=== PATIENT | female | born 1990 | race African-American/Black ===

== ENCOUNTER 2020-07-22 08:44 | Outpatient (REF) | payer MEDICAID, SELFPAY | END 2020-07-22 08:45 | disposition home or self-care (01) | LOC: HO.LAB 08:44 | PROVIDERS: PCP Family Medicine; Visit Provider Internal Medicine | DX: Z20.828 Contact with and (suspected) exposure to other viral communicable diseases (principal) | CPT/HCPCS: C9803; U0003 ==

== ENCOUNTER 2020-07-29 15:00 | Outpatient (REF) | payer MEDICAID, SELFPAY | END 2020-07-29 15:01 | disposition home or self-care (01) | LOC: HO.LAB 15:00 | PROVIDERS: PCP Family Medicine; Visit Provider Internal Medicine | DX: Z20.828 Contact with and (suspected) exposure to other viral communicable diseases (principal) | CPT/HCPCS: C9803; U0003 ==

== ENCOUNTER 2021-01-24 23:47 | Emergency (ER) | payer MEDICAID, SELFPAY ==
--- NOTE | ~2021-01-24 | CT_ITS ---
EXAMINATION: CT ABDOMEN AND PELVIS WITH CONTRAST CLINICAL INFORMATION: Severe epigastric pain COMPARISON: 05/13/2016 TECHNIQUE: Multidetector volumetric images were obtained from the superior aspect of the liver through the pubic symphysis following administration 85 mL of Omnipaque 350 intravenous contrast. Sagittal and coronal reformatted images were obtained on the technologist's workstation. Oral contrast: No This CT examination was performed using dose optimization techniques as appropriate, variously including the following: *Automated exposure control *Adjustment of mA and/or kV according to patient size (this includes techniques or standardized protocols for targeted exams where dose is matched to indication/reason for exam; i.e. extremities or head) *Use of iterative reconstruction technique DLP: 795 mGy-cm FINDINGS: LUNG BASES: The visualized lung bases are unremarkable. LIVER, GALLBLADDER, AND BILIARY TREE: The liver is normal in size, shape, and attenuation. No focal hepatic lesion or biliary ductal dilatation is present. The gallbladder is contracted with no evidence of radiopaque gallstones, gallbladder wall thickening, or obvious pericholecystic inflammatory changes. PANCREAS: Unremarkable. SPLEEN: Unremarkable. ADRENAL GLANDS: Unremarkable. KIDNEYS AND URETERS: The kidneys are normal in size, shape, and attenuation. No hydronephrosis, hydroureter, or calculi seen. No perinephric stranding. BLADDER: Unremarkable. GASTROINTESTINAL TRACT: Small hiatal hernia. The stomach is unremarkable. Normal caliber small bowel. There is no obstruction. Normal appendix. Mild colonic stool burden. No colonic wall thickening or acute inflammatory change. No free air. No free fluid. ABDOMINAL WALL: No significant hernia is appreciated. LYMPH NODES: Normal. VASCULAR: Unremarkable. PELVIC VISCERA: Anteverted uterus with IUD in place. No adnexal mass. OSSEOUS STRUCTURES: No acute or suspicious osseous abnormality. CT/CT abdomen pelvis w con IMPRESSION: No acute findings in the abdomen or pelvis. No inflammatory changes.
[2021-01-25 00:04] VITALS: BP 112/63; PULSE 80; RESP 18; TEMP 36.6; O2SAT 99; BMI 32.9
[2021-01-25 00:24] LABS: MANUAL DIFF FLAG NO
[2021-01-25 00:30] LABS: Basophils Percent Auto 0.1 % (0-2); Eosinophils Absolute Auto 0.2 X10*3/uL (0.0-0.4); Eosinophils Percent Auto 1.8 % (0-4); Hematocrit 32.9 % (37-47); Hemoglobin 10.4 g/dl (12.0-16.0); Imm Gran Abs Auto 0.03 X10*3/uL (0.00-0.03); Imm Gran Pct Auto 0.4 % (0.0-0.4); Lymphocytes Absolute Auto 2.8 X10*3/uL (1.2-4.9); Lymphocytes Percent Auto 33.5 % (20-40); Mean Corpuscular HGB Conc 31.6 g/dl (31.0-35.0); Mean Corpuscular Hemoglobin 28.7 pg (27.0-33.0); Mean Corpuscular Volume 90.6 fL (80-98); Mean Platelet Volume 10.6 fL (9.4-12.3); Monocytes Absolute Auto 0.5 X10*3/uL (0.1-1.2); Monocytes Percent Auto 5.7 % (2-11); Neutrophils Absolute Auto 4.8 X10*3/uL (2.0-8.3); Neutrophils Percent Auto 58.5 % (45-73); Platelet Count 258 X10*3/uL (160-400); Red Blood Count 3.63 X10*6/uL (4.20-5.50); Red Cell Distribution Width 12.9 % (11.0-16.0); White Blood Count 8.3 X10*3/uL (4.8-10.8)
[2021-01-25 00:38] VITALS: BP 119/71; PULSE 78; RESP 16; TEMP 36.8; O2SAT 99
[2021-01-25 00:53] LABS: Alanine Aminotransferase 10 U/L (0-31); Albumin Level 3.5 g/dL (3.5-5.0); Alkaline Phosphatase 73 U/L (39-117); Anion Gap 11 (12-20); Aspartate Amino Transferase 11 U/L (5-31); Bilirubin Total 0.2 mg/dL (0.0-1.0); Blood Urea Nitrogen 12 mg/dL (9-16); Calcium 8.2 mg/dL (8.4-10.2); Carbon Dioxide 24 mmol/L (22-29); Chloride 108 mmol/L (96-108); Creatinine Clr Calc Pharmacy 92.9; Estimated Glomerular Filt Rate > 60; Glucose Random 119 mg/dL (60-115); Potassium 3.4 mmol/L (3.3-5.1); Sodium 140 mmol/L (135-145); Total Protein 6.3 g/dL (6.5-8.0)
[2021-01-25 00:57] LABS: Glucose Urine UA NEG (NEG); Leukocyte Esterase Urine NEG (NEG); Nitrite Urine NEG (NEG); Specific Gravity - Urine >= 1.030 (1.005-1.025); Urine Blood 3+ (NEG); Urine Ketones NEG (NEG); Urine Protein NEG (NEG-TRACE)
[2021-01-25 01:00] LABS: UPreg QC Valid YES; Urine Pregnancy NEGATIVE (NEGATIVE)
[2021-01-25 01:01] LABS: Appearance Urine CLEAR; Color Urine YELLOW
[2021-01-25 01:16] LABS: Bacteria Urine TRACE /LPF; Mucus Urine 1+ /LPF; Squamous Epithelial Cell Urine 1+ /LPF; WBC Urine 0-2 /HPF (0-4)
--- NOTE | 2021-01-25 01:27 | ED.ABDPAIN ---
HPI - Abdominal Pain General Chief Complaint: Abdominal Pain Stated Complaint: abdominal pain Time Seen by Provider: 01/25/21 00:35 Source: patient Mode of arrival: ambulatory History of Present Illness HPI narrative: This is a 30-year-old female with history of GERD and currently on Prilosec being followed by her primary care provider who presents with worsening epigastric pain but denies any vomiting or hematemesis and denies any melena or hematochezia. Patient states that she is now unable to even tolerate water because of the pain. Related Data Previous Rx's Medication Instructions Recorded sucralfate [Carafate] 10 ml PO BID #420 ml 01/25/21 Allergies Allergy/AdvReac Type Severity Reaction Status Date / Time pseudoephedrine Allergy Unknown UNKNOWN Unverified 05/19/20 17:30 [From [facility]] Review of Systems Review of Systems Pertinent positives and negatives as stated in HPI 10 point review of systems is otherwise negative. Physical Exam Vital Signs: Vital Signs: Last Vital Signs Temp 98.3 F 01/25/21 00:38 Pulse 78 01/25/21 00:38 Resp 16 01/25/21 00:38 BP 119/71 01/25/21 00:38 Pulse Ox 99 01/25/21 00:38 Body Mass Index 32.9 VITAL SIGNS: Reviewed. GENERAL: Well developed, well nourished, in no acute distress. HEAD: Normocephalic/atraumatic EYES: PERRLA, EOMI EARS: Ext canals without abnormality NOSE: Nares patent bilateral OROPHARYNX: no oral lesions noted, posterior pharynx clear NECK: Supple, no adenopathy LUNGS: Normal breath sounds. No adventitious sounds or accessory muscle use. SpO2<99> CARDIOVASCULAR: Regular rate and rhythm without noted murmurs ABDOMEN: Soft, tenderness to palpation over epigastric, non-distended with bowel sounds. Course Course Course Narrative: This is a 30-year-old female with history and clinical presentation consistent with GERD and likely gastritis but suspect more like a ulcer. Review of all investigations is negative for any acute findings and on re-evaluation after patient received GI cocktail as well as Carafate she continues to have pain. She was then provided with a combination of Tylenol and Toradol and on re-evaluation had improvement. She was instructed to follow-up with her primary care provider and discussed a GI referral to further evaluate her symptoms. [facility] - Abdominal Pain Lab Data Result diagrams: 01/25/21 00:19 01/25/21 00:19 Labs: Lab Results 01/25/21 01/25/21 01/25/21 Range/Units 00:19 00:19 00:19 WBC 8.3 (4.8-10.8) X10*3/uL RBC 3.63 L (4.20-5.50) X10*6/uL Hgb 10.4 L (12.0-16.0) g/dl Hct 32.9 L (37-47) % MCV 90.6 (80-98) fL MCH 28.7 (27.0-33.0) pg MCHC 31.6 (31.0-35.0) g/dl RDW 12.9 (11.0-16.0) % Plt Count 258 (160-400) X10*3/uL MPV 10.6 (9.4-12.3) fL Immature Gran % (Auto) 0.4 (0.0-0.4) % Neut % (Auto) 58.5 (45-73) % Lymph % (Auto) 33.5 (20-40) % [place] % (Auto) 5.7 (2-11) % Eos % (Auto) 1.8 (0-4) % Baso % (Auto) 0.1 (0-2) % Lymph # (Auto) 2.8 (1.2-4.9) X10*3/uL [place] # (Auto) 0.5 (0.1-1.2) X10*3/uL Eos # (Auto) 0.2 (0.0-0.4) X10*3/uL Baso # (Auto) 0.0 (0.0-0.2) X10*3/uL Abs Immat Gran (auto) 0.03 (0.00-0.03) X10*3/uL Absolute Neuts (auto) 4.8 (2.0-8.3) X10*3/uL Absolute Nucleated RBC 0.000 (0.0-0.012) X10*3/uL Nucleated RBC % (auto) 0.0 (0.0-0.2) /100WBC Sodium 140 (135-145) mmol/L Potassium 3.4 (3.3-5.1) mmol/L Chloride 108 (96-108) mmol/L Carbon Dioxide 24 (22-29) mmol/L Anion Gap 11 L (12-20) BUN 12 (9-16) mg/dL Creatinine 0.86 (0.5-1.4) mg/dL Estim Creat Clear Calc 92.9 Estimated GFR > 60 Random Glucose 119 H (60-115) mg/dL Calcium 8.2 L (8.4-10.2) mg/dL Total Bilirubin 0.2 (0.0-1.0) mg/dL AST 11 (5-31) U/L ALT 10 (0-31) U/L Alkaline Phosphatase 73 (39-117) U/L Total Protein 6.3 L (6.5-8.0) g/dL Albumin 3.5 (3.5-5.0) g/dL Lipase 25 (8-78) U/L Urine Color YELLOW Urine Appearance CLEAR Urine pH 6.0 (5.0-8.0) Ur Specific [place] >= 1.030 H (1.005-1.025) Urine Protein NEG (NEG-TRACE) MG/DL Urine Glucose (UA) NEG (NEG) MG/DL Urine Ketones NEG (NEG) MG/DL Urine Blood 3+ H (NEG) Urine Nitrite NEG (NEG) Ur Leukocyte Esterase NEG (NEG) Urine RBC 15-29 H (0) /HPF Urine WBC 0-2 (0-4) /HPF Ur Squamous Epith Cells 1+ /LPF Urine Bacteria TRACE /LPF Urine Mucus 1+ /LPF Urine Test (NEGATIVE) 01/25/21 Range/Units 00:19 WBC (4.8-10.8) X10*3/uL RBC (4.20-5.50) X10*6/uL Hgb (12.0-16.0) g/dl Hct (37-47) % MCV (80-98) fL MCH (27.0-33.0) pg MCHC (31.0-35.0) g/dl RDW (11.0-16.0) % Plt Count (160-400) X10*3/uL MPV (9.4-12.3) fL Immature Gran % (Auto) (0.0-0.4) % Neut % (Auto) (45-73) % Lymph % (Auto) (20-40) % [place] % (Auto) (2-11) % Eos % (Auto) (0-4) % Baso % (Auto) (0-2) % Lymph # (Auto) (1.2-4.9) X10*3/uL [place] # (Auto) (0.1-1.2) X10*3/uL Eos # (Auto) (0.0-0.4) X10*3/uL Baso # (Auto) (0.0-0.2) X10*3/uL Abs Immat Gran (auto) (0.00-0.03) X10*3/uL Absolute Neuts (auto) (2.0-8.3) X10*3/uL Absolute Nucleated RBC (0.0-0.012) X10*3/uL Nucleated RBC % (auto) (0.0-0.2) /100WBC Sodium (135-145) mmol/L Potassium (3.3-5.1) mmol/L Chloride (96-108) mmol/L Carbon Dioxide (22-29) mmol/L Anion Gap (12-20) BUN (9-16) mg/dL Creatinine (0.5-1.4) mg/dL Estim Creat Clear Calc Estimated GFR Random Glucose (60-115) mg/dL Calcium (8.4-10.2) mg/dL Total Bilirubin (0.0-1.0) mg/dL AST (5-31) U/L ALT (0-31) U/L Alkaline Phosphatase (39-117) U/L Total Protein (6.5-8.0) g/dL Albumin (3.5-5.0) g/dL Lipase (8-78) U/L Urine Color Urine Appearance Urine pH (5.0-8.0) Ur Specific [place] (1.005-1.025) Urine Protein (NEG-TRACE) MG/DL Urine Glucose (UA) (NEG) MG/DL Urine Ketones (NEG) MG/DL Urine Blood (NEG) Urine Nitrite (NEG) Ur Leukocyte Esterase (NEG) Urine RBC (0) /HPF Urine WBC (0-4) /HPF Ur Squamous Epith Cells /LPF Urine Bacteria /LPF Urine Mucus /LPF Urine Test NEGATIVE (NEGATIVE) Discharge Plan Discharge Clinical Impression: Gastritis, Gastroesophageal reflux disease Patient Disposition: Home, Self-Care Instructions: Gastritis (ED), Diet for Stomach Ulcers and Gastritis (ED), Gastroesophageal Reflux Disease (ED) Additional Instructions: Follow-up with your primary care provider in the next 1-2 days for further re-evaluation and outpatient management of your symptoms. You need it began drinking a lot more water as the medication your getting a prescription for can create constipation. Return to the ER for any acute worsening of her symptoms. Prescriptions: New sucralfate [Carafate] 100 mg/mL suspension 10 ml PO BID Qty: 420 RF: 0 Referrals: Samira Michael MD [Primary Care Provider] - 2 days (Re-evaluation for gastritis versus ulcer. Started on Carafate b.i.d..) [facility] Past Medical History Source: nursing notes reviewed Medical History Acid reflux Asthma Social History Social History Alcohol intake: current Alcohol intake frequency: holidays/special occasions only Smoking Status: Never smoker Use of substances other than those prescribed or required for medical reasons: No Advance Directives: No Patient : No
[2021-01-25] MEDS: Lidocaine HCl Viscous 2 % 15 ML SOLUTION 10 ML MUCOUS MEM (01:39)
[2021-01-25] MEDS: Magnesium Hydrox/Alum Hydrox 30 ML ORAL.SUSP PO (01:39)
[2021-01-25] MEDS: Sucralfate Oral Suspension 1 GM/10 ML ORAL.SUSP PO (02:34)
[2021-01-25 02:54] LABS: Lipase 25 U/L (8-78)
[2021-01-25] MEDS: iohexoL 350 MG/ML 100 ML INFUS..BTL 85 ML IV (03:52)
[2021-01-25] MEDS: Acetaminophen 325 MG TABLET 650 MG PO (05:09)
[2021-01-25] MEDS: Ketorolac Tromethamine 15 MG/ML VIAL IVPUSH (05:11)
== END 2021-01-25 05:57 | disposition home or self-care (01) ==
PROVIDERS: Emergency Provider Student in an Organized Health Care Education/Training Program; PCP Family Medicine
DX: R10.9 Unspecified abdominal pain (principal); K29.70 Gastritis, unspecified, without bleeding; K21.9 Gastro-esophageal reflux disease without esophagitis; Z79.899 Other long term (current) drug therapy
CPT/HCPCS: 36415; 74177; 80053; 81001; 81003; 81025; 83690; 85025; 96365; 96375; 99284; J1885; Q9967

== ENCOUNTER → 2021-04-11 12:08 | Outpatient (BNVA) | payer MEDICAID, SELFPAY | PROVIDERS: Visit Provider Advanced Practice Midwife ==

== ENCOUNTER → 2021-04-21 08:38 | Outpatient (BNVA) | payer MEDICAID, SELFPAY | PROVIDERS: Visit Provider Advanced Practice Midwife | DX: Z30.432 Encounter for removal of intrauterine contraceptive device (principal) | CPT/HCPCS: 58301 ==

== ENCOUNTER → 2021-05-24 14:26 | Outpatient (BNVA) | payer MEDICAID, SELFPAY | PROVIDERS: Referring Provider Family Medicine; Visit Provider Nurse Practitioner Family | DX: K59.04 Chronic idiopathic constipation (principal); K21.9 Gastro-esophageal reflux disease without esophagitis | CPT/HCPCS: 99202 ==

== ENCOUNTER → 2021-06-15 09:39 | Outpatient (BNVA) | payer MEDICAID, SELFPAY | PROVIDERS: PCP Family Medicine; Visit Provider Advanced Practice Midwife | DX: Z32.02 Encounter for pregnancy test, result negative (principal); N92.6 Irregular menstruation, unspecified | CPT/HCPCS: 81025; 99212 ==

== ENCOUNTER 2021-07-03 07:21 | Outpatient (REF) | payer MEDICAID, SELFPAY ==
[2021-07-03 08:27] LABS: HCG Quantitative < 2 mIU/mL
== END 2021-07-03 07:22 | disposition home or self-care (01) ==
LOC: HO.LAB 07:21
PROVIDERS: Nurse Practitioner Family; PCP Family Medicine; Visit Provider Advanced Practice Midwife
DX: O26.90 Pregnancy related conditions, unspecified, unspecified trimester (principal); O26.899 Other specified pregnancy related conditions, unspecified trimester; K21.9 Gastro-esophageal reflux disease without esophagitis
CPT/HCPCS: 36415; 84702; 87338

== ENCOUNTER 2021-07-04 11:03 | Outpatient (REF) | payer MEDICAID, SELFPAY ==
--- NOTE | ~2021-07-04 | US_ITS ---
EXAMINATION: US OBSTETRICAL ULTRASOUND CLINICAL INFORMATION: Spotting and cramping. Question early spontaneous . COMPARISON: None. LMP: 04/06/2021 Gestational age by maternal dates is 12 weeks 5 days. Estimated date of delivery by maternal dates is 01/11/2022. TECHNIQUE: Transabdominal and transvaginal pelvic ultrasound was performed. Transvaginal exam was performed for better visualization of the endometrium FINDINGS: The uterus is anteverted and measures 8.3 x 4.4 x 5.2 cm in dimension. Endometrial thickness measures 0.9 cm and is slightly heterogeneous appearing. The endometrium does not appear hypervascular. No intrauterine is seen. The cervix is normal. The right ovary measures 3.7 x 2.3 x 3.9 cm. There is a 1.5 x 1.9 x 1.7 cm simple appearing cyst in the right ovary. There is a small 3 x 4 x 5 mm nonspecific echogenic focus in the right ovary. The left ovary is normal-appearing and measures 2.5 x 1.6 x 2.5 cm. There is no fluid in the pelvis. US/US OB pelvic and transvaginal IMPRESSION: No intrauterine seen. Slightly heterogeneous appearing avascular endometrium measuring 9 mm.
== END 2021-07-04 11:04 | disposition home or self-care (01) ==
LOC: HO.US 11:03
PROVIDERS: PCP Family Medicine; Visit Provider Advanced Practice Midwife
DX: O26.859 Spotting complicating pregnancy, unspecified trimester (principal); Z3A.00 Weeks of gestation of pregnancy not specified
CPT/HCPCS: 76801; 76817

== ENCOUNTER 2021-09-03 21:59 | Emergency (ER) | payer MEDICAID, SELFPAY ==
--- NOTE | ~2021-09-03 | XR_ITS ---
EXAMINATION: XR CHEST CLINICAL INFORMATION: Cough, chest pain and shortness of breath. COMPARISON: Chest radiograph dated from 10/05/2019. TECHNIQUE: 2 views of the chest were obtained. FINDINGS: No significant abnormality is noted involving the heart, lungs, mediastinum, bony thorax or soft tissues. XR/XR chest 2V IMPRESSION: Unremarkable examination.
[2021-09-03 22:03] VITALS: BP 148/91; PULSE 117; RESP 20; TEMP 36.8; O2SAT 100; BMI 34.7
--- NOTE | 2021-09-03 22:07 | ECG_ITS ---
Test Reason : chest tightness Blood Pressure : / mmHG Vent. Rate : 113 BPM Atrial Rate : 113 BPM P-R Int : 144 ms QRS Dur : 068 ms QT Int : 322 ms P-R-T Axes : 042 -02 022 degrees QTc Int : 441 ms Sinus tachycardia Otherwise normal ECG When compared with ECG of 05-OCT-2019 19:08, Vent. rate has increased BY 37 BPM Referred By: Generic ED Physician Electronically Signed By:JACINTO KISER MD
[2021-09-03 22:20] LABS: COVID-19 Test Positive (Negative)
[2021-09-04 00:36] VITALS: BP 137/80; PULSE 100; RESP 20; TEMP 37.6; O2SAT 100
[2021-09-04] MEDS: Acetaminophen 325 MG TABLET 975 MG PO (00:38)
--- NOTE | 2021-09-04 00:45 | ED.ANXIETY ---
HPI - Anxiety General Chief Complaint: Anxiety Stated Complaint: anxiety? chest pain, was covid + Time Seen by Provider: 09/04/21 00:20 Source: patient Mode of arrival: ambulatory Limitations: no limitations History of Present Illness HPI narrative: 31-year-old female here with reports of chest tightness with waking today. Patient also feels very anxious. She feels like her heart is racing. She any difficulty breathing, cough, fevers, chills, vomiting, diarrhea, abdominal pain. Her at home is COVID positive Related Data Home Medications Medication Instructions Recorded Confirmed cetirizine 10 mg tablet (Zyrtec) 10 mg PO DAILY PRN 04/11/21 Previous Rx's Medication Instructions Recorded vitamin with calcium 1 tab PO DAILY #30 tab 04/11/21 no.72-iron 27 mg-folic acid 1 mg tablet ( Vitamins Plus Low Iron) famotidine 20 mg tablet (Pepcid) 20 mg PO BEDTIME #30 tab 05/24/21 linaclotide 72 mcg capsule 72 mcg PO DAILY #30 cap 05/24/21 (Linzess) Allergies Allergy/AdvReac Type Severity Reaction Status Date / Time pseudoephedrine Allergy Unknown UNKNOWN Verified 09/03/21 22:03 [From [facility]] Review of Systems Review of Systems: Yes all other systems are reviewed and are negative Constitutional: Constitutional: Reports no additional constitutional complaints, Denies body ache(s), Denies chills, Denies fever(s), Denies headache(s) and Denies weakness Eyes: Eyes: Reports no additional eye complaints and Denies change in vision ENT: Reports system reviewed and no additional complaints, except as documented, Denies dizziness, Denies headache(s), Denies nasal congestion, Denies nasal discharge and Denies neck pain Cardiovascular: Cardiovascular: Reports no additional cardiovascular complaints, Reports chest pain, Denies leg edema, Reports palpitations and Denies dyspnea Respiratory: Respiratory: Reports no additional respiratory complaints, Denies cough and Denies dyspnea Gastrointestinal: Gastrointestinal: Reports no additional gastrointestinal complaints, Denies abdominal pain, Denies diarrhea, Denies nausea and Denies vomiting Genitourinary: Genitourinary: Reports no additional female genitourinary complaints and Denies urinary incontinence Musculoskeletal: Musculoskeletal: Reports no additional musculoskeletal complaints, Denies back pain, Denies arthralgias, Denies joint swelling, Denies neck pain, Denies numbness and Denies tingling Integumentary/Breasts: Skin/Breast: Reports system reviewed and no additional complaints, except as docu and Denies rash Neurologic: Reports system reviewed and no additional complaints, except as documented, Denies Abnormal speech present, Denies dizziness, Denies headache(s), Denies numbness, Denies tingling and Denies weakness Psychiatric: Psychiatric: Reports anxiety Endocrine: Endocrine: Reports palpitations PMFSH Past Medical History Attestation statement: The following information was validated with the patient. Source: old records reviewed and nursing notes reviewed Medical History Acid reflux Asthma IBS (irritable bowel syndrome) Surgical History Hx of colonoscopy Family History Family History Father Diabetes Mother Diabetes Social History Social History Alcohol intake: current Alcohol intake frequency: holidays/special occasions only Patient Tobacco Use Status: Never used Tobacco Advance Directives: No Advance Directives Information Provided: Yes Sexual orientation: Straight/Heterosexual Gender identity: Female Physical Exam Vital Signs: Vital Signs: Last Vital Signs Temp 99.7 F 09/04/21 00:36 Pulse 100 09/04/21 00:36 Resp 20 09/04/21 00:36 BP 137/80 09/04/21 00:36 Pulse Ox 100 09/04/21 00:36 BMI result Body Mass Index 34.7 Const: General: cooperative, healthy appearing, comfortable and no acute distress Orientation/consciousness: patient oriented x3 Limitations: no limitations HENMT: Head: Yes normal to inspection Ears: hearing grossly normal bilaterally General nose exam: Normal external nose present Face and sinus: Yes normal facial exam Mouth: Normal oral and palatal mucosa present Throat: Yes posterior oropharynx normal Eyes: General: appearance normal, both eyes and all related structures Pupils: Equal, round and reactive pupils present Neck: Neck: Yes normal visual inspection Chest: Chest palpation & inspection: normal inspection of the chest Resp: Effort & Inspection: normal respiratory effort Auscultation: clear to auscultation bilaterally Cardio: Rate: tachycardic (Mild) Rhythm: regular rhythm Peripheral pulses: Peripheral pulses 2+ throughout GI: Inspection: Yes normal to inspection Palpation (GI): Soft to palpation and nontender Auscultation: normal bowel sounds Back/Spine/Pelvis: Thoracic/Lumbar Spine: thoracic and lumbar spine normal to inspection Skin: General skin exam: no rashes or lesions noted Neuro: General: patient oriented x3, no focal motor deficits and normal sensation to monofilament Cranial nerves: Yes Equal, round and reactive pupils present Cognition (Neuro): normal cognition Speech: No Abnormal speech present Gait exam (Neuro): Normal gait present Motor exam (neuro): 5/5 motor strength present throughout Extrem: General: Yes normal to inspection, Yes no pedal edema and Yes no calf tenderness Course Course Course Narrative: 31-year-old female here with reports of chest tightness waking with some palpitations and feeling anxious. No other complaints. Has been at home is COVID positive. Patient has some mild tachycardia with a low-grade fever. Tachycardia is likely secondary to fever. Her vitals are otherwise unremarkable. Lungs are clear. Speaking full sentences. Will check chest x-ray, EKG. 0050-EKG shows no ischemic changes. There is some mild tachycardia which again is likely from fever and improved with resolved and of the fever here in the ER. Chest x-ray shows no acute finding. PERC 1 for tachycardia which is from fever. No other findings concerning for DVT. No OCP use, no recent travel or surgery. Reviewed worrisome signs and is with the patient when to return to the emergency department. Comfortable discharge home. MDM - Anxiety Medical Records Attestation: I reviewed the patient's medical records. Lab Data Attestation: I reviewed the patient's lab results. Labs: Lab Results 09/03/21 Range/Units 22:08 COVID-19 (ABEL) Positive A (Negative) COVID-19 Clin Com See Note Imaging Data Chest x-ray: Attestation: I personally reviewed and interpreted this imaging study as follows: Radiologist's impression: [address] [address] XRay Report Signed Patient: Dalia Freeman MR#: [id number] : 1990 Acct:[id number] Age/Sex: 31 / F ADM Date: 09/03/21 Loc: HO.ED Attending Dr: Ordering Physician: Afia Cedeno NP Date of Service: 09/04/21 Procedure(s): XR chest 2V Accession Number(s): [id number] cc: Afia Cedeno NP~ EXAMINATION: XR CHEST CLINICAL INFORMATION: Cough, chest pain and shortness of breath. COMPARISON: Chest radiograph dated from 10/05/2019. TECHNIQUE: 2 views of the chest were obtained. FINDINGS: No significant abnormality is noted involving the heart, lungs, mediastinum, bony thorax or soft tissues. XR/XR chest 2V IMPRESSION: Unremarkable examination. ECG Data Attestation: I personally reviewed and interpreted this ECG as follows: ECG interpretation date: 09/04/21 ECG interpretation time: 14:00 Interpretation: Sinus tachycardia with a rate of 113, normal UT, normal QRS normal QT Discharge Plan Discharge Clinical Impression: COVID-19 Patient Disposition: Home, Self-Care Instructions: COVID-19 (Coronavirus Disease 2019) (ED) Additional Instructions: Quarantine for total of 10 days from onset of sympoms. Alternate motrin or tylenol for pain or fever. Increase fluids, rest. Return for shortness of breath or chest pain. Prescriptions: No Action cetirizine [Zyrtec] 10 mg tablet 10 mg PO DAILY PRNRF: 0 Vitamin Plus Low Iron 27 mg iron- 1 mg tablet 1 tab PO DAILY Qty: 30 RF: 11 Linzess 72 mcg capsule 72 mcg PO DAILY Qty: 30 RF: 1 famotidine [Pepcid] 20 mg tablet 20 mg PO BEDTIME Qty: 30 RF: 3 Referrals: [facility] [Primary Care Provider] - 2 days Stand Alone Forms: Work/School Release Interventions: ED Discharge Assessment Last Done: 09/04/21 01:02 Discharge Date/Time: 09/04/21 01:03
== END 2021-09-04 01:03 | disposition home or self-care (01) ==
PROVIDERS: Emergency Provider Internal Medicine
DX: U07.1 COVID-19 (principal); J45.909 Unspecified asthma, uncomplicated
CPT/HCPCS: 36415; 71046; 87635; 93005; 99283; 99284

== ENCOUNTER → 2021-11-07 11:27 | Outpatient (BNVA) | payer MEDICAID, SELFPAY | PROVIDERS: PCP Family Medicine; Visit Provider Advanced Practice Midwife ==

== ENCOUNTER 2021-11-14 16:26 | Outpatient (REF) | payer MEDICAID, SELFPAY ==
--- NOTE | ~2021-11-14 | XR_ITS ---
EXAMINATION: LEFT FOOT AND LEFT ANKLE CLINICAL INFORMATION: Left foot pain COMPARISON: None TECHNIQUE: 3 views left foot and 3 views left ankle FINDINGS: LEFT FOOT: There is no visible acute fracture, dislocation or subluxation seen. The soft tissues are normal. LEFT ANKLE: The ankle mortise and subtalar joints are normal. There is small small calcaneal heel spur. There is mild lateral malleolar soft tissue swelling The ankle mortise and subtalar joints are normal. The soft tissues are normal. XR/XR foot LT min 3V IMPRESSION: Unremarkable left foot exam. Small calcaneal heel enthesophyte. Mild soft tissue swelling lateral malleolus likely ligamentous injury. No visible fracture.
--- NOTE | ~2021-11-14 | XR_ITS ---
EXAMINATION: LEFT FOOT AND LEFT ANKLE CLINICAL INFORMATION: Left foot pain COMPARISON: None TECHNIQUE: 3 views left foot and 3 views left ankle FINDINGS: LEFT FOOT: There is no visible acute fracture, dislocation or subluxation seen. The soft tissues are normal. LEFT ANKLE: The ankle mortise and subtalar joints are normal. There is small small calcaneal heel spur. There is mild lateral malleolar soft tissue swelling The ankle mortise and subtalar joints are normal. The soft tissues are normal. XR/XR ankle LT 2V IMPRESSION: Unremarkable left foot exam. Small calcaneal heel enthesophyte. Mild soft tissue swelling lateral malleolus likely ligamentous injury. No visible fracture.
== END 2021-11-14 16:27 | disposition home or self-care (01) ==
LOC: HO.XRAY 16:26
PROVIDERS: Absent Provider Family Medicine; PCP Family Medicine; Visit Provider Emergency Medicine
DX: M25.572 Pain in left ankle and joints of left foot (principal)
CPT/HCPCS: 73600; 73630

== ENCOUNTER 2021-12-07 08:24 | Outpatient (REF) | payer MEDICAID, SELFPAY ==
--- NOTE | ~2021-12-07 | XR_ITS ---
EXAMINATION: XR ANKLE, LEFT CLINICAL INFORMATION: Pain in the left ankle. COMPARISON: None TECHNIQUE: AP, lateral, and mortise views of the left ankle. FINDINGS: The ankle mortise and subtalar joints are normal. No visible acute fracture or dislocation seen. There is a small calcaneal heel enthesophyte. No visible acute fracture or dislocation seen. No soft tissue swelling. XR/XR ankle LT min 3V IMPRESSION: Small calcaneal heel enthesophyte. No visible acute fracture or dislocation seen.
== END 2021-12-07 08:25 | disposition home or self-care (01) ==
LOC: HO.XRAY 08:24
PROVIDERS: PCP Family Medicine; Visit Provider Family Medicine
DX: M25.572 Pain in left ankle and joints of left foot (principal)
CPT/HCPCS: 73610

== ENCOUNTER 2021-12-21 20:10 | Emergency (ER) | payer MEDICAID, SELFPAY ==
--- NOTE | ~2021-12-21 | XR_ITS ---
EXAMINATION: XR CHEST, 2 VIEWS CLINICAL INFORMATION: Chest pain. COMPARISON: 09/04/2021 TECHNIQUE: PA and lateral views of the chest were obtained. FINDINGS: Lung volumes are borderline low. No consolidation, pneumothorax, or pleural effusion. Cardiac and mediastinal contours are normal. Pulmonary vasculature is unremarkable. Trachea is midline. Osseous structures are unremarkable. XR/XR chest 2V IMPRESSION: No acute pulmonary findings. Borderline low lung volumes.
[2021-12-21 20:18] VITALS: BP 143/81; PULSE 107; RESP 23; TEMP 36.4; O2SAT 100; BMI 34.7
--- NOTE | 2021-12-21 20:20 | ECG_ITS ---
Test Reason : chest pain Blood Pressure : / mmHG Vent. Rate : 091 BPM Atrial Rate : 091 BPM P-R Int : 136 ms QRS Dur : 090 ms QT Int : 354 ms P-R-T Axes : 045 -02 017 degrees QTc Int : 435 ms Normal sinus rhythm with sinus arrhythmia Normal ECG When compared with ECG of 03-SEP-2021 22:14, No significant change was found Referred By: Generic ED Physician Electronically Signed By:JACINTO KISER MD
[2021-12-21 20:38] LABS: MANUAL DIFF FLAG NO
[2021-12-21 20:42] LABS: Basophils Percent Auto 0.2 % (0-2); Eosinophils Absolute Auto 0.1 X10*3/uL (0.0-0.4); Eosinophils Percent Auto 0.8 % (0-4); Imm Gran Abs Auto 0.03 X10*3/uL (0.00-0.03); Imm Gran Pct Auto 0.4 % (0.0-0.4); Lymphocytes Absolute Auto 1.8 X10*3/uL (1.2-4.9); Lymphocytes Percent Auto 21.4 % (20-40); Mean Corpuscular HGB Conc 32.4 g/dl (31.0-35.0); Mean Corpuscular Volume 89.4 fL (80.0-98.0); Mean Platelet Volume 10.4 fL (9.4-12.3); Monocytes Absolute Auto 0.5 X10*3/uL (0.1-1.2); Monocytes Percent Auto 5.4 % (2-11); Neutrophils Absolute Auto 6.1 x10*3/uL (2.0-8.3); Neutrophils Percent Auto 71.8 % (45-73); Platelet Count 271 X10*3/uL (160-400); Red Blood Count 4.14 X10*6/uL (4.20-5.50); Red Cell Distribution Width 12.9 % (11.0-16.0); White Blood Count 8.5 X10*3/uL (4.8-10.8)
[2021-12-21 20:49] VITALS: BP 133/82; PULSE 83; RESP 12; TEMP 37; O2SAT 99
[2021-12-21 20:52] LABS: Anion Gap 11 (12-20); Blood Urea Nitrogen 14 mg/dL (9-16); Calcium 9.1 mg/dL (8.4-10.2); Carbon Dioxide 27 mmol/L (22-29); Chloride 105 mmol/L (96-108); Creatinine Clr Calc Pharmacy 99.4; Estimated Glomerular Filt Rate > 60; Glucose Random 130 mg/dL (60-115); Potassium 3.8 mmol/L (3.3-5.1); Sodium 139 mmol/L (135-145)
[2021-12-21 21:00] LABS: Troponin-I High Sensitivity < 3.5 ng/L (<3.5-17.0)
[2021-12-21 21:01] VITALS: PULSE 76
--- NOTE | 2021-12-21 21:18 | ED_ITS ---
HPI - Chest Pain General Chief Complaint: Chest Pain Stated Complaint: Chest pain Time Seen by Provider: 12/21/21 21:12 Source: patient Mode of arrival: ambulatory Limitations: no limitations History of Present Illness HPI narrative: Patient comes to emergency room complaining of chest pain that started 1 hour prior to arrival. Patient states she was ordering food at [employer], patient has sudden sharp sensation on her chest. Patient continued having the pain. Patient denies shortness of breath. Related Data Home Medications Medication Instructions Recorded Confirmed cetirizine 10 mg tablet (Zyrtec) 10 mg PO DAILY PRN 04/11/21 Previous Rx's Medication Instructions Recorded famotidine 20 mg tablet (Pepcid) 20 mg PO BEDTIME #30 tab 05/24/21 linaclotide 72 mcg capsule 72 mcg PO DAILY #30 cap 05/24/21 (Linzess) Allergies Allergy/AdvReac Type Severity Reaction Status Date / Time pseudoephedrine Allergy Unknown UNKNOWN Verified 11/07/21 11:27 [From [facility]] Review of Systems Review of Systems: Constitutional : No Weight loss, No Fever, No Chills, No Night Sweats, No Fatigue, No Malaise ENT/Mouth : No Hearing loss, No Ear Pain, No Nasal Congestion, No Sinus Pain, No Hoarseness, No sore throat, No Rhinorrhea, No Swallowing Difficulty Eyes: No Eye Pain, No Swelling, No Redness, No Foreign Body, No Discharge, No Vision Changes Cardiovascular : Complaining of sharp chest pain, No SOB, No Dyspnea on Exertion, No Orthopnea, No Edema, No Palpitations Respiratory : No Cough, No Sputum, No Wheezing, No Smoke Exposure, No Dyspnea Gastrointestinal : No Nausea, No Vomiting, No Diarrhea, No Constipation, No abdominal Pain, No Hematochezia, No Melena Genitourinary : no irregular bleeding, No Dysuria, No Urinary Frequency, No Hematuria, No Urinary Incontinence, No Urgency, No Flank Pain, No Urinary Flow Changes, No Hesitancy Musculoskeletal : No joint pain, No Myalgias, No Joint Swelling Skin : No Skin Lesions, No rash Neuro : No Weakness, No Numbness, No Paresthesias, No Loss of Consciousness, No Dizziness, No Headache Psych : No Anxiety/Panic, No Depression, No SI/HI/AH/VH, No Social Issues, Heme/Lymph: No Bruising, No Bleeding,No Lymphadenopathy Endocrine : No Polyuria, No Polydipsia, No Temperature Intolerance [facility] Past Medical History Medical History Acid reflux Asthma IBS (irritable bowel syndrome) Surgical History Hx of colonoscopy Family History Family History Father Diabetes Mother Diabetes Social History Social History Alcohol intake: current Alcohol intake frequency: holidays/special occasions only Patient Tobacco Use Status: Never used Tobacco Advance Directives: No Advance Directives Information Provided: No Sexual orientation: Straight/Heterosexual Gender identity: Female Physical Exam Vital Signs: Vital Signs: Last Vital Signs Temp 98.6 F 12/21/21 20:49 Pulse 73 12/21/21 22:30 Resp 12 12/21/21 22:30 BP 133/82 12/21/21 20:49 Pulse Ox 98 12/21/21 22:30 BMI result Body Mass Index 34.7 Const: Other: Appearance: Alert. Oriented X3. No acute distress. Eyes: Pupils equal, round and reactive to light. ENT: Pharynx normal. Neck: Normal inspection. Neck supple. No lymph nodes noted. No crepitus CVS: Normal heart rate and rhythm. Pulses normal. Normal S1 and S2, reprod ucible chest pain to palpation midsternal and left side Respiratory: No respiratory distress. Breath sounds normal. No Wheezing. No rales Abdomen: Soft and nontender. No rigidity. No distention. Skin: Skin warm and dry. Normal skin color. Normal skin turgor. Extremities: No lower extremity edema. No Lacerations. No Rash Neuro: Oriented X 3. No motor deficit. No sensory deficit. Moving all extremities. No slurred speech. CN 2 through 12 grossly intact Psych: calm, cooperative, anxious Course Course Course Narrative: By the time that I saw the patient, patient's labs resolved, troponin negative, EKG negative, patient on the monitor having normal rate and rhythm. Repeat troponin and 1st dimer pending. Patient was given 1 dose aspirin Troponin x2 negative, dimer negative, EKG within normal limits no acute abnormalities. Patient feeling better. Patient's pain likely musculoskeletal MDM - Chest Pain Lab Data Result diagrams: 12/21/21 20:32 12/21/21 20:32 Labs: Lab Results 12/21/21 12/21/21 12/21/21 Range/Units 20:32 20:32 20:32 WBC 8.5 (4.8-10.8) X10*3/uL RBC 4.14 L (4.20-5.50) X10*6/uL Hgb 12.0 (12.0-16.0) g/dl Hct 37.0 (37.0-47.0) % MCV 89.4 (80.0-98.0) fL MCH 29.0 (27.0-33.0) pg MCHC 32.4 (31.0-35.0) g/dl RDW 12.9 (11.0-16.0) % Plt Count 271 (160-400) X10*3/uL MPV 10.4 (9.4-12.3) fL Immature Gran % (Auto) 0.4 (0.0-0.4) % Neut % (Auto) 71.8 (45-73) % Lymph % (Auto) 21.4 (20-40) % [place] % (Auto) 5.4 (2-11) % Eos % (Auto) 0.8 (0-4) % Baso % (Auto) 0.2 (0-2) % Lymph # (Auto) 1.8 (1.2-4.9) X10*3/uL [place] # (Auto) 0.5 (0.1-1.2) X10*3/uL Eos # (Auto) 0.1 (0.0-0.4) X10*3/uL Baso # (Auto) 0.0 (0.0-0.2) X10*3/uL Abs Immat Gran (auto) 0.03 (0.00-0.03) X10*3/uL Absolute Neuts (auto) 6.1 (2.0-8.3) x10*3/uL Absolute Nucleated RBC 0.000 (0.0-0.012) X10*3/uL Nucleated RBC % (auto) 0.0 (0.0-0.2) /100WBC D-Dimer High Sensitivty NG/ML Sodium 139 (135-145) mmol/L Potassium 3.8 (3.3-5.1) mmol/L Chloride 105 (96-108) mmol/L Carbon Dioxide 27 (22-29) mmol/L Anion Gap 11 L (12-20) BUN 14 (9-16) mg/dL Creatinine 0.82 (0.5-1.4) mg/dL Estim Creat Clear Calc 99.4 Estimated GFR > 60 Random Glucose 130 H (60-115) mg/dL Calcium 9.1 D (8.4-10.2) mg/dL Troponin I High Sens < 3.5 (<3.5-17.0) ng/L Beta HCG, Quant < 2 mIU/mL 12/21/21 12/21/21 Range/Units 22:17 22:17 WBC (4.8-10.8) X10*3/uL RBC (4.20-5.50) X10*6/uL Hgb (12.0-16.0) g/dl Hct (37.0-47.0) % MCV (80.0-98.0) fL MCH (27.0-33.0) pg MCHC (31.0-35.0) g/dl RDW (11.0-16.0) % Plt Count (160-400) X10*3/uL MPV (9.4-12.3) fL Immature Gran % (Auto) (0.0-0.4) % Neut % (Auto) (45-73) % Lymph % (Auto) (20-40) % [place] % (Auto) (2-11) % Eos % (Auto) (0-4) % Baso % (Auto) (0-2) % Lymph # (Auto) (1.2-4.9) X10*3/uL [place] # (Auto) (0.1-1.2) X10*3/uL Eos # (Auto) (0.0-0.4) X10*3/uL Baso # (Auto) (0.0-0.2) X10*3/uL Abs Immat Gran (auto) (0.00-0.03) X10*3/uL Absolute Neuts (auto) (2.0-8.3) x10*3/uL Absolute Nucleated RBC (0.0-0.012) X10*3/uL Nucleated RBC % (auto) (0.0-0.2) /100WBC D-Dimer High Sensitivty 194 NG/ML Sodium (135-145) mmol/L Potassium (3.3-5.1) mmol/L Chloride (96-108) mmol/L Carbon Dioxide (22-29) mmol/L Anion Gap (12-20) BUN (9-16) mg/dL Creatinine (0.5-1.4) mg/dL Estim Creat Clear Calc Estimated GFR Random Glucose (60-115) mg/dL Calcium (8.4-10.2) mg/dL Troponin I High Sens < 3.5 (<3.5-17.0) ng/L Beta HCG, Quant mIU/mL Imaging Data Chest x-ray: Radiologist's impression: Lung volumes are borderline low. No consolidation, pneumothorax, or pleural effusion. Cardiac and mediastinal contours are normal. Pulmonary vasculature is unremarkable. Trachea is midline. Osseous structures are unremarkable. XR/XR chest 2V IMPRESSION: No acute pulmonary findings. Borderline low lung volumes. Discharge Plan Discharge Clinical Impression: Atypical chest pain Patient Disposition: Home, Self-Care Instructions: Chest Pain (ED) Additional Instructions: Please follow-up with your primary care physician tomorrow. If you have any worsening or new symptoms, please return to the emergency room or call 911 Prescriptions: No Action cetirizine [Zyrtec] 10 mg tablet 10 mg PO DAILY PRN0RF Linzess 72 mcg capsule 72 mcg PO DAILY Qty: 30 1RF famotidine [Pepcid] 20 mg tablet 20 mg PO BEDTIME Qty: 30 3RF Referrals: Samira Michael MD [Primary Care Provider] - 2 days
[2021-12-21] MEDS: Aspirin Enteric Coated 325 MG TABLET.DR PO (21:37)
[2021-12-21 21:59] LABS: HCG Quantitative < 2 mIU/mL
[2021-12-21 22:30] VITALS: PULSE 73; RESP 12; O2SAT 98
[2021-12-21 22:30] LABS: D Dimer High Sensitivity 194 NG/ML
[2021-12-21 22:43] LABS: Troponin-I High Sensitivity < 3.5 ng/L (<3.5-17.0)
== END 2021-12-21 23:15 | disposition home or self-care (01) ==
PROVIDERS: Emergency Provider Emergency Medicine; PCP Family Medicine
DX: R07.89 Other chest pain (principal); Z79.899 Other long term (current) drug therapy
CPT/HCPCS: 36415; 71046; 80048; 84484; 84702; 85025; 85379; 93005; 99283; 99285

== ENCOUNTER → 2021-12-29 08:30 | Outpatient (BNVA) | payer MEDICAID, SELFPAY | PROVIDERS: PCP Family Medicine; Visit Provider Physician Assistant | DX: S93.402A Sprain of unspecified ligament of left ankle, initial encounter (principal) | CPT/HCPCS: 99202 ==

== ENCOUNTER 2022-02-02 12:55 | Outpatient (REF) | payer MEDICAID, SELFPAY ==
[2022-02-02 14:57] LABS: HCG Quantitative 244 mIU/mL
[2022-02-03 10:20] LABS: CT PCR NOT DETECTED (Not Detect.); NG PCR NOT DETECTED (Not Detect.)
[2022-02-03 10:25] LABS: BV Int Neg Control Negative (Negative); BV Int Pos Control Positive (Positive)
== END 2022-02-02 12:56 | disposition home or self-care (01) ==
LOC: HO.LAB 12:55
PROVIDERS: PCP Family Medicine; Visit Provider Advanced Practice Midwife
DX: O20.0 Threatened abortion (principal); Z87.42 Personal history of other diseases of the female genital tract; Z87.59 Personal history of other complications of pregnancy, childbirth and the puerperium
CPT/HCPCS: 36415; 84702; 87480; 87491; 87510; 87591; 87660; 99212

== ENCOUNTER 2022-02-04 07:30 | Outpatient (REF) | payer MEDICAID, SELFPAY ==
[2022-02-04 08:24] LABS: HCG Quantitative 421 mIU/mL
== END 2022-02-04 07:31 | disposition home or self-care (01) ==
LOC: HO.LAB 07:30
PROVIDERS: Visit Provider Obstetrics & Gynecology
DX: Z32.01 Encounter for pregnancy test, result positive (principal)
CPT/HCPCS: 36415; 84702

== ENCOUNTER 2022-02-06 07:28 | Outpatient (REF) | payer MEDICAID, SELFPAY ==
[2022-02-06 08:12] LABS: HCG Quantitative 877 mIU/mL
== END 2022-02-06 07:29 | disposition home or self-care (01) ==
LOC: HO.LAB 07:28
PROVIDERS: PCP Family Medicine; Visit Provider Advanced Practice Midwife
DX: O20.0 Threatened abortion (principal)
CPT/HCPCS: 36415; 84702

== ENCOUNTER 2022-02-08 07:56 | Outpatient (REF) | payer MEDICAID, SELFPAY ==
[2022-02-08 09:08] LABS: HCG Quantitative 2033 mIU/mL
== END 2022-02-08 07:57 | disposition home or self-care (01) ==
LOC: HO.LAB 07:56
PROVIDERS: PCP Family Medicine; Visit Provider Advanced Practice Midwife
DX: N92.6 Irregular menstruation, unspecified (principal); Z87.59 Personal history of other complications of pregnancy, childbirth and the puerperium
CPT/HCPCS: 36415; 84702

== ENCOUNTER 2022-02-17 06:57 | Emergency (ER) | payer MEDICAID, SELFPAY ==
[2022-02-17 07:01] VITALS: BP 126/74; PULSE 100; RESP 19; TEMP 36.6; O2SAT 98; BMI 35.8
[2022-02-17] MEDS: hydrOXYzine HCL 25 MG TABLET PO (08:02)
[2022-02-17 08:14] LABS: Appearance Urine HAZY; Color Urine YELLOW; Glucose Urine UA NEG (NEG); Leukocyte Esterase Urine 2+ (NEG); Nitrite Urine NEG (NEG); Specific Gravity - Urine 1.025 (1.005-1.025); UACC Culture Trigger YES; Urine Blood NEG (NEG); Urine Ketones 5 MG/DL (NEG); Urine Protein TRACE MG/DL (NEG-TRACE)
[2022-02-17 08:27] LABS: Bacteria Urine 3+ /LPF; Squamous Epithelial Cell Urine 3+ /LPF
== END 2022-02-17 08:07 | disposition left against medical advice (07) ==
PROVIDERS: Emergency Provider Student in an Organized Health Care Education/Training Program; PCP Family Medicine
DX: O26.91 Pregnancy related conditions, unspecified, first trimester (principal); O99.341 Other mental disorders complicating pregnancy, first trimester; Z3A.01 Less than 8 weeks gestation of pregnancy
CPT/HCPCS: 81001; 87086; 99283; 99284

== ENCOUNTER 2022-02-23 09:51 | Outpatient (REF) | payer MEDICAID, SELFPAY ==
--- NOTE | ~2022-02-23 | US_ITS ---
EXAMINATION: OBSTETRICAL ULTRASOUND, FIRST TRIMESTER HISTORY: 31-year-old with the irregular LMP LMP: 01/01/2022 (uncertain) COMPARISON: 12/21/2021 TECHNIQUE: Real time transabdominal imaging with color and M-mode Doppler. Transvaginal ultrasound was performed to better visualize the IUP. FINDINGS: A single, live IUP CRL of 7 mm c/w 6.5wks is noted. Heart Rate: 128 beats per minute. Both maternal ovaries are seen and appear normal. GESTATIONAL AGE: 1. GA from LMP: 7.4 wks 2. GA from AUA: 6.5 wks ESTIMATED DATE OF DELIVERY: 1. RIOS from LMP: 10/14/2022 2. RIOS from AUA: 10/08/2022 US/US OB transvaginal IMPRESSION: 1. A single live IUP 2. S<D 3. CRL consistent with 6 weeks 5 days. 4. Adjust her RIOS to 10/08/2022 based on today's examination Follow up at the approximately 12 weeks for NT evaluation is suggested (not scheduled). Thank you very much for this referral. This note was generated with a voice recognition program. Please excuse any errors which may have been overlooked during my review of this note. Sometimes these errors may affect the content or meaning of a given sentence.
--- NOTE | ~2022-02-23 | US_ITS ---
EXAMINATION: OBSTETRICAL ULTRASOUND, FIRST TRIMESTER HISTORY: 31-year-old with the irregular LMP LMP: 01/01/2022 (uncertain) COMPARISON: 12/21/2021 TECHNIQUE: Real time transabdominal imaging with color and M-mode Doppler. Transvaginal ultrasound was performed to better visualize the IUP. FINDINGS: A single, live IUP CRL of 7 mm c/w 6.5wks is noted. Heart Rate: 128 beats per minute. Both maternal ovaries are seen and appear normal. GESTATIONAL AGE: 1. GA from LMP: 7.4 wks 2. GA from AUA: 6.5 wks ESTIMATED DATE OF DELIVERY: 1. RIOS from LMP: 10/14/2022 2. RIOS from AUA: 10/08/2022 US/US OB <= 14 weeks fetus IMPRESSION: 1. A single live IUP 2. S<D 3. CRL consistent with 6 weeks 5 days. 4. Adjust her RIOS to 10/08/2022 based on today's examination Follow up at the approximately 12 weeks for NT evaluation is suggested (not scheduled). Thank you very much for this referral. This note was generated with a voice recognition program. Please excuse any errors which may have been overlooked during my review of this note. Sometimes these errors may affect the content or meaning of a given sentence.
== END 2022-02-23 09:52 | disposition home or self-care (01) ==
LOC: HO.US 09:51
PROVIDERS: Visit Provider Advanced Practice Midwife
DX: N92.6 Irregular menstruation, unspecified (principal)
CPT/HCPCS: 76801; 76817

== ENCOUNTER 2022-03-01 20:40 | Emergency (ER) | payer MEDICAID, SELFPAY ==
[2022-03-01 20:43] VITALS: BP 133/80; PULSE 113; RESP 18; TEMP 36.4; O2SAT 100; BMI 35.8
--- NOTE | 2022-03-01 20:43 | ECG_ITS ---
Test Reason : palpitations Blood Pressure : / mmHG Vent. Rate : 119 BPM Atrial Rate : 119 BPM P-R Int : 164 ms QRS Dur : 070 ms QT Int : 304 ms P-R-T Axes : 053 -02 011 degrees QTc Int : 427 ms Sinus tachycardia Nonspecific T wave abnormality Abnormal ECG When compared with ECG of 21-DEC-2021 20:17, Nonspecific T wave abnormality, worse in Anterior leads Referred By: Generic ED Physician Electronically Signed By:ALYSSA CHRISTINA
[2022-03-01 21:07] LABS: MANUAL DIFF FLAG NO
[2022-03-01 21:09] LABS: Basophils Percent Auto 0.3 % (0-2); Eosinophils Absolute Auto 0.1 X10*3/uL (0.0-0.4); Eosinophils Percent Auto 0.6 % (0-4); Hematocrit 33.9 % (37.0-47.0); Hemoglobin 11.1 g/dl (12.0-16.0); Imm Gran Abs Auto 0.02 X10*3/uL (0.00-0.03); Imm Gran Pct Auto 0.2 % (0.0-0.4); Lymphocytes Absolute Auto 2.5 X10*3/uL (1.2-4.9); Lymphocytes Percent Auto 23.9 % (20-40); Mean Corpuscular HGB Conc 32.7 g/dl (31.0-35.0); Mean Corpuscular Hemoglobin 28.9 pg (27.0-33.0); Mean Corpuscular Volume 88.3 fL (80.0-98.0); Mean Platelet Volume 10.2 fL (9.4-12.3); Monocytes Absolute Auto 0.6 X10*3/uL (0.1-1.2); Monocytes Percent Auto 5.4 % (2-11); Neutrophils Absolute Auto 7.3 x10*3/uL (2.0-8.3); Neutrophils Percent Auto 69.6 % (45-73); Platelet Count 272 X10*3/uL (160-400); Red Blood Count 3.84 X10*6/uL (4.20-5.50); Red Cell Distribution Width 13.5 % (11.0-16.0); White Blood Count 10.5 X10*3/uL (4.8-10.8)
[2022-03-01 21:25] LABS: Alanine Aminotransferase 25 U/L (0-31); Albumin Level 3.8 g/dL (3.5-5.0); Alkaline Phosphatase 73 U/L (39-117); Anion Gap 11 (12-20); Aspartate Amino Transferase 22 U/L (5-31); Bilirubin Total 0.2 mg/dL (0.0-1.0); Blood Urea Nitrogen 11 mg/dL (9-16); Calcium 8.9 mg/dL (8.4-10.2); Carbon Dioxide 24 mmol/L (22-29); Chloride 103 mmol/L (96-108); Creatinine Clr Calc Pharmacy 113.5; Estimated Glomerular Filt Rate > 60; Glucose Random 121 mg/dL (60-115); Potassium 3.4 mmol/L (3.3-5.1); Sodium 135 mmol/L (135-145)
[2022-03-01 21:31] LABS: Troponin-I High Sensitivity < 3.5 ng/L (<3.5-17.0)
[2022-03-02 02:08] VITALS: BP 119/80; PULSE 82; RESP 18; TEMP 36.8; O2SAT 100
--- NOTE | 2022-03-02 02:48 | ED_ITS ---
HPI - Arrhythmia/Palpitations General Chief Complaint: Arrhythmia/Palpitations Stated Complaint: heart palpations, nausea Time Seen by Provider: 03/02/22 02:48 Source: patient Mode of arrival: ambulatory Limitations: no limitations History of Present Illness HPI narrative: Patient came here for his episode of palpitation which happened a 2nd time in last few months patient was standing cooking all of a sudden she noticed heart rate was racing and felt dizzy similar episode happen in December when she was told she has anxiety patient denies any anxiety at this time no chest pain or shortness of breath Related Data Home Medications Medication Instructions Recorded Confirmed cetirizine 10 mg tablet (Zyrtec) 10 mg PO DAILY PRN 04/11/21 Previous Rx's Medication Instructions Recorded famotidine 20 mg tablet (Pepcid) 20 mg PO BEDTIME #30 tabs 05/24/21 linaclotide 72 mcg capsule 72 mcg PO DAILY #30 caps 05/24/21 (Linzess) vitamin with calcium 1 tab PO DAILY #30 tabs 02/02/22 no.72-iron 27 mg-folic acid 1 mg tablet ( Vitamins Plus Low Iron) Allergies Allergy/AdvReac Type Severity Reaction Status Date / Time pseudoephedrine Allergy Unknown UNKNOWN Verified 03/01/22 20:47 [From [facility]] Review of Systems Review of Systems: Yes all other systems are reviewed and are negative [facility] Past Medical History Medical History Acid reflux Asthma IBS (irritable bowel syndrome) Surgical History Hx of colonoscopy Family History Family History Father Diabetes Mother Diabetes Social History Social History Alcohol intake: never Patient Tobacco Use Status: Never used Tobacco Use of substances other than those prescribed or required for medical reasons: No Advance Directives: No Sexual orientation: Straight/Heterosexual Gender identity: Female Physical Exam Vital Signs: Vital Signs: Last Vital Signs Temp 98.2 F 03/02/22 02:08 Pulse 82 03/02/22 02:08 Resp 18 03/02/22 02:08 BP 119/80 03/02/22 02:08 Pulse Ox 100 03/02/22 02:08 O2 Del Method 03/02/22 02:08 BMI result Body Mass Index 35.8 Appearance: Alert. Oriented X3. No acute distress. Eyes: PERRLA, No Nystagmus ENT: Pharynx normal. Oral Mucosa moist Neck: Normal inspection. Neck supple. CVS: Normal heart rate and rhythm. Pulses normal. No murmur/rub or gallop Respiratory: No respiratory distress. Equal air entry bilateral, no wh eezing/rales/rhonchi Abdomen: Soft and nontender. Bowel sounds are present, no mass palpable, no CVA tenderness Skin: Skin warm and dry. Normal skin color. Normal skin turgor. Extremities: No lower extremity edema. No calf tenderness Neuro: Oriented X 3. No motor deficit. No sensory deficit.No cerebellar signs , cranial nerves II-XII intact MDM - Arrhythmia/Palpitations MDM Narrative Medical decision making narrative: Patient heart rate while lying down is around 80s when she stood up heart rate increased to 120 sinus tachycardia likely patient has POTS syndrome patient fin denies had dizziness on standing at this time. Will discharge patient home advised to drink increased fluids and have extra salt patient is supposed to see a assistant counsel next week Differential Diagnosis Differential diagnosis: Likely palpitations Lab Data Attestation: I reviewed the patient's lab results. Result diagrams: 03/01/22 20:59 03/01/22 20:59 Labs: Lab Results 03/01/22 03/01/22 03/01/22 Range/Units 20:59 20:59 20:59 WBC 10.5 (4.8-10.8) X10*3/uL RBC 3.84 L (4.20-5.50) X10*6/uL Hgb 11.1 L (12.0-16.0) g/dl Hct 33.9 L (37.0-47.0) % MCV 88.3 (80.0-98.0) fL MCH 28.9 (27.0-33.0) pg MCHC 32.7 (31.0-35.0) g/dl RDW 13.5 (11.0-16.0) % Plt Count 272 (160-400) X10*3/uL MPV 10.2 (9.4-12.3) fL Immature Gran % (Auto) 0.2 (0.0-0.4) % Neut % (Auto) 69.6 (45-73) % Lymph % (Auto) 23.9 (20-40) % [place] % (Auto) 5.4 (2-11) % Eos % (Auto) 0.6 (0-4) % Baso % (Auto) 0.3 (0-2) % Lymph # (Auto) 2.5 (1.2-4.9) X10*3/uL [place] # (Auto) 0.6 (0.1-1.2) X10*3/uL Eos # (Auto) 0.1 (0.0-0.4) X10*3/uL Baso # (Auto) 0.0 (0.0-0.2) X10*3/uL Abs Immat Gran (auto) 0.02 (0.00-0.03) X10*3/uL Absolute Neuts (auto) 7.3 (2.0-8.3) x10*3/uL Absolute Nucleated RBC 0.000 (0.0-0.012) X10*3/uL Nucleated RBC % (auto) 0.0 (0.0-0.2) /100WBC Sodium 135 (135-145) mmol/L Potassium 3.4 (3.3-5.1) mmol/L Chloride 103 (96-108) mmol/L Carbon Dioxide 24 (22-29) mmol/L Anion Gap 11 L (12-20) BUN 11 (9-16) mg/dL Creatinine 0.73 (0.5-1.4) mg/dL Estim Creat Clear Calc 113.5 Estimated GFR > 60 Random Glucose 121 H (60-115) mg/dL Calcium 8.9 (8.4-10.2) mg/dL Total Bilirubin 0.2 (0.0-1.0) mg/dL AST 22 D (5-31) U/L ALT 25 (0-31) U/L Alkaline Phosphatase 73 (39-117) U/L Troponin I High Sens < 3.5 (<3.5-17.0) ng/L Total Protein 7.0 (6.5-8.0) g/dL Albumin 3.8 (3.5-5.0) g/dL ECG Data Attestation: I personally reviewed and interpreted this ECG as follows: Interpretation: Sinus tachycardia heart rate 119 normal interval normal axis no acute ST changes no acute ischemia Discharge Plan Discharge Clinical Impression: POTS (postural orthostatic tachycardia syndrome) Patient Disposition: Home, Self-Care Instructions: Tachycardia (ED) Additional Instructions: Likely have POTS syndrome which happens while standing For now increase water intake and have extra salt Take your own time while standing if you feel dizzy sit down Prescriptions: No Action cetirizine [Zyrtec] 10 mg tablet 10 mg PO DAILY PRN Linzess 72 mcg capsule 72 mcg PO DAILY Qty: 30 1RF famotidine [Pepcid] 20 mg tablet 20 mg PO BEDTIME Qty: 30 3RF Vitamin Plus Low Iron 27 mg iron- 1 mg tablet 1 tab PO DAILY Qty: 30 11RF
== END 2022-03-02 03:05 | disposition home or self-care (01) ==
PROVIDERS: Emergency Provider Internal Medicine
DX: I49.8 Other specified cardiac arrhythmias (principal); R00.2 Palpitations; Z79.899 Other long term (current) drug therapy
CPT/HCPCS: 36415; 80053; 84484; 85025; 93005; 99212; 99283; 99284

== ENCOUNTER 2022-03-03 09:05 | Emergency (ER) | payer MEDICAID, SELFPAY ==
[2022-03-03] VITALS (7 sets, daily range): BP systolic 116–134; BP diastolic 64–82; PULSE 75–116; RESP 13–18; TEMP 36.6–36.9; O2SAT 97–100; BMI 35.8
--- NOTE | ~2022-03-03 | XR_ITS ---
EXAMINATION: XR CHEST CLINICAL INFORMATION: Chest pain COMPARISON: Chest x-ray 12/21/2021 TECHNIQUE: 2 views of the chest were obtained. FINDINGS: The lungs are clear. No airspace consolidation, pleural effusion, or pneumothorax. The cardiomediastinal silhouette is within normal limits. No acute osseous injury. XR/XR chest 2V IMPRESSION: No acute pulmonary process.
--- NOTE | ~2022-03-03 | NM_ITS ---
PULMONARY PERFUSION STUDY: CLINICAL INDICATION: High d-dimer, chest pain, patient. COMPARISON: Chest x-ray 03/03/2022 PROCEDURE: Following following the intravenous administration of 1 millicuries technetium 99m MAA, images of the chest were again obtained in multiple projections using a gamma scintophoto camera. PERFUSION IMAGES: No segmental perfusion defects or other perfusion abnormalities are noted. NM/NM pul perfusion IMPRESSION: 1. No scintigraphic evidence of pulmonary embolus.
--- NOTE | 2022-03-03 09:09 | ECG_ITS ---
Test Reason : cp Blood Pressure : / mmHG Vent. Rate : 099 BPM Atrial Rate : 099 BPM P-R Int : 124 ms QRS Dur : 070 ms QT Int : 328 ms P-R-T Axes : 052 010 010 degrees QTc Int : 420 ms Normal sinus rhythm Normal ECG When compared with ECG of 01-MAR-2022 20:49, Nonspecific T wave abnormality, improved in Anterior leads Referred By: Generic ED Physician Electronically Signed By:ALYSSA CHRISTINA
[2022-03-03 11:55] LABS: Appearance Urine HAZY; Color Urine YELLOW; Glucose Urine UA NEG (NEG); Leukocyte Esterase Urine TRACE (NEG); Nitrite Urine NEG (NEG); Urine Blood NEG (NEG); Urine Ketones 40 MG/DL (NEG); Urine Protein TRACE MG/DL (NEG-TRACE)
[2022-03-03 12:02] LABS: COVID-19 Test Negative (Negative); IDNOW Serial# 16C4AD1C
[2022-03-03 12:05] LABS: MANUAL DIFF FLAG NO
[2022-03-03 12:15] LABS: Basophils Percent Auto 0.2 % (0-2); Eosinophils Percent Auto 0.1 % (0-4); Hematocrit 38.3 % (37.0-47.0); Hemoglobin 12.4 g/dl (12.0-16.0); Imm Gran Abs Auto 0.02 X10*3/uL (0.00-0.03); Imm Gran Pct Auto 0.2 % (0.0-0.4); Lymphocytes Absolute Auto 1.3 X10*3/uL (1.2-4.9); Lymphocytes Percent Auto 14.9 % (20-40); Mean Corpuscular HGB Conc 32.4 g/dl (31.0-35.0); Mean Corpuscular Hemoglobin 28.8 pg (27.0-33.0); Mean Corpuscular Volume 89.1 fL (80.0-98.0); Mean Platelet Volume 10.5 fL (9.4-12.3); Monocytes Absolute Auto 0.4 X10*3/uL (0.1-1.2); Monocytes Percent Auto 4.2 % (2-11); Neutrophils Absolute Auto 6.9 x10*3/uL (2.0-8.3); Neutrophils Percent Auto 80.4 % (45-73); Platelet Count 282 X10*3/uL (160-400); Red Cell Distribution Width 13.6 % (11.0-16.0); White Blood Count 8.6 X10*3/uL (4.8-10.8)
[2022-03-03 12:16] LABS: Bacteria Urine 4+ /LPF; RBC Urine 0 /HPF (0); Squamous Epithelial Cell Urine 3+ /LPF
--- NOTE | 2022-03-03 12:16 | ED.CHESTPAIN ---
HPI - Chest Pain General Chief Complaint: Chest Pain <MARIA LUZ Hutchinson - Last Filed: 03/03/22 18:14> Stated Complaint: chest pains/shakiness <MARIA LUZ Hutchinson Last Filed: 03/03/22 18:14> Time Seen by Provider: 03/03/22 10:41 <MARIA LUZ Hutchinson Last Filed: 03/03/22 18:14> Source: patient <MARIA LUZ Hutchinson Last Filed: 03/03/22 18:14> Mode of arrival: ambulatory <MARIA LUZ Hutchinson Last Filed: 03/03/22 18:14> Limitations: no limitations <MARIA LUZ Hutchinson Last Filed: 03/03/22 18:14> History of Present Illness HPI narrative: 31-year-old female who is 8 weeks presents for her palpitations and chest tightness on exertion. Patient was seen here in the emergency room yesterday, diagnosed with POTS syndrome and told to increase fluids and increase salt intake. Patient also saw her endocrinology teacher yesterday, note states that patient had been experiencing heart palpitations, and has a cardiology follow-up on February 05. OB note states preeclampsia not a concern in 1st trimester Today, patient returns because she feels weak, she states her heart races when she walks, and her chest feels tight when she walks. States she only has these symptoms on exertion, not at rest. States she has no shortness of breath on exertion. States the chest tightness feels like a pinching. States that she feels weak, and states when she lays down she feels like cold water is running through her entire body. She also says when her heart rate is fast, she has a sensation of needing to have a bowel movement, and then she has diarrhea. This has been happening since December, for the last 2 months. However, she has only had the chest tightness since last night. No fevers, no pelvic pain, no vaginal discharge, no vaginal bleeding. Patient is , and had normal for full-term vaginal deliveries with her 3 other children. Ultrasound on February 23 confirmed intrauterine <MARIA LUZ Hutchinson Last Filed: 03/03/22 18:14> Related Data Home Medications: Home Medications Medication Instructions Recorded Confirmed cetirizine 10 mg tablet (Zyrtec) 10 mg PO DAILY PRN 04/11/21 Previous Rx's Medication Instructions Recorded famotidine 20 mg tablet (Pepcid) 20 mg PO BEDTIME #30 tabs 05/24/21 linaclotide 72 mcg capsule 72 mcg PO DAILY #30 caps 05/24/21 (Linzess) vitamin with calcium 1 tab PO DAILY #30 tabs 02/02/22 no.72-iron 27 mg-folic acid 1 mg tablet ( Vitamins Plus Low Iron) cephalexin 500 mg capsule 500 mg PO Q6H 7 days #28 caps 03/03/22 <MARIA LUZ Hutchinson Last Filed: 03/03/22 18:14> Allergies/Adverse Reactions: Allergies Allergy/AdvReac Type Severity Reaction Status Date / Time pseudoephedrine Allergy Unknown UNKNOWN Verified 03/02/22 15:27 [From [facility]] <MARIA LUZ Hutchinson Last Filed: 03/03/22 18:14> Review of Systems Constitutional: Constitutional: Denies body ache(s), Denies chills, Denies fatigue, Denies fever(s), Denies headache(s), Denies malaise and Denies weakness <MARIA LUZ Hutchinson Last Filed: 03/03/22 18:14> Eyes: Eyes: Denies diplopia <MARIA LUZ Hutchinson Last Filed: 03/03/22 18:14> ENT: Denies vertigo, Denies dizziness, Denies otalgia, Denies headache(s), Denies mouth pain, Denies post nasal drip, Denies sinus pain, Denies sinus pressure, Denies sore throat and Denies throat swelling <MARIA LUZ Hutchinson Last Filed: 03/03/22 18:14> Cardiovascular: Cardiovascular: Reports chest pain, Denies syncope, Denies leg edema, Denies lightheadedness, Denies Loss of Consciousness, Reports palpitations and Denies dyspnea <MARIA LUZ Hutchinson Last Filed: 03/03/22 18:14> Respiratory: Respiratory: Denies chest congestion, Denies cough and Denies dyspnea <MARIA LUZ Hutchinson Last Filed: 03/03/22 18:14> Gastrointestinal: Gastrointestinal: Denies abdominal pain, Denies hematochezia, Denies constipation, Reports diarrhea, Denies nausea and Denies vomiting <MARIA LUZ Hutchinson - Last Filed: 03/03/22 18:14> Musculoskeletal: Musculoskeletal: Reports no additional musculoskeletal complaints <MARIA LUZ Hutchinson - Last Filed: 03/03/22 18:14> Neurologic: Denies confusion, Denies vertigo, Denies dizziness, Denies syncope, Denies headache(s) and Denies weakness <MARIA LUZ Hutchinson - Last Filed: 03/03/22 18:14> Psychiatric: Psychiatric: Denies anxiety, Denies confusion and Denies depression <MARIA LUZ Hutchinson - Last Filed: 03/03/22 18:14> Endocrine: Endocrine: Denies fatigue and Reports palpitations <MARIA LUZ Hutchinson - Last Filed: 03/03/22 18:14> Allergic/Immunologic: Allergic/Immunologic: Denies throat swelling <MARIA LUZ Hutchinson - Last Filed: 03/03/22 18:14> [facility] Past Medical History Medical History: Medical History Acid reflux Anxiety Asthma IBS (irritable bowel syndrome) <MARIA LUZ Hutchinson - Last Filed: 03/03/22 18:14> Surgical History: Surgical History Hx of colonoscopy <MARIA LUZ Hutchinson - Last Filed: 03/03/22 18:14> Family History Family History: Family History Father Diabetes Mother Diabetes <MARIA LUZ Hutchinson Last Filed: 03/03/22 18:14> Social History Social History: Social History Alcohol intake: never Patient Tobacco Use Status: Never used Tobacco Use of substances other than those prescribed or required for medical reasons: No Advance Directives: No Advance Directives Information Provided: Yes Sexual orientation: Straight/Heterosexual Gender identity: Female <MARIA LUZ Hutchinson - Last Filed: 03/03/22 18:14> Physical Exam Vital Signs: Vital Signs: Last Vital Signs Temp 98.4 F 03/03/22 12:58 Pulse 91 03/03/22 18:00 Resp 13 03/03/22 18:00 BP 117/73 03/03/22 18:00 Pulse Ox 100 03/03/22 18:00 O2 Del Method 03/03/22 18:00 BMI result Body Mass Index 35.8 <Michaela Ferrera [facility] Last Filed: 03/03/22 18:14> Vital Signs: Last Vital Signs Temp 98.4 F 03/03/22 12:58 Pulse 91 03/03/22 18:00 Resp 13 03/03/22 18:00 BP 117/73 03/03/22 18:00 Pulse Ox 100 03/03/22 18:00 O2 Del Method 03/03/22 18:00 BMI result Body Mass Index 35.8 <Katty Hargrove [place] - Last Filed: 03/03/22 19:21> Const: General: No confusion <Michaela Ferrera [facility] Last Filed: 03/03/22 18:14> Nutritional Appearance: well nourished <Michaela Ferrera [place] - Last Filed: 03/03/22 18:14> Orientation/consciousness: No confusion <Michaela Ferrera [facility] Last Filed: 03/03/22 18:14> Limitations: no limitations <MARIA LUZ Hutchinson Last Filed: 03/03/22 18:14> Eyes: Conjunctivae: conjunctivae normal <Michaela Ferrera [facility] Last Filed: 03/03/22 18:14> Pupils: Equal, round and reactive pupils present <MARIA LUZ Hutchinson Last Filed: 03/03/22 18:14> EOM: EOMs intact bilaterally <Michaela Ferrera [facility] Last Filed: 03/03/22 18:14> Neck: Neck: Yes full ROM, Yes no lymphadenopathy and Yes supple <MARIA LUZ Hutchinson Last Filed: 03/03/22 18:14> Resp: Effort & Inspection: normal respiratory effort and able to speak in complete sentences <MARIA LUZ Hutchinson Last Filed: 03/03/22 18:14> Auscultation: clear to auscultation bilaterally, no crackles, no rales, no rhonchi and no wheezes <MARIA LUZ Hutchinson - Last Filed: 03/03/22 18:14> Cardio: Rate: regular rate <Michaela Ferrera [place] - Last Filed: 03/03/22 18:14> Rhythm: regular rhythm <MARIA LUZ Hutchinson Last Filed: 03/03/22 18:14> Heart sounds: S1 normal heart sound present and S2 normal heart sound present <Michaela Ferrera [facility] Last Filed: 03/03/22 18:14> GI: Inspection: Yes normal to inspection <Michaela Ferrera [place] - Last Filed: 03/03/22 18:14> Palpation (GI): Soft to palpation, nontender, no guarding and not rigid <Michaela Ferrera [place] - Last Filed: 03/03/22 18:14> Percussion: Yes normal to percussion <MARIA LUZ Hutchinson Last Filed: 03/03/22 18:14> Auscultation: normal bowel sounds <Michaela Ferrera [facility] Last Filed: 03/03/22 18:14> Skin: General skin exam: no rashes or lesions noted <MARIA LUZ Hutchinson Last Filed: 03/03/22 18:14> Neuro: General: No confusion <Michaela Ferrera [facility] Last Filed: 03/03/22 18:14> Cranial nerves: Yes Equal, round and reactive pupils present <MARIA LUZ Hutchinson Last Filed: 03/03/22 18:14> Extrem: General: Yes normal to inspection and Yes full ROM <MARIA LUZ Hutchinson Last Filed: 03/03/22 18:14> Psych: Appearance: grossly normal <MARIA LUZ Hutchinson Last Filed: 03/03/22 18:14> Affect: normal affect <MARIA LUZ Hutchinson Last Filed: 03/03/22 18:14> Attitude: cooperative <MARIA LUZ Hutchinson - Last Filed: 03/03/22 18:14> Thought process: Normal thought process present <MARIA LUZ Hutchinson Last Filed: 03/03/22 18:14> Course Course Course Narrative: 31-year-old female presents for her palpitations and chest pressure on exertion. She was seen here for heart palpitations yesterday, diagnosed with POTS syndrome, however, she had chest pressure that started last night. On exam, patient is tachycardic at 114, satting 97% on room air, physical exam is unremarkable Will do cardiac workup, will give fluids, test for orthostatics, test for COVID, will dimer patient <MARIA LUZ Hutchinson - Last Filed: 03/03/22 18:14> Reevaluation(s) Reevaluation #1: EKG shows no acute ischemia Troponins 3 hours apart are undetectable D-dimer is 335, discussed with Dr Choi, who thinks we will not be able to get a VQ scan over holiday weekend, and that the risks of CT scan outweigh life threat of PE Actually, VQ scan is avaiable, will order VQ scan radio electronics technician talked to Dr Merritt, who recommends CXR, and if negative, gave the OK do proceed with VQ scan for this patient. Labs are unremarkable except for D-dimer, patient's [id number]. Patient is urine shows trace leukocyte esterase, 1-4 white blood cells, and +4 bacteria. Will treat UTI with cephalexin Sign patient out [facility]ic[facility] Downing, pending VQ scan results <MARIA LUZ Hutchinson - Last Filed: 03/03/22 18:14> Reevaluation #2: FINDINGS: The lungs are clear. No airspace consolidation, pleural effusion, or pneumothorax. The cardiomediastinal silhouette is within normal limits. No acute osseous injury. XR/XR chest 2V IMPRESSION: No acute pulmonary process. <MARIA LUZ Hutchinson - Last Filed: 03/03/22 18:14> Reevaluation #3: I assumed care for this patient at 1900. V/Q scan was pending, this scan was done secondary to a positive D-dimer however I suspect that this D-dimer was positive secondary to unlikely DVT or PE.. Patient was noted to have a UTI and antibiotics will be sent to her pharmacy. V/Q scan results within normal limits, no signs of PE. Advised patient to return with new or worsening symptoms. At this time I feel comfortable with discharge <MARIA LUZ Wheeler Last Filed: 03/03/22 19:21> Time: 19:19 <MARIA LUZ Wheeler - Last Filed: 03/03/22 19:21> MDM - Chest Pain Lab Data Result diagrams: : 03/03/22 12:00 03/03/22 12:00 <MARIA LUZ Hutchinson - Last Filed: 03/03/22 18:14> Labs: Lab Results 03/03/22 03/03/22 03/03/22 Range/Units 11:42 11:42 12:00 WBC 8.6 (4.8-10.8) X10*3/uL RBC 4.30 (4.20-5.50) X10*6/uL Hgb 12.4 (12.0-16.0) g/dl Hct 38.3 (37.0-47.0) % MCV 89.1 (80.0-98.0) fL MCH 28.8 (27.0-33.0) pg MCHC 32.4 (31.0-35.0) g/dl RDW 13.6 (11.0-16.0) % Plt Count 282 (160-400) X10*3/uL MPV 10.5 (9.4-12.3) fL Immature Gran % (Auto) 0.2 (0.0-0.4) % Neut % (Auto) 80.4 H (45-73) % Lymph % (Auto) 14.9 L (20-40) % [place] % (Auto) 4.2 (2-11) % Eos % (Auto) 0.1 (0-4) % Baso % (Auto) 0.2 (0-2) % Lymph # (Auto) 1.3 (1.2-4.9) X10*3/uL [place] # (Auto) 0.4 (0.1-1.2) X10*3/uL Eos # (Auto) 0.0 (0.0-0.4) X10*3/uL Baso # (Auto) 0.0 (0.0-0.2) X10*3/uL Abs Immat Gran (auto) 0.02 (0.00-0.03) X10*3/uL Absolute Neuts (auto) 6.9 (2.0-8.3) x10*3/uL Absolute Nucleated RBC 0.000 (0.0-0.012) X10*3/uL Nucleated RBC % (auto) 0.0 (0.0-0.2) /100WBC D-Dimer High Sensitivty NG/ML Sodium (135-145) mmol/L Potassium (3.3-5.1) mmol/L Chloride (96-108) mmol/L Carbon Dioxide (22-29) mmol/L Anion Gap (12-20) BUN (9-16) mg/dL Creatinine (0.5-1.4) mg/dL Estim Creat Clear Calc Estimated GFR Random Glucose (60-115) mg/dL Calcium (8.4-10.2) mg/dL Total Bilirubin (0.0-1.0) mg/dL AST (5-31) U/L ALT (0-31) U/L Alkaline Phosphatase (39-117) U/L Troponin I High Sens (<3.5-17.0) ng/L Total Protein (6.5-8.0) g/dL Albumin (3.5-5.0) g/dL Beta HCG, Quant mIU/mL Urine Color YELLOW Urine Appearance HAZY Urine pH 6.0 (5.0-8.0) Ur Specific [place] 1.020 (1.005-1.025) Urine Protein TRACE (NEG-TRACE) MG/DL Urine Glucose (UA) NEG (NEG) MG/DL Urine Ketones 40 (NEG) MG/DL Urine Blood NEG (NEG) Urine Nitrite NEG (NEG) Ur Leukocyte Esterase TRACE H (NEG) Urine RBC 0 (0) /HPF Urine WBC 1-4 (0-4) /HPF Ur Squamous Epith Cells 3+ /LPF Urine Bacteria 4+ /LPF COVID-19 (ABEL) Negative (Negative) COVID-19 Clin Com See Note 03/03/22 03/03/22 03/03/22 Range/Units 12:00 12:00 12:00 WBC (4.8-10.8) X10*3/uL RBC (4.20-5.50) X10*6/uL Hgb (12.0-16.0) g/dl Hct (37.0-47.0) % MCV (80.0-98.0) fL MCH (27.0-33.0) pg MCHC (31.0-35.0) g/dl RDW (11.0-16.0) % Plt Count (160-400) X10*3/uL MPV (9.4-12.3) fL Immature Gran % (Auto) (0.0-0.4) % Neut % (Auto) (45-73) % Lymph % (Auto) (20-40) % [place] % (Auto) (2-11) % Eos % (Auto) (0-4) % Baso % (Auto) (0-2) % Lymph # (Auto) (1.2-4.9) X10*3/uL [place] # (Auto) (0.1-1.2) X10*3/uL Eos # (Auto) (0.0-0.4) X10*3/uL Baso # (Auto) (0.0-0.2) X10*3/uL Abs Immat Gran (auto) (0.00-0.03) X10*3/uL Absolute Neuts (auto) (2.0-8.3) x10*3/uL Absolute Nucleated RBC (0.0-0.012) X10*3/uL Nucleated RBC % (auto) (0.0-0.2) /100WBC D-Dimer High Sensitivty 335 NG/ML Sodium 137 (135-145) mmol/L Potassium 3.6 (3.3-5.1) mmol/L Chloride 105 (96-108) mmol/L Carbon Dioxide 20 L (22-29) mmol/L Anion Gap 16 (12-20) BUN 6 L (9-16) mg/dL Creatinine 0.73 (0.5-1.4) mg/dL Estim Creat Clear Calc 113.5 Estimated GFR > 60 Random Glucose 81 (60-115) mg/dL Calcium 9.2 (8.4-10.2) mg/dL Total Bilirubin 0.3 (0.0-1.0) mg/dL AST 25 (5-31) U/L ALT 28 (0-31) U/L Alkaline Phosphatase 79 (39-117) U/L Troponin I High Sens < 3.5 (<3.5-17.0) ng/L Total Protein 7.6 (6.5-8.0) g/dL Albumin 4.0 (3.5-5.0) g/dL Beta HCG, Quant 97793 mIU/mL Urine Color Urine Appearance Urine pH (5.0-8.0) Ur Specific [place] (1.005-1.025) Urine Protein (NEG-TRACE) MG/DL Urine Glucose (UA) (NEG) MG/DL Urine Ketones (NEG) MG/DL Urine Blood (NEG) Urine Nitrite (NEG) Ur Leukocyte Esterase (NEG) Urine RBC (0) /HPF Urine WBC (0-4) /HPF Ur Squamous Epith Cells /LPF Urine Bacteria /LPF COVID-19 (ABEL) (Negative) COVID-19 Clin Com 03/03/22 Range/Units 15:28 WBC (4.8-10.8) X10*3/uL RBC (4.20-5.50) X10*6/uL Hgb (12.0-16.0) g/dl Hct (37.0-47.0) % MCV (80.0-98.0) fL MCH (27.0-33.0) pg MCHC (31.0-35.0) g/dl RDW (11.0-16.0) % Plt Count (160-400) X10*3/uL MPV (9.4-12.3) fL Immature Gran % (Auto) (0.0-0.4) % Neut % (Auto) (45-73) % Lymph % (Auto) (20-40) % [place] % (Auto) (2-11) % Eos % (Auto) (0-4) % Baso % (Auto) (0-2) % Lymph # (Auto) (1.2-4.9) X10*3/uL [place] # (Auto) (0.1-1.2) X10*3/uL Eos # (Auto) (0.0-0.4) X10*3/uL Baso # (Auto) (0.0-0.2) X10*3/uL Abs Immat Gran (auto) (0.00-0.03) X10*3/uL Absolute Neuts (auto) (2.0-8.3) x10*3/uL Absolute Nucleated RBC (0.0-0.012) X10*3/uL Nucleated RBC % (auto) (0.0-0.2) /100WBC D-Dimer High Sensitivty NG/ML Sodium (135-145) mmol/L Potassium (3.3-5.1) mmol/L Chloride (96-108) mmol/L Carbon Dioxide (22-29) mmol/L Anion Gap (12-20) BUN (9-16) mg/dL Creatinine (0.5-1.4) mg/dL Estim Creat Clear Calc Estimated GFR Random Glucose (60-115) mg/dL Calcium (8.4-10.2) mg/dL Total Bilirubin (0.0-1.0) mg/dL AST (5-31) U/L ALT (0-31) U/L Alkaline Phosphatase (39-117) U/L Troponin I High Sens < 3.5 (<3.5-17.0) ng/L Total Protein (6.5-8.0) g/dL Albumin (3.5-5.0) g/dL Beta HCG, Quant mIU/mL Urine Color Urine Appearance Urine pH (5.0-8.0) Ur Specific [place] (1.005-1.025) Urine Protein (NEG-TRACE) MG/DL Urine Glucose (UA) (NEG) MG/DL Urine Ketones (NEG) MG/DL Urine Blood (NEG) Urine Nitrite (NEG) Ur Leukocyte Esterase (NEG) Urine RBC (0) /HPF Urine WBC (0-4) /HPF Ur Squamous Epith Cells /LPF Urine Bacteria /LPF COVID-19 (ABEL) (Negative) COVID-19 Clin Com <MARIA LUZ Hutchinson - Last Filed: 03/03/22 18:14> Lab Results 03/03/22 03/03/22 03/03/22 Range/Units 11:42 11:42 12:00 WBC 8.6 (4.8-10.8) X10*3/uL RBC 4.30 (4.20-5.50) X10*6/uL Hgb 12.4 (12.0-16.0) g/dl Hct 38.3 (37.0-47.0) % MCV 89.1 (80.0-98.0) fL MCH 28.8 (27.0-33.0) pg MCHC 32.4 (31.0-35.0) g/dl RDW 13.6 (11.0-16.0) % Plt Count 282 (160-400) X10*3/uL MPV 10.5 (9.4-12.3) fL Immature Gran % (Auto) 0.2 (0.0-0.4) % Neut % (Auto) 80.4 H (45-73) % Lymph % (Auto) 14.9 L (20-40) % [place] % (Auto) 4.2 (2-11) % Eos % (Auto) 0.1 (0-4) % Baso % (Auto) 0.2 (0-2) % Lymph # (Auto) 1.3 (1.2-4.9) X10*3/uL [place] # (Auto) 0.4 (0.1-1.2) X10*3/uL Eos # (Auto) 0.0 (0.0-0.4) X10*3/uL Baso # (Auto) 0.0 (0.0-0.2) X10*3/uL Abs Immat Gran (auto) 0.02 (0.00-0.03) X10*3/uL Absolute Neuts (auto) 6.9 (2.0-8.3) x10*3/uL Absolute Nucleated RBC 0.000 (0.0-0.012) X10*3/uL Nucleated RBC % (auto) 0.0 (0.0-0.2) /100WBC D-Dimer High Sensitivty NG/ML Sodium (135-145) mmol/L Potassium (3.3-5.1) mmol/L Chloride (96-108) mmol/L Carbon Dioxide (22-29) mmol/L Anion Gap (12-20) BUN (9-16) mg/dL Creatinine (0.5-1.4) mg/dL Estim Creat Clear Calc Estimated GFR Random Glucose (60-115) mg/dL Calcium (8.4-10.2) mg/dL Total Bilirubin (0.0-1.0) mg/dL AST (5-31) U/L ALT (0-31) U/L Alkaline Phosphatase (39-117) U/L Troponin I High Sens (<3.5-17.0) ng/L Total Protein (6.5-8.0) g/dL Albumin (3.5-5.0) g/dL Beta HCG, Quant mIU/mL Urine Color YELLOW Urine Appearance HAZY Urine pH 6.0 (5.0-8.0) Ur Specific [place] 1.020 (1.005-1.025) Urine Protein TRACE (NEG-TRACE) MG/DL Urine Glucose (UA) NEG (NEG) MG/DL Urine Ketones 40 (NEG) MG/DL Urine Blood NEG (NEG) Urine Nitrite NEG (NEG) Ur Leukocyte Esterase TRACE H (NEG) Urine RBC 0 (0) /HPF Urine WBC 1-4 (0-4) /HPF Ur Squamous Epith Cells 3+ /LPF Urine Bacteria 4+ /LPF COVID-19 (ABEL) Negative (Negative) COVID-19 Clin Com See Note 03/03/22 03/03/22 03/03/22 Range/Units 12:00 12:00 12:00 WBC (4.8-10.8) X10*3/uL RBC (4.20-5.50) X10*6/uL Hgb (12.0-16.0) g/dl Hct (37.0-47.0) % MCV (80.0-98.0) fL MCH (27.0-33.0) pg MCHC (31.0-35.0) g/dl RDW (11.0-16.0) % Plt Count (160-400) X10*3/uL MPV (9.4-12.3) fL Immature Gran % (Auto) (0.0-0.4) % Neut % (Auto) (45-73) % Lymph % (Auto) (20-40) % [place] % (Auto) (2-11) % Eos % (Auto) (0-4) % Baso % (Auto) (0-2) % Lymph # (Auto) (1.2-4.9) X10*3/uL [place] # (Auto) (0.1-1.2) X10*3/uL Eos # (Auto) (0.0-0.4) X10*3/uL Baso # (Auto) (0.0-0.2) X10*3/uL Abs Immat Gran (auto) (0.00-0.03) X10*3/uL Absolute Neuts (auto) (2.0-8.3) x10*3/uL Absolute Nucleated RBC (0.0-0.012) X10*3/uL Nucleated RBC % (auto) (0.0-0.2) /100WBC D-Dimer High Sensitivty 335 NG/ML Sodium 137 (135-145) mmol/L Potassium 3.6 (3.3-5.1) mmol/L Chloride 105 (96-108) mmol/L Carbon Dioxide 20 L (22-29) mmol/L Anion Gap 16 (12-20) BUN 6 L (9-16) mg/dL Creatinine 0.73 (0.5-1.4) mg/dL Estim Creat Clear Calc 113.5 Estimated GFR > 60 Random Glucose 81 (60-115) mg/dL Calcium 9.2 (8.4-10.2) mg/dL Total Bilirubin 0.3 (0.0-1.0) mg/dL AST 25 (5-31) U/L ALT 28 (0-31) U/L Alkaline Phosphatase 79 (39-117) U/L Troponin I High Sens < 3.5 (<3.5-17.0) ng/L Total Protein 7.6 (6.5-8.0) g/dL Albumin 4.0 (3.5-5.0) g/dL Beta HCG, Quant 28199 mIU/mL Urine Color Urine Appearance Urine pH (5.0-8.0) Ur Specific [place] (1.005-1.025) Urine Protein (NEG-TRACE) MG/DL Urine Glucose (UA) (NEG) MG/DL Urine Ketones (NEG) MG/DL Urine Blood (NEG) Urine Nitrite (NEG) Ur Leukocyte Esterase (NEG) Urine RBC (0) /HPF Urine WBC (0-4) /HPF Ur Squamous Epith Cells /LPF Urine Bacteria /LPF COVID-19 (ABEL) (Negative) COVID-19 Clin Com 03/03/22 Range/Units 15:28 WBC (4.8-10.8) X10*3/uL RBC (4.20-5.50) X10*6/uL Hgb (12.0-16.0) g/dl Hct (37.0-47.0) % MCV (80.0-98.0) fL MCH (27.0-33.0) pg MCHC (31.0-35.0) g/dl RDW (11.0-16.0) % Plt Count (160-400) X10*3/uL MPV (9.4-12.3) fL Immature Gran % (Auto) (0.0-0.4) % Neut % (Auto) (45-73) % Lymph % (Auto) (20-40) % [place] % (Auto) (2-11) % Eos % (Auto) (0-4) % Baso % (Auto) (0-2) % Lymph # (Auto) (1.2-4.9) X10*3/uL [place] # (Auto) (0.1-1.2) X10*3/uL Eos # (Auto) (0.0-0.4) X10*3/uL Baso # (Auto) (0.0-0.2) X10*3/uL Abs Immat Gran (auto) (0.00-0.03) X10*3/uL Absolute Neuts (auto) (2.0-8.3) x10*3/uL Absolute Nucleated RBC (0.0-0.012) X10*3/uL Nucleated RBC % (auto) (0.0-0.2) /100WBC D-Dimer High Sensitivty NG/ML Sodium (135-145) mmol/L Potassium (3.3-5.1) mmol/L Chloride (96-108) mmol/L Carbon Dioxide (22-29) mmol/L Anion Gap (12-20) BUN (9-16) mg/dL Creatinine (0.5-1.4) mg/dL Estim Creat Clear Calc Estimated GFR Random Glucose (60-115) mg/dL Calcium (8.4-10.2) mg/dL Total Bilirubin (0.0-1.0) mg/dL AST (5-31) U/L ALT (0-31) U/L Alkaline Phosphatase (39-117) U/L Troponin I High Sens < 3.5 (<3.5-17.0) ng/L Total Protein (6.5-8.0) g/dL Albumin (3.5-5.0) g/dL Beta HCG, Quant mIU/mL Urine Color Urine Appearance Urine pH (5.0-8.0) Ur Specific [place] (1.005-1.025) Urine Protein (NEG-TRACE) MG/DL Urine Glucose (UA) (NEG) MG/DL Urine Ketones (NEG) MG/DL Urine Blood (NEG) Urine Nitrite (NEG) Ur Leukocyte Esterase (NEG) Urine RBC (0) /HPF Urine WBC (0-4) /HPF Ur Squamous Epith Cells /LPF Urine Bacteria /LPF COVID-19 (ABEL) (Negative) COVID-19 Clin Com <MARIA LUZ Wheeler - Last Filed: 03/03/22 19:21> ECG Data ECG #1: Interpretation: Sinus at a rate of 99, pr interval 124, QRS 70, QTC 420, normal axis, no ST depression or elevation, no T-wave abnormality <MARIA LUZ Hutchinson - Last Filed: 03/03/22 18:14> Critical Care Time Critical Care Time Critical Care Time: No <MARIA LUZ Wheeler - Last Filed: 03/03/22 19:21> Discharge Plan Discharge Clinical Impression: Atypical chest pain, Heart palpitations, UTI (urinary tract infection) during <MARIA LUZ Hutchinson - Last Filed: 03/03/22 18:14> Patient Disposition: Still a Patient <MARIA LUZ Hutchinson - Last Filed: 03/03/22 18:14> Instructions: Chest Pain (ED), Heart Palpitations (ED), Urinary Tract Infection in (ED) <MARIA LUZ Hutchinson - Last Filed: 03/03/22 18:14> Additional Instructions: You have urinary tract infection, I have sent antibiotics to yourr pharmacy, please take them once you are discharged. Please follow-up with your OBGYN for re-evaluation of your UTI Your EKG was normal, and your cardiac enzymes were not elevated. Please keep your cardiology appointment on Saturday. your VQ scan did not show a pulmonary embolism or blood clot Take your medications as prescribed. If you were prescribed antibiotics today, it is important that you take your medication to their entirety, do not skip any doses, do not finish them early. Follow-up with your primary care provider this week. Please follow-up with cardiology in your OBGYN. Return to the emergency department with new or worsening symptoms. Such as fevers, chills, chest pain, shortness of breath, nausea, vomiting, dizziness, headache, vision changes, lethargy, vaginal bleeding, abdominal pain In case of emergency call 911 NM/NM pul perfusion IMPRESSION: 1. No scintigraphic evidence of pulmonary embolus. ? <MARIA LUZ Hutchinson - Last Filed: 03/03/22 18:14> Prescriptions: New cephalexin 500 mg capsule 500 mg PO Q6H 7 Days Qty: 28 0RF No Action cetirizine [Zyrtec] 10 mg tablet 10 mg PO DAILY PRN Linzess 72 mcg capsule 72 mcg PO DAILY Qty: 30 1RF famotidine [Pepcid] 20 mg tablet 20 mg PO BEDTIME Qty: 30 3RF Vitamin Plus Low Iron 27 mg iron- 1 mg tablet 1 tab PO DAILY Qty: 30 11RF <MARIA LUZ Hutchinson - Last Filed: 03/03/22 18:14> Referrals: Rick Daniel MD [Physician] - 1 week <MARIA LUZ Hutchinson - Last Filed: 03/03/22 18:14> Stand Alone Forms: Work/School Release <MARIA LUZ Hutchinson - Last Filed: 03/03/22 18:14>
[2022-03-03 12:17] LABS: D Dimer High Sensitivity 335 NG/ML
[2022-03-03 12:42] LABS: Alanine Aminotransferase 28 U/L (0-31); Alkaline Phosphatase 79 U/L (39-117); Anion Gap 16 (12-20); Aspartate Amino Transferase 25 U/L (5-31); Bilirubin Total 0.3 mg/dL (0.0-1.0); Blood Urea Nitrogen 6 mg/dL (9-16); Calcium 9.2 mg/dL (8.4-10.2); Carbon Dioxide 20 mmol/L (22-29); Chloride 105 mmol/L (96-108); Creatinine Clr Calc Pharmacy 113.5; Estimated Glomerular Filt Rate > 60; Glucose Random 81 mg/dL (60-115); Potassium 3.6 mmol/L (3.3-5.1); Sodium 137 mmol/L (135-145); Total Protein 7.6 g/dL (6.5-8.0)
[2022-03-03 12:48] LABS: Troponin-I High Sensitivity < 3.5 ng/L (<3.5-17.0)
[2022-03-03] MEDS: 0.9 % Sodium Chloride 1,000 ML 999 ML IV (13:06)
[2022-03-03 15:58] LABS: Troponin-I High Sensitivity < 3.5 ng/L (<3.5-17.0)
--- NOTE | 2022-03-03 17:03 | PC.NURSE ---
pt to [facility] med.
[2022-03-03] MEDS: Magnesium Hydrox/Alum Hydrox 30 ML ORAL.SUSP PO (20:03)
--- NOTE | 2022-03-03 20:06 | PC.NURSE ---
Pt refusing DC, provider notified, CAN at bedside with this RN discussing results and plan of care.
== END 2022-03-03 20:12 | disposition home or self-care (01) ==
PROVIDERS: Physician Assistant; Emergency Provider Emergency Medicine Emergency Medical Services; PCP Family Medicine
DX: O26.891 Other specified pregnancy related conditions, first trimester (principal); R07.9 Chest pain, unspecified; R00.2 Palpitations; O23.41 Unspecified infection of urinary tract in pregnancy, first trimester; N39.0 Urinary tract infection, site not specified; Z3A.08 8 weeks gestation of pregnancy; Z20.822 Contact with and (suspected) exposure to COVID-19
CPT/HCPCS: 36415; 71046; 78580; 80053; 81001; 81003; 84484; 84702; 85025; 85379; 87635; 93005; 96360; 99284; 99285; A9540

== ENCOUNTER → 2022-03-07 14:46 | Outpatient (BNVA) | payer MEDICAID, SELFPAY | PROVIDERS: PCP Family Medicine; Referring Provider Family Medicine; Visit Provider Internal Medicine | DX: O26.891 Other specified pregnancy related conditions, first trimester (principal); R00.2 Palpitations; Z3A.09 9 weeks gestation of pregnancy | CPT/HCPCS: 99202 ==

== ENCOUNTER 2022-03-26 18:34 | Emergency (ER) | payer MEDICAID, SELFPAY ==
--- NOTE | 2022-03-26 18:36 | ECG_ITS ---
Test Reason : cp Blood Pressure : / mmHG Vent. Rate : 098 BPM Atrial Rate : 098 BPM P-R Int : 120 ms QRS Dur : 074 ms QT Int : 334 ms P-R-T Axes : 040 003 026 degrees QTc Int : 426 ms Normal sinus rhythm Normal ECG When compared with ECG of 03-MAR-2022 09:13, No significant change was found Referred By: Generic ED Physician Electronically Signed By:ALYSSA CHRISTINA
[2022-03-26 18:39] VITALS: BP 143/82; PULSE 87; RESP 18; TEMP 36.8; O2SAT 100; BMI 33.5
[2022-03-26 18:50] LABS: MANUAL DIFF FLAG NO
[2022-03-26 18:53] LABS: Basophils Percent Auto 0.1 % (0-2); Eosinophils Percent Auto 0.2 % (0-4); Hematocrit 35.4 % (37.0-47.0); Hemoglobin 11.7 g/dl (12.0-16.0); Imm Gran Abs Auto 0.01 X10*3/uL (0.00-0.03); Imm Gran Pct Auto 0.1 % (0.0-0.4); Lymphocytes Absolute Auto 2.4 X10*3/uL (1.2-4.9); Lymphocytes Percent Auto 24.7 % (20-40); Mean Corpuscular HGB Conc 33.1 g/dl (31.0-35.0); Mean Corpuscular Hemoglobin 28.9 pg (27.0-33.0); Mean Corpuscular Volume 87.4 fL (80.0-98.0); Mean Platelet Volume 10.7 fL (9.4-12.3); Monocytes Absolute Auto 0.5 X10*3/uL (0.1-1.2); Neutrophils Absolute Auto 6.8 x10*3/uL (2.0-8.3); Neutrophils Percent Auto 69.9 % (45-73); Platelet Count 287 X10*3/uL (160-400); Red Blood Count 4.05 X10*6/uL (4.20-5.50); Red Cell Distribution Width 13.2 % (11.0-16.0); White Blood Count 9.7 X10*3/uL (4.8-10.8)
[2022-03-26 19:26] LABS: Troponin-I High Sensitivity < 3.5 ng/L (<3.5-17.0)
[2022-03-26 19:32] LABS: Alanine Aminotransferase 42 U/L (0-31); Alkaline Phosphatase 68 U/L (39-117); Anion Gap 13 (12-20); Aspartate Amino Transferase 24 U/L (5-31); Bilirubin Total 0.2 mg/dL (0.0-1.0); Blood Urea Nitrogen 6 mg/dL (9-16); Calcium 9.4 mg/dL (8.4-10.2); Carbon Dioxide 25 mmol/L (22-29); Chloride 102 mmol/L (96-108); Estimated Glomerular Filt Rate > 60; Glucose Random 116 mg/dL (60-115); Potassium 3.6 mmol/L (3.3-5.1); Sodium 136 mmol/L (135-145); Total Protein 7.3 g/dL (6.5-8.0)
[2022-03-26 21:09] VITALS: BP 123/84; PULSE 97; RESP 20; TEMP 36.9; O2SAT 100
--- NOTE | 2022-03-26 21:15 | ED.CHESTPAIN ---
HPI - Chest Pain General Chief Complaint: Chest Pain Stated Complaint: chest pain/dizziness Time Seen by Provider: 03/26/22 21:15 Source: patient Mode of arrival: ambulatory Limitations: no limitations History of Present Illness HPI narrative: Patient is a 31 year old female presenting to the emergency department today with palpitations. Patient states that throughout her 12 week . Patient states that she is already following with a locksmith apprentice for this issue. Patient denies any dizziness, lightheadedness, abdominal pain, nausea, vomiting, fever, chills, blurry vision, double vision, loss of vision, chest pain, difficulty breathing, shortness of breath, back pain, night sweats, pain with urination, increased urinary frequency, increased urinary urgency, blood in her urine or stool, syncope or a near syncopal episode, recent trauma or falls, bowel incontinence, bladder incontinence, bowel retention, bladder retention, or any other complaints at this time. Relieving factors: nothing Exacerbating factors: nothing Treatment prior to arrival: none Related Data Home Medications Medication Instructions Recorded Confirmed cetirizine 10 mg tablet (Zyrtec) 10 mg PO DAILY PRN 04/11/21 03/07/22 albuterol sulfate 90 mcg/actuation 2 puff PO Q4-6H PRN 03/07/22 03/07/22 aerosol inhaler (ProAir HFA) linaclotide 145 mcg capsule 145 mcg PO DAILY 03/07/22 03/07/22 (Linzess) omeprazole 20 mg capsule,delayed 20 mg PO DAILY 03/07/22 03/07/22 release sertraline 50 mg tablet 50 mg PO DAILY 03/07/22 03/07/22 Previous Rx's Medication Instructions Recorded vitamin with calcium 1 tab PO DAILY #30 tabs 02/02/22 no.72-iron 27 mg-folic acid 1 mg tablet ( Vitamins Plus Low Iron) cephalexin 500 mg capsule 500 mg PO Q6H 7 days #28 caps 03/03/22 Allergies Allergy/AdvReac Type Severity Reaction Status Date / Time pseudoephedrine Allergy Unknown UNKNOWN Verified 03/07/22 15:[address] [[address] [facility]] Review of Systems Constitutional: Constitutional: Reports no additional constitutional complaints, Denies chills, Denies fever(s) and Denies night sweats Eyes: Eyes: Reports no additional eye complaints, Denies blurry vision, Denies change in vision, Denies diplopia, Denies eye discharge, Denies loss of vision and Denies eye pain ENT: Denies dizziness Cardiovascular: Cardiovascular: Reports no additional cardiovascular complaints, Denies chest pain, Denies lightheadedness, Denies Loss of Consciousness, Reports palpitations and Denies dyspnea Respiratory: Respiratory: Reports no additional respiratory complaints and Denies dyspnea Gastrointestinal: Gastrointestinal: Reports no additional gastrointestinal complaints, Denies abdominal pain, Denies melena, Denies hematochezia, Denies change in bowel habits and Denies change in stool character Genitourinary: Genitourinary: Denies hematuria, Denies urinary frequency, Denies dysuria, Denies urinary incontinence, Denies urinary hesitancy and Denies urinary urgency Musculoskeletal: Musculoskeletal: Reports no additional musculoskeletal complaints, Denies numbness and Denies tingling Neurologic: Denies dizziness, Denies loss of vision, Denies numbness and Denies tingling Psychiatric: Psychiatric: Reports no additional psychiatric complaints Endocrine: Endocrine: Reports no additional endocrine complaints and Reports palpitations Hematologic/Lymphatic: Hematologic/Lymphatic: Reports no additional hematologic/lymphatic complaints Allergic/Immunologic: Allergic/Immunologic: Reports no additional allergic/immunologic complaints [facility] Past Medical History Attestation statement: The following information was validated with the patient. Source: old records reviewed Medical History Acid reflux Anxiety Asthma IBS (irritable bowel syndrome) Surgical History Hx of colonoscopy Family History Family History Father Diabetes Mother Diabetes Social History Social History Alcohol intake: never Patient Tobacco Use Status: Never used Tobacco Advance Directives: No Advance Directives Information Provided: No Sexual orientation: Straight/Heterosexual Gender identity: Female Physical Exam Vital Signs: Vital Signs: Last Vital Signs Temp 98.5 F 03/26/22 21:09 Pulse 97 03/26/22 21:09 Resp 20 03/26/22 21:09 BP 123/84 03/26/22 21:09 Pulse Ox 100 03/26/22 21:09 O2 Del Method 03/26/22 21:09 BMI result Body Mass Index 33.5 Const: General: cooperative, no acute distress, alert and awake Nutritional Appearance: well nourished Orientation/consciousness: patient oriented x3 Limitations: no limitations HEENT: Head: Yes normal to inspection and Yes atraumatic Ears: hearing grossly normal bilaterally and external ears normal General nose exam: Normal external nose present, no nasal discharge noted and no epistaxis Face and sinus: Yes normal facial exam, No abrasion and No laceration Mouth: Normal oral and palatal mucosa present, no drooling and no muffled voice Eyes: General: appearance normal, both eyes and all related structures Periorbital: periorbital findings normal Eyelids: Yes eyelids normal Conjunctivae: conjunctivae normal Pupils: Equal, round and reactive pupils present EOM: EOMs intact bilaterally Neck: Neck: Yes normal visual inspection, Yes full ROM and Yes no lymphadenopathy Chest: Chest palpation & inspection: normal inspection of the chest Resp: Effort & Inspection: normal respiratory effort and able to speak in complete sentences Auscultation: clear to auscultation bilaterally Cardio: Rate: regular rate Rhythm: regular rhythm GI: Inspection: Yes normal to inspection Neuro: General: patient oriented x3 and moves all extremities Cranial nerves: Yes Equal, round and reactive pupils present Cognition (Neuro): normal cognition Motor exam (neuro): 5/5 motor strength present throughout Sensory Exam: Normal double simultaneous stimulation for sensation Coordination: [id number] test normal Extrem: General: Yes normal to inspection, Yes full ROM and Yes capillary refill normal Psych: Appearance: grossly normal Mental Status: mental status grossly normal Affect: normal affect Attitude: cooperative Thought process: Normal thought process present Thought content: Normal thought content present Insight: Good insight present (Psych) MDM - Chest Pain MDM Narrative Medical decision making narrative: Patient is a 31 year old female presenting to the emergency department today with palpitations. Patient's physical exam was unremarkable. heart tones were measured in the 160s. Patient's blood work was unremarkable. Patient's urine showed no acute process. Patient's EKG was unremarkable. I explained my physical exam findings as well as all test results to the patient. I answered all questions asked by the patient. I stressed the importance of the patient taking her medication as prescribed. I stressed the importance of the patient following up with her primary care provider, locksmith apprentice, and OBGYN. I stressed the importance of the patient returning to the emergency department immediately if her symptoms were to worsen or if she were to develop any dizziness, shortness of breath, difficulty breathing, chest pain, blurry vision, loss of vision, nausea, vomiting, abdominal pain, fever, chills, back pain, or any other complaints. Patient verbalized agreement and understanding with this treatment plan and discharge. Medical Records Data Attestation: I reviewed the patient's medical records. Lab Data Attestation: I reviewed the patient's lab results. Result diagrams: 03/26/22 18:45 03/26/22 18:45 Labs: Lab Results 03/26/22 03/26/22 03/26/22 Range/Units 18:45 18:45 18:45 WBC 9.7 (4.8-10.8) X10*3/uL RBC 4.05 L (4.20-5.50) X10*6/uL Hgb 11.7 L (12.0-16.0) g/dl Hct 35.4 L (37.0-47.0) % MCV 87.4 (80.0-98.0) fL MCH 28.9 (27.0-33.0) pg MCHC 33.1 (31.0-35.0) g/dl RDW 13.2 (11.0-16.0) % Plt Count 287 (160-400) X10*3/uL MPV 10.7 (9.4-12.3) fL Immature Gran % (Auto) 0.1 (0.0-0.4) % Neut % (Auto) 69.9 (45-73) % Lymph % (Auto) 24.7 (20-40) % [place] % (Auto) 5.0 (2-11) % Eos % (Auto) 0.2 (0-4) % Baso % (Auto) 0.1 (0-2) % Lymph # (Auto) 2.4 (1.2-4.9) X10*3/uL [place] # (Auto) 0.5 (0.1-1.2) X10*3/uL Eos # (Auto) 0.0 (0.0-0.4) X10*3/uL Baso # (Auto) 0.0 (0.0-0.2) X10*3/uL Abs Immat Gran (auto) 0.01 (0.00-0.03) X10*3/uL Absolute Neuts (auto) 6.8 (2.0-8.3) x10*3/uL Absolute Nucleated RBC 0.000 (0.0-0.012) X10*3/uL Nucleated RBC % (auto) 0.0 (0.0-0.2) /100WBC Sodium 136 (135-145) mmol/L Potassium 3.6 (3.3-5.1) mmol/L Chloride 102 (96-108) mmol/L Carbon Dioxide 25 (22-29) mmol/L Anion Gap 13 (12-20) BUN 6 L (9-16) mg/dL Creatinine 0.66 (0.5-1.4) mg/dL Estim Creat Clear Calc 121.0 Estimated GFR > 60 Random Glucose 116 H (60-115) mg/dL Calcium 9.4 (8.4-10.2) mg/dL Total Bilirubin 0.2 (0.0-1.0) mg/dL AST 24 (5-31) U/L ALT 42 H (0-31) U/L Alkaline Phosphatase 68 (39-117) U/L Troponin I High Sens < 3.5 (<3.5-17.0) ng/L Total Protein 7.3 (6.5-8.0) g/dL Albumin 4.0 (3.5-5.0) g/dL Urine Color Urine Appearance Urine pH (5.0-8.0) Ur Specific [place] (1.005-1.025) Urine Protein (NEG-TRACE) MG/DL Urine Glucose (UA) (NEG) MG/DL Urine Ketones (NEG) MG/DL Urine Blood (NEG) Urine Nitrite (NEG) Ur Leukocyte Esterase (NEG) COVID-19 (ABEL) (Negative) COVID-19 Clin Com 03/26/22 03/26/22 Range/Units 21:28 22:23 WBC (4.8-10.8) X10*3/uL RBC (4.20-5.50) X10*6/uL Hgb (12.0-16.0) g/dl Hct (37.0-47.0) % MCV (80.0-98.0) fL MCH (27.0-33.0) pg MCHC (31.0-35.0) g/dl RDW (11.0-16.0) % Plt Count (160-400) X10*3/uL MPV (9.4-12.3) fL Immature Gran % (Auto) (0.0-0.4) % Neut % (Auto) (45-73) % Lymph % (Auto) (20-40) % [place] % (Auto) (2-11) % Eos % (Auto) (0-4) % Baso % (Auto) (0-2) % Lymph # (Auto) (1.2-4.9) X10*3/uL [place] # (Auto) (0.1-1.2) X10*3/uL Eos # (Auto) (0.0-0.4) X10*3/uL Baso # (Auto) (0.0-0.2) X10*3/uL Abs Immat Gran (auto) (0.00-0.03) X10*3/uL Absolute Neuts (auto) (2.0-8.3) x10*3/uL Absolute Nucleated RBC (0.0-0.012) X10*3/uL Nucleated RBC % (auto) (0.0-0.2) /100WBC Sodium (135-145) mmol/L Potassium (3.3-5.1) mmol/L Chloride (96-108) mmol/L Carbon Dioxide (22-29) mmol/L Anion Gap (12-20) BUN (9-16) mg/dL Creatinine (0.5-1.4) mg/dL Estim Creat Clear Calc Estimated GFR Random Glucose (60-115) mg/dL Calcium (8.4-10.2) mg/dL Total Bilirubin (0.0-1.0) mg/dL AST (5-31) U/L ALT (0-31) U/L Alkaline Phosphatase (39-117) U/L Troponin I High Sens (<3.5-17.0) ng/L Total Protein (6.5-8.0) g/dL Albumin (3.5-5.0) g/dL Urine Color YELLOW Urine Appearance CLEAR Urine pH 6.0 (5.0-8.0) Ur Specific [place] 1.025 (1.005-1.025) Urine Protein TRACE (NEG-TRACE) MG/DL Urine Glucose (UA) NEG (NEG) MG/DL Urine Ketones 5 (NEG) MG/DL Urine Blood NEG (NEG) Urine Nitrite NEG (NEG) Ur Leukocyte Esterase NEG (NEG) COVID-19 (ABEL) Negative (Negative) COVID-19 Clin Com See Note ECG Data ECG #1: Attestation: I personally reviewed and interpreted this ECG as follows: ECG interpretation date: 03/26/22 ECG interpretation time: 18:38 Prior ECG tracings: available for review Interpretation: Vent. Rate: 098 BPM ? ? Atrial Rate: 098 BPM P-R Int: 120 ms? QRS Dur: 074 ms QT Int: 334 ms ? ? ? P-R-T Axes: 040 003 026 degrees QTc Int: 426 ms ? Normal sinus rhythm Normal ECG When compared with ECG of 03-MAR-2022 09:13, No significant change was found DD/ [id number] Discharge Plan Discharge Clinical Impression: Heart palpitations Patient Disposition: Home, Self-Care Instructions: Heart Palpitations (ED) Additional Instructions: Follow up with your primary care provider. OBGYN, and locksmith apprentice. Return to the emergency department immediately if your symptoms worsen or if you develop any dizziness, shortness of breath, difficulty breathing, chest pain, blurry vision, loss of vision, nausea, vomiting, abdominal pain, fever, chills, back pain, or any other complaints. Prescriptions: No Action cephalexin 500 mg capsule 500 mg PO Q6H 7 Days Qty: 28 0RF cetirizine [Zyrtec] 10 mg tablet 10 mg PO DAILY PRN omeprazole 20 mg capsule,delayed release(DR/EC) 20 mg PO DAILY sertraline 50 mg tablet 50 mg PO DAILY Linzess 145 mcg capsule 145 mcg PO DAILY albuterol sulfate [ProAir HFA] 90 mcg/actuation HFA aerosol inhaler 2 puff PO Q4-6H PRN Vitamin Plus Low Iron 27 mg iron- 1 mg tablet 1 tab PO DAILY Qty: 30 11RF Referrals: Samira Michael MD [Primary Care Provider] - Interventions: ED Discharge Assessment Last Done: 03/26/22 22:54 Discharge Date/Time: 03/26/22 22:55 Print Language: [place]
[2022-03-26 21:51] LABS: COVID-19 Test Negative (Negative); IDNOW Serial# 08D9AD1C
[2022-03-26 22:32] LABS: Appearance Urine CLEAR; Color Urine YELLOW; Glucose Urine UA NEG (NEG); Leukocyte Esterase Urine NEG (NEG); Nitrite Urine NEG (NEG); Specific Gravity - Urine 1.025 (1.005-1.025); Urine Blood NEG (NEG); Urine Ketones 5 MG/DL (NEG); Urine Protein TRACE MG/DL (NEG-TRACE)
== END 2022-03-26 22:55 | disposition home or self-care (01) ==
PROVIDERS: Physician Assistant Medical; Emergency Provider Internal Medicine; PCP Family Medicine
DX: R07.89 Other chest pain (principal); R42 Dizziness and giddiness; R00.2 Palpitations; Z20.822 Contact with and (suspected) exposure to COVID-19; Z79.899 Other long term (current) drug therapy
CPT/HCPCS: 36415; 80053; 81003; 84484; 85025; 87635; 93005; 99283; 99284

== ENCOUNTER → 2022-04-18 09:30 | Outpatient (REF) | payer MEDICAID, SELFPAY ==
--- NOTE | 2022-04-18 09:32 | CA_ITS ---
Transthoracic Echocardiogram Patient (Last, First, Middle): Dalia Freeman, Gender: Female Date of : 1990 Age: 31 Procedure Date: 04/18/2022 Procedure Type: Transthoracic Echocardiogram Location: OP Height: 157.48 cm Weight: 84.37 kg BSA: 1.85 m2 Heart Rate: bpm BP: 88 / 50 mmHg Transition Assistant: TO/VH Referring MD: Rick Daniel MD Service Member: Dillon Sims MD Symptoms: R00.2 - Palpitations Study Quality: Fair ECG Rhythm: Sinus Conclusions: - Essentially normal study Findings Left Ventricle Normal left ventricular size, thickness, and systolic function. The visually estimated ejection fraction is between 60-65%. Spectral Doppler is indicative of a normal filling pattern. Right Ventricle Normal right ventricular cavity size and systolic function. Atria Both atria are normal in size. Interatrial shunt cannot be excluded. Aortic Valve The aortic valve structure and function is likely normal. There is no aortic valve stenosis. There is no aortic valve regurgitation. Mitral Valve Normal mitral valve structure and function. There is trace mitral valve regurgitation. There is no mitral valve stenosis. Tricuspid Valve Normal tricuspid valve structure. There is trace tricuspid valve regurgitation. The right ventricular systolic pressure is normal. The right ventricular systolic pressure is 26 mmHg. Normal right atrial pressure. There is no evidence of pulmonary hypertension. Great Vessels All visible segments of the aorta are normal in size. The pulmonary artery was not well visualized. Venous The inferior vena cava is normal in size and collapses greater than 50% with inspiration. Pericardium/Pleural There is no evidence of pericardial effusion. Prior Study Comparison No prior study available for comparison. Measurements 2D Linear Measurements IVSd: 0.93 0.6-0.9/0.6-1.0 cm LVIDd: 4.12 3.9-5.3/4.2-5.9 cm LVIDd Index: 2.23 2.4-3.2/2.2-3.1 cm/m2 LVIDs: 2.78 2.0-3.6 cm LVPWd: 0.76 0.7-1.1 cm LA Diam: 3.30 2.7-3.8/3.0-4.0 cm LAIDs Index: 1.78 1.5-2.3 cm/m2 LV Mass: 130.18 67-162/88-224 g LV Mass Index: 70.37 43-95/49-115 g/m2 LVOT Diam: 1.80 3.0+(-)1.3 cm 2D Systolic Function EF 4C: 62.80 >55% EF 2C: 58.00 >55% EF BiP: 60.70 >55% Mitral Valve MV Pk E: 0.84 MV PK A: 0.75 MV Decel Time: 197.00 E/A: 1.10 E'Lateral: 13.30 E'Medial: 8.70 E/E' Med: 9.70 E/E' Lat: 6.30 PHT: 58.00 MVA PHT: 3.79 Decel [place]: 4.28 Aortic Valve AoV Pk Rodney: 1.78 AoV Mn Rodney: 1.19 AoV VTI: 0.35 AoV Pk Grad: 13.00 Aov Mn Grad: 6.00 AKILA Cont.VTI: 2.06 LVOT LVOT Pk Rodney: 1.38 LVOT Mn Rodney: 0.95 LVOT VTI: 0.28 LVOT Pk Grad: 8.00 LVOT Mn Grad: 4.00 LVOT Diam: 1.80 LVOT Area: 2.54 Diastolic Function MV Pk E: 0.84 MV Pk A: 0.75 E/A: 1.10 E'Medial: 8.70 E/E' Med: 9.70 E' Laterial: 13.30 E/E' Lat: 6.30 Right Ventricle TAPSE (mm): 24.00 TVS' Rodney: 12.00 Tricuspid Valve TR Pk Rodney: 2.39 TR Pk Grad: 23.00 RA Press: 3.00 RVSP: 26.00 Great Vessels Aorta Ao Asc: 2.90 2.1-3.4 cm Updated in Other Vendor System with Status of Final Dillon Sims MD electronically signed on 04/18/2022 3:58:14 PM with status of Final
--- NOTE | 2022-04-18 09:32 | ECG_ITS ---
Hook-up date: 2022-04-18 10:02:00 Duration: 24:07:00 Test Indications: TACHYCARDIA, PALPITATIONS Medications: [id number] QRS complexes * Ventricular ectopics which represent % of total QRS comp. * Supraventricular ectopics which represent % of total QRS comp. * Paced QRS complexs which represent % of total QRS comp. VENTRICULAR ECTOPY * Isolated * Bigeminal Cycles * Couplets * Runs * Beats in Runs * Beats LONGEST at * BPM at :: -- * Beats FASTEST at * BPM at :: -- SUPRAVENTRICULAR ECTOPY * Isolated * Couplets * Runs * Beats in Runs * Beats LONGEST at * BPM at :: -- * Beats FASTEST at * BPM at :: -- HEART RATES 61 MIN at 11:19:16 2022-04-18 86 AVG 161 MAX at 08:23:37 2022-04-19 LONGEST RR 1.0800 secs at 11:20:50 2022-04-18 S-T LEVELS Channel 1 - 128 mm at 10:02:00 2022-04-18 - 128 mm at 10:02:00 2022-04-18 Channel 2 - 128 mm at 10:02:00 2022-04-18 - 128 mm at 10:02:00 2022-04-18 Channel 3 - 128 mm at 02:92:11 -- - 128 mm at 02:92:11 Basic rhythm Normal sinus rhythm No long pause or profound bradycardia No dangerous dysrhythm periods Patient reported symptoms correlated with NSR Referred By: Samira Michael Overread By: JACINTO KISER MD
== END ==
LOC: HO.CARD 09:30
PROVIDERS: PCP Family Medicine; Visit Provider Internal Medicine
DX: R00.0 Tachycardia, unspecified (principal); R00.2 Palpitations
CPT/HCPCS: 93225; 93226; 93306

== ENCOUNTER → 2022-06-12 13:33 | Outpatient (BNVA) | payer MEDICAID, SELFPAY | PROVIDERS: PCP Family Medicine; Referring Provider Family Medicine; Visit Provider Nurse Practitioner Family | DX: O99.412 Diseases of the circulatory system complicating pregnancy, second trimester (principal); Z3A.24 24 weeks gestation of pregnancy | CPT/HCPCS: 99212 ==

== ENCOUNTER 2022-12-31 14:47 | Emergency (ER) | payer MEDICAID, SELFPAY ==
[2022-12-31 15:26] VITALS: BP 148/83; PULSE 114; RESP 18; TEMP 38.8; O2SAT 99; BMI 29.3
--- NOTE | 2022-12-31 15:26 | ED_ITS ---
HPI - General Adult General Chief complaint: General Medical <MARIA LUZ Hutchins - Last Filed: 12/31/22 15:29> Stated complaint: Body aches/Nausea <MARIA LUZ Hutchins Last Filed: 12/31/22 15:29> Time Seen by Provider: 12/31/22 15:30 <MARIA LUZ Hutchins Last Filed: 12/31/22 15:29> Source: patient <MARIA LUZ Lindquist Last Filed: 12/31/22 18:58> Mode of arrival: ambulatory <MARIA LUZ Lindquist Last Filed: 12/31/22 18:58> Limitations: no limitations <MARIA LUZ Lindquist Last Filed: 12/31/22 18:58> History of Present Illness HPI narrative: Patient is a 32 year old assigned female at with no reported medical history presenting to the emergency department today with bilateral breast mastitis. Patient states that both of her breasts are warm, swollen, and tender, despite her pumping. Patient states that 3 weeks ago, she was diagnosed with mastitis by a different provider but was not given antibiotics. Patient denies any dizziness, lightheadedness, abdominal pain, nausea, vomiting, fever, chills, blurry vision, double vision, loss of vision, chest pain, difficulty breathing, shortness of breath, back pain, night sweats, pain with urination, increased urinary frequency, increased urinary urgency, blood in her urine or stool, syn cope or a near syncopal episode, recent trauma or falls, bowel incontinence, bladder incontinence, bowel retention, bladder retention, or any other complaints at this time. <MARIA LUZ Lindquist Last Filed: 12/31/22 18:58> Onset (ago): day(s) <MARIA LUZ Lindquist Last Filed: 12/31/22 18:58> Associated symptoms: denies other symptoms <MARIA LUZ Lindquist Last Filed: 12/31/22 18:58> Treatments prior to arrival: none <MARIA LUZ Lindquist Last Filed: 12/31/22 18:58> Related Data Home medications: Home Medications Medication Instructions Recorded Confirmed cetirizine 10 mg tablet (Zyrtec) 10 mg PO DAILY PRN 08/10/21 10/11/22 albuterol sulfate 90 mcg/actuation 2 puff PO Q4-6H PRN 03/07/22 06/12/22 aerosol inhaler (ProAir HFA) linaclotide 145 mcg capsule 145 mcg PO DAILY 03/07/22 06/12/22 (Linzess) omeprazole 20 mg capsule,delayed 20 mg PO DAILY 03/07/22 06/12/22 release sertraline 50 mg tablet 50 mg PO DAILY 03/07/22 06/12/22 Previous Rx's Medication Instructions Recorded vitamin with calcium 1 tab PO DAILY #30 tabs 02/02/22 no.72-iron 27 mg-folic acid 1 mg tablet ( Vitamins Plus Low Iron) cephalexin 500 mg capsule 500 mg PO Q6H 7 days #28 caps 03/03/22 cephalexin 500 mg capsule 500 mg PO Q6H 10 days #40 caps 12/31/22 <MARIA LUZ Hutchins - Last Filed: 12/31/22 15:29> Allergies/adverse reactions: Allergies Allergy/AdvReac Type Severity Reaction Status Date / Time pseudoephedrine Allergy Unknown UNKNOWN Verified 12/31/22 15:26 [From [facility]] <MARIA LUZ Hutchins - Last Filed: 12/31/22 15:29> Review of Systems Constitutional: Constitutional: Reports no additional constitutional complaints, Denies chills, Denies fever(s) and Denies night sweats <MARIA LUZ Lindquist - Last Filed: 12/31/22 18:58> Eyes: Eyes: Reports no additional eye complaints, Denies blurry vision, Denies change in vision, Denies diplopia, Denies eye discharge, Denies loss of vision and Denies eye pain <MARIA LUZ Lindquist - Last Filed: 12/31/22 18:58> ENT: Denies dizziness <MARIA LUZ Lindquist - Last Filed: 12/31/22 18:58> Cardiovascular: Cardiovascular: Reports no additional cardiovascular complaints, Denies chest pain, Denies lightheadedness, Denies Loss of Consciousness and Denies dyspnea <MARIA LUZ Lindquist Last Filed: 12/31/22 18:58> Respiratory: Respiratory: Reports no additional respiratory complaints and Denies dyspnea <MARIA LUZ Lindquist Last Filed: 12/31/22 18:58> Gastrointestinal: Gastrointestinal: Reports no additional gastrointestinal complaints, Denies abdominal pain, Denies melena, Denies hematochezia, Denies change in bowel habits and Denies change in stool character <MARIA LUZ Lindquist - Last Filed: 12/31/22 18:58> Genitourinary: Genitourinary: Denies hematuria, Denies urinary frequency, Denies dysuria, Denies urinary incontinence, Denies urinary hesitancy and Denies urinary urgency <MARIA LUZ Lindquist - Last Filed: 12/31/22 18:58> Musculoskeletal: Musculoskeletal: Reports no additional musculoskeletal complaints, Denies numbness and Denies tingling <MARIA LUZ Lindquist - Last Filed: 12/31/22 18:58> Integumentary/Breasts: Comments: bilateral breast swelling, erythema, and warmth <MARIA LUZ Lindquist - Last Filed: 12/31/22 18:58> Neurologic: Denies dizziness, Denies loss of vision, Denies numbness and Denies tingling <MARIA LUZ Lindquist - Last Filed: 12/31/22 18:58> Psychiatric: Psychiatric: Reports no additional psychiatric complaints <MARIA LUZ Lindquist - Last Filed: 12/31/22 18:58> Endocrine: Endocrine: Reports no additional endocrine complaints <MARIA LUZ Lindquist - Last Filed: 12/31/22 18:58> Hematologic/Lymphatic: Hematologic/Lymphatic: Reports no additional hematologic/lymphatic complaints <MARIA LUZ Lindquist - Last Filed: 12/31/22 18:58> Allergic/Immunologic: Allergic/Immunologic: Reports no additional allergic/immunologic complaints <MARIA LUZ Lindquist - Last Filed: 12/31/22 18:58> [facility] Past Medical History Attestation statement: The following information was validated with the patient. <MARIA LUZ Lindquist - Last Filed: 12/31/22 18:58> Source: old records reviewed and nursing notes reviewed <MARIA LUZ Lindquist - Last Filed: 12/31/22 18:58> Medical History: Medical History Acid reflux Anxiety Asthma IBS (irritable bowel syndrome) <MARIA LUZ Hutchins - Last Filed: 12/31/22 15:29> Surgical History: Surgical History Hx of colonoscopy <MARIA LUZ Hutchins - Last Filed: 12/31/22 15:29> Family History Family History: Family History Father Diabetes Mother Diabetes <MARIA LUZ Hutchins - Last Filed: 12/31/22 15:29> Social History Social History: Social History Alcohol intake: never Patient Tobacco Use Status: Never used Tobacco Advance Directives: No Advance Directives Information Provided: No Sexual orientation: Straight/Heterosexual Gender identity: Female <MARIA LUZ Hutchins - Last Filed: 12/31/22 15:29> Physical Exam ED Vital Signs: Vital Signs - 24 hr 12/31/22 15:26 Temperature 101.8 F H Pulse Rate 114 H Respiratory Rate 18 Blood Pressure 148/83 H Pulse Oximetry 99 Oxygen Delivery Method Room Air BMI result Body Mass Index 29.3 <MARIA LUZ Hutchins - Last Filed: 12/31/22 15:29> Vital Signs - 24 hr 12/31/22 15:26 Temperature 101.8 F H Pulse Rate 114 H Respiratory Rate 18 Blood Pressure 148/83 H Pulse Oximetry 99 Oxygen Delivery Method Room Air BMI result Body Mass Index 29.3 <MARIA LUZ Lindquist Last Filed: 12/31/22 18:58> Const General: cooperative, no acute distress, alert and awake <MARIA LUZ Lindquist Last Filed: 12/31/22 18:58> Nutritional Appearance: well nourished <MARIA LUZ Lindquist Last Filed: 12/31/22 18:58> Orientation/consciousness: patient oriented x3 <MARIA LUZ Lindquist Last Filed: 12/31/22 18:58> Limitations: no limitations <MARIA LUZ Lindquist Last Filed: 12/31/22 18:58> HENMT Head: Yes normal to inspection and Yes atraumatic <MARIA LUZ Lindquist Last Filed: 12/31/22 18:58> Ears: hearing grossly normal bilaterally and external ears normal <MARIA LUZ Lindquist Last Filed: 12/31/22 18:58> General nose exam: Normal external nose present, no nasal discharge noted and no epistaxis <Eugenie Lopez PA - Last Filed: 12/31/22 18:58> Face and sinus: Yes normal facial exam, No abrasion and No laceration <Eugenie Lopez SC - Last Filed: 12/31/22 18:58> Mouth: Normal oral and palatal mucosa present, no drooling and no muffled voice <Eugenie Lopez SC - Last Filed: 12/31/22 18:58> Eyes General: appearance normal, both eyes and all related structures <Eugenie Lopez PA - Last Filed: 12/31/22 18:58> Periorbital: periorbital findings normal <Eugenie Lopez SC - Last Filed: 12/31/22 18:58> Eyelids: Yes eyelids normal <Eugenie Lopez SC - Last Filed: 12/31/22 18:58> Conjunctivae: conjunctivae normal <Eugenie Lopez SC - Last Filed: 12/31/22 18:58> Pupils: Equal, round and reactive pupils present <Eugenie Lopez PA - Last Filed: 12/31/22 18:58> EOM: EOMs intact bilaterally <Eugenie Lopez PA - Last Filed: 12/31/22 18:58> Neck Neck: Yes normal visual inspection, Yes full ROM and Yes no lymphadenopathy <Eugenie Lopez SC - Last Filed: 12/31/22 18:58> Chest Other: bilateral erythema and warmth of the breasts - no focal areas felt, no flutance, consistent with mastitis <Eugenie Lopez SC - Last Filed: 12/31/22 18:58> Resp Effort & Inspection: normal respiratory effort and able to speak in complete sentences <Eugenie Lopez PA - Last Filed: 12/31/22 18:58> GI Inspection: Yes normal to inspection <Eugenie Lopez PA - Last Filed: 12/31/22 18:58> Neuro General: patient oriented x3 and moves all extremities <MARIA LUZ Lindquist - Last Filed: 12/31/22 18:58> Cranial nerves: Yes Equal, round and reactive pupils present <MARIA LUZ Lindquist - Last Filed: 12/31/22 18:58> Cognition (Neuro): normal cognition <MARIA LUZ Lindquist - Last Filed: 12/31/22 18:58> Motor exam (neuro): 5/5 motor strength present throughout <MARIA LUZ Lindquist - Last Filed: 12/31/22 18:58> Sensory Exam: Normal double simultaneous stimulation for sensation <MARIA LUZ Lindquist - Last Filed: 12/31/22 18:58> Coordination: [id number] test normal <MARIA LUZ Lindquist - Last Filed: 12/31/22 18:58> Extrem General: Yes normal to inspection, Yes full ROM and Yes capillary refill normal <MARIA LUZ Lindquist - Last Filed: 12/31/22 18:58> Psych Appearance: grossly normal <MARIA LUZ Lindquist - Last Filed: 12/31/22 18:58> Mental Status: mental status grossly normal <MARIA LUZ Lindquist - Last Filed: 12/31/22 18:58> Affect: normal affect <MARIA LUZ Lindquist - Last Filed: 12/31/22 18:58> Attitude: cooperative <MARIA LUZ Lindquist - Last Filed: 12/31/22 18:58> Thought process: Normal thought process present <MARIA LUZ Lindquist - Last Filed: 12/31/22 18:58> Thought content: Normal thought content present <MARIA LUZ Lindquist - Last Filed: 12/31/22 18:58> Insight: Good insight present (Psych) <MARIA LUZ Lindquist - Last Filed: 12/31/22 18:58> Course Course Course Narrative: RME - 32 yo female with history of mastitis 3 weeks ago in the left breast who presents to the ER for evaluation of right breast redness and tenderness for the last 3 days. Overall breast symptoms in the breast are getting better btu sh e feels dizzy, weak and nauseated. <MARIA LUZ Hutchins - Last Filed: 12/31/22 15:29> Medications Administered Discontinued Medications Generic Name Dose Route Start Last Admin Trade Name Freq PRN Reason Stop Dose Admin Acetaminophen 975 mg 12/31/22 15:30 12/31/22 17:25 Acetaminophen 325 Mg Tablet PO 12/31/22 15:31 975 mg ONCE ONE Administration Cephalexin HCl 500 mg 12/31/22 17:56 12/31/22 18:31 Cephalexin 500 Mg Capsule PO 12/31/22 17:57 500 mg ONCE ONE Administration <MARIA LUZ Hutchins - Last Filed: 12/31/22 15:29> Medications Administered Discontinued Medications Generic Name Dose Route Start Last Admin Trade Name Suellen PRN Reason Stop Dose Admin Acetaminophen 975 mg 12/31/22 15:30 12/31/22 17:25 Acetaminophen 325 Mg Tablet PO 12/31/22 15:31 975 mg ONCE ONE Administration Cephalexin HCl 500 mg 12/31/22 17:56 12/31/22 18:31 Cephalexin 500 Mg Capsule PO 12/31/22 17:57 500 mg ONCE ONE Administration <MARIA LUZ Lindquist - Last Filed: 12/31/22 18:58> Medical Decision Making Medical Decision Making [facility] Narrative: Patient is a 32 year old assigned female at with no reported medical history presenting to the emergency department today with bilateral mastitis. Patient's physical exam was consistent with mastitis. Patient's blood work showed an elevated WBC count. Patient's EKG was unremarkable. Patient was able to tolerate PO. I explained my physical exam findings as well as all test results to the patient. I answered all questions asked by the patient. Patient received her first dose of antibiotics while in the department. I stressed the importance of the patient taking her medication as prescribed. I stressed the importance of the patient following up with her primary care provider. I stressed the importance of the patient returning to the emergency department immediately if her symptoms were to worsen or if she were to develop any d izziness, shortness of breath, difficulty breathing, chest pain, blurry vision, loss of vision, nausea, vomiting, abdominal pain, fever, chills, back pain, no longer tolerate PO, or any other complaints. Patient verbalized agreement and understanding with this treatment plan and discharge. <MARIA LUZ Lindquist - Last Filed: 12/31/22 18:58> Differential Diagnosis Differential Diagnoses: The differential diagnosis associated with the presentation includes <MARIA LUZ Lindquist - Last Filed: 12/31/22 18:58> mastitis <MARIA LUZ Lindquist - Last Filed: 12/31/22 18:58> Lab Data [facility] Lab Attestation statement: I reviewed the patient's lab results. <MARIA LUZ Lindquist - Last Filed: 12/31/22 18:58> Result Diagrams: 12/31/22 15:54 12/31/22 15:54 <MARIA LUZ Hutchins - Last Filed: 12/31/22 15:29> Labs: Lab Results 12/31/22 12/31/22 Range/Units 15:54 15:54 WBC 17.7 H (4.8-10.8) X10*3/uL RBC 3.80 L (4.20-5.50) X10*6/uL Hgb 10.8 L (12.0-16.0) g/dl Hct 34.4 L (37.0-47.0) % MCV 90.5 (80.0-98.0) fL MCH 28.4 (27.0-33.0) pg MCHC 31.4 (31.0-35.0) g/dl RDW 15.5 (11.0-16.0) % Plt Count 252 (160-400) X10*3/uL MPV 9.9 (9.4-12.3) fL Immature Gran % (Auto) 0.9 H (0.0-0.4) % Neut % (Auto) 89.4 H (45-73) % Lymph % (Auto) 4.4 L (20-40) % Sanborn % (Auto) 2.5 (2-11) % Eos % (Auto) 2.5 (0-4) % Baso % (Auto) 0.3 (0-2) % Lymph # (Auto) 0.8 L (1.2-4.9) X10*3/uL Sanborn # (Auto) 0.5 (0.1-1.2) X10*3/uL Eos # (Auto) 0.4 (0.0-0.4) X10*3/uL Baso # (Auto) 0.1 (0.0-0.2) X10*3/uL Abs Immat Gran (auto) 0.16 H (0.00-0.03) X10*3/uL Absolute Neuts (auto) 15.9 H (2.0-8.3) x10*3/uL Absolute Nucleated RBC 0.000 (0.0-0.012) X10*3/uL Nucleated RBC % (auto) 0.0 (0.0-0.2) /100WBC Sodium 138 (135-145) mmol/L Potassium 3.5 (3.3-5.1) mmol/L Chloride 105 (96-108) mmol/L Carbon Dioxide 25 (22-29) mmol/L Anion Gap 12 (12-20) BUN 8 L (9-16) mg/dL Creatinine 0.80 (0.5-1.4) mg/dL Estim Creat Clear Calc 92.4 Estimated GFR > 60 Random Glucose 156 H (60-115) mg/dL Calcium 8.6 D (8.4-10.2) mg/dL Magnesium 1.7 (1.6-2.6) mg/dL Total Bilirubin 0.4 (0.0-1.0) mg/dL Direct Bilirubin 0.1 (0.0-0.5) mg/dL AST 13 (5-31) U/L ALT 10 (0-31) U/L Alkaline Phosphatase 101 (39-117) U/L Total Protein 6.9 (6.5-8.0) g/dL Albumin 3.8 (3.5-5.0) g/dL <MARIA LUZ Hutchins - Last Filed: 12/31/22 15:29> Lab Results 12/31/22 12/31/22 Range/Units 15:54 15:54 WBC 17.7 H (4.8-10.8) X10*3/uL RBC 3.80 L (4.20-5.50) X10*6/uL Hgb 10.8 L (12.0-16.0) g/dl Hct 34.4 L (37.0-47.0) % MCV 90.5 (80.0-98.0) fL MCH 28.4 (27.0-33.0) pg MCHC 31.4 (31.0-35.0) g/dl RDW 15.5 (11.0-16.0) % Plt Count 252 (160-400) X10*3/uL MPV 9.9 (9.4-12.3) fL Immature Gran % (Auto) 0.9 H (0.0-0.4) % Neut % (Auto) 89.4 H (45-73) % Lymph % (Auto) 4.4 L (20-40) % Sanborn % (Auto) 2.5 (2-11) % Eos % (Auto) 2.5 (0-4) % Baso % (Auto) 0.3 (0-2) % Lymph # (Auto) 0.8 L (1.2-4.9) X10*3/uL Sanborn # (Auto) 0.5 (0.1-1.2) X10*3/uL Eos # (Auto) 0.4 (0.0-0.4) X10*3/uL Baso # (Auto) 0.1 (0.0-0.2) X10*3/uL Abs Immat Gran (auto) 0.16 H (0.00-0.03) X10*3/uL Absolute Neuts (auto) 15.9 H (2.0-8.3) x10*3/uL Absolute Nucleated RBC 0.000 (0.0-0.012) X10*3/uL Nucleated RBC % (auto) 0.0 (0.0-0.2) /100WBC Sodium 138 (135-145) mmol/L Potassium 3.5 (3.3-5.1) mmol/L Chloride 105 (96-108) mmol/L Carbon Dioxide 25 (22-29) mmol/L Anion Gap 12 (12-20) BUN 8 L (9-16) mg/dL Creatinine 0.80 (0.5-1.4) mg/dL Estim Creat Clear Calc 92.4 Estimated GFR > 60 Random Glucose 156 H (60-115) mg/dL Calcium 8.6 D (8.4-10.2) mg/dL Magnesium 1.7 (1.6-2.6) mg/dL Total Bilirubin 0.4 (0.0-1.0) mg/dL Direct Bilirubin 0.1 (0.0-0.5) mg/dL AST 13 (5-31) U/L ALT 10 (0-31) U/L Alkaline Phosphatase 101 (39-117) U/L Total Protein 6.9 (6.5-8.0) g/dL Albumin 3.8 (3.5-5.0) g/dL <MARIA LUZ Lindquist - Last Filed: 12/31/22 18:58> Independent Interpretation I performed an independent interpretation of an: EKG <MARIA LUZ Lindquist - Last Filed: 12/31/22 18:58> Interpretation: Vent. Rate: 117 BPM ? ? Atrial Rate: 117 BPM P-R Int: 138 ms? QRS Dur: 072 ms QT Int: 306 ms ? ? ? P-R-T Axes: 043 000 010 degrees QTc Int: 426 ms ? Sinus tachycardia Possible Left atrial enlargement Nonspecific T wave abnormality Abnormal ECG When compared with ECG of 26-MAR-2022 18:38, Nonspecific T wave abnormality now evident in Anterior leads DD/ [id number] <MARIA LUZ Lindquist - Last Filed: 12/31/22 18:58> Discharge Plan Discharge Clinical Impression: Mastitis <MARIA LUZ Hutchins - Last Filed: 12/31/22 15:29> Patient Disposition: Home, Self-Care <MARIA LUZ Hutchins - Last Filed: 12/31/22 15:29> Instructions: Mastitis (ED) <MARIA LUZ Hutchins - Last Filed: 12/31/22 15:29> Additional Instructions: Follow up with your primary care provider. Return to the emergency department immediately if your symptoms worsen or if you develop any dizziness, shortness of breath, difficulty breathing, chest pain, blurry vision, loss of vision, nausea, vomiting, abdominal pain, fever, chills, back pain, or any other complaints. <MARIA LUZ Hutchins - Last Filed: 12/31/22 15:29> Prescriptions: New cephalexin 500 mg capsule 500 mg PO Q6H 10 Days Qty: 40 0RF No Action cephalexin 500 mg capsule 500 mg PO Q6H 7 Days Qty: 28 0RF cetirizine [Zyrtec] 10 mg tablet 10 mg PO DAILY PRN omeprazole 20 mg capsule,delayed release(DR/EC) 20 mg PO DAILY sertraline 50 mg tablet 50 mg PO DAILY Linzess 145 mcg capsule 145 mcg PO DAILY albuterol sulfate [ProAir HFA] 90 mcg/actuation HFA aerosol inhaler 2 puff PO Q4-6H PRN Vitamin Plus Low Iron 27 mg iron- 1 mg tablet 1 tab PO DAILY Qty: 30 11RF <MARIA LUZ Hutchins - Last Filed: 12/31/22 15:29> Referrals: Samira Michael MD [Primary Care Provider] - <MARIA LUZ Hutchins - Last Filed: 12/31/22 15:29> Stand Alone Forms: Work/School Release <MARIA LUZ Hutchins - Last Filed: 12/31/22 15:29> Interventions: ED Discharge Assessment Last Done: 12/31/22 18:38 <MARIA LUZ Hutchins - Last Filed: 12/31/22 15:29> Discharge Date/Time: 12/31/22 18:39 <MARIA LUZ Htuchins - Last Filed: 12/31/22 15:29> Print Language: Romansh <MARIA LUZ Hutchins - Last Filed: 12/31/22 15:29>
--- NOTE | 2022-12-31 15:31 | ECG_ITS ---
Test Reason : DIZZINESS Blood Pressure : / mmHG Vent. Rate : 117 BPM Atrial Rate : 117 BPM P-R Int : 138 ms QRS Dur : 072 ms QT Int : 306 ms P-R-T Axes : 043 000 010 degrees QTc Int : 426 ms Sinus tachycardia Possible Left atrial enlargement Nonspecific T wave abnormality Abnormal ECG When compared with ECG of 26-MAR-2022 18:38, Nonspecific T wave abnormality now evident in Anterior leads Referred By: Libia Sullivan Electronically Signed By:JACINTO KISER MD
[2022-12-31 15:59] LABS: MANUAL DIFF FLAG NO
[2022-12-31 16:02] LABS: Basophils Absolute Auto 0.1 X10*3/uL (0.0-0.2); Basophils Percent Auto 0.3 % (0-2); Eosinophils Absolute Auto 0.4 X10*3/uL (0.0-0.4); Eosinophils Percent Auto 2.5 % (0-4); Hematocrit 34.4 % (37.0-47.0); Hemoglobin 10.8 g/dl (12.0-16.0); Imm Gran Abs Auto 0.16 X10*3/uL (0.00-0.03); Imm Gran Pct Auto 0.9 % (0.0-0.4); Lymphocytes Absolute Auto 0.8 X10*3/uL (1.2-4.9); Lymphocytes Percent Auto 4.4 % (20-40); Mean Corpuscular HGB Conc 31.4 g/dl (31.0-35.0); Mean Corpuscular Hemoglobin 28.4 pg (27.0-33.0); Mean Corpuscular Volume 90.5 fL (80.0-98.0); Mean Platelet Volume 9.9 fL (9.4-12.3); Monocytes Absolute Auto 0.5 X10*3/uL (0.1-1.2); Monocytes Percent Auto 2.5 % (2-11); Neutrophils Absolute Auto 15.9 x10*3/uL (2.0-8.3); Neutrophils Percent Auto 89.4 % (45-73); Platelet Count 252 X10*3/uL (160-400); Red Cell Distribution Width 15.5 % (11.0-16.0); White Blood Count 17.7 X10*3/uL (4.8-10.8)
[2022-12-31 16:16] LABS: Alanine Aminotransferase 10 U/L (0-31); Albumin Level 3.8 g/dL (3.5-5.0); Alkaline Phosphatase 101 U/L (39-117); Anion Gap 12 (12-20); Aspartate Amino Transferase 13 U/L (5-31); Bilirubin Direct 0.1 mg/dL (0.0-0.5); Bilirubin Total 0.4 mg/dL (0.0-1.0); Blood Urea Nitrogen 8 mg/dL (9-16); Calcium 8.6 mg/dL (8.4-10.2); Carbon Dioxide 25 mmol/L (22-29); Chloride 105 mmol/L (96-108); Creatinine Clr Calc Pharmacy 92.4; Estimated Glomerular Filt Rate > 60; Glucose Random 156 mg/dL (60-115); Potassium 3.5 mmol/L (3.3-5.1); Sodium 138 mmol/L (135-145); Total Protein 6.9 g/dL (6.5-8.0)
[2022-12-31 16:20] LABS: Magnesium 1.7 mg/dL (1.6-2.6)
[2022-12-31] MEDS: Acetaminophen 325 MG TABLET 975 MG PO (17:25)
[2022-12-31] MEDS: cephALEXin 500 MG CAPSULE PO (18:31)
== END 2022-12-31 18:39 | disposition home or self-care (01) ==
PROVIDERS: Physician Assistant; Emergency Provider Emergency Medicine; PCP Family Medicine
DX: N61.0 Mastitis without abscess (principal); R42 Dizziness and giddiness; M79.10 Myalgia, unspecified site; R00.0 Tachycardia, unspecified; Z79.899 Other long term (current) drug therapy
CPT/HCPCS: 36415; 80048; 80076; 83735; 85025; 93005; 99283

== ENCOUNTER → 2023-02-01 12:59 | Outpatient (BNVA) | payer MEDICAID, SELFPAY | PROVIDERS: PCP Family Medicine; Referring Provider Family Medicine; Visit Provider Nurse Practitioner Family | DX: R00.2 Palpitations (principal) | CPT/HCPCS: 99212 ==

== ENCOUNTER 2023-04-07 07:55 | Emergency (ER) | payer MEDICAID, SELFPAY ==
--- NOTE | 2023-04-07 | ECG_ITS ---
Test Reason : PALPITATIONS Blood Pressure : / mmHG Vent. Rate : 065 BPM Atrial Rate : 065 BPM P-R Int : 138 ms QRS Dur : 074 ms QT Int : 382 ms P-R-T Axes : 040 004 019 degrees QTc Int : 397 ms Normal sinus rhythm with sinus arrhythmia Normal ECG When compared with ECG of 31-DEC-2022 15:47, Vent. rate has decreased BY 52 BPM Nonspecific T wave abnormality no longer evident in Anterolateral leads Referred By: Generic ED Physician Electronically Signed By:ALYSSA CHRISTINA
[2023-04-07 08:03] VITALS: BP 126/78; PULSE 80; RESP 18; TEMP 36; O2SAT 100; BMI 30.5
[2023-04-07 08:47] LABS: MANUAL DIFF FLAG NO
[2023-04-07 08:48] LABS: Basophils Percent Auto 0.4 % (0-2); Eosinophils Absolute Auto 0.2 X10*3/uL (0.0-0.4); Eosinophils Percent Auto 2.3 % (0-4); Hematocrit 37.8 % (37.0-47.0); Hemoglobin 11.9 g/dl (12.0-16.0); Imm Gran Abs Auto 0.01 X10*3/uL (0.00-0.03); Imm Gran Pct Auto 0.1 % (0.0-0.4); Lymphocytes Absolute Auto 1.9 X10*3/uL (1.2-4.9); Lymphocytes Percent Auto 27.2 % (20-40); Mean Corpuscular HGB Conc 31.5 g/dl (31.0-35.0); Mean Corpuscular Hemoglobin 29.2 pg (27.0-33.0); Mean Corpuscular Volume 92.9 fL (80.0-98.0); Mean Platelet Volume 10.9 fL (9.4-12.3); Monocytes Absolute Auto 0.4 X10*3/uL (0.1-1.2); Monocytes Percent Auto 5.4 % (2-11); Neutrophils Absolute Auto 4.6 x10*3/uL (2.0-8.3); Neutrophils Percent Auto 64.6 % (45-73); Platelet Count 247 X10*3/uL (160-400); Red Blood Count 4.07 X10*6/uL (4.20-5.50); Red Cell Distribution Width 12.4 % (11.0-16.0); White Blood Count 7.1 X10*3/uL (4.8-10.8)
[2023-04-07 09:04] LABS: Anion Gap 16 (12-20); Blood Urea Nitrogen 15 mg/dL (9-16); Calcium 9.2 mg/dL (8.4-10.2); Carbon Dioxide 23 mmol/L (22-29); Chloride 108 mmol/L (96-108); Creatinine Clr Calc Pharmacy 95.5; Estimated Glomerular Filt Rate > 60; Glucose Random 88 mg/dL (60-115); Potassium 3.7 mmol/L (3.3-5.1); Sodium 143 mmol/L (135-145)
[2023-04-07 09:13] LABS: Troponin-I High Sensitivity < 2.7 ng/L (<3.5-17.0)
[2023-04-07 10:09] VITALS: BP 133/73; PULSE 62; RESP 18; TEMP 36.7; O2SAT 99
[2023-04-07 16:43] VITALS: BP 113/62; PULSE 73; RESP 14; O2SAT 100
[2023-04-07 17:10] LABS: Appearance Urine Clear; Color Urine Yellow; Glucose Urine UA Negative (Negative); Leukocyte Esterase Urine Negative (Negative); Nitrite Urine Negative (Negative); Specific Gravity - Urine >= 1.030 (1.005-1.025); Urine Blood Negative (Negative); Urine Ketones Negative (Negative); Urine Protein Negative (Neg-Trace)
[2023-04-07 17:33] LABS: Urine Pregnancy NEGATIVE (NEGATIVE)
[2023-04-07 17:35] LABS: UPreg QC Valid YES
[2023-04-07 18:37] VITALS: BP 133/89; PULSE 83; RESP 18; O2SAT 100
--- NOTE | 2023-04-07 18:50 | ED.GENADULT ---
HPI - General Adult General Chief complaint: Arrhythmia/Palpitations Stated complaint: high BP/ left side numb Time Seen by Provider: 04/07/23 18:18 Source: patient Mode of arrival: ambulatory Limitations: no limitations History of Present Illness HPI narrative: Patient with borderline hypertension while she was 6 months ago woke up today and check the blood pressure was 140/95 she checked 2 times became very anxious came to emergency room at 08:00 also felt palpitation on arrival patient's blood pressure was 126/78 with heart rate of 80 and during stay in the ER multiple times her blood pressure was normal patient is very anxious on arrival but denies anxiety Related Data Home Medications Medication Instructions Recorded Confirmed cetirizine 10 mg tablet (Zyrtec) 10 mg PO DAILY PRN 04/11/21 02/01/23 albuterol sulfate 90 mcg/actuation 2 puff PO Q4-6H PRN 03/07/22 02/01/23 aerosol inhaler (ProAir HFA) linaclotide 145 mcg capsule 145 mcg PO DAILY 03/07/22 02/01/23 (Linzess) omeprazole 20 mg capsule,delayed 20 mg PO DAILY 03/07/22 02/01/23 release Previous Rx's Medication Instructions Recorded vitamin with calcium 1 tab PO DAILY #30 tabs 02/02/22 no.72-iron 27 mg-folic acid 1 mg tablet ( Vitamins Plus Low Iron) Allergies Allergy/AdvReac Type Severity Reaction Status Date / Time pseudoephedrine Allergy Unknown UNKNOWN Verified 04/07/23 08:08 [From [facility]] Review of Systems Review of Systems: Yes all other systems are reviewed and are negative [facility] Past Medical History Medical History Acid reflux Anxiety Asthma IBS (irritable bowel syndrome) Surgical History Hx of colonoscopy Family History Family History Father Diabetes Mother Diabetes Social History Social History Alcohol intake: never Patient Tobacco Use Status: Never used Tobacco Advance Directives: No Advance Directives Information Provided: No Sexual orientation: Straight/Heterosexual Gender identity: Female Physical Exam ED Vital Signs: Vital Signs - 24 hr 04/07/23 08:03 04/07/23 10:09 04/07/23 16:43 Temperature 96.8 F 98.0 F Pulse Rate 80 62 73 Respiratory Rate 18 18 14 Blood Pressure 126/78 133/73 113/62 Pulse Oximetry 100 99 100 Oxygen Delivery Method Room Air Room Air Room Air 04/07/23 18:37 Temperature Pulse Rate 83 Respiratory Rate 18 Blood Pressure 133/89 Pulse Oximetry 100 Oxygen Delivery Method BMI result Body Mass Index 30.5 Appearance: Alert. Oriented X3. No acute distress. Anxious ENT: Pharynx normal. Oral Mucosa moist Neck: Normal inspection. Neck supple. CVS: Normal heart rate and rhythm. Pulses normal. Respiratory: No respiratory distress. Equal air entry bilateral, no wheezing/rales/rhonchi Abdomen: Soft and nontender. Bowel sounds are present, Skin: Skin warm and dry. Normal skin color. Normal skin turgor. Extremities: No lower extremity edema. No calf tenderness Neuro: Oriented X 3. No motor deficit. Medical Decision Making Medical Decision Making [facility] Narrative: patient with borderline hypertension with anxiety clinically repeated labs were normal cardiogram normal no arrhythmias noticed, patient re-educated about hypertension and need to recheck blood pressure and follow-up with PCP Lab Data MDM Lab Attestation statement: I reviewed the patient's lab results. 04/07/23 08:27 04/07/23 08:27 Labs: Lab Results 04/07/23 04/07/23 04/07/23 Range/Units 08:27 08:27 08:27 WBC 7.1 (4.8-10.8) X10*3/uL RBC 4.07 L (4.20-5.50) X10*6/uL Hgb 11.9 L (12.0-16.0) g/dl Hct 37.8 (37.0-47.0) % MCV 92.9 (80.0-98.0) fL MCH 29.2 (27.0-33.0) pg MCHC 31.5 (31.0-35.0) g/dl RDW 12.4 (11.0-16.0) % Plt Count 247 (160-400) X10*3/uL MPV 10.9 (9.4-12.3) fL Immature Gran % (Auto) 0.1 (0.0-0.4) % Neut % (Auto) 64.6 (45-73) % Lymph % (Auto) 27.2 (20-40) % Cooper % (Auto) 5.4 (2-11) % Eos % (Auto) 2.3 (0-4) % Baso % (Auto) 0.4 (0-2) % Lymph # (Auto) 1.9 (1.2-4.9) X10*3/uL Cooper # (Auto) 0.4 (0.1-1.2) X10*3/uL Eos # (Auto) 0.2 (0.0-0.4) X10*3/uL Baso # (Auto) 0.0 (0.0-0.2) X10*3/uL Abs Immat Gran (auto) 0.01 (0.00-0.03) X10*3/uL Absolute Neuts (auto) 4.6 (2.0-8.3) x10*3/uL Absolute Nucleated RBC 0.000 (0.0-0.012) X10*3/uL Nucleated RBC % (auto) 0.0 (0.0-0.2) /100WBC Sodium 143 (135-145) mmol/L Potassium 3.7 (3.3-5.1) mmol/L Chloride 108 (96-108) mmol/L Carbon Dioxide 23 (22-29) mmol/L Anion Gap 16 (12-20) BUN 15 (9-16) mg/dL Creatinine 0.79 (0.5-1.4) mg/dL Estim Creat Clear Calc 95.5 Estimated GFR > 60 Random Glucose 88 (60-115) mg/dL Calcium 9.2 D (8.4-10.2) mg/dL Troponin I High Sens < 2.7 (<3.5-17.0) ng/L Urine Color Urine Appearance Urine pH (5.0-9.0) Ur Specific Goldsmith (1.005-1.025) Urine Protein (Neg-Trace) mg/dL Urine Glucose (UA) (Negative) mg/dL Urine Ketones (Negative) mg/dL Urine Blood (Negative) Urine Nitrite (Negative) Ur Leukocyte Esterase (Negative) Urine Test (NEGATIVE) 04/07/23 04/07/23 Range/Units 16:54 16:54 WBC (4.8-10.8) X10*3/uL RBC (4.20-5.50) X10*6/uL Hgb (12.0-16.0) g/dl Hct (37.0-47.0) % MCV (80.0-98.0) fL MCH (27.0-33.0) pg MCHC (31.0-35.0) g/dl RDW (11.0-16.0) % Plt Count (160-400) X10*3/uL MPV (9.4-12.3) fL Immature Gran % (Auto) (0.0-0.4) % Neut % (Auto) (45-73) % Lymph % (Auto) (20-40) % Cooper % (Auto) (2-11) % Eos % (Auto) (0-4) % Baso % (Auto) (0-2) % Lymph # (Auto) (1.2-4.9) X10*3/uL Cooper # (Auto) (0.1-1.2) X10*3/uL Eos # (Auto) (0.0-0.4) X10*3/uL Baso # (Auto) (0.0-0.2) X10*3/uL Abs Immat Gran (auto) (0.00-0.03) X10*3/uL Absolute Neuts (auto) (2.0-8.3) x10*3/uL Absolute Nucleated RBC (0.0-0.012) X10*3/uL Nucleated RBC % (auto) (0.0-0.2) /100WBC Sodium (135-145) mmol/L Potassium (3.3-5.1) mmol/L Chloride (96-108) mmol/L Carbon Dioxide (22-29) mmol/L Anion Gap (12-20) BUN (9-16) mg/dL Creatinine (0.5-1.4) mg/dL Estim Creat Clear Calc Estimated GFR Random Glucose (60-115) mg/dL Calcium (8.4-10.2) mg/dL Troponin I High Sens (<3.5-17.0) ng/L Urine Color Yellow Urine Appearance Clear Urine pH 6.0 (5.0-9.0) Ur Specific Goldsmith >= 1.030 H (1.005-1.025) Urine Protein Negative (Neg-Trace) mg/dL Urine Glucose (UA) Negative (Negative) mg/dL Urine Ketones Negative (Negative) mg/dL Urine Blood Negative (Negative) Urine Nitrite Negative (Negative) Ur Leukocyte Esterase Negative (Negative) Urine Test NEGATIVE (NEGATIVE) Independent Interpretation I performed an independent interpretation of an: EKG Interpretation: Normal sinus rhythm heart rate 65 beats per minute normal interval normal axis no acute ST-T changes no acute ischemia Discharge Plan Discharge Clinical Impression: Transient hypertension, Anxiety Patient Disposition: Home, Self-Care Instructions: Hypertension (ED), Anxiety (ED) Additional Instructions: Check blood pressure daily Normal blood pressure should be less than 140/90 Relax and decrease salt intake Your blood pressure in the hospital was normal Follow with PCP Prescriptions: No Action cetirizine [Zyrtec] 10 mg tablet 10 mg PO DAILY PRN omeprazole 20 mg capsule,delayed release(DR/EC) 20 mg PO DAILY Linzess 145 mcg capsule 145 mcg PO DAILY albuterol sulfate [ProAir HFA] 90 mcg/actuation HFA aerosol inhaler 2 puff PO Q4-6H PRN Vitamin Plus Low Iron 27 mg iron- 1 mg tablet 1 tab PO DAILY Qty: 30 11RF
== END 2023-04-07 19:20 | disposition home or self-care (01) ==
PROVIDERS: Emergency Provider Internal Medicine; PCP Family Medicine
DX: I49.9 Cardiac arrhythmia, unspecified (principal); R00.2 Palpitations; R03.0 Elevated blood-pressure reading, without diagnosis of hypertension; F41.1 Generalized anxiety disorder; F43.0 Acute stress reaction; R20.0 Anesthesia of skin; Z79.899 Other long term (current) drug therapy
CPT/HCPCS: 36415; 80048; 81003; 81025; 84484; 85025; 93005; 99284

== ENCOUNTER → 2023-04-07 08:15 | Outpatient (BNV) | payer MEDICAID, SELFPAY | PROVIDERS: PCP Family Medicine; Visit Provider Internal Medicine | DX: I49.9 Cardiac arrhythmia, unspecified (principal) | CPT/HCPCS: 93010 ==

== ENCOUNTER 2023-06-06 18:04 | Outpatient (REF) | payer MEDICAID, SELFPAY | END 2023-06-06 18:05 | disposition home or self-care (01) | LOC: HO.HHCLNP 18:04 | PROVIDERS: Visit Provider Emergency Medicine | DX: Z11.52 Encounter for screening for COVID-19 (principal); J30.9 Allergic rhinitis, unspecified | CPT/HCPCS: 0241U ==

== ENCOUNTER 2023-06-24 15:15 | Outpatient (REF) | payer MEDICAID, SELFPAY ==
[2023-06-24 16:34] LABS: MANUAL DIFF FLAG NO
[2023-06-24 16:44] LABS: Basophils Percent Auto 0.3 % (0-2); Eosinophils Absolute Auto 0.1 X10*3/uL (0.0-0.4); Eosinophils Percent Auto 1.8 % (0-4); Hemoglobin 12.1 g/dl (12.0-16.0); Imm Gran Abs Auto 0.01 X10*3/uL (0.00-0.03); Imm Gran Pct Auto 0.2 % (0.0-0.4); Lymphocytes Absolute Auto 2.2 X10*3/uL (1.2-4.9); Lymphocytes Percent Auto 32.6 % (20-40); Mean Corpuscular HGB Conc 31.8 g/dl (31.0-35.0); Mean Corpuscular Hemoglobin 29.1 pg (27.0-33.0); Mean Corpuscular Volume 91.3 fL (80.0-98.0); Mean Platelet Volume 11.1 fL (9.4-12.3); Monocytes Absolute Auto 0.3 X10*3/uL (0.1-1.2); Monocytes Percent Auto 4.8 % (2-11); Neutrophils Percent Auto 60.3 % (45-73); Platelet Count 260 X10*3/uL (160-400); Red Blood Count 4.16 X10*6/uL (4.20-5.50); White Blood Count 6.6 X10*3/uL (4.8-10.8)
[2023-06-24 17:00] LABS: Alanine Aminotransferase 9 U/L (0-31); Albumin Level 4.2 g/dL (3.5-5.0); Alkaline Phosphatase 96 U/L (39-117); Anion Gap 10 (12-20); Aspartate Amino Transferase 13 U/L (5-31); Bilirubin Total 0.4 mg/dL (0.0-1.0); Blood Urea Nitrogen 13 mg/dL (9-16); Calcium 9.3 mg/dL (8.4-10.2); Carbon Dioxide 27 mmol/L (22-29); Chloride 108 mmol/L (96-108); Estimated Glomerular Filt Rate > 60; Glucose Random 88 mg/dL (60-115); Sodium 141 mmol/L (135-145); Total Protein 7.6 g/dL (6.5-8.0)
[2023-06-24 17:14] LABS: TSH reflex Free T4 1.08 uIU/mL (0.32-4.0)
[2023-06-26 14:39] LABS: Anti Nuclear Antibody Screen NEGATIVE (NEGATIVE)
== END 2023-06-24 15:16 | disposition home or self-care (01) ==
LOC: HO.HHCL 15:15
PROVIDERS: Visit Provider General Practice
DX: R68.2 Dry mouth, unspecified (principal); D50.8 Other iron deficiency anemias
CPT/HCPCS: 36415; 80053; 84443; 85025; 86038

== ENCOUNTER 2023-09-17 13:57 | Outpatient (AMB) | payer MEDICAID, SELFPAY ==
--- NOTE | 2023-09-17 14:07 | A.OFFVIS_ITS ---
Intake Vital Signs 09/17/23 14:11 Height 5 ft 2 in Weight 178 lb BMI 32.6 BP 120/70 Blood Pressure Location Rt brachial Position Sitting Pulse 71 Pulse Source Pulse Oximeter Pulse Oximetry (%) 100 Oxygen Delivery Method Room Air Intake Visit Reasons: Cough Template Fitter Required: No Home Economist Consumer Service: Home Economist Consumer Service offered & declined Accompanied by: Self / Same As Patient Allergies pseudoephedrine [From Sudafed] Allergy (Unknown, Verified 09/17/23 14:12) UNKNOWN Medication List - Last Reconciled 09/17/23 by Nancy Horne LPN albuterol sulfate 90 mcg/actuation (ProAir HFA) 2 puffs PO Q4-6H PRN cetirizine (Zyrtec) 10 mg PO DAILY PRN fluticasone propionate 110 mcg/actuation (Flovent HFA) 2 puffs inhalation .once daily fluticasone propionate 50 mcg/actuation 2 sprays intranasal DAILY PRN linaclotide (Linzess) 145 mcg PO DAILY omeprazole 20 mg PO DAILY topiramate 25 mg PO DAILY PRN HPI Cough HPI Details Dalia is a pleasant 33 year old female, never smoker, with underlying asthma since childhood. She was referred by PCP for pulmonary evaluation. She reports nocturnal cough and intermittent dyspnea on exertion and wheezing, mostly during the colder months. She was recently started on Flovent 2 puffs QD and uses albuterol MDI infrequently, otherwise hasn't been on a daily inhaler since childhood. She reports some environmental allergies but no recent allergy testing. She reports constant post nasal drip and rhinorrhea, using Flonase with suboptimal response. She has two parakeets and one dog. She denies any pertinent family history. She denies any occupational exposures. [facility] Medical History (Updated 09/17/23 @ 14:38 by Deana Mensah NP) Anxiety IBS (irritable bowel syndrome) Asthma Acid reflux Surgical History Hx of colonoscopy Family History Father Diabetes Mother Diabetes Social History (Updated 09/17/23 @ 14:16 by Nancy Horne LPN) Alcohol intake: never Patient Tobacco Use Status: Never used Tobacco Smoked in Last 30 Days: No Sexual orientation: Straight/Heterosexual Gender identity: Female Female Reproductive History Menstrual Age of Menarche: 12 Review of Systems Const Denies chills, Denies excessive sweating, Denies fever(s), Denies headache(s) and Denies night sweats Eyes Denies dry eyes, Denies irritation and Denies itchy eyes ENT Reports Normal hearing present, Denies headache(s), Denies nasal congestion, Reports nasal discharge, Reports post nasal drip and Denies sore throat Card Denies chest pain, Denies chest pain at rest, Denies chest pain with activity, Denies claudication, Denies leg edema, Denies dyspnea, Reports dyspnea on exertion, Denies orthopnea and Denies paroxysmal nocturnal dyspnea Resp Denies chest congestion, Reports cough, Denies excessive phlegm production, Denies pain on inspiration, Denies pain with cough, Denies dyspnea, Reports dyspnea on exertion, Denies stridor and Reports wheezing Musc Denies myalgias Neuro Reports Normal hearing present and Denies headache(s) Endo Denies excessive sweating Riki/Lymph Denies lymphadenopathy Aller/Immun Denies itchy eyes, Denies seasonal rhinorrhea and Reports wheezing Physical Exam Vital Signs: Last Vital Signs Pulse 71 09/17/23 14:11 BP 120/70 09/17/23 14:11 Pulse Ox 100 09/17/23 14:11 Oxygen Delivery Method Room Air 09/17/23 14:11 BMI result Body Mass Index 32.6 Const General: cooperative, healthy appearing, comfortable, no acute distress, well developed and alert Orientation/consciousness: patient oriented x3 Limitations: no limitations HEENT Head: Yes normal to inspection, Yes normocephalic and Yes atraumatic Ears: hearing grossly normal bilaterally and external ears normal Eyes General: appearance normal, both eyes and all related structures Eyelids: Yes eyelids normal Sclerae: sclerae normal EOM: EOMs intact bilaterally Neck Neck: Yes normal visual inspection and Yes no lymphadenopathy Lymphatic: no lymphadenopathy noted Chest Chest palpation & inspection: normal inspection of the chest Resp Effort & Inspection: normal respiratory effort, able to speak in complete sentences, no audible wheezes, no cough, no stridor, not tachypneic, no tripod positioning and no use of accessory muscles Auscultation: clear to auscultation bilaterally Cardio Jugular venous distension: no JVD Rate: regular rate Rhythm: regular rhythm Skin Other: warm, dry General skin exam: no rashes or lesions noted Neuro General: patient oriented x3 Cranial nerves: Yes Normal hearing present Cognition (Neuro): normal cognition Gait exam (Neuro): Normal gait present Extrem General: Yes normal to inspection, Yes capillary refill normal, Yes no clubbing, cyanosis or edema and Yes no pedal edema Psych Appearance: grossly normal and well kempt Speech and movement: Normal speech and movement present and Clear speech present Affect: normal affect Attitude: cooperative Thought process: Normal thought process present Thought content: Normal thought content present Insight: Good insight present (Psych) Judgement: Good judgement present (Psych) Assessment & Plan Assessment & Plan (1) Asthma: Code(s): J45.909 - Unspecified asthma, uncomplicated (2) Environmental allergies: Code(s): Z91.09 - Other allergy status, other than to drugs and biological substances Plan Dalia's symptoms are likely related to underlying asthma with an allergic component. Will send for PFT and RAST. Advised to increase Flovent to 2 puffs BID. All questions were answered and patient is in agreement of plan. Will follow up to review response to inhaler and results. She is aware if she needs to be seen sooner to call. Orders: Orders Immunoglobulin E Today Z91.09 - Other allergy status, other than to drugs and biological substances PFT pulmonary function test Today J45.909 - Unspecified asthma, uncomplicated Resp Allergy Profile Region I Today Z91.09 - Other allergy status, other than to drugs and biological substances Complete Blood Count Auto Diff Today Z91.09 - Other allergy status, other than to drugs and biological substances Medications: New ipratropium bromide administer into each nostril 2 sprays intranasal BID 30 mL 3RF Coding Level of Care Code New Pt Level 4 (95101) Diagnoses Asthma J45.909 Environmental allergies Z91.09
[2023-09-17 14:11] VITALS: BP 120/70; PULSE 71; O2SAT 100; BMI 32.6
== END 2023-09-17 14:36 | disposition home or self-care (01) ==
PROVIDERS: PCP Family Medicine; Visit Provider Nurse Practitioner Family
DX: J45.909 Unspecified asthma, uncomplicated (principal); Z91.09 Other allergy status, other than to drugs and biological substances
CPT/HCPCS: 99204

== ENCOUNTER → 2023-09-17 13:57 | Outpatient (BNVA) | payer MEDICAID, SELFPAY | PROVIDERS: PCP Family Medicine; Visit Provider Nurse Practitioner Family | DX: J45.909 Unspecified asthma, uncomplicated (principal); Z91.09 Other allergy status, other than to drugs and biological substances | CPT/HCPCS: 99212 ==

== ENCOUNTER 2023-09-17 16:01 | Outpatient (REF) | payer MEDICAID, SELFPAY ==
[2023-09-17 17:22] LABS: MANUAL DIFF FLAG NO
[2023-09-17 17:44] LABS: Basophils Percent Auto 0.5 % (0-2); Eosinophils Absolute Auto 0.1 X10*3/uL (0.0-0.4); Eosinophils Percent Auto 1.4 % (0-4); Hematocrit 39.5 % (37.0-47.0); Hemoglobin 12.6 g/dl (12.0-16.0); Imm Gran Abs Auto 0.02 X10*3/uL (0.00-0.03); Imm Gran Pct Auto 0.3 % (0.0-0.4); Lymphocytes Absolute Auto 2.6 X10*3/uL (1.2-4.9); Lymphocytes Percent Auto 33.1 % (20-40); Mean Corpuscular HGB Conc 31.9 g/dl (31.0-35.0); Mean Platelet Volume 11.3 fL (9.4-12.3); Monocytes Absolute Auto 0.4 X10*3/uL (0.1-1.2); Monocytes Percent Auto 5.5 % (2-11); Neutrophils Absolute Auto 4.7 x10*3/uL (2.0-8.3); Neutrophils Percent Auto 59.2 % (45-73); Platelet Count 315 X10*3/uL (160-400); Red Blood Count 4.34 X10*6/uL (4.20-5.50); White Blood Count 7.9 X10*3/uL (4.8-10.8)
[2023-09-23 18:49] LABS: Class Alternaria alternata 0; Class Aspergillus fumigatus 0; Class Bermuda Grass 0; Class Birch 0; Class Cat Dander 5; Class Cladosporium herbarum 0; Class Cockroach 1; Class Common Ragweed 0; Class Cottonwood 0; Class Derm. pterony 1; Class Dermatophagoides farinae 0/1; Class Dog Dander 5; Class Elm 0; Class Maple Box Elder 0; Class Mountain Cedar 0; Class Mouse Urine Protein 3; Class Mugwort 0; Class Oak 0; Class Penicillium crysogenum 0; Class Rough Pigweed 0; Class Sheep Sorrel 0; Class Sycamore 0; Class Timothy Grass 0; Class Walnut Tree 0; Class White Ash 0; Class White Mulberry 0; D001 IgE D pteronyssinus 0.36 kU/L; D002 - IgE D farinae 0.26 kU/L; E072-IgE Mouse Urine 4.09 kU/L; G002 IgE Bermuda Grass <0.10 kU/L; G006 - IgE Timothy Grass <0.10 kU/L; I006-IgE Cockroach, German 0.62 kU/L; Immunoglobulin E 562 kU/L (<OR=114); M001 IgE Penicillium chrysogen <0.10 kU/L; M002 - IgE Cladosporium herbar <0.10 kU/L; M003 - IgE Aspergillus fumigat <0.10 kU/L; M006 - IgE Alternaria alternat <0.10 kU/L; T001 IgE Maple/Box Elder <0.10 kU/L; T003 IgE Common Silver Birch <0.10 kU/L; T006 - IgE Cedar, Mountain <0.10 kU/L; T007 - IgE Oak, White <0.10 kU/L; T008 IgE Elm, American <0.10 kU/L; T010 - IgE Walnut <0.10 kU/L; T011 - IgE Maple Leaf Sycamore <0.10 kU/L; T014 - IgE Cottonwood <0.10 kU/L; T015 - IgE Ash, White <0.10 kU/L; T070 - IgE White Mulberry <0.10 kU/L; W001 - IgE Ragweed, Short <0.10 kU/L; W006 - IgE Mugwort <0.10 kU/L; W014 IgE Pigweed, Common <0.10 kU/L; W018 IgE Sheep Sorrel <0.10 kU/L
== END 2023-09-17 16:02 | disposition home or self-care (01) ==
LOC: HO.HHCL 16:01
PROVIDERS: Visit Provider Nurse Practitioner Family
DX: Z91.09 Other allergy status, other than to drugs and biological substances (principal)
CPT/HCPCS: 36415; 82785; 85025; 86003; 99212

== ENCOUNTER 2023-09-27 09:08 | Outpatient (REF) | payer MEDICAID, SELFPAY ==
--- NOTE | 2023-09-27 09:49 | PFT_ITS ---
Flows: FEV1: 97 % of predicted at 2.84 L FVC: 97 % of predicted at 3.41 L FEV1/FVC: 83 % Bronchodilator response: Present in small to medium airways only Volumes: Total lung capacity: 87 % of predicted at 4.21 L Residual volume: 76 % of predicted at 0.87 L Slow vital capacity: 90 % of predicted at 3.34 L Expiratory reserve volume: 75 % of predicted at 0.88 L Diffusion capacity: Normal Impression: No obstructive or restrictive ventilatory defect. No bronchodilator response except in small to medium airways only. MTDD
== END 2023-09-27 09:09 | disposition home or self-care (01) ==
LOC: HO.RESP 09:08
PROVIDERS: PCP Family Medicine; Visit Provider Nurse Practitioner Family
DX: J45.909 Unspecified asthma, uncomplicated (principal)
CPT/HCPCS: 94010; 94727; 94729

== ENCOUNTER → 2023-09-27 09:49 | Outpatient (BNV) | payer MEDICAID, SELFPAY | PROVIDERS: PCP Family Medicine; Visit Provider Internal Medicine Pulmonary Disease | DX: J45.909 Unspecified asthma, uncomplicated (principal) | CPT/HCPCS: 94060; 94727; 94729 ==

== ENCOUNTER 2024-01-06 10:50 | Outpatient (REF) | payer MEDICAID, SELFPAY ==
[2024-01-06 14:00] LABS: Estimated Average Glucose 108 mg/dL; Hemoglobin A1c % 5.4 % (<6.0)
[2024-01-06 14:19] LABS: Alanine Aminotransferase 10 U/L (0-31); Alkaline Phosphatase 77 U/L (39-117); Anion Gap 12 (12-20); Aspartate Amino Transferase 15 U/L (5-31); Bilirubin Total 0.3 mg/dL (0.0-1.0); Blood Urea Nitrogen 13 mg/dL (9-16); Calcium 9.3 mg/dL (8.4-10.2); Carbon Dioxide 25 mmol/L (22-29); Chloride 108 mmol/L (96-108); Cholesterol 186 mg/dL (<200); Estimated Glomerular Filt Rate > 60; Glucose Random 83 mg/dL (60-115); HDL Cholesterol 50 mg/dL (>40); LDL Cholesterol Calculated 122 mg/dL (<100); Potassium 4.2 mmol/L (3.3-5.1); Sodium 141 mmol/L (135-145); TSH reflex Free T4 1.71 uIU/mL (0.32-4.0); Total Protein 7.6 g/dL (6.5-8.0); Triglycerides 73 mg/dL (<150)
[2024-01-06 14:27] LABS: Reflex LDLD? No
[2024-01-07 03:57] LABS: Syphilis Screen Nonreactive (Nonreactive)
[2024-01-07 04:15] LABS: HIV AB/AG Nonreactive (Nonreactive); HIV Num 1 0.04 S/CO (0.00-0.99); ~HepC Num1 0.16 S/CO (0.00-0.79); ~Hepatitis C Antibody Nonreactive (Nonreactive)
[2024-01-07 11:48] LABS: CT PCR NOT DETECTED (Not Detect.); NG PCR NOT DETECTED (Not Detect.)
== END 2024-01-06 10:51 | disposition home or self-care (01) ==
LOC: HO.HHCL 10:50
PROVIDERS: Visit Provider Family Medicine
DX: Z11.4 Encounter for screening for human immunodeficiency virus [HIV] (principal); Z11.3 Encounter for screening for infections with a predominantly sexual mode of transmission; E66.09 Other obesity due to excess calories; Z68.33 Body mass index [BMI] 33.0-33.9, adult
CPT/HCPCS: 0353U; 36415; 80053; 80061; 83036; 84443; 86780; 86803; 87389

== ENCOUNTER → 2024-01-13 08:00 | Outpatient (BNV) | payer MEDICAID, SELFPAY | PROVIDERS: PCP Family Medicine; Visit Provider Radiology Diagnostic Radiology | DX: N64.4 Mastodynia (principal) | CPT/HCPCS: 76642; 77062; 77066 ==

== ENCOUNTER 2024-01-13 08:17 | Outpatient (REF) | payer MEDICAID, SELFPAY ==
--- NOTE | ~2024-01-13 | MM_ITS ---
EXAMINATION: MM DIAGNOSTIC DIGITAL BREAST TOMOSYNTHESIS, BILATERAL US BREAST LIMITED, RIGHT MAMMOGRAPHY: CLINICAL INFORMATION: Superiorly located right breast pain COMPARISON: Mammography: There are no prior mammograms for comparison. TECHNIQUE: Digital breast tomosynthesis is performed in both the craniocaudal and mediolateral oblique views along with computer-aided detection (CAD). Synthesized 2D images are generated from the tomosynthesis. FINDINGS: There are scattered areas of fibroglandular density (ACR BI-RADS breast composition Category b). There are no significant masses, abnormal calcifications, or other abnormalities. ULTRASOUND: CLINICAL INFORMATION: Superiorly located right breast pain. COMPARISON: None TECHNIQUE: Targeted sonographic evaluation was performed using a high frequency linear transducer. Selected archived documentation. FINDINGS: RIGHT BREAST: Sonography of the superior aspect of the right breast is normal. MM/MM tomosynthesis diagnostic BI IMPRESSION: There are no significant changes from prior study. OVERALL ASSESSMENT: Mammography: BI-RADS 1 - Negative Ultrasound: BI-RADS 1 - Negative RECOMMENDATION: 1. Patient should be managed based on the clinical impression. 2. Otherwise, routine annual screening mammography. Results were provided to the patient at time of visit by the technologist. This patient's information was entered into a reminder system with a target due date for their next mammogram.
== END 2024-01-13 08:18 | disposition home or self-care (01) ==
LOC: HO.MAMMO 08:17
PROVIDERS: PCP Family Medicine; Visit Provider Family Medicine
DX: N64.4 Mastodynia (principal)
CPT/HCPCS: 76642; 77062; 77066

== ENCOUNTER → 2024-01-13 10:57 | Outpatient (REF) | payer MEDICAID, SELFPAY ==
--- NOTE | 2024-01-13 11:04 | HM_ITS ---
* Total procedure length 30 days. Wear time 21 days. * Underlying rhythm is sinus with an average rate of 85/Min. * About 35% of the time, sinus tachycardia. * Rare ventricular ectopy. * No significant pauses or AV blocks. * Patient activated the symptom burden 71 times and reported 2 symptoms. Chest pain, racing heartbeat in patient diary correlated with sinus tachycardia. MTDD
== END ==
LOC: HO.CARD 10:57
PROVIDERS: PCP Family Medicine; Visit Provider Family Medicine
DX: G90.A Postural orthostatic tachycardia syndrome [POTS] (principal); R07.2 Precordial pain
CPT/HCPCS: 76642; 77062; 77066; 93270

== ENCOUNTER → 2024-01-13 11:04 | Outpatient (BNV) | payer MEDICAID, SELFPAY | PROVIDERS: PCP Family Medicine; Visit Provider Internal Medicine | DX: R00.0 Tachycardia, unspecified (principal) | CPT/HCPCS: 93272 ==

== ENCOUNTER 2024-01-28 11:39 | Outpatient (REF) | payer MEDICAID, SELFPAY | END 2024-01-28 11:40 | disposition home or self-care (01) | LOC: HO.HHCLNP 11:39 | PROVIDERS: Visit Provider Nurse Practitioner Family | DX: N39.0 Urinary tract infection, site not specified (principal) | CPT/HCPCS: 87086 ==

== ENCOUNTER 2024-02-20 22:01 | Emergency (ER) | payer MEDICAID, SELFPAY ==
[2024-02-20 22:07] VITALS: BP 124/84; PULSE 101; RESP 18; TEMP 36.7; O2SAT 99; BMI 32.0
[2024-02-20 22:29] LABS: IDNOW Serial# 6674DD1D; Strep A Nucleic Acid Positive (Negative)
[2024-02-20 23:02] LABS: Influenza A PCR NEGATIVE (Negative); Influenza B PCR NEGATIVE (Negative); Resp Syncy Virus RNA Qual PCR NEGATIVE (Negative); SARS COV2 PCR INHOUSE NEGATIVE (Negative)
[2024-02-20] MEDS: Amoxicillin/Potassium Clav 875 MG TABLET PO (23:37)
--- NOTE | 2024-02-20 23:39 | ED_ITS ---
HPI - URI/Sore Throat General Chief Complaint: Upper Respiratory Symptoms Stated Complaint: sore throat Time Seen by Provider: 02/20/24 23:11 Source: patient Mode of arrival: ambulatory Limitations: no limitations History of Present Illness ED Provider: juanis SONG Narrative: Patient complaining of sore throat since yesterday with occasional dry cough body aches no fever no chills patient's daughter also sick with same Related Data Home Medications ?Medication ?Instructions ?Recorded ?Confirmed cetirizine 10 mg tablet (Zyrtec) 10 mg PO DAILY PRN 04/11/21 09/17/23 albuterol sulfate 90 mcg/actuation 2 puff PO Q4-6H PRN 03/07/22 09/17/23 aerosol inhaler (ProAir HFA) linaclotide 145 mcg capsule 145 mcg PO DAILY 03/07/22 09/17/23 (Linzess) omeprazole 20 mg capsule,delayed 20 mg PO DAILY 03/07/22 09/17/23 release fluticasone propionate 110 2 puff inhalation .once daily 09/17/23 09/17/23 mcg/actuation HFA aerosol inhaler (Flovent HFA) fluticasone propionate 50 2 spray intranasal DAILY PRN 09/17/23 09/17/23 mcg/actuation nasal spray,suspension topiramate 25 mg tablet 25 mg PO DAILY PRN 09/17/23 09/17/23 Previous Rx's ?Medication ?Instructions ?Recorded ipratropium bromide 21 mcg (0.03 2 spray intranasal BID #30 mL 09/17/23 %) nasal spray amoxicillin 875 mg-potassium 1 tab PO BID #20 tabs 02/20/24 clavulanate 125 mg tablet benzonatate 200 mg capsule 200 mg PO TID PRN cough #20 caps 02/20/24 Allergies Allergy/AdvReac Type Severity Reaction Status Date / Time pseudoephedrine Allergy Unknown UNKNOWN Verified 02/20/24 22:08 [From [facility]] Review of Systems Review of Systems: Yes all other systems are reviewed and are negative PMFSH Past Medical History Medical History Anxiety IBS (irritable bowel syndrome) Asthma Acid reflux Surgical History Hx of colonoscopy Family History Family History Father Diabetes Mother Diabetes Social History Social History Alcohol intake: never Patient Tobacco Use Status: Never used Tobacco Advance Directives: No Advance Directives Information Provided: Yes Do you have a plan to hurt others: No Plan Sexual orientation: Straight/Heterosexual Gender identity: Female Physical Exam Vital Signs: Vital Signs: Last Vital Signs Temp 98.1 F 02/20/24 22:07 Pulse 101 H 02/20/24 22:07 Resp 18 02/20/24 22:07 BP 124/84 02/20/24 22:07 Pulse Ox 99 02/20/24 22:07 O2 Del Method Room Air 02/20/24 22:07 BMI result Body Mass Index 32.0 Appearance: Alert. Oriented X3. No acute distress. ENT: Pharynx erythematous no exudate. Oral Mucosa moist Neck: Normal inspection. Neck supple. CVS: Normal heart rate and rhythm. Pulses normal. Respiratory: No respiratory distress. Equal air entry bilateral, no wheezing/rales/rhonchi Skin: Skin warm and dry. Normal skin color. Normal skin turgor. Extremities: No lower extremity edema. Neuro: Oriented X 3. Medications Administered Discontinued Medications Generic Name Dose Route Start Last Admin Trade Name Freq PRN Reason Stop Dose Admin Amoxicillin/Clavulanate Potassium 875 mg 02/20/24 23:26 02/20/24 23:37 Amoxicillin/Potassium Clav 875 Mg Tablet PO 02/20/24 23:27 875 mg ONCE ONE Administration Medical Decision Making Medical Decision Making MDM Narrative: Patient's strep throat prescribe Augmentin discharge vitals stable Lab Data MDM Lab Attestation statement: I reviewed the patient's lab results. Labs: Lab Results 02/20/24 02/20/24 Range/Units 22:15 22:16 Influenza Type A (PCR) NEGATIVE (Negative) Influenza Type B (PCR) NEGATIVE (Negative) RSV RNA Qual (PCR) NEGATIVE (Negative) SARS-CoV-2 RNA (RT-PCR) NEGATIVE (Negative) S. pyogenes GrpA STEPAN Positive A (Negative) Discharge Plan Discharge Clinical Impression: Acute streptococcal pharyngitis Patient Disposition: Home, Self-Care Instructions: Strep Throat (DC) Additional Instructions: Take antibiotic as prescribed Tylenol/Motrin for pain Drink plenty of fluids Prescriptions: New benzonatate 200 mg capsule 200 mg PO TID PRN (Reason: cough) Qty: 20 0RF amoxicillin-pot clavulanate 875-125 mg tablet 1 tab PO BID Qty: 20 0RF No Action cetirizine [Zyrtec] 10 mg tablet 10 mg PO DAILY PRN omeprazole 20 mg capsule,delayed release(DR/EC) 20 mg PO DAILY Linzess 145 mcg capsule 145 mcg PO DAILY albuterol sulfate [ProAir HFA] 90 mcg/actuation HFA aerosol inhaler 2 puff PO Q4-6H PRN fluticasone propionate [Flovent HFA] 110 mcg/actuation HFA aerosol inhaler 2 puff inhalation .once daily topiramate 25 mg tablet 25 mg PO DAILY PRN fluticasone propionate 50 mcg/actuation spray,suspension 2 spray intranasal DAILY PRN Rx Instructions: administer into each nostril ipratropium bromide 21 mcg (0.03 %) spray,non-aerosol 2 spray intranasal BID Qty: 30 3RF Rx Instructions: administer into each nostril Print Language: French
[2024-02-21 00:45] VITALS: BP 124/68; PULSE 97; RESP 18; TEMP 37.2; O2SAT 99
[2024-02-21 00:48] VITALS: BP 124/68; PULSE 97; RESP 18; TEMP 37.2; O2SAT 99
== END 2024-02-20 23:40 | disposition home or self-care (01) ==
PROVIDERS: Emergency Provider Internal Medicine; PCP Family Medicine
DX: J02.0 Streptococcal pharyngitis (principal); Z03.818 Encounter for observation for suspected exposure to other biological agents ruled out; R05.9 Cough, unspecified
CPT/HCPCS: 0241U; 87651; 99283; 99284

== ENCOUNTER 2024-03-09 10:00 | Outpatient (RCR) | payer MEDICAID, SELFPAY ==
--- NOTE | 2024-01-24 11:12 | MHC.OT.EP ---
[address] [phone] Occupational Therapy Plan of Care Patient Name: Dalia Freeman Date of Evaluation: 01/24/24 Diagnosis: Pain Location: olecranon process radiates to dorsal side of wrist/ hand Pain Score: 5 Pain Scale Used: Numeric (0 - 10) Aggravating Factors: AROM, gripping, squeezing Alleviating Factors: avoiding use and placing elbow in full extension alleviates pain Assessment: Pt is a 33 yr old L hand dominant female who injured her R elbow at work 2+ mos ago. She reports hitting her elbow on the corner of a wall while walking by. She reports the pain has increased since her IO and the pain radiates from her elbow to the dorsal side of her proximal wrist. She saw the MD recently ; no x-rays were taken. 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 Thank you once again for your referral.
--- NOTE | 2024-06-24 16:09 | MHC.OT.DC ---
[address] [phone] F: [phone] Occupational Therapy Discharge Note Patient Name: Dalia Freeman Provider: Priscilla Ag Diagnosis: Right elbow pain Date of Surgery: 01/31/24 Date of Evaluation: 01/24/24 Date of Discharge: Treatments to Date: 10 Cancellations to Date: 1 No Shows to Date: Discharge Status: Visit Non-compliance Discharge Summary: Pt did not follow up after 03/09/24; she was making progress in therapy at her last session Electronically Signed By: Micaela Cisneros OTR/L Reviewed/agree with student documentation: N/A Therapist: Please Sign and return to therapist, thank you for your referral.
== END 2024-06-24 16:08 | disposition home or self-care (01) ==
LOC: HO.OT 10:00
PROVIDERS: PCP Family Medicine; Visit Provider Emergency Medicine
DX: M77.11 Lateral epicondylitis, right elbow (principal)
CPT/HCPCS: 97033; 97110; 97140; 97165; 97535

== ENCOUNTER 2024-04-30 13:47 | Outpatient (AMB) | payer MEDICAID, SELFPAY ==
--- NOTE | 2024-04-30 13:49 | A.OFFVIS_ITS ---
Vital Signs 04/30/24 13:50 Height 5 ft 2 in Weight 188 lb 11.451 oz BMI 34.5 BP 120/62 Blood Pressure Location Rt brachial Position Sitting Pulse 97 Pulse Source Monitor Intake Visit Reasons: followup chest tightness,pain x2 wks Administration Manager Required: No Allergies pseudoephedrine [From Sudafed] Allergy (Unknown, Verified 04/30/24 13:54) UNKNOWN Medication List - Last Reconciled 04/30/24 by Lynette Kruger NP-C albuterol sulfate 90 mcg/actuation (ProAir HFA) 2 puffs PO Q4-6H PRN amitriptyline 20 mg PO cetirizine (Zyrtec) 10 mg PO DAILY PRN fluticasone propionate 110 mcg/actuation (Flovent HFA) 2 puffs inhalation .once daily fluticasone propionate 50 mcg/actuation 2 sprays intranasal DAILY PRN ipratropium bromide 2 sprays intranasal BID linaclotide (Linzess) 145 mcg PO DAILY omeprazole 20 mg PO DAILY HPI HPI followup chest tightness,pain x2 wks: Details: Dalia is a 32-year-old female with past medical history gestational diabetes, heart palpitations who presents for follow-up. Today she reports that for the last few weeks she has noticed a pressure sensation in her left upper chest. She says it is there all the time and it does not change with activity, body position changes or deep breathing. It is causing her much concern and she is very fearful that it is her heart. She will feel her heart go fast at times and occasional skipping of her heartbeat. Overall the palpitations have not been a primary concern. She tells me that her PCP diagnosed her with POTS. She has been increasing her fluid intake as directed. No dizziness, presyncope, syncope, falls. No shortness of breath, PND, orthopnea or edema. Compliant with meds. 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 [facility] Medical History Anxiety IBS (irritable bowel syndrome) Asthma Acid reflux Surgical History Hx of colonoscopy Family History Father Diabetes Mother Diabetes Social History Alcohol intake: never Patient Tobacco Use Status: Never used Tobacco Sexual orientation: Straight/Heterosexual Gender identity: Female Female Reproductive History Menstrual Age of Menarche: 12 Review of Systems Const All systems reviewed & are unremarkable except as noted in HPI and below ENT Denies dizziness Card Reports chest pain, Reports chest pain at rest, Denies chest pain with activity, Reports rapid heart rate, Denies pedal edema, Denies edema, Denies leg edema, Denies lightheadedness, Denies palpitations, Denies dyspnea, Denies dyspnea on exertion and Denies orthopnea Resp Denies cough, Denies dyspnea and Denies dyspnea on exertion GI Denies hematochezia and Denies change in stool character Musc Denies abnormal gait, Denies limited range of motion, Denies muscle cramps, Denies muscle weakness, Denies numbness, Denies radiating pain into limb, Denies stiffness and Denies tingling Neuro Denies abnormal gait, Denies dizziness, Denies numbness and Denies tingling Endo Denies palpitations Physical Exam Vital Signs: BMI result Body Mass Index 34.5 Const General: cooperative, healthy appearing, comfortable and no acute distress Orientation/consciousness: patient oriented x3 Neck Neck: Yes normal visual inspection and Yes no JVD Resp Effort & Inspection: normal respiratory effort Auscultation: clear to auscultation bilaterally, no crackles, no rales, no rhonchi and no wheezes Cardio Jugular venous distension: no JVD Rate: regular rate Rhythm: regular rhythm Heart sounds: S1 normal heart sound present, S2 normal heart sound present, no murmurs and no rubs Neuro General: patient oriented x3 Psych Appearance: grossly normal Mental Status: mental status grossly normal Speech and movement: Normal speech and movement present Office Procedures EKG Details: Today, read by me, normal sinus rhythm, no acute ST or T-wave abnormalities, rate 97, QTC 449 millisecond [id number], Complete Assessment & Plan Assessment & Plan (1) Chest discomfort: Code(s): R07.89 - Other chest pain Category: Medical Plan: Report of left-sided upper chest pressure which has been present for a few weeks, unchanged with exertion. She denies any lifting, straining or new exercises that could have contributed to this. Her left chest is nontender to palpation. It is not worse with deep inspiration. She has no shortness of breath. EKG done today shows normal sinus rhythm with no acute ST or T-wave abnormalities, rate 97. Her symptom is atypical for angina. Her med list does not include hormonal therapy. She is low risk for PE. Blood pressure is in the normal range. Will plan for an exercise stress test to evaluate for any EKG changes with activity to provide her with some reassurance. Not likely to have ischemia. Emergency care if needed for change or worsening of symptoms. Plan to call her with test results. Cardiology follow up as needed (2) Heart palpitations: Code(s): R00.2 - Palpitations Plan: Prior reports of heart palpitations: heart is pounding at times and skipping beats. Echocardiogram done on 04/18/22 showed normal EF 60-65%, normal RV, normal valve function. Holter monitor done 04/18/2022 showed sinus rhythm with average heart rate 86, heart rate range 61 to 160, no ectopy, patient's symptoms correlated with normal sinus rhythm. She did have a in that time period and then reported improvement in her heart palpitations when she was . Another provider ordered a cardiac event monitor done on 01/13/2024 which she wore for 21 days showing sinus rhythm with average heart rate 85, 35% of the time sinus tachycardia. At this time she does feel occasional skipped beats and heart pounding at times. She tells me she has been diagnosed with POTS by her PCP.. Informed her that if she does have lightheadedness or heart pounding she should be increasing her fluid intake to help prevent drops in blood pressure. Will plan to reassess heart rate and blood pressure at time of stress test. (3) Asthma: Code(s): J45.909 - Unspecified asthma, uncomplicated Category: Medical Plan: Followed by PCP Plan Time spent on chart review, documentation, interview and assessment Orders: Orders CA stress test Today R00.2 - Palpitations, R07.89 - Other chest pain Coding Level of Care Code Est Pt Level 3 (98705) Diagnoses Chest discomfort R07.89 Heart palpitations R00.2 Asthma J45.909 CPT Codes EKG - CPT: [id number], Complete ([id number]) Time Spent (min) 24
[2024-04-30 13:50] VITALS: BP 120/62; PULSE 97; BMI 34.5
== END 2024-04-30 14:25 | disposition home or self-care (01) ==
PROVIDERS: PCP Pediatrics; Visit Provider Nurse Practitioner Family
DX: R07.89 Other chest pain (principal); R00.2 Palpitations; J45.909 Unspecified asthma, uncomplicated
CPT/HCPCS: 93010; 99213

== ENCOUNTER → 2024-04-30 13:47 | Outpatient (BNVA) | payer MEDICAID, SELFPAY | PROVIDERS: PCP Family Medicine; Visit Provider Nurse Practitioner Family | DX: R07.89 Other chest pain (principal); R00.2 Palpitations; J45.909 Unspecified asthma, uncomplicated | CPT/HCPCS: 93005; 99212 ==

== ENCOUNTER 2024-05-13 12:07 | Outpatient (REF) | payer MEDICAID, SELFPAY ==
[2024-05-15 08:10] LABS: H Pylori Breath Test Negative (Negative)
== END 2024-05-13 12:08 | disposition home or self-care (01) ==
LOC: HO.HHCLNP 12:07
PROVIDERS: Visit Provider Emergency Medicine
DX: R12 Heartburn (principal)
CPT/HCPCS: 83013

== ENCOUNTER 2024-05-26 08:11 | Outpatient (REF) | payer MEDICAID, SELFPAY ==
--- NOTE | ~2024-05-26 | US_ITS ---
EXAMINATION: US ABDOMEN COMPLETE CLINICAL INFORMATION: Upper abdominal pain x3 weeks. Negative H. pylori stool Ag. COMPARISON: CT abdomen and pelvis 01/25/2021. TECHNIQUE: Real-time imaging of the abdominal viscera. FINDINGS: PANCREAS: Normal. ABDOMINAL AORTA: The proximal, mid, and distal segments are normal in caliber. INFERIOR VENA CAVA: Visualized portions are normal. LIVER: The liver is normal in size. The liver contour is normal. Parenchymal echogenicity is normal. No focal hepatic lesion. There is no intrahepatic biliary duct dilatation seen. GALLBLADDER: The gallbladder wall appears edematous and thickened at 5 mm. The gallbladder is physiologically distended without evidence of stones, sludge, polyps, or pericholecystic fluid. Younger's sign is negative. COMMON BILE DUCT: Normal in caliber measuring 0.4 cm in diameter. RIGHT KIDNEY: Normal. No hydronephrosis. No renal calculi or focal parenchymal lesions. The kidney measures 10.4 cm in maximum dimension. LEFT KIDNEY: Normal. No hydronephrosis. No renal calculi or focal parenchymal lesions. The kidney measures 9.8 cm in maximum dimension. SPLEEN: Normal. The spleen measures 10.2 cm in maximum dimension. FREE FLUID: None. US/US abdomen complete IMPRESSION: Thickened edematous gallbladder wall without stones or positive Younger's sign. If acalculous cholecystitis is a concern, HIDA scan may be useful for further evaluation. Electronically signed by: Pieter Johnson MD 07/06/2024 12:32 AM [facility] [place]
== END 2024-05-26 08:12 | disposition home or self-care (01) ==
LOC: HO.US 08:11
PROVIDERS: PCP Emergency Medicine; Visit Provider Emergency Medicine
DX: R10.10 Upper abdominal pain, unspecified (principal)
CPT/HCPCS: 76700

== ENCOUNTER → 2024-05-28 10:39 | Outpatient (REF) | payer MEDICAID, SELFPAY ==
--- NOTE | 2024-05-28 10:42 | CA_ITS ---
Acquisition Time: 2024-05-28 10:54:32 Total Exercise Time: 00:06:30 Test Indications: CHEST DISCOMFORT,HEART PALPITATI Medications: Protocol: FEDE Max HR: 171 BPM 92% of Pred: 185 BPM Max BP: 130/062 mmHG Max Work Load: 7.7 METS Exercise stress test exercise 6 min 30 sec of Fede protocol achieving 91% MPHR, with chest heaviness 3/10 at peak, with mild SOB, without arrhythmias, with normotensive response to exericse, without EKG changes. Chest heaviness and shortness of breath with rest Test reviewed with Dr. Daniel. Referred By: Lynette Kurger Overread By: Maryuri Mathis
== END ==
LOC: HO.CARD 10:39
PROVIDERS: PCP Emergency Medicine; Visit Provider Nurse Practitioner Family
DX: R07.9 Chest pain, unspecified (principal); R00.2 Palpitations
CPT/HCPCS: 93017

== ENCOUNTER → 2024-05-28 10:42 | Outpatient (BNV) | payer MEDICAID, SELFPAY | PROVIDERS: PCP Emergency Medicine; Visit Provider Nurse Practitioner | DX: R06.02 Shortness of breath (principal); R07.9 Chest pain, unspecified | CPT/HCPCS: 93016; 93018 ==

== ENCOUNTER 2024-06-09 | Outpatient (REF) | payer MEDICAID, SELFPAY ==
[2024-06-14 17:27] LABS: Bordetella DNA source Swab; Bordetella parapertussis DNA Not Detected (Not Detected); Bordetella pertussis DNA Not Detected (Not Detected)
== END 2024-06-09 00:01 | disposition home or self-care (01) ==
LOC: HO.LNP
PROVIDERS: Visit Provider Family Medicine
DX: R05.2 Subacute cough (principal)
CPT/HCPCS: 87798

== ENCOUNTER 2024-06-11 08:58 | Outpatient (REF) | payer MEDICAID, SELFPAY ==
[2024-06-18 19:53] LABS: Pertussis Testing 38 IU/mL
== END 2024-06-11 08:59 | disposition home or self-care (01) ==
LOC: HO.HHCL 08:58
PROVIDERS: Visit Provider Family Medicine
DX: R05.2 Subacute cough (principal)
CPT/HCPCS: 36415; 86615

== ENCOUNTER 2024-06-25 08:45 | Emergency (ER) | payer MEDICAID, SELFPAY ==
--- NOTE | ~2024-06-25 | XR_ITS ---
EXAMINATION: XR CHEST 9:33 AM CLINICAL INFORMATION: Chest pain COMPARISON: 03/03/2022 TECHNIQUE: AP upright portable view of the chest was obtained. FINDINGS: No significant abnormality is noted involving the heart, lungs, mediastinum, bony thorax or soft tissues. XR/XR chest 1V IMPRESSION: Unremarkable examination. Electronically signed by: Wilton Partida MD 06/25/2024 10:16 AM EDT
--- NOTE | 2024-06-25 08:48 | ECG_ITS ---
Test Reason : chest pain Blood Pressure : / mmHG Vent. Rate : 100 BPM Atrial Rate : 100 BPM P-R Int : 146 ms QRS Dur : 074 ms QT Int : 350 ms P-R-T Axes : 046 -02 008 degrees QTc Int : 451 ms Normal sinus rhythm Normal ECG When compared with ECG of 07-APR-2023 08:15, Vent. rate has increased BY 35 BPM QT has lengthened Referred By: Generic ED Physician Electronically Signed By:Jef Ruano
[2024-06-25 08:57] VITALS: BP 132/87; PULSE 99; RESP 18; TEMP 36.9; O2SAT 100; BMI 35.1
--- NOTE | 2024-06-25 09:16 | ED_ITS ---
HPI - General Adult General Chief complaint: General Medical Stated complaint: Chest pain, L side numbness Time Seen by Provider: 06/25/24 09:02 Source: patient and old records reviewed Mode of arrival: ambulatory Limitations: no limitations History of Present Illness ED Provider: LUCY SONG narrative: 33 yo female with PMH of asthma, palpitations, anxiety, IBS, chest pain who has seen our cardiology department and they felt this was not related to ischemia, GERD who presents with c/o studying for school last night when she noted heaviness in L chest that felt tight up to her face and L neck. It hurts to move and touch. No recent URI, GI losses. She does not take a diuretic. No known trauma, not on OCPs. She notes it hurts to touch the areas. She has not tried any medications for it this AM. No rash or tick bites noted. MD complaint: chest pain, body pain Onset (ago): day(s) (last night) Location: neck, chest, left and upper extremity Radiation: non-radiation Severity: moderate Quality: aching Pain Consistency: constant Relieving factors: immobilization Exacerbating factors: movement Associated symptoms: denies other symptoms Treatments prior to arrival: none Related Data Home Medications ?Medication ?Instructions ?Recorded ?Confirmed cetirizine 10 mg tablet (Zyrtec) 10 mg PO DAILY PRN 04/11/21 04/30/24 albuterol sulfate 90 mcg/actuation 2 puff PO Q4-6H PRN 03/07/22 04/30/24 aerosol inhaler (ProAir HFA) linaclotide 145 mcg capsule 145 mcg PO DAILY 03/07/22 04/30/24 (Linzess) omeprazole 20 mg capsule,delayed 20 mg PO DAILY 03/07/22 04/30/24 release fluticasone propionate 110 2 puff inhalation .once daily 09/17/23 04/30/24 mcg/actuation HFA aerosol inhaler (Flovent HFA) fluticasone propionate 50 2 spray intranasal DAILY PRN 09/17/23 04/30/24 mcg/actuation nasal spray,suspension amitriptyline 10 mg tablet 20 mg PO 04/30/24 04/30/24 Previous Rx's ?Medication ?Instructions ?Recorded ipratropium bromide 21 mcg (0.03 2 spray intranasal BID #30 mL 09/17/23 %) nasal spray cyclobenzaprine 10 mg tablet 10 mg PO TID PRN muscle spasm #20 06/25/24 tabs Allergies Allergy/AdvReac Type Severity Reaction Status Date / Time pseudoephedrine Allergy Unknown UNKNOWN Verified 06/25/24 08:58 [From [facility]] Review of Systems Review of Systems: Constitutional : No Weight loss, No Fever, No Chills ENT/Mouth : No sore throat, No Rhinorrhea Eyes: No Eye Pain, No Swelling Cardiovascular : pos Chest Pain, no SOB, no Dyspnea on Exertion, No Orthopnea, No Edema, No Palpitations Respiratory : No Cough, No Sputum Gastrointestinal : no Nausea, No Vomiting, No Diarrhea, No abdominal Pain, No Hematochezia, No Melena Genitourinary : No Dysuria, No Urinary Frequency Musculoskeletal : No joint pain, pos Myalgias, No Joint Swelling Skin : No Skin Lesions, No rash Neuro : No Weakness, No Numbness, No Dizziness, No Headache Psych : No Anxiety/Panic, No Depression Heme/Lymph: No Bruising, No Lymphadenopathy Endocrine : No Polyuria, No Polydipsia All other systems reviewed and are negative [facility] Past Medical History Attestation statement: The following information was validated with the patient. Source: old records reviewed Medical History Anxiety IBS (irritable bowel syndrome) Asthma Acid reflux Surgical History Hx of colonoscopy Family History Family History Father Diabetes Mother Diabetes Social History Social History Alcohol intake: never Patient Tobacco Use Status: Never used Tobacco Smoked in Last 30 Days: No Use of substances other than those prescribed or required for medical reasons: No Advance Directives: No Advance Directives Information Provided: Yes Patient : No Sexual orientation: Straight/Heterosexual Gender identity: Female Physical Exam ED Vital Signs: Vital Signs - 24 hr 06/25/24 08:57 Temperature 98.5 F Pulse Rate 99 Respiratory Rate 18 Blood Pressure 132/87 Pulse Oximetry 100 Oxygen Delivery Method Room Air BMI result Body Mass Index 35.1 Appearance: Alert. Oriented X3. No acute distress. Eyes: Pupils equal, round and reactive to light. ENT: Pharynx normal. Neck: Normal inspection. Neck supple. CVS: Normal heart rate and rhythm. Pulses normal. Chest: ttp along L chest wall and L trapezisu reproduces pain Respiratory: No respiratory distress. Breath sounds normal. Abdomen: Soft and nontender. Skin: Skin warm and dry. Normal skin color. Normal skin turgor. Extremities: No lower extremity edema. No calf ttp Neuro: Oriented X 3. No motor deficit. No sensory deficit. Medications Administered Discontinued Medications Generic Name Dose Route Start Last Admin Trade Name Yuriyq PRN Reason Stop Dose Admin Cyclobenzaprine HCl 10 mg 06/25/24 09:33 06/25/24 09:47 Cyclobenzaprine Hcl 10 Mg Tablet PO 06/25/24 09:34 10 mg ONCE ONE Administration Ketorolac Tromethamine 30 mg 06/25/24 09:33 06/25/24 09:47 Ketorolac Tromethamine 15 Mg/Ml Vial IM 06/25/24 09:34 30 mg ONCE ONE Administration Medical Decision Making Medical Decision Making [facility] Narrative: 33 yo female with PMH of asthma, palpitations, anxiety, IBS, chest pain, GERD who presents with c/o L sided MSK pain of the anterior L chest wall and L trapezius muscle all of her pulses are bounding the pain is reproduceable she has no tachycardia or signs of DVT and has IUD doubt ACS/VTE. Pain is reproduceable and pulses intact doubt dissection. She has no numbness or weakness. At this time will obtain basic labs, treat pain and check lytes/EKG/CXR. Differential Diagnosis Differential Diagnoses: The differential diagnosis associated with the presentation includes MSK pain, lyte abnormality, viral syndrome Admission/Observation Consideration of admission/observation: Escalation of care including admission/observation considered work up negative feels better stable for DC Lab Data [facility] Lab Attestation statement: I reviewed the patient's lab results. Independent Interpretation I performed an independent interpretation of an: EKG and Plain X-Ray (normal ) Interpretation: Rate: 100 Rhythm: NSR Gipsy: left Normal P waves. Normal MARILYN. Normal QRS complex. ST T wave : normal no BESSIE qTC: 451 prior studies: no acute ischemia The study has been interpreted contemporaneously by me. . Radiology Impression Discussion of test interpretation with radiology: I have reviewed the radiologist's reading. External Record Review External record reviewed: Outpatient record Prescription Management I considered prescription management with: Other Discharge Plan Discharge Clinical Impression: Anterior chest wall pain, Myalgia Patient Disposition: Home, Self-Care Instructions: Musculoskeletal Pain (ED), Chest Wall Pain (ED) Additional Instructions: labs, EKG and xray reassuring rest and stay hydrated return for any worsening symptoms or concerns. Prescriptions: New cyclobenzaprine 10 mg tablet 10 mg PO TID PRN (Reason: muscle spasm) Qty: 20 0RF No Action cetirizine [Zyrtec] 10 mg tablet 10 mg PO DAILY PRN omeprazole 20 mg capsule,delayed release(DR/EC) 20 mg PO DAILY Linzess 145 mcg capsule 145 mcg PO DAILY albuterol sulfate [ProAir HFA] 90 mcg/actuation HFA aerosol inhaler 2 puff PO Q4-6H PRN fluticasone propionate [Flovent HFA] 110 mcg/actuation HFA aerosol inhaler 2 puff inhalation .once daily fluticasone propionate 50 mcg/actuation spray,suspension 2 spray intranasal DAILY PRN Rx Instructions: administer into each nostril ipratropium bromide 21 mcg (0.03 %) spray,non-aerosol 2 spray intranasal BID Qty: 30 3RF Rx Instructions: administer into each nostril amitriptyline 10 mg tablet 20 mg PO Stand Alone Forms: Work/School Release Print Language: Colombian
[2024-06-25] MEDS: Ketorolac Tromethamine 15 MG/ML VIAL 30 MG IM (09:47)
[2024-06-25] MEDS: Cyclobenzaprine HCl 10 MG TABLET PO (09:47)
--- NOTE | 2024-06-25 09:50 | PC.NURSE ---
patient a&ox3, vss, threat monitoring analyst intact nsr on monitor, ekg performed, cxr performed, labs obtained, pt c/o 04/11 chest discomfort, pt medicated for pain, lungs clear/speaking in full sentences will continue to monitor
[2024-06-25 10:45] LABS: MANUAL DIFF FLAG NO
[2024-06-25 10:50] LABS: Basophils Percent Auto 0.3 % (0-2); Eosinophils Absolute Auto 0.1 X10*3/uL (0.0-0.4); Eosinophils Percent Auto 1.4 % (0-4); Hematocrit 35.3 % (37.0-47.0); Hemoglobin 11.4 g/dl (12.0-16.0); Imm Gran Abs Auto 0.01 X10*3/uL (0.00-0.03); Imm Gran Pct Auto 0.2 % (0.0-0.4); Lymphocytes Absolute Auto 1.3 X10*3/uL (1.2-4.9); Mean Corpuscular HGB Conc 32.3 g/dl (31.0-35.0); Mean Corpuscular Hemoglobin 28.7 pg (27.0-33.0); Mean Corpuscular Volume 88.9 fL (80.0-98.0); Mean Platelet Volume 10.9 fL (9.4-12.3); Monocytes Absolute Auto 0.2 X10*3/uL (0.1-1.2); Monocytes Percent Auto 3.9 % (2-11); Neutrophils Absolute Auto 4.6 x10*3/uL (2.0-8.3); Neutrophils Percent Auto 73.2 % (45-73); Platelet Count 265 X10*3/uL (160-400); Red Blood Count 3.97 X10*6/uL (4.20-5.50); Red Cell Distribution Width 13.2 % (11.0-16.0); White Blood Count 6.2 X10*3/uL (4.8-10.8)
[2024-06-25 11:11] LABS: Alanine Aminotransferase 11 U/L (0-31); Albumin Level 3.8 g/dL (3.5-5.0); Alkaline Phosphatase 72 U/L (39-117); Anion Gap 11 (12-20); Aspartate Amino Transferase 19 U/L (5-31); Bilirubin Direct 0.1 mg/dL (0.0-0.5); Bilirubin Total 0.3 mg/dL (0.0-1.0); Blood Urea Nitrogen 10 mg/dL (9-16); Calcium 9.1 mg/dL (8.4-10.2); Carbon Dioxide 27 mmol/L (22-29); Chloride 107 mmol/L (96-108); Creatinine Clr Calc Pharmacy 105.7; Estimated Glomerular Filt Rate > 60; Glucose Random 96 mg/dL (60-115); HCG Quantitative < 2 mIU/mL; Sodium 141 mmol/L (135-145); Troponin-I High Sensitivity < 2.7 ng/L (<3.5-17.0)
[2024-06-25 11:22] VITALS: BP 111/73; PULSE 64; RESP 18; TEMP 37; O2SAT 100
== END 2024-06-25 11:24 | disposition home or self-care (01) ==
PROVIDERS: Emergency Provider Emergency Medicine; PCP Family Medicine
DX: R07.89 Other chest pain (principal); R20.0 Anesthesia of skin; M54.2 Cervicalgia; M79.10 Myalgia, unspecified site; Z79.899 Other long term (current) drug therapy
CPT/HCPCS: 36415; 71045; 80048; 80076; 82550; 83735; 84484; 84702; 85025; 93005; 96372; 99284; J1885

== ENCOUNTER → 2024-06-25 08:48 | Outpatient (BNV) | payer MEDICAID, SELFPAY | PROVIDERS: Emergency Provider Emergency Medicine; PCP Family Medicine; Visit Provider Internal Medicine Cardiovascular Disease | DX: R07.9 Chest pain, unspecified (principal) | CPT/HCPCS: 93010 ==

== ENCOUNTER 2024-07-09 02:38 | Emergency (ER) | payer MEDICAID, SELFPAY ==
--- NOTE | ~2024-07-09 | XR_ITS ---
EXAMINATION: XR ABDOMEN KUB CLINICAL INDICATION: Constipation COMPARISON: Correlated to CT dated January 25, 2021 TECHNIQUE: AP view of the abdomen. FINDINGS: Gas throughout the intestine. No intestinal dilatation. No air-fluid levels. T-shaped contraceptive device overlapping the lower sacrum in the pelvis. Liver shadow projects below the rib cage. XR/XR KUB IMPRESSION: No intestinal obstruction pattern. Probable hepatomegaly versus ptosis hepatic Electronically signed by: Yosef Cuba MD 07/09/2024 09:14 AM RUSTY
[2024-07-09 02:49] VITALS: BP 118/84; PULSE 108; RESP 16; TEMP 36.9; O2SAT 98; BMI 34.5
--- NOTE | 2024-07-09 07:39 | ED_ITS ---
HPI - Female Genitourinary General Chief complaint: Urogenital-Female Stated complaint: constipated, abd pain, nauseous Time Seen by Provider: 07/09/24 07:37 Source: patient and old records reviewed Mode of arrival: ambulatory Limitations: no limitations History of Present Illness ED Provider: LUCY SONG Narrative: 33 yo female with PMH of asthma, ovarian cyst, chronic constipation/IBS on linzess here with c/o 1 week of no BM despite trying her usual remedies. She has no vomiting. She has pain up in the rib area and lower back. She has been worked up by GI with colonoscopy in the past. She notes her constipation has worsened since delivering her daughter 2 years ago. No new changes over the past week to trigger this event. MD elicited complaint: other (constipation) Pertinent past history: other (IBS) Onset (ago): week(s) (1) Location of symptoms: other (diffuse abdomen) Quality of pain: aching Consistency: constant Vaginal bleeding: none Exacerbating factors: none Relieving factors: none Associated symptoms: abdominal pain and constipation Treatment prior to arrival: other Related Data Home Medications ?Medication ?Instructions ?Recorded ?Confirmed cetirizine 10 mg tablet (Zyrtec) 10 mg PO DAILY PRN 04/11/21 04/30/24 albuterol sulfate 90 mcg/actuation 2 puff PO Q4-6H PRN 03/07/22 04/30/24 aerosol inhaler (ProAir HFA) linaclotide 145 mcg capsule 145 mcg PO DAILY 03/07/22 04/30/24 (Linzess) omeprazole 20 mg capsule,delayed 20 mg PO DAILY 03/07/22 04/30/24 release fluticasone propionate 110 2 puff inhalation .once daily 09/17/23 04/30/24 mcg/actuation HFA aerosol inhaler (Flovent HFA) fluticasone propionate 50 2 spray intranasal DAILY PRN 09/17/23 04/30/24 mcg/actuation nasal spray,suspension amitriptyline 10 mg tablet 20 mg PO 04/30/24 04/30/24 Previous Rx's ?Medication ?Instructions ?Recorded ipratropium bromide 21 mcg (0.03 2 spray intranasal BID #30 mL 09/17/23 %) nasal spray cyclobenzaprine 10 mg tablet 10 mg PO TID PRN muscle spasm #20 06/25/24 tabs Allergies Allergy/AdvReac Type Severity Reaction Status Date / Time pseudoephedrine Allergy Unknown UNKNOWN Verified 07/09/24 02:54 [From [facility]] Review of Systems Review of Systems: Constitutional : No Weight loss, No Fever, No Chills ENT/Mouth : No sore throat, No Rhinorrhea Eyes: No Swelling, No Redness Cardiovascular : No Chest Pain, No SOB, No Edema Respiratory : No Cough, No Sputum, No Wheezing Gastrointestinal : Positive Nausea, no Vomiting, no Diarrhea, positive abdominal Pain Genitourinary : No Dysuria, No Urinary Frequency, No Hematuria, No Urgency Musculoskeletal : No joint pain, No Myalgias, No Joint Swelling Skin : No Skin Lesions, No rash Neuro : No Weakness, No Numbness, No Dizziness, No Headache Psych : No Anxiety/Panic, No Depression All other systems reviewed and are negative. [facility] Past Medical History Attestation statement: The following information was validated with the patient. Source: old records reviewed Medical History Anxiety IBS (irritable bowel syndrome) Asthma Acid reflux Surgical History Hx of colonoscopy Family History Family History Father Diabetes Mother Diabetes Social History Social History Alcohol intake: never Patient Tobacco Use Status: Never used Tobacco Advance Directives: No Advance Directives Information Provided: Yes Do you have a plan to hurt others: No Plan Sexual orientation: Straight/Heterosexual Gender identity: Female Physical Exam Vital Signs: Vital Signs: Last Vital Signs Temp 98.5 F 07/09/24 02:49 Pulse 108 H 07/09/24 02:49 Resp 16 07/09/24 02:49 BP 118/84 07/09/24 02:49 Pulse Ox 98 07/09/24 02:49 O2 Del Method Room Air 07/09/24 02:49 BMI result Body Mass Index 34.5 Appearance: Alert. Oriented X3. No acute distress. Eyes: Pupils equal, round and reactive to light. ENT: Pharynx normal. Neck: Normal inspection. Neck supple. CVS: Normal heart rate and rhythm. Pulses normal. Respiratory: No respiratory distress. Breath sounds normal. Abdomen: Soft and mild diffuse ttp no rebound or guarding Skin: Skin warm and dry. Normal skin color. Extremities: No lower extremity edema. Neuro: Oriented X 3. No motor deficit. No sensory deficit. Course Course Course Narrative: + BM after therapy patient is very happy at this time Medications Administered Discontinued Medications Generic Name Dose Route Start Last Admin Trade Name Suellen PRN Reason Stop Dose Admin Lactulose 20 gm 07/09/24 07:44 07/09/24 08:08 Lactulose 20 Gm/30 Ml Solution PO 07/09/24 07:45 20 gm ONCE ONE Administration Senna 8.8 mg 07/09/24 07:44 07/09/24 08:08 Sennosides 8.6 Mg Tablet PO 07/09/24 07:45 8.8 mg NOW STA Administration Sodium Biphosphate/Sodium Phosphate 133 ml 07/09/24 07:44 07/09/24 08:08 Sodium Phosphate,Estill-Dibasic 133 Ml Enema PA 07/09/24 07:45 133 ml ONCE ONE Administration Medical Decision Making Medical Decision Making [facility] Narrative: 33 yo female with PMH of asthma, ovarian cyst, chronic constipation/IBS on linzess here with c/o constipation x 1 week, nausea, at this time has had this before but it is not responding to her home medications/therapy. At this time no fevers, no prior SBO, at this time UA/UPT and xray. Will offer oral medications/enema to get her to have BM Differential Diagnosis Differential Diagnoses: The differential diagnosis associated with the presentation includes constipation/IBS no prior surgery to suggest SBO Admission/Observation Consideration of admission/observation: Escalation of care including admission/observation considered Lab Data [facility] Lab Attestation statement: I reviewed the patient's lab results. Independent Interpretation I performed an independent interpretation of an: Plain X-Ray Radiology Impression Discussion of test interpretation with radiology: I have reviewed the radiolog ist's reading. External Record Review External record reviewed: Office record Discharge Plan Discharge Clinical Impression: Constipation Patient Disposition: Home, Self-Care Instructions: Constipation (ED), Fleet Enema (ED) Additional Instructions: continue your medications stay hydrated return for any worsening symptoms or concerns please monitor for fevers, pain, inability to eat or drink or any other concerns take regular medications follow up with GI Prescriptions: No Action cyclobenzaprine 10 mg tablet 10 mg PO TID PRN (Reason: muscle spasm) Qty: 20 0RF cetirizine [Zyrtec] 10 mg tablet 10 mg PO DAILY PRN omeprazole 20 mg capsule,delayed release(DR/EC) 20 mg PO DAILY Linzess 145 mcg capsule 145 mcg PO DAILY albuterol sulfate [ProAir HFA] 90 mcg/actuation HFA aerosol inhaler 2 puff PO Q4-6H PRN fluticasone propionate [Flovent HFA] 110 mcg/actuation HFA aerosol inhaler 2 puff inhalation .once daily fluticasone propionate 50 mcg/actuation spray,suspension 2 spray intranasal DAILY PRN Rx Instructions: administer into each nostril ipratropium bromide 21 mcg (0.03 %) spray,non-aerosol 2 spray intranasal BID Qty: 30 3RF Rx Instructions: administer into each nostril amitriptyline 10 mg tablet 20 mg PO Stand Alone Forms: Work/School Release Print Language: Gibraltarian
[2024-07-09] MEDS: Lactulose 20 GM/30 ML SOLUTION PO (08:08)
[2024-07-09] MEDS: Sennosides 8.6 MG TABLET 8.8 MG PO (08:08)
[2024-07-09] MEDS: Sodium Phosphate,Mono-Dibasic 133 ML ENEMA PR (08:08)
--- NOTE | 2024-07-09 08:23 | PC.NURSE ---
patient given enema, tolerated well.
[2024-07-09 09:34] VITALS: BP 121/74; PULSE 80; RESP 16; TEMP 36.9; O2SAT 97
== END 2024-07-09 09:34 | disposition home or self-care (01) ==
PROVIDERS: Emergency Provider Emergency Medicine; PCP Family Medicine
DX: K59.00 Constipation, unspecified (principal); R11.2 Nausea with vomiting, unspecified; R10.2 Pelvic and perineal pain; Z79.899 Other long term (current) drug therapy
CPT/HCPCS: 74018; 99282; 99283

== ENCOUNTER → 2024-07-09 05:35 | Outpatient (BNV) | payer MEDICAID, SELFPAY | PROVIDERS: Emergency Provider Emergency Medicine; PCP Family Medicine; Visit Provider Radiology Diagnostic Radiology | DX: K59.00 Constipation, unspecified (principal) | CPT/HCPCS: 74018 ==

== ENCOUNTER 2024-07-23 10:31 | Outpatient (REF) | payer MEDICAID, SELFPAY ==
[2024-07-26 07:43] LABS: TS Negative Control Passed; TS Panel A 2; TS Panel B 0; TS Positive Control Passed; TSpotTB Negative (Negative)
== END 2024-07-23 10:32 | disposition home or self-care (01) ==
LOC: HO.HHCL 10:31
PROVIDERS: Visit Provider Family Medicine
DX: Z11.1 Encounter for screening for respiratory tuberculosis (principal)
CPT/HCPCS: 36415; 86481

== ENCOUNTER 2024-12-08 14:23 | Outpatient (REF) | payer MEDICAID, SELFPAY ==
[2024-12-08 16:08] LABS: MANUAL DIFF FLAG NO
[2024-12-08 16:15] LABS: Basophils Percent Auto 0.4 % (0-2); Eosinophils Absolute Auto 0.1 X10*3/uL (0.0-0.4); Eosinophils Percent Auto 1.6 % (0-4); Hematocrit 37.5 % (37.0-47.0); Hemoglobin 11.9 g/dl (12.0-16.0); Imm Gran Abs Auto 0.02 X10*3/uL (0.00-0.03); Imm Gran Pct Auto 0.3 % (0.0-0.4); Lymphocytes Absolute Auto 1.7 X10*3/uL (1.2-4.9); Lymphocytes Percent Auto 23.8 % (20-40); Mean Corpuscular HGB Conc 31.7 g/dl (31.0-35.0); Mean Corpuscular Hemoglobin 28.5 pg (27.0-33.0); Mean Corpuscular Volume 89.7 fL (80.0-98.0); Mean Platelet Volume 11.1 fL (9.4-12.3); Monocytes Absolute Auto 0.3 X10*3/uL (0.1-1.2); Monocytes Percent Auto 3.6 % (2-11); Neutrophils Absolute Auto 5.1 x10*3/uL (2.0-8.3); Neutrophils Percent Auto 70.3 % (45-73); Platelet Count 301 X10*3/uL (160-400); Red Blood Count 4.18 X10*6/uL (4.20-5.50); Red Cell Distribution Width 13.3 % (11.0-16.0); White Blood Count 7.3 X10*3/uL (4.8-10.8)
[2024-12-08 16:54] LABS: Alanine Aminotransferase 8 U/L (0-31); Albumin Level 4.1 g/dL (3.5-5.0); Alkaline Phosphatase 78 U/L (39-117); Anion Gap 10 (12-20); Aspartate Amino Transferase 21 U/L (5-31); Bilirubin Total 0.3 mg/dL (0.0-1.0); Blood Urea Nitrogen 9 mg/dL (9-16); Calcium 9.1 mg/dL (8.4-10.2); Carbon Dioxide 26 mmol/L (22-29); Chloride 107 mmol/L (96-108); Estimated Glomerular Filt Rate > 60; Glucose Random 127 mg/dL (60-115); Potassium 3.7 mmol/L (3.3-5.1); Sodium 139 mmol/L (135-145); Total Protein 7.4 g/dL (6.5-8.0)
[2024-12-08 17:13] LABS: TSH reflex Free T4 1.15 uIU/mL (0.32-4.0)
--- OUTSIDE RECORDS SUMMARY | 2024-12-08 17:31 | XMS_ITS | Encounter Summary ---
Author Organization [employer] Address [address] [place] [address] Care Team Providers Care Wire Lather Name Role Phone Samira Michael MD Primary Care Provider [phone] Reason for Visit * Reason Comments Med Refill Encounter Details Date Type Department Care Team (Late st Contact Info) Description 07/17/2024 Refill [facility] [address] [place] [address] Samira Michael MD [address] [place] [address] Social History Tobacco Use Types Packs/Day Years Used Date Smoking Tobacco: Never Passive Smoke Exposure: Never Smokeless Tobacco: Never Alcohol Use Standard Drinks/Week Comments Not Currently 0 (1 standard drink = 0.6 oz pur e alcohol) Depression Answer Date Recorded Patient Health Questionnaire-9 Score 0 02/05/2023 Housing Stability Answer Date Recorded What is your housing situation today? I have nuha elmore 06/19/[address] you li ve. Do you have problems with any of the following? None of the above 06/19/2023 Food Insecurity Answer Date Recorded Within the past 12 months, y ou worried that your food would run out before you got money to buy more: Never True 06/19/2023 Within the past 12 months,th e food you bought just didn't last and you didn't have enough money to get more: Never True Transportation Answer Date Recorded In the past 12 months, has l ack of transportation kept you from medical appts, meetings, work or from getting things needed for daily living? No 06/19/2023 Utilities Answer Date Recorded In the past 12 months, has t he electric, gas, oil or water company threatened to shut off services in your home? 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 on file Not on file Not on file documented as of this encounter Plan of Treatment Upcoming Encounters Date Type Department Care Team (Late st Contact Info) Description 01/07/2025 10:30 AM EDT Office Visit [facility] [address] [place] [id number] Samira Michael MD [address] [place] [phone] documented as of this encounter Visit Diagnoses Not on filedocumented in this encounter Additional Health Concerns Assessment Noted Time PHQ-9 Depression Total Score: 0 02/06/20 23 8:51 AM EDT documented as of this encounter Care Teams Wire Lather Relationship Specialty Start Date End Date Samira Michael MD [address] [place] [id number] PCP - General Family Medicine 04/26/14 documented as of this encounter
--- OUTSIDE RECORDS SUMMARY | 2024-12-08 17:31 | XMS_ITS | Encounter Summary ---
Author Organization [employer] Address [address] [place] [address] Care Team Providers Care Swimming Coach Name Role Phone Samira Michael MD Primary Care Provider [phone] Encounter Details Date Type Department Care Team ([facility] st Contact Info) Description 04/30/2024 Orders Only 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 [address] [place] [address] Samira Michael MD [address] [place] [address] documented as of this encounter Visit Diagnoses Not on filedocumented in this encounter Additional Health Concerns Assessment Noted Time PHQ-9 Depression Total Score: 0 02/06/20 23 8:51 AM EDT documented as of this encounter Care Teams Swimming Coach Relationship Specialty Start Date End Date Samira Michael MD [address] [place] [phone] PCP - General Family Medicine 04/26/14 documented as of this encounter
--- OUTSIDE RECORDS SUMMARY | 2024-12-08 17:31 | XMS_ITS | Clinical Summary ---
Author Organization [employer] Address [address] [place] [address] [address] [place] [address] Care Team Providers Care Ic Designer Custom Name Role Phone Samira Michael MD Primary Care Provider [phone] Allergies Active Allergy Reactions Criticality Noted Date Comments Pseudoephedrine 12/31/2022 Other reaction(s): UNKNOWN Sulfa Antibiotics 10/08/2019 Medications montelukast (Singulair) 10 MG tablet Take 10 mg by mouth in the evening. 03/08/20 22 Active omeprazole (PriLOSEC) [address] capsule TAKE 1 CAPSULE BY MOUTH EVERY DAY BEFORE A MEAL 90 capsule 3 05/07/20 23 Active ibuprofen 400 MG tablet Take 1 tablet (400 mg) by mouth every 6 (six) hours if needed for moderate pain or fever for up to 30 doses. 30 tablet 06/06/20 23 Active topiramate (Topamax) 25 MG tablet Take 1 tablet (25 mg) by mouth in the morning. 90 tablet 3 08/20/20 23 Active Mometasone Furoate (Asmanex HFA) 100 MCG/ACT aerosol Take 1 puff twice daily. Rinse mouth after each use. 13 g 11 08/20/20 23 Active polyethylene glycol, PEG, 3350 (Miralax) 17 g packet Take 17 g by mouth in the morning. 30 packet 3 09/24/19 24 Active albuterol (Ventolin HFA) 108 (90 Base) MCG/ACT inhaler Inhale 2 puffs by mouth every 4-6 hours as needed 18 g 3 01/22/20 24 Active albuterol (2.5 MG/3ML) 0.083% nebulizer solution Take 3 mL (2.5 mg) by nebulization every 6 (six) hours if needed for wheezing. 75 mL 2 01/22/20 24 Active fluticasone (Flonase Allergy Relief) 50 MCG/ACT nasal sprayIndicatio ns:Allergic rhinitis, unspecified seasonality, unspecified trigger Administer 1-2 sprays into each nostril Once per day. 48 g 3 01/22/20 24 Active amitriptyline (Elavil) 10 MG tablet TAKE 1 TABLET BY MOUTH DAILY AT BEDTIME FOR 1 WEEK , THEN 2 TABLETS DAILY AT BEDTIME 02/10/20 24 Active famotidine (Pepcid) 20 MG tablet TAKE 1 TABLET BY MOUTH TWICE A DAY 180 tablet 1 04/30/20 24 Active cetirizine (ZyrTEC) 10 MG tabletIndicati ons:Allergic rhinitis, unspecified seasonality, unspecified trigger TAKE 1 TABLET BY MOUTH EVERY DAY IN THE MORNING 90 tablet 3 10/14/19 25 Active Linzess 145 MCG capsule TAKE 1 CAPSULE BY MOUTH EVERY DAY ON EMPTY STOMACH AT LEAST 30 MINUTES BEFORE 1ST MEAL OF THE DAY 30 capsule 3 11/26/19 25 Active amoxicillin-cl avulanate (Augmentin) 875-125 MG tablet Take 1 tablet by mouth 2 times daily. 14 tablet 11/26/19 25 Active ipratropium (Atrovent) 0.03 % nasal spray Administer 2 sprays into each nostril every 12 (twelve) hours. 30 mL 1 11/26/19 25 026 Active Linzess 145 MCG capsule TAKE 1 CAPSULE BY MOUTH EVERY DAY ON AN EMPTY STOMACH AT LEAST 30 MINUTES BEFORE 1ST MEAL OF THE DAY 30 capsule 3 05/28/20 23 025 Discontinued Active Problems Problem Noted Date Diagnosed Date Mild intermittent asthma without complication Family history of coronary artery disease 2022 Assessment & Plan (04/29/2023 1:08 PM EDT): - seen by executive services administrator in 2021, normal TTE and holter - safely discharged from their care on 02/05/23 - 02/05/23 TC 212; TG 75; HDL 60; LDL 112 - continue working on management of modifiable risk factors. Palpitation 02/05/2023 Assessment & Plan (08/20/2023 10:54 AM EST): - following with [facility], last seen on 02/01/23 - normal Holter and TTE in Apr 2022 - likely POTS, since she became symptomatic after COVID - continue monitoring and current treatment Assessment & Plan (02/05/2023 9:32 AM EDT): - following with [facility], last seen on 02/01/23 - normal Holter and TTE in Apr 2022 - likely POTS, since she became symptomatic after COVID - continue monitoring and current treatment Precordial pain 02/05/2023 Assessment & Plan (01/10/2024 4:15 PM EDT): - less frequent, yet still symptomatic - following with executive services administrator, [facility], last seen on 02/01/23 - normal TTE and Holter on 04/18/22 - will evaluate with KEVIN Assessment & Plan (02/05/2023 9:30 AM EDT): - less frequent, yet still symptomatic - following with executive services administrator, [facility], last seen on 02/01/23 - normal TTE and Holter on 04/18/22 - continue monitoring Obesity 02/04/2023 Assessment & Plan (01/06/2024 12:08 PM EDT): - Work on lifestyle modifications. History of ovarian cyst 02/04/2023 POTS (postural orthostatic tachycardia syndrome) 02/04/2023 Assessment & Plan (01/10/2024 4:16 PM EDT): - following with [facility], last seen on 02/01/23 - normal Holter and TTE in Apr 2022 - likely POTS, since she became symptomatic after COVID - will evaluate with KEVIN Assessment & Plan (08/20/2023 10:54 AM EST): - following with [facility], last seen on 02/01/23 - normal Holter and TTE in Apr 2022 - likely POTS, since she became symptomatic after COVID - continue monitoring and current treatment Assessment & Plan (04/29/2023 1:09 PM EDT): - following with [facility], last seen on 02/01/23 - normal Holter and TTE in Apr 2022 - likely POTS, since she became symptomatic after COVID - continue monitoring and current treatment Assessment & Plan (02/05/2023 9:32 AM EDT): - Hx COVID19 - continue monitoring - will consult with cardiologists History of gestational diabetes mellitus 023 Assessment & Plan (02/05/2023 9:30 AM EDT): - during last [id number] - diet-controlled - check A1C - continue working on lifestyle modification Headache 01/29/2023 Assessment & Plan (01/06/2024 10:31 AM EDT): - likely tension headache - normal MRI in Oct 2019 - Last seen by Dr. Campbell, 09/25/2023. - Pt started on amitriptyline. - Prescribed topiramate 25 mg daily; may titrate up as tolerated - continue judicious use of ibuprofen prn - discussed about having adequate sleep / stress reduction Assessment & Plan (08/20/2023 10:58 AM EST): - likely tension headache - normal MRI in Oct 2019 - previously seeing Dr. Campbell, last seen in Apr 2020 - since pt has frequent palpitation and chest pain, will not restart amitriptyline - start topiramate 25 mg daily; may titrate up as tolerated - continue judicious use of ibuprofen prn - discussed about having adequate sleep / stress reduction - refer to neurology History of abnormal cervical Pap smear 5 Assessment & Plan (02/04/2023 11:06 AM EDT): - Hx ASCUS with positive high-risk HPV - most recent PAP 03/27/22 NILM with negative high-risk HPV Allergic rhinitis 02/18/2013 Assessment & Plan (01/06/2024 12:08 PM EDT): - continue fluticasone, montelukast, and cetirizine - refer to ancillary specialist. Assessment & Plan (08/20/2023 4:40 AM EST): - continue fluticasone, montelukast, and cetirizine Asthma 02/18/2013 Assessment & Plan (01/06/2024 10:29 AM EDT): - change fluticasone to mometasone (Asmanex) - continue albuterol prn - continue montelukast - evaluated by order entry representative 09/17/2023. Pt had normal PFT. Recommended ancillary specialist referral. Assessment & Plan (08/20/2023 10:54 AM EST): - change fluticasone to mometasone (Asmanex) - continue albuterol prn - continue montelukast - refer to order entry representative to assess if pt will benefit from immunologic Assessment & Plan (04/29/2023 1:09 PM EDT): - continue fluticasone - continue albuterol Assessment & Plan (02/05/2023 9:33 AM EDT): - continue fluticasone - continue albuterol Resolved Problems Problem Noted Date Diagnosed Date Resolved Date Paresthesia of bilateral legs 02/05/2023 01/10/2024 Assessment & Plan (02/05/2023 9:55 AM EDT): - check lab B12 and TSH - consider checking NCT/EMG - ?restless leg syndrome Mastitis 02/04/2023 02/05/2023 Assessment & Plan (02/05/2023 9:31 AM EDT): - treated with cefadoxil - resolved Encounters Date Type Department Care Team Description 11/30/2024 7:40 PM EDT Office Visit [facility] [address] [address] Iliana Reyes MD Acute right-sided low back pain without sciatica (Primary Dx); Sweating profusely 11/25/2024 3:00 PM EDT Office Visit [facility] [address] [place] [address] Abad Balbuena MD Subacute sinusitis, unspecified location (Primary Dx) 11/24/2024 Refill [facility] [address], [place] [phone] Samira Michael MD 11/13/2024 Population Health Risk Score [facility] Department [address] [place] [phone] Provider, Population Health Generic 10/14/2024 Refill [facility] [address] [place] [address] Samira Michael MD Allergic rhinitis, unspecified seasonality, unspecified trigger from Last 3 Months Immunizations Name Administration Dates Next Due DTaP 12/19/2012 Hep B, adult 02/02/2016,11/03/2015,09/27/2015 Influenza Injectable Quadriv alant Preservative Free IIV4 MDCK 05/18/2021,05/26/2020 Influenza injectable quadriv alent IIV4 with preservative 05/13/2019,05/14/2018 Influenza injectable quadriv alent preservative free 05/17/2016 Influenza, IIV3, injectable 05/18/2021 Influenza, Split (incl. siri fied surface antigen) 07/07/2012 Influenza, seasonal, injecta ble, preservative free 05/13/2024 Moderna Covid-19 Vaccine 12+ 11/10/2021, 10/03/2021,12/01/2020,10/13,09/15/2020 Moderna Covid-19 Vaccine 6+ Bivalent 09/06/2022 Pneumococcal Conjugate PCV 20 08/20/2023 Pneumococcal Polysaccharide PPSV23 03/13/2016, Tdap 07/20/2022,02/02/2016 Family History Medical History Relation Name Comments Autism Brother 1 Hypertension Brother 1 Obesity Brother 1 Diabetes type II Brother 2 Allergic rhinitis Daughter 1 Asthma Daughter 1 Allergic rhinitis Daughter 2 Asthma Daughter 2 Obesity Mother Relation Name Status Comments Brother 1 Brother 2 Alive Daughter 1 Daughter 2 Alive Mother Social History Tobacco Use Types Packs/Day Years Used Date Smoking Tobacco: Never Passive Smoke Exposure: Never Smokeless Tobacco: Never Tobacco Cessation:Counseling Given: Not Answered Alcohol Use Standard Drinks/Week Comments Not Currently 0 (1 standard drink = 0.6 oz pur e alcohol) Depression Answer Date Recorded Patient Health Questionnaire-9 Score 0 02/05/2023 Housing Stability Answer Date Recorded What is your housing situation today? 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 on file Not on file Last Filed Vital Signs Vital Sign Reading Time Taken Comments Blood Pressure 126/72 11/30/2024 7:34 PM EDT Pulse 91 11/30/2024 7:34 PM EDT Temperature 37.3 ??C (99.1 ??F) 11/30/2024 7:34 PM ED T Respiratory Rate 16 11/30/2024 7:34 PM EDT Oxygen Saturation 98% 11/30/2024 7:34 PM EDT Inhaled Oxygen Concentration - - Weight 87.4 kg (192 lb 9.6 oz) 11/30/2024 7:34 P M EDT Height 157.5 cm (5' 2 ) 11/30/2024 7:34 PM EDT Body Mass Index 35.23 11/30/2024 7:34 PM EDT Plan of Treatment Upcoming Encounters Date Type Department Care Team (Late st Contact Info) Description 01/07/2025 10:30 AM EDT Office Visit [facility] [address] [place] [address] Samira Michael MD [address] [place] [address] Health Maintenance Due Date Last Done Comments Alcohol/Substance Use Screening 2000 Family Planning (PISQ) 2003 Pap Smear 2009 Cervical Cancer Screening 04/23/2022 HPV/Cotest 04/23/2022 04/23/2017 Depression Screening 02/06/2024 02/05/2023, 02/06/20 23 SDOH Screening 02/06/2024 02/05/2023 COVID-19 Vaccine ( season) 2024 09/06/2022, 11/10/2021, 10/03/2021, Additional history exists Tobacco Screening 11/30/2025 11/30/2024 Lipid Panel 01/05/2029 01/06/2024, 02/05/2023 DTaP/Tdap/Td Vaccines (4 - Td or Tdap) 07/20/2032 07/20/2022, 02/02/2016, 12/19/2012 Zoster Vaccines (1 of 2) 2038 RSV Patients and Patients Aged 60 years or older (1 - 1-dose 75+ series) 2063 Hepatitis B Vaccines Completed 02/02/2016, 11/03/2015, 09/27/2015 Pneumococcal Vaccine: Pediatrics (0 to 5 Years) and At-Risk Patients (6 to 49) Years) Completed 08/20/2023, 03/13/2016, 12/19/2012 HIV Screening Completed 01/06/2024, 03/22/2022 Hepatitis C Screening Completed 01/06/2024, 019 Influenza Vaccine Completed 05/13/2024, , 05/18/2021, Additional history exists HIB Vaccines Aged Out No longer eligi ble based on patient's age to complete this topic HPV Vaccines Aged Out No longer eligi ble based on patient's age to complete this topic Hepatitis A Vaccines Aged Out No long er eligible based on patient's age to complete this topic IPV Vaccines Aged Out No longer eligi ble based on patient's age to complete this topic Meningococcal Vaccine Aged Out No maxime jeanmarie eligible based on patient's age to complete this topic RSV under 20 months Aged Out No longe r eligible based on patient's age to complete this topic Rotavirus Vaccines Aged Out No longer eligible based on patient's age to complete this topic Procedures Procedure Name Priority Date/Time Associated Diagnosis Comments COMPREHENSIVE METABOLIC PANEL Routine 12/08/2024 2:25 PM EDT Sweating profusely TSH W/REFLEX TO FT4 Routine 12/08/2024 2 :25 PM EDT Sweating profusely CBC WITH AUTO DIFFERENTIAL Routine 12/08/2024 2:25 PM EDT Sweating profusely HEPATITIS C AB W/REFL TO HCV RNA, QN, PCR Routine 01/06/2024 10:55 AM EDT Routine screening for STI (sexually transmitted infection) HIV 1/2 ANTIGEN/ANTIBODY, FOURTH GENERATION W/RFL Routine 01/06/2024 10:55 AM EDT Routine screening for STI (sexually transmitted infection) LIPID PANEL WITH REFLEX TO DIRECT LDL Routine 01/06/2024 10:55 AM EDT Class 1 obesity due to excess calories without serious comorbidity with body mass index (BMI) of 33.0 to 33.9 in adult [facility] HISTORICAL HPV MRNA E6/E7 Routine 04/23/2017 11:03 AM EDT from Last 3 Months or Most Recently Relevant to Health Maintenance Results * TSH W/Reflex to FT4 (12/08/2024 2:25 PM EDT) TSH reflex Free T4 1.15 0.32 - 4.0 uIU/mL [facility] Blood Venous blood specimen / Unknown 12/08/2024 2:25 PM EDT 12/08/2024 4:05 PM EDT Iliana Reyes MD LAB BLOOD ORDERABLES Final Result [facility] [address] [place] [address] [phone] * (ABNORMAL) CBC auto differential (12/08/2024 2:25 PM EDT) Pathologist [facility] White Blood Count 7.3 4.8 - 10.8 X10*3/uL [facility] Red Blood Count 4.18(L) 4.20 - 5.50 X10*6/uL [facility] Hemoglobin 11.9(L) 12.0 - 16.0 g/dl [facility] Hematocrit 37.5 37.0 - 47.0 % [facility] Mean Corpuscular Volume 89.7 80.0 - 98.0 fL [facility] Mean Corpuscular Hemoglobin 28.5 27.0 - 33.0 pg [facility] Mean Corpuscular HGB Conc 31.7 31.0 - 35.0 g/dl [facility] Red Cell Distribution Width 13.3 11.0 - 16.0 % [facility] Platelet Count 301 160 - 400 X10*3/uL [facility] Mean Platelet Volume 11.1 9.4 - 12.3 fL [facility] Neutrophils Percent Auto 70.3 45 - 73 % [facility] Imm Gran Pct Auto 0.3 0.0 - 0.4 % [facility] Lymphocytes Percent Auto 23.8 20 - 40 % [facility] Monocytes Percent Auto 3.6 2 - 11 % [facility] Eosinophils Percent Auto 1.6 0 - 4 % [facility] Basophils Percent Auto 0.4 0 - 2 % [facility] NRBC Pct Auto 0.0 0.0 - 0.2 /100WBC [facility] Neutrophils Absolute Auto 5.1 2.0 - 8.3 x10*3/uL [facility] Imm Gran Abs Auto 0.02 0.00 - 0.03 X10*3/uL [facility] Lymphocytes Absolute Auto 1.7 1.2 - 4.9 X10*3/uL [facility] Monocytes Absolute Auto 0.3 0.1 - 1.2 X10*3/uL [facility] Eosinophils Absolute Auto 0.1 0.0 - 0.4 X10*3/uL [facility] Basophils Absolute Auto 0.0 0.0 - 0.2 X10*3/uL [facility] NRBC Abs Auto 0.000 0.0 - 0.012 X10*3/uL [facility] Blood Venous blood specimen / Unknown 12/08/2024 2:25 PM EDT 12/08/2024 4:05 PM EDT us Iliana Reyes MD LAB BLOOD ORDERABLES Final Result [facility] [address] [place] [phone] * (ABNORMAL) Comprehensive Metabolic Panel (12/08/2024 2:25 PM EDT) Sodium 139 135 - 145 mmol/L [facility] Potassium 3.7 3.3 - 5.1 mmol/L [facility] Chloride 107 96 - 108 mmol/L [facility] Carbon Dioxide 26 22 - 29 mmol/L [facility] Anion Gap 10(L) 12 - 20 [facility] Urea Nitrogen (BUN) 9 9 - 16 mg/dL [facility] Creatinine, Serum 0.75 0.5 - 1.4 mg/dL [facility] Estimated Glomerular Filt Rate >60 [facility] Comment:Chronic Kidney Disea se: Estimated GFR < 60 mL/min/1.77s3Lbklls Kidney Disease: Estimated GFR < 15 mL/min/1.73m2 Glucose 127(H) 60 - 115 mg/dL [facility] Calcium 9.1 8.4 - 10.2 mg/dL [facility] Bilirubin, Total 0.3 0.0 - 1.0 mg/dL [facility] Aspartate Amino Transferase 21 5 - 31 U/L [facility] Alanine Aminotransferase 8 0 - 31 U/L [facility] Total Protein 7.4 6.5 - 8.0 g/dL [facility] Albumin Level 4.1 3.5 - 5.0 g/dL [facility] Alkaline Phosphatase 78 39 - 117 U/L [facility] Blood Venous blood specimen / Unknown 12/08/2024 2:25 PM EDT 12/08/2024 4:05 PM EDT Iliana Reyes MD LAB BLOOD ORDERABLES Final Result [facility] [address] [place] [address] [phone] * (ABNORMAL) Lipid Panel with Reflex to Direct LDL (01/06/2024 10:55 AM EDT) Triglycerides 73 <150 mg/dL [facility] Comment:Desirable Triglyceri de: less than 150 mg/dLBorderline High Triglyceride 150-199 mg/dLHigh Triglyceride: 200-499 mg/dLVery High Triglyceride: greater than or equal to 5OO mg/dL Cholesterol 186 <200 mg/dL [facility] Comment:Desirable Cholestero l: less than 200 mg/dLBorderline High Cholesterol: 200-239 mg/dLHigh Cholesterol: greater than 239 mg/dL LDL Cholesterol Calculated 122(H) <100 mg/dL [facility] Comment:Desirable LDL: less than 100 mg/dLNear Optimal/Above Optimal LDL: 110- 129 mg/dLBorderline High LDL: 130-159 mg/dLHigh LDL: 160-189 mg/dLVery High LDL: greater than or equal to 190 mg/dL HDL Cholesterol 50 >40 mg/dL [facility] Comment:Desirable HDL: great er than 40 mg/dL Note: This HDL assay may give artificially low results in patients with liver disease. Blood 01/06/2024 10:5 5 AM EDT 01/06/2024 1:02 PM EDT Samira Michael MD LAB BLOOD ORDERABLES Final Resul t Performing Organization Address [facility] Co de Phone Number [facility] [address] [place] [phone] * Hepatitis C Antibody with Reflex to HCV, RNA, Quantitative, Real-Time PCR (01/06/2024 10:55 AM EDT) Hepatitis C Antibody Nonreactive Nonreactive [facility] Comment:Antibodies to HCV no t detected; does not exclude early acuteHCV infection. Blood Venous blood specimen / Unknown 01/06/2024 10:55 AM EDT 01/06/2024 1:02 PM EDT Samira Michael MD LAB BLOOD ORDERABLES Final Resul t Performing Organization Address [facility] Co de Phone Number [facility] [address] [place] [phone] * HIV-1/2 Antigen and Antibodies, Fourth Generation, with Reflexes (01/06/2024 10:55 AM EDT) HIV AB/AG Nonreactive Nonreactive [facility] Comment:HIV-1 p24 Ag and/or HIV-1/HIV-2 Ab not detected.A test result that is nonreactive does not exclude thepossibility of exposure to or infection with HIV-1 and/orHIV-2. Nonreactive results in this assay for individualswith prior exposure to HIV-1 and/or HIV-2 may be due toantigen and antibody levels that are below the limit ofdetection of this assay.The [employer] HIV Ag/Ab Combo assay result andsupplemental assay results should be interpreted inconjunction with the patient's clinical presentation,history and other laboratory results. If the results areinconsistent with clinical evidence, additional testing issuggested to confirm the result. Blood Venous blood specimen / Unknown 01/06/2024 10:55 AM EDT 01/06/2024 1:02 PM EDT us Samira Michael MD LAB BLOOD ORDERABLES Final Resul t Performing Organization Address [facility]/ZIP Co de Phone Number [facility] [address] [place] [address] [phone] * HPV mRNA E6/E7 (04/23/2017 11:03 AM EDT) HPV mRNA E6/E7 Not Detected NOT DETECTED [employer] [facility] Comment: This test was performed using the APTIMA(R) HPV Assay ([employer] This assay detects E6/E7 viral messenger RNA (mRNA) from 14 high-risk HPV types (16,18,31,33,35,39,45,51, 52,56,58,59,66,68). For additional information please refer to: http://education.StoryWorth.Engagor/faq/WQH883n4 (This link is being provided for informational/ educational purposes only.) Test Performed by [facility], [address], [address] [place] [address] Dagoberto Kaur M.D., Ph.D., Director of Laboratories , [facility] [id number] Please note: ??Effective 05/14/2016, HPV testing will be performed using [employer]'s APTIMA test which targets mRNA. Detecting mRNA instead of DNA, as in older methods, offers significant improvements in specificity. 04/23/2017 11:0 3 AM EDT us Historical Provider HISTORICAL/NON ORDERABLE LABS Final Result [facility] [address] from Last 3 Months or Most Recently Relevant to Health Maintenance Insurance [facility] C3 Care Teams Ic Designer Custom Relationship Specialty Start Date End Date Samria Michael MD [address] [place] [phone] PCP - General Family Medicine 04/26/14
--- OUTSIDE RECORDS SUMMARY | 2024-12-08 17:31 | XMS_ITS | Encounter Summary ---
Author Organization [employer] Address [address] [facility] [address] [place] [address] Care Team Providers Care Instrument Repair Specialist Name Role Phone Samira Michael MD Primary Care Provider [phone] Reason for Visit * Reason Comments Med Refill Encounter Details Date Type Department Care Team (Late st Contact Info) Description 05/25/2024 Refill [facility] [address] [place] [address] Samira Michael MD [address] [place] [address] Allergic rhinitis, unspecified seasonality, unspecified trigger Social History Tobacco Use Types Packs/Day Years [...] 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 Not on file Not on file documented as of this encounter Plan of Treatment Upcoming Encounters Date Type Department Care Team (Late st Contact Info) Description 01/07/2025 10:30 AM EDT Office Visit [facility] [address] [place] [phone] Samira Michael MD [address] [place] [phone] documented as of this encounter Visit Diagnoses Diagnosis Allergic rhinitis, unspecified seasonality, unspecified trigger documented in this encounter Additional Health Concerns Assessment Noted Time PHQ-9 Depression Total Score: 0 02/06/20 23 8:51 AM EDT documented as of this encounter Care Teams Instrument Repair Specialist Relationship Specialty Start Date End Date Samira Michael MD [address] [place] [phone] PCP - General Family Medicine 04/26/14 documented as of this encounter
--- OUTSIDE RECORDS SUMMARY | 2024-12-08 17:31 | XMS_ITS | Encounter Summary ---
Author Organization [employer] Address [address] [place] [address] 7 [place] [address] Care Team Providers Care Software Test Developer Name Role Phone Samira Michael MD Primary Care Provider [phone] Reason for Referral * Consultation (Routine) - Closed Specialty Diagnoses / Procedures Referred By Kp abreu Referred To Contact Occupational Therapy Diagnoses Right lateral epicondylitis Samira Michael MD [address] [place] [phone] Phone: tel: fax: [facility] [address] [place] [address] Phone: tel: fax: Referral ID Status Reason Start Date Expiration Date V isits Requested Visits Authorized [id number] Closed Specialty Services Required 01/28/2024 01/27/2025 20 20 Encounter Details Date Type Department Care Team (Late st Contact Info) Description 01/26/2024 Orders Only [facility] MEDICINE [address] [place] [address] [phone] Samira Michael MD [address] [place], [place] [phone] Right lateral epicondylitis (Primary Dx) Social History Tobacco Use Types Packs/Day Years [...] 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 Not on file Not on file documented as of this encounter Plan of Treatment Upcoming Encounters Date Type Department Care Team (Late st Contact Info) Description 01/07/2025 10:30 AM EDT Office Visit [facility] MEDICINE [address] [place] [address] Samira Michael MD [address] [place] [address] Scheduled Referrals Name Type Priority Associated Diagnoses Orde r Schedule Referral to Occupational Therapy Outpatient Referral Routine Right lateral epicondylitis Expected: 01/26/2024 (Approximate), Expires: 01/25/2025 documented as of this encounter Visit Diagnoses Diagnosis Right lateral epicondylitis- Primary documented in this encounter Additional Health Concerns Assessment Noted Time PHQ-9 Depression Total Score: 0 06/06/20 23 8:51 AM EDT documented as of this encounter Care Teams Software Test Developer Relationship Specialty Start Date End Date Samira Michael MD [address] [place] [phone] PCP - General Family Medicine 04/26/14 documented as of this encounter
--- OUTSIDE RECORDS SUMMARY | 2024-12-08 17:31 | XMS_ITS | Encounter Summary ---
Author Organization [employer] Address [address] [place] [address] 7 [place] [address] Care Team Providers Care Nuclear Medicine Pet Ct Technologist Name Role Phone Samira Michael MD Primary Care Provider [phone] Encounter Details Date Type Department Care Team (Late st Contact Info) Description 10/10/2022 Orders Only [facility] MED[facility]INE [address] [place] [address] [phone] Perla Lang LPN Social History Tobacco Use Types Packs/Day Years Used Date Smoking Tobacco: Never Assessed Comments Unknown Sex and Gender Information Value Date Recorded Sex Assigned at Female 07/02/2022 10:19 AM EDT Legal Sex Female 10:19 AM EDT Gender Identity Female 07/02/2022 10:19 AM EDT Sexual Orientation Straight 07/02/2022 10 :19 AM EDT documented as of this encounter Plan of Treatment Upcoming Encounters Date Type Department Care Team (Late st Contact Info) Description 01/07/2025 10:30 AM EDT Office Visit [facility] MEDICINE [address] [place] [address] [phone] Samira Michael MD [address] [place], [place] [phone] documented as of this encounter Procedures Procedure Name Priority Date/Time Associated Diagnosis Comments HCG, QL, URINE Routine 04/07/2023 4:54 PM EDT URINALYSIS WITH REFLEX MICROSCOPIC Routine 04/07/2023 4:54 PM EDT HIGH SENSITIVITY TROPONIN I Routine 04/07/2023 8:27 AM EDT CBC WITH AUTO DIFFERENTIAL Routine 04/07/2023 8:27 AM EDT BASIC METABOLIC PANEL Routine 04/07/2023 8:27 AM EDT CBC WITH AUTO DIFFERENTIAL Routine 12/31/2022 3:54 PM EDT MAGNESIUM Routine 12/31/2022 3:54 PM EDT HEPATIC FUNCTION PANEL Routine 12/31/2022 3:54 PM EDT BASIC METABOLIC PANEL Routine 12/31/2022 3:54 PM EDT documented in this encounter Results * (ABNORMAL) Urinalysis w/reflex microscopic (04/07/2023 4:54 PM EDT) Color Urine Yellow [facility] Appearance Urine Clear [facility] PH 6.0 5.0 - 9.0 [facility] Glucose Urine UA Negative Negative mg/dL [facility] Urine Blood Negative Negative [facility] Specific [place] - Urine >=1.030(H) 1.005 - 1.025 [facility] Urine Protein Negative Neg-Trace mg/dL [facility] Urine Ketones Negative Negative mg/dL [facility] Nitrite Urine Negative Negative [facility] Leukocyte Esterase Urine Negative Negative [facility] 04/07/2023 4:54 PM EDT 04/07/2023 4:59 PM EDT Narrative [facility] - 04/07/2023 5:39 PM EDT unable to urinate at this [id number], Clean Catch us [facility] External Provider LAB URI NE ORDERABLES Final Result [facility] [address] [place] [phone] * HCG, Qualitative, Urine (04/07/2023 4:54 PM EDT) Pathologist [facility] Urine NEGATIVE NEGATIVE [facility] Comment:This test was develo ped to detect early . Falsenegative results may occur after the 5th - 7th week ofpregnancy when using this test method. If clinicallyindicated, consider a serum hCG. 04/07/2023 4:54 PM EDT 04/07/2023 4:59 PM EDT Narrative [facility] - 04/07/2023 5:35 PM EDT unable to urinate at this time [facility] External Provider LAB URI NE ORDERABLES Final Result Performing Organization Address [facility]/ZIP Co de Phone Number [facility] [address] [place] [phone] * High Sensitivity Troponin I (04/07/2023 8:27 AM EDT) [facility] TROPONIN I HIGH SENSITIVITY <2.7 <3.5 - 17.0 ng/L [facility] Comment:The [place] high sens itivity Troponin-I results should beused in conjunction with other diagnostic information suchas ECG, clinical observations and information, and patientsymptoms to aid in the diagnosis of [place]. 04/07/2023 8:27 AM EDT 04/07/2023 8:33 AM EDT [facility] External Provider LAB BLO OD ORDERABLES Final Result Performing Organization Address [facility]/ZIP Co de Phone Number [facility] [address] [place] [address] [phone] * Basic Metabolic Panel (04/07/2023 8:27 AM EDT) [facility] Sodium 143 135 - 145 mmol/L [facility] Potassium 3.7 3.3 - 5.1 mmol/L [facility] Chloride 108 96 - 108 mmol/L [facility] Carbon Dioxide 23 22 - 29 mmol/L [facility] Anion Gap 16 12 - 20 [facility] Urea Nitrogen (BUN) 15 9 - 16 mg/dL [facility] Creatinine, Serum 0.79 0.5 - 1.4 mg/dL [facility] Creatinine Clr Calc Pharmacy 95.5 [facility] Comment:Provided height and weight: 157.48 cm,75.6 kg.eGFR (calculated from the MDRD study equation) and eCrCl(calculated from the Cockcroft-Gault equation) are based ondifferent parameters and may not yield comparable results.If eCrCl result is absurd, please check patient'sheight/weight. Estimated Glomerular Filt Rate >60 [facility] Comment:NOTE: For -Am erican individuals, multiply the result by 1.210.Chronic Kidney Disease: Estimated GFR < 60 mL/min/1.38v9Epftqc Kidney Disease: Estimated GFR < 15 mL/min/1.73m2 Glucose 88 60 - 115 mg/dL [facility] Calcium 9.2 8.4 - 10.2 mg/dL [facility] 04/07/2023 8:27 AM EDT 04/07/2023 8:33 AM EDT [facility] External Provider LAB BLO OD ORDERABLES Final Result [facility] [address] [place] [phone] * (ABNORMAL) CBC auto differential (04/07/2023 8:27 AM EDT) White Blood Count 7.1 4.8 - 10.8 X10*3/uL [facility] Red Blood Count 4.07(L) 4.20 - 5.50 X10*6/uL [facility] Hemoglobin 11.9(L) 12.0 - 16.0 g/dl [facility] Hematocrit 37.8 37.0 - 47.0 % [facility] Mean Corpuscular Volume 92.9 80.0 - 98.0 fL [facility] Mean Corpuscular Hemoglobin 29.2 27.0 - 33.0 pg [facility] Mean Corpuscular HGB Conc 31.5 31.0 - 35.0 g/dl [facility] Red Cell Distribution Width 12.4 11.0 - 16.0 % [facility] Platelet Count 247 160 - 400 X10*3/uL [facility] Mean Platelet Volume 10.9 9.4 - 12.3 fL [facility] Neutrophils Percent Auto 64.6 45 - 73 % [facility] Imm Gran Pct Auto 0.1 0.0 - 0.4 % [facility] Lymphocytes Percent Auto 27.2 20 - 40 % [facility] Monocytes Percent Auto 5.4 2 - 11 % [facility] Eosinophils Percent Auto 2.3 0 - 4 % [facility] Basophils Percent Auto 0.4 0 - 2 % [facility] NRBC Pct Auto 0.0 0.0 - 0.2 /100WBC [facility] Neutrophils Absolute Auto 4.6 2.0 - 8.3 x10*3/uL [facility] Imm Gran Abs Auto 0.01 0.00 - 0.03 X10*3/uL [facility] Lymphocytes Absolute Auto 1.9 1.2 - 4.9 X10*3/uL [facility] Monocytes Absolute Auto 0.4 0.1 - 1.2 X10*3/uL [facility] Eosinophils Absolute Auto 0.2 0.0 - 0.4 X10*3/uL [facility] Basophils Absolute Auto 0.0 0.0 - 0.2 X10*3/uL [facility] NRBC Abs Auto 0.000 0.0 - 0.012 X10*3/uL [facility] 04/07/2023 8:27 AM EDT 04/07/2023 8:33 AM EDT us [facility] External Provider LAB BLO OD ORDERABLES Final Result [facility] [address] [place] [phone] * Magnesium (12/31/2022 3:54 PM EDT) Magnesium 1.7 1.6 - 2.6 mg/dL [facility] 12/31/2022 3:54 PM EDT 12/31/2022 3:58 PM EDT [facility] External Provider LAB BLO OD ORDERABLES Final Result [facility] [address] [place] [phone] * (ABNORMAL) Basic Metabolic Panel (12/31/2022 3:54 PM EDT) Sodium 138 135 - 145 mmol/L [facility] Potassium 3.5 3.3 - 5.1 mmol/L [facility] Chloride 105 96 - 108 mmol/L [facility] Carbon Dioxide 25 22 - 29 mmol/L [facility] Anion Gap 12 12 - 20 [facility] Urea Nitrogen (BUN) 8(L) 9 - 16 mg/dL [facility] Creatinine, Serum 0.80 0.5 - 1.4 mg/dL [facility] Creatinine Clr Calc Pharmacy 92.4 [facility] Comment:Provided height and weight: 157.48 cm,72.575 kg.eGFR (calculated from the MDRD study equation) and eCrCl(calculated from the Cockcroft-Gault equation) are based ondifferent parameters and may not yield comparable results.If eCrCl result is absurd, please check patient'sheight/weight. Estimated Glomerular Filt Rate >60 [facility] Comment:NOTE: For -Am erican individuals, multiply the result by 1.210.Chronic Kidney Disease: Estimated GFR < 60 mL/min/1.00p8Jcsnur Kidney Disease: Estimated GFR < 15 mL/min/1.73m2 Glucose 156(H) 60 - 115 mg/dL [facility] Calcium 8.6 8.4 - 10.2 mg/dL [facility] 12/31/2022 3:54 PM EDT 12/31/2022 3:58 PM EDT [facility] External Provider LAB BLO OD ORDERABLES Final Result Performing Organization Address [facility] Co de Phone Number [facility] [address] [place] [phone] * Hepatic Function Panel (12/31/2022 3:54 PM EDT) Bilirubin, Total 0.4 0.0 - 1.0 mg/dL [facility] Bilirubin, Direct 0.1 0.0 - 0.5 mg/dL [facility] Aspartate Amino Transferase 13 5 - 31 U/L [facility] Alanine Aminotransferase 10 0 - 31 U/L [facility] Total Protein 6.9 6.5 - 8.0 g/dL [facility] Albumin Level 3.8 3.5 - 5.0 g/dL [facility] Alkaline Phosphatase 101 39 - 117 U/L [facility] 12/31/2022 3:54 PM EDT 12/31/2022 3:58 PM EDT [facility] External Provider LAB BLO OD ORDERABLES Final Result Performing Organization Address City/[facility] Co de Phone Number [facility] [address] [place] [phone] * (ABNORMAL) CBC auto differential (12/31/2022 3:54 PM EDT) White Blood Count 17.7(H) 4.8 - 10.8 X10*3/uL [facility] Red Blood Count 3.80(L) 4.20 - 5.50 X10*6/uL [facility] Hemoglobin 10.8(L) 12.0 - 16.0 g/dl [facility] Hematocrit 34.4(L) 37.0 - 47.0 % [facility] Mean Corpuscular Volume 90.5 80.0 - 98.0 fL [facility] Mean Corpuscular Hemoglobin 28.4 27.0 - 33.0 pg [facility] Mean Corpuscular HGB Conc 31.4 31.0 - 35.0 g/dl [facility] Red Cell Distribution Width 15.5 11.0 - 16.0 % [facility] Platelet Count 252 160 - 400 X10*3/uL [facility] Mean Platelet Volume 9.9 9.4 - 12.3 fL [facility] Neutrophils Percent Auto 89.4(H) 45 - 73 % [facility] Imm Gran Pct Auto 0.9(H) 0.0 - 0.4 % [facility] Lymphocytes Percent Auto 4.4(L) 20 - 40 % [facility] Monocytes Percent Auto 2.5 2 - 11 % [facility] Eosinophils Percent Auto 2.5 0 - 4 % [facility] Basophils Percent Auto 0.3 0 - 2 % [facility] NRBC Pct Auto 0.0 0.0 - 0.2 /100WBC [facility] Neutrophils Absolute Auto 15.9(H) 2.0 - 8.3 x10*3/uL [facility] Imm Gran Abs Auto 0.16(H) 0.00 - 0.03 X10*3/uL [facility] Lymphocytes Absolute Auto 0.8(L) 1.2 - 4.9 X10*3/uL [facility] Monocytes Absolute Auto 0.5 0.1 - 1.2 X10*3/uL [facility] Eosinophils Absolute Auto 0.4 0.0 - 0.4 X10*3/uL [facility] Basophils Absolute Auto 0.1 0.0 - 0.2 X10*3/uL [facility] NRBC Abs Auto 0.000 0.0 - 0.012 X10*3/uL [facility] 12/31/2022 3:54 PM EDT 12/31/2022 3:58 PM EDT us [facility] External Provider LAB BLO OD ORDERABLES Final Result [facility] [address] [place] [phone] documented in this encounter Visit Diagnoses Not on filedocumented in this encounter Care Teams Nuclear Medicine Pet Ct Technologist Relationship Specialty Start Date End Date Samira Michael MD [address] [place] [phone] PCP - General Family Medicine 04/26/14 documented as of this encounter
--- OUTSIDE RECORDS SUMMARY | 2024-12-08 17:32 | XMS_ITS | Encounter Summary ---
Author Organization [employer] Address [address] [facility] [address] [place] [address] Care Team Providers Care Health Science Specialist Name Role Phone Samira Michael MD Primary Care Provider [phone] Encounter Details Date Type Department Care Team ([facility] st Contact Info) Description 09/24/2023 Orders Only [facility] MEDICINE [address] [place], [place] [phone] Samira Michael MD [address] [place], [place] [phone] Social History Tobacco Use Types Packs/Day Years [...] Description 01/07/2025 10:30 AM EDT Office Visit [facility] MEDICINE [address] [place] [address] Samira Michael MD [address] [place] [phone] documented as of this encounter Visit Diagnoses Not on filedocumented in this encounter Additional Health Concerns Assessment Noted Time PHQ-9 Depression Total Score: 0 02/06/20 23 8:51 AM EDT documented as of this encounter Care Teams Health Science Specialist Relationship Specialty Start Date End Date Samira Michael MD [address] [place] [phone] PCP - General Family Medicine 04/26/14 documented as of this encounter
[2024-12-09 12:32] LABS: Appearance Urine Turbid; Color Urine Yellow; Glucose Urine UA Negative (Negative); Leukocyte Esterase Urine Moderate (2+) (Negative); Nitrite Urine Negative (Negative); PH 5.5 (5.0-9.0); Specific Gravity - Urine >= 1.030 (1.005-1.025); UMIC TRIGGER UA YES; Urine Blood Negative (Negative); Urine Ketones Trace mg/dL (Negative); Urine Protein Trace mg/dL (Neg-Trace)
[2024-12-09 12:52] LABS: Bacteria Urine 1+ (None Seen); Hyaline Casts Urine 0-2 /LPF (0-2); RBC Urine 0-2 /HPF (0-2)
== END 2024-12-08 14:24 | disposition home or self-care (01) ==
LOC: HO.HHCL 14:23
PROVIDERS: Family Medicine; Visit Provider Internal Medicine
DX: M54.50 Low back pain, unspecified (principal); N76.0 Acute vaginitis; B96.89 Other specified bacterial agents as the cause of diseases classified elsewhere; R61 Generalized hyperhidrosis
CPT/HCPCS: 36415; 80053; 81001; 84443; 85025; 87086; 87147

== ENCOUNTER 2024-12-09 09:56 | Emergency (ER) | payer MEDICAID, SELFPAY ==
--- NOTE | ~2024-12-09 | XR_ITS ---
EXAMINATION: XR CHEST CLINICAL INFORMATION: chest pain COMPARISON: June 25, 2024. TECHNIQUE: 2 views of the chest were obtained. FINDINGS: No consolidation pleural effusion or pneumothorax. Cardiomediastinal silhouette size is normal. Dextroconvex curvature mid thoracic spine, mild. XR/XR chest 2V IMPRESSION: No acute airspace disease. Mild scoliosis, thoracic spine. Electronically signed by: Yosef Cuba MD 12/09/2024 12:43 PM EDT
--- NOTE | 2024-12-09 09:59 | ECG_ITS ---
Test Reason : CHEST PAIN Blood Pressure : */* mmHG Vent. Rate : 76 BPM Atrial Rate : 76 BPM P-R Int : 136 ms QRS Dur : 68 ms QT Int : 374 ms P-R-T Axes : 34 0 11 degrees QTcB Int : 420 ms Normal sinus rhythm Normal ECG When compared with ECG of 25-Jun-2024 08:50, No significant change was found Referred By: Generic ED Physician Electronically Signed By: Jef Ruano
[2024-12-09 10:10] VITALS: BP 125/80; PULSE 81; RESP 18; O2SAT 100; BMI 34.0
[2024-12-09 10:29] LABS: MANUAL DIFF FLAG NO
[2024-12-09 10:44] LABS: Basophils Percent Auto 0.3 % (0-2); Eosinophils Absolute Auto 0.1 X10*3/uL (0.0-0.4); Eosinophils Percent Auto 1.5 % (0-4); Hematocrit 35.8 % (37.0-47.0); Hemoglobin 11.7 g/dl (12.0-16.0); Imm Gran Abs Auto 0.02 X10*3/uL (0.00-0.03); Imm Gran Pct Auto 0.3 % (0.0-0.4); Lymphocytes Absolute Auto 1.3 X10*3/uL (1.2-4.9); Lymphocytes Percent Auto 20.6 % (20-40); Mean Corpuscular HGB Conc 32.7 g/dl (31.0-35.0); Mean Corpuscular Hemoglobin 28.7 pg (27.0-33.0); Mean Corpuscular Volume 87.7 fL (80.0-98.0); Mean Platelet Volume 10.3 fL (9.4-12.3); Monocytes Absolute Auto 0.3 X10*3/uL (0.1-1.2); Monocytes Percent Auto 4.2 % (2-11); Neutrophils Absolute Auto 4.5 x10*3/uL (2.0-8.3); Neutrophils Percent Auto 73.1 % (45-73); Platelet Count 274 X10*3/uL (160-400); Red Blood Count 4.08 X10*6/uL (4.20-5.50); Red Cell Distribution Width 13.2 % (11.0-16.0); White Blood Count 6.2 X10*3/uL (4.8-10.8)
[2024-12-09 10:59] LABS: Alanine Aminotransferase 6 U/L (0-31); Alkaline Phosphatase 77 U/L (39-117); Anion Gap 9 (12-20); Aspartate Amino Transferase 19 U/L (5-31); Bilirubin Total 0.5 mg/dL (0.0-1.0); Blood Urea Nitrogen 11 mg/dL (9-16); Carbon Dioxide 27 mmol/L (22-29); Chloride 109 mmol/L (96-108); Creatinine Clr Calc Pharmacy 104.5; Estimated Glomerular Filt Rate > 60; Glucose Random 93 mg/dL (60-115); Potassium 3.9 mmol/L (3.3-5.1); Sodium 141 mmol/L (135-145); Total Protein 7.3 g/dL (6.5-8.0)
[2024-12-09 11:26] LABS: Troponin-I High Sensitivity < 2.7 ng/L (<3.5-17.0)
--- NOTE | 2024-12-09 11:51 | ED.CHESTPAIN ---
HPI - Chest Pain General Chief Complaint: Chest Pain Stated Complaint: chest pain Time Seen by Provider: 12/09/24 11:47 Source: patient Mode of arrival: ambulatory Limitations: no limitations History of Present Illness ED Provider: Pieter Lomas DO HPI narrative: 34-year-old female with past medical history of controlled asthma and extensive cardiac workup in the past due to 2 years of intermittent chest pain and pressure (patient states she had a negative stress test, echocardiogram and Holter monitor and follows up with cardiology every 6 months) presents to the ED due to multiple concerns including chest ?pinching? and for that started at 08:00 this morning when she awoke which is typical for her but lasted longer and is still mildly present. She also reports having a diaphoretic episode last night with tingling of her left face and arm associated with chest pain sort of diarrhea. She states her chest pain episodes occur approximately twice a month. She denies any component of exertion causing the chest pain or pleuritic chest pain. She denies nausea, vomiting or any additional symptoms today. She denies lower extremity pain or swelling. She denies tobacco use or illicit drug use. Her only cardiac risk factor is OK in her grandmother while she was in her 50s. Related Data Home Medications ?Medication ?Instructions ?Recorded ?Confirmed cetirizine 10 mg tablet (Zyrtec) 10 mg PO DAILY PRN 04/11/21 04/30/24 albuterol sulfate 90 mcg/actuation 2 puff PO Q4-6H PRN 03/07/22 04/30/24 aerosol inhaler (ProAir HFA) linaclotide 145 mcg capsule 145 mcg PO DAILY 03/07/22 04/30/24 (Linzess) omeprazole 20 mg capsule,delayed 20 mg PO DAILY 03/07/22 04/30/24 release fluticasone propionate 110 2 puff inhalation .once daily 09/17/23 04/30/24 mcg/actuation HFA aerosol inhaler (Flovent HFA) fluticasone propionate 50 2 spray intranasal DAILY PRN 09/17/23 04/30/24 mcg/actuation nasal spray,suspension amitriptyline 10 mg tablet 20 mg PO 04/30/24 04/30/24 Previous Rx's ?Medication ?Instructions ?Recorded ipratropium bromide 21 mcg (0.03 2 spray intranasal BID #30 mL 09/17/23 %) nasal spray cyclobenzaprine 10 mg tablet 10 mg PO TID PRN muscle spasm #20 06/25/24 tabs Allergies Allergy/AdvReac Type Severity Reaction Status Date / Time pseudoephedrine Allergy Unknown UNKNOWN Verified 12/09/24 10:12 [From [facility]] Review of Systems Review of Systems: Yes all other systems are reviewed and are negative [facility] Past Medical History Medical History Anxiety IBS (irritable bowel syndrome) Asthma Acid reflux Surgical History Hx of colonoscopy Family History Family History Father Diabetes Mother Diabetes Social History Social History Alcohol intake: never Patient Tobacco Use Status: Never used Tobacco Smoked in Last 30 Days: No Use of substances other than those prescribed or required for medical reasons: No Advance Directives: No Advance Directives Information Provided: Yes Patient : No Sexual orientation: Straight/Heterosexual Gender identity: Female Physical Exam Vital Signs: Vital Signs: Last Vital Signs Pulse 67 12/09/24 12:40 Resp 13 12/09/24 12:40 BP 125/83 12/09/24 12:40 Pulse Ox 100 12/09/24 12:40 O2 Del Method Room Air 12/09/24 12:40 BMI result Body Mass Index 34.0 Constitutional: ?Alert, oriented, speaking in full sentences HEENT: ?Normocephalic, atraumatic. ?Moist mucous membranes Eyes: ?PERRL, EOMI Neck: ?Supple, nontender Chest: ?No chest wall tenderness Respiratory: ?Lungs clear to auscultation, no increased work of breathing Cardio: ?Regular rate and rhythm, no murmur, 2+ radial pulses GI: ?Soft, nondistended, nontender Back: ?Normal range of motion, nontender Skin: ?No rash, no lesions Neuro: ?Alert and oriented to person, place and time, moves all 4 extremities, no focal deficits, cranial nerves 2 through 12 intact Extremities: ?No swelling or tenderness, full range of motion Psych: ?Calm, alert and cooperative, appropriate behavior Medications Administered Discontinued Medications Generic Name Dose Route Start Last Admin Trade Name Suellen PRN Reason Stop Dose Admin Ibuprofen 600 mg 12/09/24 12:11 12/09/24 12:18 Ibuprofen 600 Mg Tablet PO 12/09/24 12:12 600 mg ONCE ONE Administration Medical Decision Making Medical Decision Making [facility] Narrative: This patient presents with chest pain, with symptoms suggestive of noncardiac chest pain. History without high risk features (e.g., not substernal, no exertional component, not relieved with rest). Minimal CAD risk factors. Exam without evidence of volume overload. EKG without signs of active ischemia. HEART score: 1. Plan to send troponin to evaluate for evidence of NSTEMI. Presentation not consistent with acute PE (Wells low risk / PERC negative), pneumothorax, thoracic arotic dissection, cardiac effusion or tamponade. Two troponins are unremarkable, unremarkable chest x-ray and lab work. Pain addressed with ibuprofen. 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 She agrees with plan. Lab Data [facility] Lab Attestation statement: I reviewed the patient's lab results. 12/09/24 10:24 12/09/24 10:24 Labs: Lab Results 12/09/24 12/09/24 Range/Units 10:24 12:22 WBC 6.2 (4.8-10.8) X10*3/uL RBC 4.08 L (4.20-5.50) X10*6/uL Hgb 11.7 L (12.0-16.0) g/dl Hct 35.8 L (37.0-47.0) % MCV 87.7 (80.0-98.0) fL MCH 28.7 (27.0-33.0) pg MCHC 32.7 (31.0-35.0) g/dl RDW 13.2 (11.0-16.0) % Plt Count 274 (160-400) X10*3/uL MPV 10.3 (9.4-12.3) fL Immature Gran % (Auto) 0.3 (0.0-0.4) % Neut % (Auto) 73.1 H (45-73) % Lymph % (Auto) 20.6 (20-40) % Fountain % (Auto) 4.2 (2-11) % Eos % (Auto) 1.5 (0-4) % Baso % (Auto) 0.3 (0-2) % Lymph # (Auto) 1.3 (1.2-4.9) X10*3/uL Fountain # (Auto) 0.3 (0.1-1.2) X10*3/uL Eos # (Auto) 0.1 (0.0-0.4) X10*3/uL Baso # (Auto) 0.0 (0.0-0.2) X10*3/uL Abs Immat Gran (auto) 0.02 (0.00-0.03) X10*3/uL Absolute Neuts (auto) 4.5 (2.0-8.3) x10*3/uL Absolute Nucleated RBC 0.000 (0.0-0.012) X10*3/uL Nucleated RBC % (auto) 0.0 (0.0-0.2) /100WBC Sodium 141 (135-145) mmol/L Potassium 3.9 (3.3-5.1) mmol/L Chloride 109 H (96-108) mmol/L Carbon Dioxide 27 (22-29) mmol/L Anion Gap 9 L (12-20) BUN 11 (9-16) mg/dL Creatinine 0.75 (0.5-1.4) mg/dL Estim Creat Clear Calc 104.5 Estimated GFR > 60 Random Glucose 93 (60-115) mg/dL Calcium 9.0 (8.4-10.2) mg/dL Total Bilirubin 0.5 (0.0-1.0) mg/dL AST 19 (5-31) U/L ALT 6 (0-31) U/L Alkaline Phosphatase 77 (39-117) U/L Troponin I High Sens < 2.7 < 2.7 (<3.5-17.0) ng/L Total Protein 7.3 (6.5-8.0) g/dL Albumin 4.0 (3.5-5.0) g/dL Independent Interpretation I performed an independent interpretation of an: EKG and Plain X-Ray (Chest x-ray per my independent interpretation shows no acute cardiopulmonary abnormalities.) Interpretation: Normal sinus rhythm at 76 beats per minute, normal axis, unremarkable intervals, no diagnostic ST or T-wave abnormalities with the exception of T-wave flattening in V3 and AVF and T-wave inversion in lead 3. Compared to prior dated 06/25/2024 , there are no significant changes Radiology Impression Discussion of test interpretation with radiology: I have reviewed the radiologist's reading. Discharge Plan Discharge Clinical Impression: Chest discomfort Patient Disposition: Home, Self-Care Instructions: Chest Pain (ED) Additional Instructions: You have been evaluated in the emergency department for chest pain today.? Although it was determined that there was not an immediately life threatening cause for your chest pain, it is very important that you follow up with your primary care physician.? Further cardiac (heart) testing may be recommended. Please be aware that if your condition changes or worsens in any way while you are at home, you should return to the emergency department immediately for further care.? This is especially true for worsening / recurrent pain, shortness of breath, vomiting, sweating, palpitations, lightheadedness or passing out.? These may be signs of an emergency condition and you should call 911 if these symptoms occur. Thank you for choosing us for your care. Prescriptions: No Action cyclobenzaprine 10 mg tablet 10 mg PO TID PRN (Reason: muscle spasm) Qty: 20 0RF cetirizine [Zyrtec] 10 mg tablet 10 mg PO DAILY PRN omeprazole 20 mg capsule,delayed release(DR/EC) 20 mg PO DAILY Linzess 145 mcg capsule 145 mcg PO DAILY albuterol sulfate [ProAir HFA] 90 mcg/actuation HFA aerosol inhaler 2 puff PO Q4-6H PRN fluticasone propionate [Flovent HFA] 110 mcg/actuation HFA aerosol inhaler 2 puff inhalation .once daily fluticasone propionate 50 mcg/actuation spray,suspension 2 spray intranasal DAILY PRN Rx Instructions: administer into each nostril ipratropium bromide 21 mcg (0.03 %) spray,non-aerosol 2 spray intranasal BID Qty: 30 3RF Rx Instructions: administer into each nostril amitriptyline 10 mg tablet 20 mg PO Stand Alone Forms: Work/School Release Print Language: Vietnamese
[2024-12-09] MEDS: Ibuprofen 600 MG TABLET PO (12:18)
[2024-12-09 12:40] VITALS: BP 125/83; PULSE 67; RESP 13; O2SAT 100
[2024-12-09 12:50] LABS: Troponin-I High Sensitivity < 2.7 ng/L (<3.5-17.0)
[2024-12-09 13:02] VITALS: BP 125/83; PULSE 67; RESP 13; TEMP 37; O2SAT 100
--- OUTSIDE RECORDS SUMMARY | 2024-12-09 13:57 | XMS_ITS | Encounter Summary ---
Author Organization [employer] Address [address] [facility] [address] [place] [address] Care Team Providers Care Supervisor Boat Outfitting Name Role Phone Samira Michael MD Primary Care Provider [phone] Reason for Visit * Reason Comments Back Pain Encounter Details Date Type Department Care Team (Late st Contact Info) Description 12/08/2024 7:40 PM EDT Office Visit [facility] [address] [place] [phone] Raquel Gardner MD [address] [place] [address] Low back pain, non-specific (Primary Dx); Bacterial vaginosis Social History Tobacco Use Types Packs/Day Years [...] 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 file Not on file Not on file documented as of this encounter Last Filed Vital Signs Vital Sign Reading Time Taken Comments Blood Pressure 143/93 12/08/2024 6:27 PM EDT Pulse 97 12/08/2024 6:27 PM EDT Temperature 36.1 ??C (97 ??F) 12/08/2024 6:27 PM EDT Respiratory Rate 20 12/08/2024 6:27 PM EDT Oxygen Saturation 99% 12/08/2024 6:27 PM EDT Inhaled Oxygen Concentration - - Weight 87.1 kg (192 lb) 12/08/2024 6:27 PM EDT Height 157.5 cm (5' 2 ) 12/08/2024 6:27 PM EDT Body Mass Index 35.12 12/08/2024 6:27 PM EDT documented in this encounter Progress Notes * Brent Delgado - 12/08/2024 7:40 PM EDT Subjective Dalia Freeman is a 34 y.o. female with past medical history of allergic rhinitis, asthma, and POTS after COVID19 here for evaluation of fishy odor and back pain. beginning 1 week ago. Other associated symptoms include: back pain. Fever has been absent. Symptoms which are not present include: abdominal pain, chills, dysuria, hematuria, urinary frequency, and urinary urgency. UTI history: no recentUTI's. Antibiotic use within past three months: Amoxicillin. Pt reports she has been feeling tired and general malaise. Had this worked up by PCP. Labs done today were largely unremarkable. TSH normal, and very mild anemia. Review of Systems Constitutional: Negative for fever and unexpected weight change. Respiratory: Negative for shortness of breath. Cardiovascular: Negative for chest pain. Gastrointestinal: Negative for abdominal pain. Genitourinary: Negative for difficulty urinating. Musculoskeletal: Positive for back pain. Neurological: Positive for weakness. Objective Visit Vitals BP (!) 143/93 (BP Location: Right arm, Patient Position: Sitting, BP Cuff Size: Large adult) Pulse 97 Temp 97 ??F (36.1 ??C) (Temporal) Resp 20 Ht 5' 2 (1.575 m) Wt 192 lb (87.1 kg) SpO2 99% BMI 35.12 kg/m?? Smoking Status Never BSA 1.95 m?? Physical Exam Constitutional: Appearance: Normal appearance. Cardiovascular: Rate and Rhythm: Normal rate and regular rhythm. Heart sounds: Normal heart sounds. Pulmonary: Effort: Pulmonary effort is normal. Breath sounds: Normal breath sounds. Abdominal: General: Abdomen is flat. Tenderness: There is no abdominal tenderness. There is no right CVA tenderness or left CVA tenderness. Musculoskeletal: Cervical back: Normal range of motion and neck supple. Neurological: General: No focal deficit present. Mental Status: She is alert. Psychiatric: Behavior: Behavior normal. Lab review Lab Results Component Value Date COLORURINE Yellow 04/07/2023 APPURINE Clear 04/07/2023 PH 6.0 04/07/2023 GLUCURUA Negative 04/07/2023 URBLOOD Negative 04/07/2023 SGUR >=1.030 (H) 04/07/2023 URPROTEIN Negative 04/07/2023 URKETONES Negative 04/07/2023 URNITRITE Negative 04/07/2023 LEUKESTUR Negative 04/07/2023 Problem List Items Addressed This Visit Low back pain, non-specific - Primary Likely musculoskeletal, less likely of renal etiology. No associated symptoms. Recent labs with normal renal function. -ordered UA and culture. Relevant Orders POCT Urinalysis (Completed) Culture, Urine, Routine Bacterial vaginosis -Wet prep with SUZY significant for mild yeast. Positive Clue cells. Whiff test negative. -Candidiasis prevention discussed. -Prescribed metroNIDAZOLE (Metrogel) 0.75 % vaginal gel Relevant Medications metroNIDAZOLE (Metrogel) 0.75 % vaginal gel Other Relevant Orders Urinalysis, Complete, with Reflex to Culture Less likely UTI. No clinical evidence of acute abdomen or pyelonephritis. Wet prep suspicious for BV. Symptoms mild. -Will treat with abx gel, Urinalysis and urine culture sent to the lab. -ER precautions discussed. -Seek medical attention for worsening symptoms. I, Brent Delgado, am serving as a scribe to document services personally performed by Dr. Jain, based on the patient's response to questions by provider and providers statements to me. documented in this encounter Miscellaneous Notes * Assessment & Plan Note - Brent Delgado - 12/08/2024 6:51 PM EDTAssociated Problem(s): Low back pain, non-specific Likely musculoskeletal, less likely of renal etiology. No associated symptoms. Recent labs with normal renal function. -ordered UA and culture. * Assessment & Plan Note - Brent Delgado - 12/08/2024 6:50 PM EDTAssociated Problem(s): Bacterial vaginosis -Wet prep with SUZY significant for mild yeast. Positive Clue cells. Whiff test negative. -Candidiasis prevention discussed. -Prescribed metroNIDAZOLE (Metrogel) 0.75 % vaginal gel documented in this encounter Plan of Treatment Upcoming Encounters Date Type Department Care Team (Late st Contact Info) Description 01/07/2025 10:30 AM EDT Office Visit [facility] [address] [place] [address] Samira Michael MD [address] [place] [address] Scheduled Orders Name Type Priority Associated Diagnoses Orde r Schedule Culture, Urine, Routine Microbiology Routine Low back pain, non-specific Expected: 12/08/2024 (Approximate), Expires: 12/08/2025 documented as of this encounter Procedures Procedure Name Priority Date/Time Associated Diagnosis Comments POCT INFLUENZA A (ID NOW RAPID MOLECULAR) Routine 12/08/2024 7:17 PM EDT Low back pain, non-specific POCT RAPID COVID ANTIGEN Routine 12/08/2024 7:17 PM EDT Low back pain, non-specific POCT INFLUENZA B (ID NOW RAPID MOLECULAR) Routine 12/08/2024 7:16 PM EDT Low back pain, non-specific POCT URINALYSIS DIPSTICK Routine 12/08/2024 6:44 PM EDT Low back pain, non-specific URINALYSIS, COMPLETE Routine 12/08/2024 6:30 PM EDT Low back pain, non-specific Bacterial vaginosis documented in this encounter Results * POCT Rapid Influenza A REICH ID NOW (12/08/2024 7:17 PM EDT) Influenza A Negative Negative, Indeterminate [facility] Swab 12/08/2024 7:17 PM EDT Raquel Gardner MD POINT OF CARE TEST ENTER/E DIT ORDERABLES Final Result [facility] [address] [place] [phone] * POCT Rapid COVID-19 Binax NOW (12/08/2024 7:17 PM EDT) Rapid COVID Ag Negative Swab 12/08/2024 7:17 PM EDT Raquel Gardner MD POINT OF CARE TEST ENTER/E DIT ORDERABLES Final Result * POCT Rapid Influenza B REICH ID NOW (12/08/2024 7:16 PM EDT) Influenza B Negative Negative, Indeterminate [facility] Swab 12/08/2024 7:16 PM EDT Raquel Gardner MD POINT OF CARE TEST ENTER/E DIT ORDERABLES Final Result [facility] [address] [place] [phone] * (ABNORMAL) POCT Urinalysis (12/08/2024 6:44 PM EDT) Color, UA Yellow Clarity, UA Clear Glucose, UA Negative Bilirubin, UA Negative Ketones, UA Negative Spec Grav, UA 1.030 Comment:>=1.030 Blood, UA Positive(A) Negative, None Detected Comment:trace-lysed pH, UA 6.0 Protein, UA Many Comment:30mg/dL Urobilinogen, UA 0.2 Leukocytes, UA Many(A) Negative, Rare, Trace Comment:small Nitrite, UA Negative Negative, None Detected Appearance, UA clear Urine 12/08/2024 6:44 PM EDT Raquel Gardner MD POINT OF CARE TEST ENTER/E DIT ORDERABLES Final Result * (ABNORMAL) Urinalysis Complete (12/08/2024 6:30 PM EDT) Color Urine Yellow [facility] Appearance Urine Turbid [facility] PH 5.5 5.0 - 9.0 [facility] Glucose Urine UA Negative Negative mg/dL [facility] Urine Blood Negative Negative [facility] Specific [place] - Urine >=1.030(H) 1.005 - 1.025 [facility] Urine Protein Trace Neg-Trace mg/dL [facility] Urine Ketones Trace Negative mg/dL [facility] Nitrite Urine Negative Negative [facility] Leukocyte Esterase Urine Moderate (2+)(A) Negative [facility] RBC Urine 0-2 0 - 2 /HPF [facility] Urine WBC 11-20(A) 0 - 5 /HPF [facility] Urine Squamous Epithelial Cell 11-20 0 - 2 /HPF [facility] Urine Bacteria 1+ None Seen [facility] Hyaline Casts, Urine 0-2 0 - 2 /LPF [facility] Urine (Urine, Random) 12/08/2024 6:30 PM EDT 12/09/2024 11:43 AM EDT us Raquel Gardner MD LAB URINE ORDERABLES Final Result Performing Organization Address City/State/[facility] Co de Phone Number [facility] [address] [place] [phone] documented in this encounter Visit Diagnoses Diagnosis Low back pain, non-specific- Primary Bacterial vaginosis Unspecified vaginitis and vulvovaginitis documented in this encounter Additional Health Concerns Assessment Noted Time PHQ-9 Depression Total Score: 0 02/06/20 23 8:51 AM EDT documented as of this encounter Care Teams Supervisor Boat Outfitting Relationship Specialty Start Date End Date Samira Michael MD [address] [place] [phone] PCP - General Family Medicine 04/26/14 documented as of this encounter
--- OUTSIDE RECORDS SUMMARY | 2024-12-09 13:57 | XMS_ITS | Encounter Summary ---
Author Organization [employer] Address 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 on file Not on file documented as of this encounter Plan of Treatment Upcoming Encounters Date Type Department Care Team (Late st Contact Info) Description 01/07/2025 10:30 AM EDT Office Visit [facility] [address] [place] [address] Samira Michael MD [address] [place] [phone] documented as of this encounter Visit Diagnoses Not on filedocumented in this encounter Additional Health Concerns Assessment Noted Time PHQ-9 Depression Total Score: 0 02/06/20 23 8:51 AM EDT documented as of this encounter Care Teams Lumber Stacker Relationship Specialty Start Date End Date Samira Michael MD [address] [place] [phone] PCP - General Family Medicine 04/26/14 documented as of this encounter
--- OUTSIDE RECORDS SUMMARY | 2024-12-09 13:57 | XMS_ITS | Clinical Summary ---
Author Organization [employer] Address [address] [place] [address] [address] [place] [address] Care Team Providers Care Information Clerk Name Role Phone Samira Michael MD Primary Care Provider [phone] Allergies Active Allergy Reactions Criticality Noted Date [...] 30 mL 1 11/26/19 25 026 Active metroNIDAZOLE (Metrogel) 0.75 % vaginal gelIndications :Bacterial Vaginosis Insert one applicator into vagina at bedtime for 7 nights 45 g 12/09/19 25 Active Linzess 145 MCG capsule TAKE 1 CAPSULE BY MOUTH EVERY DAY ON AN EMPTY STOMACH AT LEAST 30 MINUTES BEFORE 1ST MEAL OF THE DAY 30 capsule 3 05/28/20 23 025 Discontinued Active Problems Problem Noted Date Diagnosed Date Low back pain, non-specific 12/08/2024 Assessment & Plan (12/08/2024 6:51 PM EDT): Likely musculoskeletal, less likely of renal etiology. No associated symptoms. Recent labs with normal renal function. -ordered UA and culture. Bacterial vaginosis 12/08/2024 Assessment & Plan (12/08/2024 6:50 PM EDT): -Wet prep with SUZY significant for mild yeast. Positive Clue cells. Whiff test negative. -Candidiasis prevention discussed. -Prescribed metroNIDAZOLE (Metrogel) 0.75 % vaginal gel Mild intermittent asthma without complication Family history of coronary artery disease 2022 Assessment & Plan (04/29/2023 1:08 PM EDT): - seen by recruiting internship in 2021, normal TTE and holter - safely discharged from their care on 02/05/23 - 02/05/23 TC 212; TG 75; HDL 60; LDL 112 - continue working on management of modifiable risk factors. Palpitation 02/05/2023 Assessment & Plan (08/20/2023 10:54 AM EST): - following with [facility], last seen on 02/01/23 - normal Holter and TTE in Apr 2022 - likely POTS, since she became symptomatic after COVID - continue monitoring and current treatment Assessment & Plan (02/05/2023 9:32 AM EDT): - following with [facility], last seen on 02/01/23 - normal Holter and TTE in Apr 2022 - likely POTS, since she became symptomatic after COVID - continue monitoring and current treatment Precordial pain 02/05/2023 Assessment & Plan (01/10/2024 4:15 PM EDT): - less frequent, yet still symptomatic - following with recruiting internship, [facility], last seen on 02/01/23 - normal TTE and Holter on 04/18/22 - will evaluate with KEVIN Assessment & Plan (02/05/2023 9:30 AM EDT): - less frequent, yet still symptomatic - following with recruiting internship, [facility], last seen on 02/01/23 - normal TTE and Holter on 04/18/22 - continue monitoring Obesity 02/04/2023 Assessment & Plan (01/06/2024 12:08 PM EDT): - Work on lifestyle modifications. History of ovarian cyst 02/04/2023 POTS (postural orthostatic tachycardia syndrome) 02/04/2023 Assessment & Plan (01/10/2024 4:16 PM EDT): - following with [facility], last seen on 02/01/23 - normal Holter and TTE in Apr 2022 - likely POTS, since she became symptomatic after COVID - will evaluate with KEVIN Assessment & Plan (08/20/2023 10:54 AM EST): - following with [facility], last seen on 02/01/23 - normal Holter and TTE in Apr 2022 - likely POTS, since she became symptomatic after COVID - continue monitoring and current treatment Assessment & Plan (04/29/2023 1:09 PM EDT): - following with [facility], last seen on 02/01/23 - normal Holter and TTE in Apr 2022 - likely POTS, since she became symptomatic after COVID - continue monitoring and current treatment Assessment & Plan (02/05/2023 9:32 AM EDT): - Hx COVID19 - continue monitoring - will consult with cardiologists History of gestational diabetes mellitus 023 Assessment & Plan (02/05/2023 9:30 AM EDT): - during last [id number] - diet-controlled - check A1C - continue [...] fluticasone, montelukast, and cetirizine - refer to forest fire specialist supervisor. Assessment & Plan (08/20/2023 4:40 AM EST): - continue fluticasone, montelukast, and cetirizine Asthma 02/18/2013 Assessment & Plan (01/06/2024 10:29 AM EDT): - change fluticasone to mometasone (Asmanex) - continue albuterol prn - continue montelukast - evaluated by speed runner 09/17/2023. Pt had normal PFT. Recommended forest fire specialist supervisor referral. Assessment & Plan (08/20/2023 10:54 AM EST): - change fluticasone to mometasone (Asmanex) - continue albuterol prn - continue montelukast - refer to speed runner to assess if pt will benefit from [...] Encounters Date Type Department Care Team Description 12/09/2024 Orders Only GENERIC EXTERNAL DATA DEPARTMENT Provider, Generic External Data 12/08/2024 7:40 PM EDT Office Visit [facility] [address] [place] [phone] Raquel Gardner MD Low back pain, non-specific (Primary Dx); Bacterial vaginosis 12/08/2024 Travel 11/30/2024 7:40 PM EDT Office Visit [facility] [address] [place] [phone] Iliana Reyes MD Acute right-sided low back pain without sciatica (Primary Dx); Sweating profusely 11/25/2024 3:00 PM EDT Office Visit [facility] [address] [address] Abad Balbuena MD Subacute sinusitis, unspecified location (Primary Dx) 11/24/2024 Refill [facility] [address] [place] [phone] Samira Michael MD 11/13/2024 Population Health Risk Score [facility] [address] [phone] Provider, Population Health Generic 10/14/2024 Refill [facility] [address] [place] [phone] Samira Michael MD Allergic rhinitis, unspecified seasonality, [...] 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 Not on file Not on file Not [...] Mass Index 35.12 12/08/2024 6:27 PM EDT Plan of Treatment Upcoming Encounters Date Type Department Care Team (Late st Contact Info) Description 01/07/2025 10:30 AM EDT Office Visit [facility] [address] [place] [address] Samira Michael MD [address] [place] [address] Health Maintenance Due Date Last Done Comments Alcohol/Substance Use Screening 2000 Family Planning (PISQ) 2003 Pap Smear 2009 Cervical Cancer Screening 04/23/2022 HPV/Cotest 04/23/2022 04/23/2017 Depression Screening 02/06/2024 02/05/2023, 02/06/20 23 SDOH Screening 02/06/2024 02/05/2023 COVID-19 Vaccine ( season) 2024 09/06/2022, 11/10/2021, 10/03/2021, Additional history exists Tobacco Screening 12/08/2025 12/08/2024 Lipid Panel 01/05/2029 01/06/2024, 02/05/2023 DTaP/Tdap/Td Vaccines [...] Procedure Name Priority Date/Time Associated Diagnosis Comments HIGH SENSITIVITY TROPONIN I Routine 12/09/2024 12:22 PM EDT XR CHEST 2 VIEWS Routine 12/09/2024 12:1 7 PM EDT HIGH SENSITIVITY TROPONIN I Routine 12/09/2024 10:24 AM EDT COMPREHENSIVE METABOLIC PANEL Routine 12/09/2024 10:24 AM EDT CBC WITH AUTO DIFFERENTIAL Routine 12/09/2024 10:24 AM EDT POCT INFLUENZA A (ID NOW RAPID MOLECULAR) [...] EDT Low back pain, non-specific Bacterial vaginosis COMPREHENSIVE METABOLIC PANEL Routine 12/08/2024 2:25 PM [...] (BMI) of 33.0 to 33.9 in adult TAMY HISTORICAL HPV MRNA E6/E7 Routine 04/23/2017 11:03 AM EDT from Last 3 Months or Most Recently Relevant to Health Maintenance Results * High Sensitivity Troponin I (12/09/2024 12:22 PM EDT) Only the most recent of2 resultswithin the time period is included. TROPONIN I HIGH SENSITIVITY <2.7 <3.5 - 17.0 ng/L [facility] Comment:The Reich high sens itivity Troponin-I results should beused in conjunction with other diagnostic information suchas ECG, clinical observations and information, and patientsymptoms to aid in the diagnosis of [place]. 12/09/2024 12:2 2 PM EDT 12/09/2024 12:24 PM EDT us Generic External Data Provider LAB BLOOD ORDERAB LES Final Result [facility] [address] [place] [phone] * XR Chest 2 Views (12/09/2024 12:17 PM EDT) Anatomical Region Laterality Modality Chest Radiographic Tiffany ging 12/09/2024 12:1 7 PM EDT Narrative 12/09/2024 12:45 PM EDT ? [facility] [facility] ?[place] [address] ?XRay Report ? Signed ? Patient: Freeman,Dalia ?MR#: [id number] ?? 2 ? : 1990 ?Acct:[id number] ? Age/Sex: 34 / F ?ADM Date: 04/09/25 ? Loc: HO.ED ? Attending Dr: ? Ordering Physician: Pieter Lomas DO ?? Date of Service: 12/09/24 ?? Procedure(s): XR chest 2V ?? Accession Number(s): [id number] ? cc: Pieter Lomas DO; Samira Michael MD ? EXAMINATION: ?? XR CHEST ? CLINICAL INFORMATION: ?? chest pain ? COMPARISON: ?? June 25, 2024. ? TECHNIQUE: ?? 2 views of the chest were obtained. ? FINDINGS: ?? No consolidation pleural effusion or pneumothorax. Cardiomediastinal ?? silhouette size is normal. Dextroconvex curvature mid thoracic spine, ?? mild. ? XR/XR chest 2V ?? IMPRESSION: ?? No acute airspace disease. ?? Mild scoliosis, thoracic spine. ? Electronically signed by: ??Yosef Cuba MD ??12/09/2024 12:43 PM ?? EDT RP ? Dictated By: ?Yosef Gonzalez MD ? Signed By: ?<Electronically signed by Yosef Parmar MD in OV> ? 12/09/24 1243 ? DD/ 1217 ? TD/TT: 12/09/24 1233 ? Screw Machine Operator Single Spindle: ? Procedure Note Huy, Nati - 12/09/[address] [phone] XRay Report Signed Patient: Dalia FreemanMR#: [id number] 2 : 1990Acct:[id number] Age/Sex: 34 / FADM Date: 12/09/24 Loc: HO.ED Attending Dr: Ordering Physician: Pieter Lomas DO Date of Service: 12/09/24 Procedure(s): XR chest 2V Accession Number(s): [id number] cc: Pieter Lomas DO; Samira Michael MD EXAMINATION: XR CHEST CLINICAL INFORMATION: chest pain COMPARISON: June 25, 2024. TECHNIQUE: 2 views of the chest were obtained. FINDINGS: No consolidation pleural effusion or pneumothorax. Cardiomediastinal silhouette size is normal. Dextroconvex curvature mid thoracic spine, mild. XR/XR chest 2V IMPRESSION: No acute airspace disease. Mild scoliosis, thoracic spine. Electronically signed by: Yosef Cuba MD 12/09/2024 12:43 PM EDT RP Dictated By: Yosef Gonzalez MD Signed By: <Electronically signed by Yosef Parmar MDin OV> 12/09/24 1243 DD/ 1217 TD/TT: 12/09/24 1233 Screw Machine Operator Single Spindle: [facility] External Provider IMG XR PROCEDURES Final Result * (ABNORMAL) CBC auto differential (12/09/2024 10:24 AM EDT) Only the most recent of2 resultswithin the time period is included. White Blood Count 6.2 4.8 - 10.8 X10*3/uL [facility] Red Blood Count 4.08(L) 4.20 - 5.50 X10*6/uL [facility] Hemoglobin 11.7(L) 12.0 - 16.0 g/dl [facility] Hematocrit 35.8(L) 37.0 - 47.0 % [facility] Mean Corpuscular Volume 87.7 80.0 - 98.0 fL [facility] Mean Corpuscular Hemoglobin 28.7 27.0 - 33.0 pg [facility] Mean Corpuscular HGB Conc 32.7 31.0 - 35.0 g/dl [facility] Red Cell Distribution Width 13.2 11.0 - 16.0 % [facility] Platelet Count 274 160 - 400 X10*3/uL [facility] Mean Platelet Volume 10.3 9.4 - 12.3 fL [facility] Neutrophils Percent Auto 73.1(H) 45 - 73 % [facility] Imm Gran Pct Auto 0.3 0.0 - 0.4 % [facility] Lymphocytes Percent Auto 20.6 20 - 40 % [facility] Monocytes Percent Auto 4.2 2 - 11 % [facility] Eosinophils Percent Auto 1.5 0 - 4 % [facility] Basophils Percent Auto 0.3 0 - 2 % [facility] NRBC Pct Auto 0.0 0.0 - 0.2 /100WBC [facility] Neutrophils Absolute Auto 4.5 2.0 - 8.3 x10*3/uL [facility] Imm Gran Abs Auto 0.02 0.00 - 0.03 X10*3/uL [facility] Lymphocytes Absolute Auto 1.3 1.2 - 4.9 X10*3/uL [facility] Monocytes Absolute Auto 0.3 0.1 - 1.2 X10*3/uL [facility] Eosinophils Absolute Auto 0.1 0.0 - 0.4 X10*3/uL [facility] Basophils Absolute Auto 0.0 0.0 - 0.2 X10*3/uL [facility] NRBC Abs Auto 0.000 0.0 - 0.012 X10*3/uL [facility] 12/09/2024 10:2 4 AM EDT 12/09/2024 10:28 AM EDT us Generic External Data Provider LAB BLOOD ORDERAB LES Final Result [facility] [address] [place] [phone] * (ABNORMAL) Comprehensive Metabolic Panel (12/09/2024 10:24 AM EDT) Only the most recent of2 resultswithin the time period is included. Sodium 141 135 - 145 mmol/L [facility] Potassium 3.9 3.3 - 5.1 mmol/L [facility] Chloride 109(H) 96 - 108 mmol/L [facility] Carbon Dioxide 27 22 - 29 mmol/L [facility] Anion Gap 9(L) 12 - 20 [facility] Urea Nitrogen (BUN) 11 9 - 16 mg/dL [facility] Creatinine, Serum 0.75 0.5 - 1.4 mg/dL [facility] Creatinine Clr Calc Pharmacy 104.5 [facility] Comment:Provided height and weight: 157.48 cm,84.4 kg.eGFR (calculated from the MDRD study equation) and eCrCl(calculated from the Cockcroft-Gault equation) are based ondifferent parameters and may not yield comparable results.If eCrCl result is absurd, please check patient'sheight/weight. Estimated Glomerular Filt Rate >60 [facility] Comment:Chronic Kidney Disea se: Estimated GFR < 60 mL/min/1.81o7Anjwky Kidney Disease: Estimated GFR < 15 mL/min/1.73m2 Glucose 93 60 - 115 mg/dL [facility] Calcium 9.0 8.4 - 10.2 mg/dL [facility] Bilirubin, Total 0.5 0.0 - 1.0 mg/dL [facility] Aspartate Amino Transferase 19 5 - 31 U/L [facility] Alanine Aminotransferase 6 0 - 31 U/L [facility] Total Protein 7.3 6.5 - 8.0 g/dL [facility] Albumin Level 4.0 3.5 - 5.0 g/dL [facility] Alkaline Phosphatase 77 39 - 117 U/L [facility] 12/09/2024 10:2 4 AM EDT 12/09/2024 10:28 AM EDT us Generic External Data Provider LAB BLOOD ORDERAB LES Final Result Performing Organization Address [facility]/ZIP Co de Phone Number [facility] [address] [place] [phone] * POCT Rapid Influenza A REICH ID NOW (12/08/2024 7:17 PM EDT) Influenza A Negative Negative, Indeterminate [facility] Swab 12/08/2024 7:17 PM EDT Raquel Gardner MD POINT OF CARE TEST ENTER/E DIT ORDERABLES Final Result Performing Organization Address [facility] Co de Phone Number [facility] [address] [place] [phone] * POCT Rapid COVID-19 Binax NOW (12/08/2024 7:17 PM EDT) Rapid COVID Ag Negative Swab 12/08/2024 7:17 PM EDT us Raquel Gardner MD POINT OF CARE TEST ENTER/E DIT ORDERABLES Final Result * POCT Rapid Influenza B REICH ID NOW (12/08/2024 7:16 PM EDT) Influenza B Negative Negative, Indeterminate [facility] Swab 12/08/2024 7:16 PM EDT us Raquel Gardner MD POINT OF CARE TEST ENTER/E DIT ORDERABLES Final Result Performing Organization Address City/State/[facility] Co de Phone Number [facility] [address] [place] [phone] * (ABNORMAL) POCT Urinalysis (12/08/2024 6:44 [...] UA clear Urine 12/08/2024 6:44 PM EDT us Raquel Gardner MD POINT OF CARE TEST ENTER/E DIT ORDERABLES Final Result * (ABNORMAL) Urinalysis Complete (12/08/2024 6:30 PM EDT) Color Urine Yellow [facility] Appearance Urine Turbid [facility] PH 5.5 5.0 - 9.0 [facility] Glucose Urine UA Negative Negative mg/dL [facility] Urine Blood Negative Negative [facility] Specific [place] - Urine >=1.030(H) 1.005 - 1.025 [facility] Urine Protein Trace Neg-Trace mg/dL [facility] Urine Ketones Trace Negative mg/dL [facility] Nitrite Urine Negative Negative [facility] Leukocyte Esterase Urine Moderate (2+)(A) Negative [facility] RBC Urine 0-2 0 - 2 /HPF [facility] Urine WBC 11-20(A) 0 - 5 /HPF [facility] Urine Squamous Epithelial Cell 11-20 0 - 2 /HPF [facility] Urine Bacteria 1+ None Seen [facility] Hyaline Casts, Urine 0-2 0 - 2 /LPF [facility] Urine (Urine, Random) 12/08/2024 6:30 PM EDT 12/09/2024 11:43 AM EDT Raquel Gardner MD LAB URINE ORDERABLES Final Result Performing Organization Address City/[facility]/ZIP Co de Phone Number [facility] [address] [place] [phone] * TSH W/Reflex to FT4 (12/08/2024 2:25 PM EDT) TSH reflex Free T4 1.15 0.32 - 4.0 uIU/mL [facility] Blood Venous blood specimen / Unknown 12/08/2024 2:25 PM EDT 12/08/2024 4:05 PM EDT us Iliana Reyes MD LAB BLOOD ORDERABLES Final Result Performing Organization Address [facility]/ZIP Co de Phone Number [facility] [address] [place] [phone] * (ABNORMAL) Lipid Panel with Reflex to Direct LDL (01/06/2024 10:55 AM EDT) Triglycerides 73 <150 mg/dL [facility] Comment:Desirable Triglyceri de: less than 150 mg/dLBorderline High Triglyceride 150-199 mg/dLHigh Triglyceride: 200-499 mg/dLVery High Triglyceride: greater than or equal to 5OO mg/dL Cholesterol 186 <200 mg/dL [facility] Comment:Desirable Cholestero l: less than 200 mg/dLBorderline High Cholesterol: 200-239 mg/dLHigh Cholesterol: greater than 239 mg/dL LDL Cholesterol Calculated 122(H) <100 mg/dL [facility] Comment:Desirable LDL: less than 100 mg/dLNear Optimal/Above Optimal LDL: 110- 129 mg/dLBorderline High LDL: 130-159 mg/dLHigh LDL: 160-189 mg/dLVery High LDL: greater than or equal to 190 mg/dL HDL Cholesterol 50 >40 mg/dL [facility] Comment:Desirable HDL: great er than 40 mg/dL Note: This HDL assay may give artificially low results in patients with liver disease. Blood 01/06/2024 10:5 5 AM EDT 01/06/2024 1:02 PM EDT Samira Michael MD LAB BLOOD ORDERABLES Final Resul t Performing Organization Address [facility] Co de Phone Number [facility] [address] [place] [phone] * Hepatitis C Antibody with Reflex to HCV, RNA, Quantitative, Real-Time PCR (01/06/2024 10:55 AM EDT) Hepatitis C Antibody Nonreactive Nonreactive [facility] Comment:Antibodies to HCV no t detected; does not exclude early acuteHCV infection. Blood Venous blood specimen / Unknown 01/06/2024 10:55 AM EDT 01/06/2024 1:02 PM EDT Samira Michael MD LAB BLOOD ORDERABLES Final Resul t Performing Organization Address City/[facility] Co de Phone Number [facility] [address] [place] [phone] * HIV-1/2 Antigen and Antibodies, Fourth Generation, with Reflexes (01/06/2024 10:55 AM EDT) Pathologist [facility] HIV AB/AG Nonreactive Nonreactive [facility] Comment:HIV-1 p24 Ag and/or HIV-1/HIV-2 Ab not detected.A test result that is nonreactive does not exclude thepossibility of exposure to or infection with HIV-1 and/orHIV-2. Nonreactive results in this assay for individualswith prior exposure to HIV-1 and/or HIV-2 may be due toantigen and antibody levels that are below the limit ofdetection of this assay.[employer] HIV Ag/Ab Combo assay result andsupplemental assay results should be interpreted inconjunction with the patient's clinical presentation,history and other laboratory results. If the results areinconsistent with clinical evidence, additional testing issuggested to confirm the result. Blood Venous blood specimen / Unknown 01/06/2024 10:55 AM EDT 01/06/2024 1:02 PM EDT us Samira Michael MD LAB BLOOD ORDERABLES Final Resul t [facility] [address] [place] [phone] * HPV mRNA E6/E7 (04/23/2017 11:03 AM EDT) Pathologist [facility] HPV mRNA E6/E7 Not Detected NOT DETECTED [facility] Comment: This test was performed using the APTIMA(R) HPV Assay ([employer] This assay detects E6/E7 viral messenger RNA (mRNA) from 14 high-risk HPV types (16,18,31,33,35,39,45,51, 52,56,58,59,66,68). For additional information please refer to: http://education.MyPermissions/faq/OGW529q8 (This link is being provided for informational/ educational purposes only.) Test Performed by [employer], [facility], [address] [place] [address] Dagoberto Kaur M.D., Ph.D., Director of Laboratories , [facility] [id number] Please note: ??Effective 05/14/2016, HPV testing will be performed using [employer]'s APTIMA test which targets mRNA. Detecting mRNA instead of DNA, as in older methods, offers significant improvements in specificity. 04/23/2017 11:0 3 AM EDT us Historical Provider HISTORICAL/NON ORDERABLE LABS Final Result [facility] [address] from Last 3 Months or Most Recently Relevant to Health Maintenance Insurance [facility] [employer] C[employer] Care Teams Information Clerk Relationship Specialty Start Date End Date Samira Michael MD [address] [place] [phone] PCP - General Family Medicine 04/26/14
--- OUTSIDE RECORDS SUMMARY | 2024-12-09 13:57 | XMS_ITS | Encounter Summary ---
Author Organization [employer] Address [address] [place] [address] 7 [place] [address] Care Team Providers Care Gis Physical Scientist Name Role Phone Samira Michael MD Primary Care Provider [phone] Encounter Details Date Type Department Care Team (Late st Contact Info) Description 10/10/2022 Orders Only [facility] MEDICINE [address] [place] [address] [phone] Perla Lang LPN Social History Tobacco Use [...] Description 01/07/2025 10:30 AM EDT Office Visit [facility] [address] [place] [address] [phone] Samira Mcihael MD [address] [place], [place] [phone] documented as of this encounter Procedures Procedure [...] (04/07/2023 4:54 PM EDT) Color Urine Yellow [facility] Appearance Urine Clear [facility] PH 6.0 5.0 - 9.0 [facility] Glucose Urine UA Negative Negative mg/dL [facility] Urine Blood Negative Negative [facility] Specific Gordon - Urine >=1.030(H) 1.005 - 1.025 [facility] Urine Protein Negative Neg-Trace mg/dL [facility] Urine Ketones Negative Negative mg/dL [facility] Nitrite Urine Negative Negative [facility] Leukocyte Esterase Urine Negative Negative [facility] 04/07/2023 4:54 PM EDT 04/07/2023 4:59 PM EDT Narrative [facility] - 04/07/2023 5:39 PM EDT unable to urinate at this [id number], Clean Catch us [facility] External Provider LAB URI NE ORDERABLES Final Result [facility] [address] [place] [phone] * HCG, Qualitative, Urine (04/07/2023 4:54 PM EDT) Pathologist [facility] Urine NEGATIVE NEGATIVE [facility] Comment:This test was develo ped to detect early . Falsenegative results may occur after the 5th - 7th week ofpregnancy when using this test method. If clinicallyindicated, consider a serum hCG. 04/07/2023 4:54 PM EDT 04/07/2023 4:59 PM EDT Narrative [facility] - 04/07/2023 5:35 PM EDT unable to urinate at this time [facility] External Provider LAB URI NE ORDERABLES Final Result Performing Organization Address [facility]/ZIP Co de Phone Number [facility] [address] [place] [phone] * High Sensitivity Troponin I (04/07/2023 8:27 AM EDT) [facility] TROPONIN I HIGH SENSITIVITY <2.7 <3.5 - 17.0 ng/L [facility] Comment:The [place] high sens itivity Troponin-I results should beused in conjunction with other diagnostic information suchas ECG, clinical observations and information, and patientsymptoms to aid in the diagnosis of [place]. 04/07/2023 8:27 AM EDT 04/07/2023 8:33 AM EDT [facility] External Provider LAB BLO OD ORDERABLES Final Result Performing Organization Address [facility]/ZIP Co de Phone Number [facility] [address] [place] [address] [phone] * Basic Metabolic Panel (04/07/2023 8:27 AM EDT) [facility] Sodium 143 135 - 145 mmol/L [facility] Potassium 3.7 3.3 - 5.1 mmol/L [facility] Chloride 108 96 - 108 mmol/L [facility] Carbon Dioxide 23 22 - 29 mmol/L [facility] Anion Gap 16 12 - 20 [facility] Urea Nitrogen (BUN) 15 9 - 16 mg/dL [facility] Creatinine, Serum 0.79 0.5 - 1.4 mg/dL [facility] Creatinine Clr Calc Pharmacy 95.5 [facility] Comment:Provided height and weight: 157.48 cm,75.6 kg.eGFR (calculated from the MDRD study equation) and eCrCl(calculated from the Cockcroft-Gault equation) are based ondifferent parameters and may not yield comparable results.If eCrCl result is absurd, please check patient'sheight/weight. Estimated Glomerular Filt Rate >60 [facility] Comment:NOTE: For -Am erican individuals, multiply the result by 1.210.Chronic Kidney Disease: Estimated GFR < 60 mL/min/1.49p1Ubsyll Kidney Disease: Estimated GFR < 15 mL/min/1.73m2 Glucose 88 60 - 115 mg/dL [facility] Calcium 9.2 8.4 - 10.2 mg/dL [facility] 04/07/2023 8:27 AM EDT 04/07/2023 8:33 AM EDT [facility] External Provider LAB BLO OD ORDERABLES Final Result [facility] [address] [place] [phone] * (ABNORMAL) CBC auto differential (04/07/2023 8:27 AM EDT) White Blood Count 7.1 4.8 - 10.8 X10*3/uL [facility] Red Blood Count 4.07(L) 4.20 - 5.50 X10*6/uL [facility] Hemoglobin 11.9(L) 12.0 - 16.0 g/dl [facility] Hematocrit 37.8 37.0 - 47.0 % [facility] Mean Corpuscular Volume 92.9 80.0 - 98.0 fL [facility] Mean Corpuscular Hemoglobin 29.2 27.0 - 33.0 pg [facility] Mean Corpuscular HGB Conc 31.5 31.0 - 35.0 g/dl [facility] Red Cell Distribution Width 12.4 11.0 - 16.0 % [facility] Platelet Count 247 160 - 400 X10*3/uL [facility] Mean Platelet Volume 10.9 9.4 - 12.3 fL [facility] Neutrophils Percent Auto 64.6 45 - 73 % [facility] Imm Gran Pct Auto 0.1 0.0 - 0.4 % [facility] Lymphocytes Percent Auto 27.2 20 - 40 % [facility] Monocytes Percent Auto 5.4 2 - 11 % [facility] Eosinophils Percent Auto 2.3 0 - 4 % [facility] Basophils Percent Auto 0.4 0 - 2 % [facility] NRBC Pct Auto 0.0 0.0 - 0.2 /100WBC [facility] Neutrophils Absolute Auto 4.6 2.0 - 8.3 x10*3/uL [facility] Imm Gran Abs Auto 0.01 0.00 - 0.03 X10*3/uL [facility] Lymphocytes Absolute Auto 1.9 1.2 - 4.9 X10*3/uL [facility] Monocytes Absolute Auto 0.4 0.1 - 1.2 X10*3/uL [facility] Eosinophils Absolute Auto 0.2 0.0 - 0.4 X10*3/uL [facility] Basophils Absolute Auto 0.0 0.0 - 0.2 X10*3/uL [facility] NRBC Abs Auto 0.000 0.0 - 0.012 X10*3/uL [facility] 04/07/2023 8:27 AM EDT 04/07/2023 8:33 AM EDT us [facility] External Provider LAB BLO OD ORDERABLES Final Result [facility] [address] [place] [address] [phone] * Magnesium (12/31/2022 3:54 PM EDT) Magnesium 1.7 1.6 - 2.6 mg/dL [facility] 12/31/2022 3:54 PM EDT 12/31/2022 3:58 PM EDT [facility] External Provider LAB BLO OD ORDERABLES Final Result [facility] [address] [place] [address] [phone] * (ABNORMAL) Basic Metabolic Panel (12/31/2022 3:54 PM EDT) Sodium 138 135 - 145 mmol/L [facility] Potassium 3.5 3.3 - 5.1 mmol/L [facility] Chloride 105 96 - 108 mmol/L [facility] Carbon Dioxide 25 22 - 29 mmol/L [facility] Anion Gap 12 12 - 20 [facility] Urea Nitrogen (BUN) 8(L) 9 - 16 mg/dL [facility] Creatinine, Serum 0.80 0.5 - 1.4 mg/dL [facility] Creatinine Clr Calc Pharmacy 92.4 [facility] Comment:Provided height and weight: 157.48 cm,72.575 kg.eGFR (calculated from the MDRD study equation) and eCrCl(calculated from the Cockcroft-Gault equation) are based ondifferent parameters and may not yield comparable results.If eCrCl result is absurd, please check patient'sheight/weight. Estimated Glomerular Filt Rate >60 [facility] Comment:NOTE: For -Am erican individuals, multiply the result by 1.210.Chronic Kidney Disease: Estimated GFR < 60 mL/min/1.01y3Rjcxdm Kidney Disease: Estimated GFR < 15 mL/min/1.73m2 Glucose 156(H) 60 - 115 mg/dL [facility] Calcium 8.6 8.4 - 10.2 mg/dL [facility] 12/31/2022 3:54 PM EDT 12/31/2022 3:58 PM EDT [facility] External Provider LAB BLO OD ORDERABLES Final Result Performing Organization Address [facility] Co de Phone Number [facility] [address] [place] [phone] * Hepatic Function Panel (12/31/2022 3:54 PM EDT) Bilirubin, Total 0.4 0.0 - 1.0 mg/dL [facility] Bilirubin, Direct 0.1 0.0 - 0.5 mg/dL [facility] Aspartate Amino Transferase 13 5 - 31 U/L [facility] Alanine Aminotransferase 10 0 - 31 U/L [facility] Total Protein 6.9 6.5 - 8.0 g/dL [facility] Albumin Level 3.8 3.5 - 5.0 g/dL [facility] Alkaline Phosphatase 101 39 - 117 U/L [facility] 12/31/2022 3:54 PM EDT 12/31/2022 3:58 PM EDT [facility] External Provider LAB BLO OD ORDERABLES Final Result Performing Organization Address City/[facility] Co de Phone Number [facility] [address] [place] [phone] * (ABNORMAL) CBC auto differential (12/31/2022 3:54 PM EDT) White Blood Count 17.7(H) 4.8 - 10.8 X10*3/uL [facility] Red Blood Count 3.80(L) 4.20 - 5.50 X10*6/uL [facility] Hemoglobin 10.8(L) 12.0 - 16.0 g/dl [facility] Hematocrit 34.4(L) 37.0 - 47.0 % [facility] Mean Corpuscular Volume 90.5 80.0 - 98.0 fL [facility] Mean Corpuscular Hemoglobin 28.4 27.0 - 33.0 pg [facility] Mean Corpuscular HGB Conc 31.4 31.0 - 35.0 g/dl [facility] Red Cell Distribution Width 15.5 11.0 - 16.0 % [facility] Platelet Count 252 160 - 400 X10*3/uL [facility] Mean Platelet Volume 9.9 9.4 - 12.3 fL [facility] Neutrophils Percent Auto 89.4(H) 45 - 73 % [facility] Imm Gran Pct Auto 0.9(H) 0.0 - 0.4 % [facility] Lymphocytes Percent Auto 4.4(L) 20 - 40 % [facility] Monocytes Percent Auto 2.5 2 - 11 % [facility] Eosinophils Percent Auto 2.5 0 - 4 % [facility] Basophils Percent Auto 0.3 0 - 2 % [facility] NRBC Pct Auto 0.0 0.0 - 0.2 /100WBC [facility] Neutrophils Absolute Auto 15.9(H) 2.0 - 8.3 x10*3/uL [facility] Imm Gran Abs Auto 0.16(H) 0.00 - 0.03 X10*3/uL [facility] Lymphocytes Absolute Auto 0.8(L) 1.2 - 4.9 X10*3/uL [facility] Monocytes Absolute Auto 0.5 0.1 - 1.2 X10*3/uL [facility] Eosinophils Absolute Auto 0.4 0.0 - 0.4 X10*3/uL [facility] Basophils Absolute Auto 0.1 0.0 - 0.2 X10*3/uL [facility] NRBC Abs Auto 0.000 0.0 - 0.012 X10*3/uL [facility] 12/31/2022 3:54 PM EDT 12/31/2022 3:58 PM EDT us [facility] External Provider LAB BLO OD ORDERABLES Final Result [facility] [address] [place] [phone] documented in this encounter Visit Diagnoses Not on filedocumented in this encounter Care Teams Gis Physical Scientist Relationship Specialty Start Date End Date Samira Michael MD [address] [place] [phone] PCP - General Family Medicine 04/26/14 documented as of this encounter
--- OUTSIDE RECORDS SUMMARY | 2024-12-09 13:57 | XMS_ITS | Encounter Summary ---
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 Not on file Not on file documented as of this encounter Plan of Treatment Upcoming Encounters Date Type Department Care Team (Late st Contact Info) Description 01/07/2025 10:30 AM EDT Office Visit [facility]ICINE [address] [place] [phone] Samira Michael MD [address] [place] [phone] documented as of this encounter Visit Diagnoses Not on filedocumented in this encounter Additional Health Concerns Assessment Noted Time PHQ-9 Depression Total Score: 0 02/06/20 23 8:51 AM EDT documented as of this encounter Care Teams Sprinkler Helper Relationship Specialty Start Date End Date Samira Michael MD [address] [place] [phone] PCP - General Family Medicine 04/26/14 documented as of this encounter
--- OUTSIDE RECORDS SUMMARY | 2024-12-09 13:57 | XMS_ITS | Encounter Summary ---
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 Not on file Not on file documented as of this encounter Plan of Treatment Upcoming Encounters Date Type Department Care Team (Late st Contact Info) Description 01/07/2025 10:30 AM EDT Office Visit [facility]INE [address] [place] [phone] Samira Michael MD [address] [place] [phone] documented as of this encounter Visit Diagnoses Diagnosis Allergic rhinitis, unspecified seasonality, unspecified trigger documented in this encounter Additional Health Concerns Assessment Noted Time PHQ-9 Depression Total Score: 0 02/06/20 23 8:51 AM EDT documented as of this encounter Care Teams Ambulatory Service Representative Relationship Specialty Start Date End Date Samira Michael MD [address] [place] [phone] PCP - General Family Medicine 04/26/14 documented as of this encounter
--- OUTSIDE RECORDS SUMMARY | 2024-12-09 13:57 | XMS_ITS | Encounter Summary ---
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 Not on file Not on file documented as of this encounter Plan of Treatment Upcoming Encounters Date Type Department Care Team (Late st Contact Info) Description 01/07/2025 10:30 AM EDT Office Visit [facility] [address] [place] [address] Samira Michael MD [address] [place] [address] documented as of this encounter Procedures Procedure Name Priority Date/Time Associated Diagnosis Comments HIGH SENSITIVITY TROPONIN I Routine 12/09/2024 12:22 PM EDT XR CHEST 2 VIEWS Routine 12/09/2024 12:1 7 PM EDT HIGH SENSITIVITY TROPONIN I Routine 12/09/2024 10:24 AM EDT CBC WITH AUTO DIFFERENTIAL Routine 12/09/2024 10:24 AM EDT COMPREHENSIVE METABOLIC PANEL Routine 12/09/2024 10:24 AM EDT documented in this encounter Results * High Sensitivity Troponin I (12/09/2024 12:22 PM EDT) TROPONIN I HIGH SENSITIVITY <2.7 <3.5 - 17.0 ng/L [facility] Comment:The [place] high sens itivity Troponin-I results should beused in conjunction with other diagnostic information suchas ECG, clinical observations and information, and patientsymptoms to aid in the diagnosis of [place]. 12/09/2024 12:2 2 PM EDT 12/09/2024 12:24 PM EDT us Generic External Data Provider LAB BLOOD ORDERAB LES Final Result [facility] [address] [place] [phone] * XR Chest 2 Views (12/09/2024 12:17 PM EDT) Anatomical Region Laterality Modality Chest Radiographic Tiffany ging 12/09/2024 12:1 7 PM EDT Narrative 12/09/2024 12:45 PM EDT ? [facility] ?[address] ?[place] [address] ?XRay Report ? Signed ? Patient: Freeman,Dalia ?MR#: [id number] ?? 2 ? : 1990 ?Acct:[id number] ? Age/Sex: 34 / F ?ADM Date: 12/09/24 ? Loc: HO.ED ? Attending Dr: ? Ordering Physician: Pieter Lomas DO ?? Date of Service: 12/09/24 ?? Procedure(s): XR chest 2V ?? Accession Number(s): [id number] ? cc: Pieter Lomas DO; Samira Michael [...] DD/ 1217 ? TD/TT: 12/09/24 1233 ? Automation Clerk: ? Procedure Note Huy, Nati - 12/09/[address] [address] XRay Report Signed Patient: Dalia FreemanMR#: [id number] 2 : 1990Acct:[id number] Age/Sex: 34 / FADM Date: 12/09/24 Loc: .ED Attending Dr: Ordering Physician: Pieter Lomas DO Date of Service: 12/09/24 Procedure(s): XR chest 2V Accession Number(s): [id number] cc: Pieter Lomas DO; Samira Michael MD [...] Yosef Cuba MD 12/09/2024 12:43 PM EDT Dictated By: Yosef Gonzalez MD Signed By: <Electronically signed by Yosef Parmar MDin OV> 12/09/24 1243 DD/ 1217 TD/TT: 12/09/24 1233 Automation Clerk: [facility] External Provider IMG XR PROCEDURES Final Result * High Sensitivity Troponin I (12/09/2024 10:24 AM EDT) TROPONIN I HIGH SENSITIVITY <2.7 <3.5 - 17.0 ng/L [facility] Comment:The [place] high sens itivity Troponin-I results should beused in conjunction with other diagnostic information suchas ECG, clinical observations and information, and patientsymptoms to aid in the diagnosis of [place]. 12/09/2024 10:2 4 AM EDT 12/09/2024 10:28 AM EDT Generic External Data Provider LAB BLOOD ORDERAB LES Final Result [facility] [address] [place] [address] [phone] * (ABNORMAL) Comprehensive Metabolic Panel (12/09/2024 10:24 AM EDT) Sodium 141 135 - 145 mmol/L [facility] Potassium 3.9 3.3 - 5.1 mmol/L [facility] Chloride 109(H) 96 - 108 mmol/L [facility] Carbon Dioxide 27 22 - 29 mmol/L [facility] Anion Gap 9(L) 12 - 20 [facility] Urea Nitrogen (BUN) 11 9 - 16 mg/dL [facility] Creatinine, Serum 0.75 0.5 - 1.4 mg/dL [facility] Creatinine Clr Calc Pharmacy 104.5 [facility] Comment:Provided height and weight: 157.48 cm,84.4 kg.eGFR (calculated from the MDRD study equation) and eCrCl(calculated from the Cockcroft-Gault equation) are based ondifferent parameters and may not yield comparable results.If eCrCl result is absurd, please check patient'sheight/weight. Estimated Glomerular Filt Rate >60 [facility] Comment:Chronic Kidney Disea se: Estimated GFR < 60 mL/min/1.12g8Ltyynq Kidney Disease: Estimated GFR < 15 mL/min/1.73m2 Glucose 93 60 - 115 mg/dL [facility] Calcium 9.0 8.4 - 10.2 mg/dL [facility] Bilirubin, Total 0.5 0.0 - 1.0 mg/dL [facility] Aspartate Amino Transferase 19 5 - 31 U/L [facility] Alanine Aminotransferase 6 0 - 31 U/L [facility] Total Protein 7.3 6.5 - 8.0 g/dL [facility] Albumin Level 4.0 3.5 - 5.0 g/dL [facility] Alkaline Phosphatase 77 39 - 117 U/L [facility] 12/09/2024 10:2 4 AM EDT 12/09/2024 10:28 AM EDT us Generic External Data Provider LAB BLOOD ORDERAB LES Final Result [facility] [address] [place] [phone] [phone] * (ABNORMAL) CBC auto differential (12/09/2024 10:24 AM EDT) White Blood Count 6.2 4.8 - 10.8 X10*3/uL [facility] Red Blood Count 4.08(L) 4.20 - 5.50 X10*6/uL [facility] Hemoglobin 11.7(L) 12.0 - 16.0 g/dl [facility] Hematocrit 35.8(L) 37.0 - 47.0 % [facility] Mean Corpuscular Volume 87.7 80.0 - 98.0 fL [facility] Mean Corpuscular Hemoglobin 28.7 27.0 - 33.0 pg [facility] Mean Corpuscular HGB Conc 32.7 31.0 - 35.0 g/dl [facility] Red Cell Distribution Width 13.2 11.0 - 16.0 % [facility] Platelet Count 274 160 - 400 X10*3/uL [facility] Mean Platelet Volume 10.3 9.4 - 12.3 fL [facility] Neutrophils Percent Auto 73.1(H) 45 - 73 % [facility] Imm Gran Pct Auto 0.3 0.0 - 0.4 % [facility] Lymphocytes Percent Auto 20.6 20 - 40 % [facility] Monocytes Percent Auto 4.2 2 - 11 % [facility] Eosinophils Percent Auto 1.5 0 - 4 % [facility] Basophils Percent Auto 0.3 0 - 2 % [facility] NRBC Pct Auto 0.0 0.0 - 0.2 /100WBC [facility] Neutrophils Absolute Auto 4.5 2.0 - 8.3 x10*3/uL [facility] Imm Gran Abs Auto 0.02 0.00 - 0.03 X10*3/uL [facility] Lymphocytes Absolute Auto 1.3 1.2 - 4.9 X10*3/uL [facility] Monocytes Absolute Auto 0.3 0.1 - 1.2 X10*3/uL [facility] Eosinophils Absolute Auto 0.1 0.0 - 0.4 X10*3/uL [facility] Basophils Absolute Auto 0.0 0.0 - 0.2 X10*3/uL [facility] NRBC Abs Auto 0.000 0.0 - 0.012 X10*3/uL [facility] 12/09/2024 10:2 4 AM EDT 12/09/2024 10:28 AM EDT us Generic External Data Provider LAB BLOOD ORDERAB LES Final Result [facility] [address] [place] [address] [phone] documented in this encounter Visit Diagnoses Not on filedocumented in this encounter Additional Health Concerns Assessment Noted Time PHQ-9 Depression Total Score: 0 02/06/20 23 8:51 AM EDT documented as of this encounter Care Teams Senior Gis Analyst Relationship Specialty Start Date End Date Samira Michael MD [address] [place] [phone] PCP - General Family Medicine 04/26/14 documented as of this encounter
--- OUTSIDE RECORDS SUMMARY | 2024-12-09 13:57 | XMS_ITS | Encounter Summary ---
Author Organization [employer] Address [address] [place] [address] 7 [place] [address] Care Team Providers Care Anesthesia Associate Name Role Phone Samira Michael MD Primary Care Provider [phone] Reason for Referral * Consultation (Routine) - Closed Specialty Diagnoses / Procedures Referred By Kp abreu Referred To Contact Occupational Therapy Diagnoses Right lateral epicondylitis Samira Michael MD [address] [place] [phone] Phone: tel: fax: [facility] Physical Therapy [address] [place] [address] Phone: tel: fax: Referral ID Status Reason Start Date Expiration Date V isits Requested Visits Authorized [id number] Closed Specialty Services Required 01/28/2024 01/27/2025 20 20 Encounter Details Date Type Department Care Team (Late st Contact Info) Description 01/26/2024 Orders Only [facility] [address] [place] [address] [phone] Samira Michael MD [address] [place], [place] [phone] Right lateral epicondylitis (Primary Dx) Social History [...] 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
--- OUTSIDE RECORDS SUMMARY | 2024-12-09 13:57 | XMS_ITS | Encounter Summary ---
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 on file Not on file documented as of this encounter Plan of Treatment Upcoming Encounters Date Type Department Care Team (Late st Contact Info) Description 01/07/2025 10:30 AM EDT Office Visit [facility] [address] [place] [address] Samira Michael MD [address] [place] [address] documented as of this encounter Visit Diagnoses Not on filedocumented in this encounter Additional Health Concerns Assessment Noted Time PHQ-9 Depression Total Score: 0 02/06/20 23 8:51 AM EDT documented as of this encounter Care Teams Draughtsman Relationship Specialty Start Date End Date Samira Michael MD [address] [place] [phone] PCP - General Family Medicine 04/26/14 documented as of this encounter
--- OUTSIDE RECORDS SUMMARY | 2024-12-09 13:57 | XMS_ITS | Encounter Summary ---
Author Organization [employer] Address [address] [facility] 7t [place] [address] Care Team Providers Care Commercial Appraiser Name Role Phone Samira Michael MD Primary Care Provider [phone] Encounter Details Date Type Department Care Team ([facility] st Contact Info) Description 09/24/2023 Orders Only [facility] [address] [place], [place] [phone] Samira Michael MD [address] [place], [place] [phone] Social History Tobacco Use Types Packs/Day Years [...] Description 01/07/2025 10:30 AM EDT Office Visit [facility] [address] [place] [address] Samira Michael MD 230 [place] [address] documented as of this encounter Visit Diagnoses Not on filedocumented in this encounter Additional Health Concerns Assessment Noted Time PHQ-9 Depression Total Score: 0 02/06/20 23 8:51 AM EDT documented as of this encounter Care Teams Commercial Appraiser Relationship Specialty Start Date End Date Samira Michael MD [address] [place] [phone] PCP - General Family Medicine 04/26/14 documented as of this encounter
== END 2024-12-09 13:11 | disposition home or self-care (01) ==
PROVIDERS: Emergency Provider Emergency Medicine; PCP Family Medicine
DX: R07.89 Other chest pain (principal); Z79.899 Other long term (current) drug therapy
CPT/HCPCS: 36415; 71046; 80053; 84484; 85025; 93005; 99283; 99285

== ENCOUNTER → 2024-12-09 09:59 | Outpatient (BNV) | payer MEDICAID, SELFPAY | PROVIDERS: Emergency Provider Emergency Medicine; PCP Family Medicine; Visit Provider Internal Medicine Cardiovascular Disease | DX: R07.9 Chest pain, unspecified (principal) | CPT/HCPCS: 93010 ==

== ENCOUNTER → 2024-12-09 12:17 | Outpatient (BNV) | payer MEDICAID, SELFPAY | PROVIDERS: Emergency Provider Emergency Medicine; PCP Family Medicine; Visit Provider Radiology Diagnostic Radiology | DX: M41.34 Thoracogenic scoliosis, thoracic region (principal) | CPT/HCPCS: 71046 ==

== ENCOUNTER 2024-12-15 11:23 | Outpatient (REF) | payer MEDICAID, SELFPAY ==
[2024-12-16 11:29] LABS: Appearance Urine Turbid; Color Urine Yellow; Glucose Urine UA Negative (Negative); Leukocyte Esterase Urine Negative (Negative); Nitrite Urine Negative (Negative); Specific Gravity - Urine >= 1.030 (1.005-1.025); Urine Blood Negative (Negative); Urine Ketones Negative (Negative); Urine Protein Negative (Neg-Trace)
[2024-12-16 11:33] LABS: Bacteria Urine 1+ (None Seen); Hyaline Casts Urine 0-2 /LPF (0-2); RBC Urine 0-2 /HPF (0-2); UACC Culture Trigger YES
--- OUTSIDE RECORDS SUMMARY | 2024-12-16 13:50 | XMS_ITS | Encounter Summary ---
Author Organization [employer] Address [address] [place] [address] Care Team Providers Care Insert Molding Operator Name Role Phone Samira Michael MD Primary Care Provider [phone] Encounter Details Date Type Department Care Team ([facility] Contact Info) Description 12/14/[address] 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 [address] [place] [phone] Samira Michael MD [address] [place] [address] documented as of this encounter Visit Diagnoses Not on filedocumented in this encounter Additional Health Concerns Assessment Noted Time PHQ-9 Depression Total Score: 0 02/06/20 23 8:51 AM EDT documented as of this encounter Care Teams Insert Molding Operator Relationship Specialty Start Date End Date Samira Michael MD [address] [place] [address] PCP - General Family Medicine 04/26/14 documented as of this encounter
--- OUTSIDE RECORDS SUMMARY | 2024-12-16 13:50 | XMS_ITS | Encounter Summary ---
Author Organization [email or web address] Address [address] [place] [address] [address] [place] [address] Care Team Providers Care Quality Control Industrial Engineer Name Role Phone Samira Michael MD Primary Care Provider [phone] Encounter Details Date Type Department Care Team (Late st Contact Info) Description 10/10/2022 Orders Only [facility] [address] [place] [address] [phone] Perla Lang LPN Social History Tobacco Use [...] Description 01/07/2025 10:30 AM EDT Office Visit [facility] [address] [place] [address] [phone] Samira Michael MD [address] [place], [place] [phone] documented as of this encounter Procedures Procedure [...] (04/07/2023 4:54 PM EDT) Color Urine Yellow [facility] Appearance Urine Clear [facility] PH 6.0 5.0 - 9.0 [facility] Glucose Urine UA Negative Negative mg/dL [facility] Urine Blood Negative Negative [facility] Specific Early - Urine >=1.030(H) 1.005 - 1.025 [facility] Urine Protein Negative Neg-Trace mg/dL [facility] Urine Ketones Negative Negative mg/dL [facility] Nitrite Urine Negative Negative [facility] Leukocyte Esterase Urine Negative Negative [facility] 04/07/2023 4:54 PM EDT 04/07/2023 4:59 PM EDT Narrative [facility] - 04/07/2023 5:39 PM EDT unable to urinate at this [id number], Clean Catch us [facility] External Provider LAB URI NE ORDERABLES Final Result [facility] [address] [place] [phone] * HCG, Qualitative, Urine (04/07/2023 4:54 PM EDT) Pathologist [facility] Urine NEGATIVE NEGATIVE [facility] Comment:This test was develo ped to detect early . Falsenegative results may occur after the 5th - 7th week ofpregnancy when using this test method. If clinicallyindicated, consider a serum hCG. 04/07/2023 4:54 PM EDT 04/07/2023 4:59 PM EDT Narrative [facility] - 04/07/2023 5:35 PM EDT unable to urinate at this time [facility] External Provider LAB URI NE ORDERABLES Final Result Performing Organization Address [facility]/ZIP Co de Phone Number [facility] [address] [place] [phone] * High Sensitivity Troponin I (04/07/2023 8:27 AM EDT) [facility] TROPONIN I HIGH SENSITIVITY <2.7 <3.5 - 17.0 ng/L [facility] Comment:The [place] high sens itivity Troponin-I results should beused in conjunction with other diagnostic information suchas ECG, clinical observations and information, and patientsymptoms to aid in the diagnosis of [place]. 04/07/2023 8:27 AM EDT 04/07/2023 8:33 AM EDT [facility] External Provider LAB BLO OD ORDERABLES Final Result Performing Organization Address [facility]/ZIP Co de Phone Number [facility] [address] [place] [address] [phone] * Basic Metabolic Panel (04/07/2023 8:27 AM EDT) [facility] Sodium 143 135 - 145 mmol/L [facility] Potassium 3.7 3.3 - 5.1 mmol/L [facility] Chloride 108 96 - 108 mmol/L [facility] Carbon Dioxide 23 22 - 29 mmol/L [facility] Anion Gap 16 12 - 20 [facility] Urea Nitrogen (BUN) 15 9 - 16 mg/dL [facility] Creatinine, Serum 0.79 0.5 - 1.4 mg/dL [facility] Creatinine Clr Calc Pharmacy 95.5 [facility] Comment:Provided height and weight: 157.48 cm,75.6 kg.eGFR (calculated from the MDRD study equation) and eCrCl(calculated from the Cockcroft-Gault equation) are based ondifferent parameters and may not yield comparable results.If eCrCl result is absurd, please check patient'sheight/weight. Estimated Glomerular Filt Rate >60 [facility] Comment:NOTE: For -Am erican individuals, multiply the result by 1.210.Chronic Kidney Disease: Estimated GFR < 60 mL/min/[id number] Kidney Disease: Estimated GFR < 15 mL/min/1.73m2 Glucose 88 60 - 115 mg/dL [facility] Calcium 9.2 8.4 - 10.2 mg/dL [facility] 04/07/2023 8:27 AM EDT 04/07/2023 8:33 AM EDT [facility] External Provider LAB BLO OD ORDERABLES Final Result [facility] [address] [place] [phone] * (ABNORMAL) CBC auto differential (04/07/2023 8:27 AM EDT) White Blood Count 7.1 4.8 - 10.8 X10*3/uL [facility] Red Blood Count 4.07(L) 4.20 - 5.50 X10*6/uL [facility] Hemoglobin 11.9(L) 12.0 - 16.0 g/dl [facility] Hematocrit 37.8 37.0 - 47.0 % [facility] Mean Corpuscular Volume 92.9 80.0 - 98.0 fL [facility] Mean Corpuscular Hemoglobin 29.2 27.0 - 33.0 pg [facility] Mean Corpuscular HGB Conc 31.5 31.0 - 35.0 g/dl [facility] Red Cell Distribution Width 12.4 11.0 - 16.0 % [facility] Platelet Count 247 160 - 400 X10*3/uL [facility] Mean Platelet Volume 10.9 9.4 - 12.3 fL [facility] Neutrophils Percent Auto 64.6 45 - 73 % [facility] Imm Gran Pct Auto 0.1 0.0 - 0.4 % [facility] Lymphocytes Percent Auto 27.2 20 - 40 % [facility] Monocytes Percent Auto 5.4 2 - 11 % [facility] Eosinophils Percent Auto 2.3 0 - 4 % [facility] Basophils Percent Auto 0.4 0 - 2 % [facility] NRBC Pct Auto 0.0 0.0 - 0.2 /100WBC [facility] Neutrophils Absolute Auto 4.6 2.0 - 8.3 x10*3/uL [facility] Imm Gran Abs Auto 0.01 0.00 - 0.03 X10*3/uL [facility] Lymphocytes Absolute Auto 1.9 1.2 - 4.9 X10*3/uL [facility] Monocytes Absolute Auto 0.4 0.1 - 1.2 X10*3/uL [facility] Eosinophils Absolute Auto 0.2 0.0 - 0.4 X10*3/uL [facility] Basophils Absolute Auto 0.0 0.0 - 0.2 X10*3/uL [facility] NRBC Abs Auto 0.000 0.0 - 0.012 X10*3/uL [facility] 04/07/2023 8:27 AM EDT 04/07/2023 8:33 AM EDT us [facility] External Provider LAB BLO OD ORDERABLES Final Result [facility] [address] [place] [phone] * Magnesium (12/31/2022 3:54 PM EDT) Magnesium 1.7 1.6 - 2.6 mg/dL [facility] 12/31/2022 3:54 PM EDT 12/31/2022 3:58 PM EDT [facility] External Provider LAB BLO OD ORDERABLES Final Result [facility] [address] [place] [phone] * (ABNORMAL) Basic Metabolic Panel (12/31/2022 3:54 PM EDT) Sodium 138 135 - 145 mmol/L [facility] Potassium 3.5 3.3 - 5.1 mmol/L [facility] Chloride 105 96 - 108 mmol/L [facility] Carbon Dioxide 25 22 - 29 mmol/L [facility] Anion Gap 12 12 - 20 [facility] Urea Nitrogen (BUN) 8(L) 9 - 16 mg/dL [facility] Creatinine, Serum 0.80 0.5 - 1.4 mg/dL [facility] Creatinine Clr Calc Pharmacy 92.4 [facility] Comment:Provided height and weight: 157.48 cm,72.575 kg.eGFR (calculated from the MDRD study equation) and eCrCl(calculated from the Cockcroft-Gault equation) are based ondifferent parameters and may not yield comparable results.If eCrCl result is absurd, please check patient'sheight/weight. Estimated Glomerular Filt Rate >60 [facility] Comment:NOTE: For -Am erican individuals, multiply the result by 1.210.Chronic Kidney Disease: Estimated GFR < 60 mL/min/1.23i0Oqpooy Kidney Disease: Estimated GFR < 15 mL/min/1.73m2 Glucose 156(H) 60 - 115 mg/dL [facility] Calcium 8.6 8.4 - 10.2 mg/dL [facility] 12/31/2022 3:54 PM EDT 12/31/2022 3:58 PM EDT [facility] External Provider LAB BLO OD ORDERABLES Final Result Performing Organization Address [facility] Co de Phone Number [facility] [address] [place] [phone] * Hepatic Function Panel (12/31/2022 3:54 PM EDT) Bilirubin, Total 0.4 0.0 - 1.0 mg/dL [facility] Bilirubin, Direct 0.1 0.0 - 0.5 mg/dL [facility] Aspartate Amino Transferase 13 5 - 31 U/L [facility] Alanine Aminotransferase 10 0 - 31 U/L [facility] Total Protein 6.9 6.5 - 8.0 g/dL [facility] Albumin Level 3.8 3.5 - 5.0 g/dL [facility] Alkaline Phosphatase 101 39 - 117 U/L [facility] 12/31/2022 3:54 PM EDT 12/31/2022 3:58 PM EDT [facility] External Provider LAB BLO OD ORDERABLES Final Result Performing Organization Address City/[facility] Co de Phone Number [facility] [address] [place] [phone] * (ABNORMAL) CBC auto differential (12/31/2022 3:54 PM EDT) White Blood Count 17.7(H) 4.8 - 10.8 X10*3/uL [facility] Red Blood Count 3.80(L) 4.20 - 5.50 X10*6/uL [facility] Hemoglobin 10.8(L) 12.0 - 16.0 g/dl [facility] Hematocrit 34.4(L) 37.0 - 47.0 % [facility] Mean Corpuscular Volume 90.5 80.0 - 98.0 fL [facility] Mean Corpuscular Hemoglobin 28.4 27.0 - 33.0 pg [facility] Mean Corpuscular HGB Conc 31.4 31.0 - 35.0 g/dl [facility] Red Cell Distribution Width 15.5 11.0 - 16.0 % [facility] Platelet Count 252 160 - 400 X10*3/uL [facility] Mean Platelet Volume 9.9 9.4 - 12.3 fL [facility] Neutrophils Percent Auto 89.4(H) 45 - 73 % [facility] Imm Gran Pct Auto 0.9(H) 0.0 - 0.4 % [facility] Lymphocytes Percent Auto 4.4(L) 20 - 40 % [facility] Monocytes Percent Auto 2.5 2 - 11 % [facility] Eosinophils Percent Auto 2.5 0 - 4 % [facility] Basophils Percent Auto 0.3 0 - 2 % [facility] NRBC Pct Auto 0.0 0.0 - 0.2 /100WBC [facility] Neutrophils Absolute Auto 15.9(H) 2.0 - 8.3 x10*3/uL [facility] Imm Gran Abs Auto 0.16(H) 0.00 - 0.03 X10*3/uL [facility] Lymphocytes Absolute Auto 0.8(L) 1.2 - 4.9 X10*3/uL [facility] Monocytes Absolute Auto 0.5 0.1 - 1.2 X10*3/uL [facility] Eosinophils Absolute Auto 0.4 0.0 - 0.4 X10*3/uL [facility] Basophils Absolute Auto 0.1 0.0 - 0.2 X10*3/uL [facility] NRBC Abs Auto 0.000 0.0 - 0.012 X10*3/uL [facility] 12/31/2022 3:54 PM EDT 12/31/2022 3:58 PM EDT us [facility] External Provider LAB BLO OD ORDERABLES Final Result [facility] [address] [place] [address] [phone] documented in this encounter Visit Diagnoses Not on filedocumented in this encounter Care Teams Quality Control Industrial Engineer Relationship Specialty Start Date End Date Samira Michael MD [address] [place] [phone] PCP - General Family Medicine 04/26/14 documented as of this encounter
--- OUTSIDE RECORDS SUMMARY | 2024-12-16 13:50 | XMS_ITS | Encounter Summary ---
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 Not on file Not on file documented as of this encounter Plan of Treatment Upcoming Encounters Date Type Department Care Team (Late st Contact Info) Description 01/07/2025 10:30 AM EDT Office Visit [facility] [address] [place] [address] Samira Michael MD [address] [place] [address] documented as of this encounter Visit Diagnoses Not on filedocumented in this encounter Additional Health Concerns Assessment Noted Time PHQ-9 Depression Total Score: 0 02/06/20 23 8:51 AM EDT documented as of this encounter Care Teams Project Manager/Design Manager Relationship Specialty Start Date End Date Samira Michael MD [address] [place] [phone] PCP - General Family Medicine 04/26/14 documented as of this encounter
--- OUTSIDE RECORDS SUMMARY | 2024-12-16 13:50 | XMS_ITS | Encounter Summary ---
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 Not on file Not on file documented as of this encounter Plan of Treatment Upcoming Encounters Date Type Department Care Team (Late st Contact Info) Description 01/07/2025 10:30 AM EDT Office Visit [facility] [address] [place] [phone] Samira Michael MD [address] [place] [phone] documented as of this encounter Visit Diagnoses Not on filedocumented in this encounter Additional Health Concerns Assessment Noted Time PHQ-9 Depression Total Score: 0 02/06/20 23 8:51 AM EDT documented as of this encounter Care Teams Baseball Umpire [employer] Relationship Specialty Start Date End Date Samira Michael MD [address] [place] [phone] PCP - General Family Medicine 04/26/14 documented as of this encounter
--- OUTSIDE RECORDS SUMMARY | 2024-12-16 13:50 | XMS_ITS | Encounter Summary ---
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 TY Spoke to pt this morning she will contact the office later in the day to schedule a follow up with PCP. * Telephone Encounter - Verenice Lang RN - 12/15/2024 7:28 PM EDT Pt seen at [facility] 12/15/24 and sent to ED at [facility] for abd pain, acute bilateral thoracic back pain (?pyelonephritis.) Will send to PCP as FYI and team nurses to status check pt tomorrow. TY documented in this encounter Plan of Treatment Upcoming Encounters Date Type Department Care Team (Late st Contact Info) Description 01/07/2025 10:30 AM EDT Office Visit [facility] [address] [place] [address] Samira Michael MD [address] [place] [address] documented as of this encounter Visit Diagnoses Not on filedocumented in this encounter Additional Health Concerns Assessment Noted Time PHQ-9 Depression Total Score: 0 02/06/20 23 8:51 AM EDT documented as of this encounter Care Teams Auto Design Checker Relationship Specialty Start Date End Date Samira Michael MD [address] [place] [address] PCP - General Family Medicine 04/26/14 documented as of this encounter
--- OUTSIDE RECORDS SUMMARY | 2024-12-16 13:50 | XMS_ITS | Encounter Summary ---
Author Organization [employer] Address 75 [facility] 7t [place] [address] Care Team Providers Care Backroom Associate Name Role Phone Samira Michael MD Primary Care Provider [phone] Encounter Details Date Type Department Care Team ([facility] st Contact Info) Description 09/24/2023 Orders Only [facility] [address] [place], [place] [phone] Samira Michael MD 230 [place], [place] [phone] Social History Tobacco Use Types Packs/Day Years [...] 01/07/2025 10:30 AM EDT Office Visit [facility] [address] [place] [address] Samira Michael MD [address] [place] [address] documented as of this encounter Visit Diagnoses Not on filedocumented in this encounter Additional Health Concerns Assessment Noted Time PHQ-9 Depression Total Score: 0 02/06/20 23 8:51 AM EDT documented as of this encounter Care Teams Backroom Associate Relationship Specialty Start Date End Date Samira Michael MD [address] [place] [phone] PCP - General Family Medicine 04/26/14 documented as of this encounter
--- OUTSIDE RECORDS SUMMARY | 2024-12-16 13:50 | XMS_ITS | Encounter Summary ---
Author Organization [employer] Address [address] [place] [address] 7 [place] [address] Care Team Providers Care Care Associate Name Role Phone Samira Michael MD Primary Care Provider [phone] Reason for Referral * Consultation (Routine) - Closed Specialty Diagnoses / Procedures Referred By Kp abreu Referred To Contact Occupational Therapy Diagnoses Right lateral epicondylitis Samira Michael MD [address] [place] [phone] Phone: tel: fax: [facility] Physical Therapy [address] [place] [address] Phone: tel: fax: Referral ID Status Reason Start Date Expiration Date V isits Requested Visits Authorized [id number] Closed Specialty Services Required 01/28/2024 01/27/2025 20 20 Encounter Details Date Type Department Care Team (Late st Contact Info) Description 01/26/2024 Orders Only [facility] MEDICINE [address] [place] [address] [phone] Samira Michael MD [address] [place], [place] [phone] Right lateral epicondylitis (Primary Dx) Social History [...] 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 Not on file Not on file documented as of this encounter Plan of Treatment Upcoming Encounters Date Type Department Care Team (Late st Contact Info) Description 01/07/2025 10:30 AM EDT Office Visit [facility] [address] [place] [address] Samira Michael MD [address] [place] [address] Scheduled Referrals Name Type Priority Associated Diagnoses [...] documented as of this encounter Care Teams Care Associate Relationship Specialty Start Date End Date Samira Michael MD [address] [place] [phone] PCP - General Family Medicine 04/26/14 documented as of this encounter
--- OUTSIDE RECORDS SUMMARY | 2024-12-16 13:50 | XMS_ITS | Encounter Summary ---
Author Organization [employer] Address 75 [facility] 7t [place] [address] Care Team Providers Care Solutions Architect Consultant Name Role Phone Samira Michael MD Primary Care Provider [phone] Reason for Visit * Reason Comments Walk-In worsening right mid back discomfort(previously was lower back pain when see at 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 last week); reports urine dark yellow- denies [...] Description 01/07/2025 10:30 AM EDT Office Visit [facility] [address] [place] [address] [phone] Samira Michael MD [address] [place], [place] [phone] documented as of this encounter Procedures Procedure Name Priority Date/Time Associated Diagnosis Comments URINALYSIS, COMPLETE, WITH REFLEX TO CULTURE Routine 12/15/2024 7:18 PM EDT Acute bilateral thoracic back pain POCT URINALYSIS DIPSTICK Routine 12/15/2024 6:54 PM EDT UTI symptoms documented in this encounter Results * (ABNORMAL) Urinalysis, Complete, with Reflex to Culture (12/15/2024 7:18 PM EDT) Color Urine Yellow [facility] Appearance Urine Turbid [facility] PH 6.0 5.0 - 9.0 [facility] Glucose Urine UA Negative Negative mg/dL [facility] Urine Blood Negative Negative [facility] Specific [place] - Urine >=1.030(H) 1.005 - 1.025 [facility] Urine Protein Negative Neg-Trace mg/dL [facility] Urine Ketones Negative Negative mg/dL [facility] Nitrite Urine Negative Negative [facility] Leukocyte Esterase Urine Negative Negative [facility] RBC Urine 0-2 0 - 2 /HPF [facility] Urine WBC 11-20(A) 0 - 5 /HPF [facility] Urine Squamous Epithelial Cell 11-20 0 - 2 /HPF [facility] Urine Bacteria 1+ None Seen [facility] Hyaline Casts, Urine 0-2 0 - 2 /LPF [facility] Urine 12/15/2024 7:18 PM EDT 12/16/2024 11:24 AM EDT Narrative [facility] - 12/16/2024 11:36 AM EDT Urine, Clean Catch Raquel Gardner MD LAB URINE ORDERABLES Final Result Performing Organization Address City/State/[facility] Co de Phone Number [facility] [address] [place] [phone] * (ABNORMAL) POCT Urinalysis (12/15/2024 6:54 PM [...] documented as of this encounter Care Teams Solutions Architect Consultant Relationship Specialty Start Date End Date Samira Michael MD [address] [place] [phone] PCP - General Family Medicine 04/26/14 documented as of this encounter
--- OUTSIDE RECORDS SUMMARY | 2024-12-16 13:50 | XMS_ITS | Encounter Summary ---
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 file Not on file documented as of this encounter Plan of Treatment Upcoming Encounters Date Type Department Care Team (Late st Contact Info) Description 01/07/2025 10:30 AM EDT Office Visit [facility] [address] [place] [address] Samira Michael MD 230 [place] [address] documented as of this encounter Visit Diagnoses Not on filedocumented in this encounter Additional Health Concerns Assessment Noted Time PHQ-9 Depression Total Score: 0 02/06/20 23 8:51 AM EDT documented as of this encounter Care Teams Applications Support Specialist Relationship Specialty Start Date End Date Samira Michael MD [address] [place] [phone] PCP - General Family Medicine 04/26/14 documented as of this encounter
--- OUTSIDE RECORDS SUMMARY | 2024-12-16 13:50 | XMS_ITS | Encounter Summary ---
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 on file Not on file documented as of this encounter Plan of Treatment Upcoming Encounters Date Type Department Care Team (Late st Contact Info) Description 01/07/2025 10:30 AM EDT Office Visit [facility] [address] [place] [phone] Samira Michael MD [address] [place] [address] documented as of this encounter Visit Diagnoses Diagnosis Allergic rhinitis, unspecified seasonality, unspecified trigger documented in this encounter Additional Health Concerns Assessment Noted Time PHQ-9 Depression Total Score: 0 02/06/20 23 8:51 AM EDT documented as of this encounter Care Teams Pottery Decoration Designer Relationship Specialty Start Date End Date Samira Michael MD [address] [place] [phone] PCP - General Family Medicine 04/26/14 documented as of this encounter
--- OUTSIDE RECORDS SUMMARY | 2024-12-16 13:50 | XMS_ITS | Encounter Summary ---
Author Organization [email or web address] Address 75 [facility] 7t [place] [address] Care Team Providers Care Studio Associate Name Role Phone Samira Michael MD Primary Care Provider [phone] Encounter Details Date Type Department Care Team ([facility] st Contact Info) Description 12/15/2024 Orders Only GENERIC EXTERNAL DATA DEPARTMENT Provider, [...] Description 01/07/2025 10:30 AM EDT Office Visit [facility] 230 [place] [address] Samira Michael MD [address] [place] [address] documented as of this encounter Procedures Procedure Name Priority Date/Time Associated Diagnosis Comments CT ABDOMEN PELVIS WO CONTRAST Routine 12/15/2024 9:35 PM EDT CBC WITH AUTO DIFFERENTIAL Routine 12/15/2024 7:58 PM EDT HCG, TOTAL, QN Routine 12/15/2024 7:58 PM EDT documented in this encounter Results * CT Abdomen Pelvis w/o Contrast (12/15/2024 9:35 PM EDT) Anatomical Region Laterality Modality Body, Pelvis, Abdomen Computed T omography 12/15/2024 9:35 PM EDT Narrative 12/15/2024 9:37 PM EDT ? [facility] ?[address] ?[place] [address] ? CT Scan Report ? Signed ? Patient: Freeman,Dalia ?MR#: [id number] ?? 2 ? : 1990 ?Acct:[id number] ? Age/Sex: 34 / F ?ADM Date: 04/15/25 ? Loc: HO.ED ? Attending Dr: ? Ordering Physician: Ebony Plascencia ?? Date of Service: 12/15/24 ?? Procedure(s): CT abdomen pelvis wo IV con ?? Accession Number(s): [id number] ? cc: Ebony Plascencia; [facility] ? Report Number: ?? [id number]: Total DLP = ??782.00 mGy-cm ? CLINICAL HISTORY: right flank pain ? CT abdomen and pelvis without contrast ? Comparison: Ultrasound of the abdomen from 05/26/2024 ? Findings: ?? Mild bibasilar atelectasis. ?? No obstructing stone in either kidney or either ureter. Multiple ?? phleboliths are noted in the pelvis. No hydronephrosis. ?? Cholelithiasis suggested by CT (image 25 of series 2), with a additional ?? partially calcified stone versus wall calcification protein in the ?? fundus.. Mild/minimal fat deposition of the liver. The spleen is ?? nonenlarged. The adrenal glands are normal. Pancreas unremarkable for ?? noncontrast study. ?? Small mesenteric and periaortic lymph nodes are nonspecific and may be ?? reactive. No small bowel obstruction. Imaged appendix within normal limits ?? (image number 58 of series 2). Severe stool burden present, including the ?? cecum. Mild straightening of the adjacent to diverticula of the descending ?? colon (imaged 52 and 53 of series 2). ?? Uterus is anteverted with intrauterine device in place. No adnexal soft ?? tissue mass by CT. Mild free fluid in the pelvis may be reactive. Mild ?? wall thickening of the urinary bladder is nonspecific. Mild lower lumbar ?? facet arthropathy. ? IMPRESSION: ?? 1. Mild diverticulitis of the lower portion of the descending colon. ?? 2. No obstructing stone in either kidney or either ureter. ?? 3. Cholelithiasis by CT. ? This document has been electronically signed by: Sj Guerrero MD on ?? 12/15/2024 21:35:26 ? Dictated By: ?Sj Guerrero MD ? Signed By: ?<Electronically signed by Sj Guerrero MD in OV> ? 12/15/242135 ? DD/ 34 ? TD/TT: 12/15/242134 ? Channel Director: ? Procedure Note Huy, Image - 12/15/2024 [place] [address] [place] [address] CT Scan Report Signed Patient: Dalia FreemanMR#: [id number] 2 : 1990Acct:[id number] Age/Sex: 34 / FADM Date: 12/15/24 Loc: HO.ED Attending Dr: Ordering Physician: Ebony Plascencia Date of Service: 12/15/24 Procedure(s): CT abdomen pelvis wo IV con Accession Number(s): [id number] cc: Ebony Plascencia; [facility] Report Number: [id number]: Total DLP = 782.00 mGy-cm CLINICAL HISTORY: right flank pain CT abdomen and pelvis without contrast Comparison: Ultrasound of the abdomen from 05/26/2024 Findings: Mild bibasilar atelectasis. No obstructing stone in either kidney or either ureter. Multiple phleboliths are noted in the pelvis. No hydronephrosis. Cholelithiasis suggested by CT (image 25 of series 2), with a additional partially calcified stone versus wall calcification protein in the fundus.. Mild/minimal fat deposition of the liver. The spleen is nonenlarged. The adrenal glands are normal. Pancreas unremarkable for noncontrast study. Small mesenteric and periaortic lymph nodes are nonspecific and may be reactive. No small bowel obstruction. Imaged appendix within normal limits (image number 58 of series 2). Severe stool burden present, including the cecum. Mild straightening of the adjacent to diverticula of the descending colon (imaged 52 and 53 of series 2). Uterus is anteverted with intrauterine device in place. No adnexal soft tissue mass by CT. Mild free fluid in the pelvis may be reactive. Mild wall thickening of the urinary bladder is nonspecific. Mild lower lumbar facet arthropathy. IMPRESSION: 1. Mild diverticulitis of the lower portion of the descending colon. 2. No obstructing stone in either kidney or either ureter. 3. Cholelithiasis by CT. This document has been electronically signed by: Sj Guerrero MD on 12/15/2024 21:35:26 Dictated By: Sj Guerrero MD Signed By: <Electronically signed by Sj Guerrero MD in OV> 12/15/242135 DD/ 34 TD/TT: 12/15/242134 Channel Director: us [facility] External Provider IMG CT PROCEDURES Edited Result - Final * (ABNORMAL) CBC auto differential (12/15/2024 7:58 PM EDT) White Blood Count 12.7(H) 4.8 - 10.8 X10*3/uL [facility] Red Blood Count 3.91(L) 4.20 - 5.50 X10*6/uL [facility] Hemoglobin 11.3(L) 12.0 - 16.0 g/dl [facility] Hematocrit 35.1(L) 37.0 - 47.0 % [facility] Mean Corpuscular Volume 89.8 80.0 - 98.0 fL [facility] Mean Corpuscular Hemoglobin 28.9 27.0 - 33.0 pg [facility] Mean Corpuscular HGB Conc 32.2 31.0 - 35.0 g/dl [facility] Red Cell Distribution Width 13.1 11.0 - 16.0 % [facility] Platelet Count 270 160 - 400 X10*3/uL [facility] Mean Platelet Volume 10.8 9.4 - 12.3 fL [facility] Neutrophils Percent Auto 80.1(H) 45 - 73 % [facility] Imm Gran Pct Auto 0.4 0.0 - 0.4 % [facility] Lymphocytes Percent Auto 13.7(L) 20 - 40 % [facility] Monocytes Percent Auto 4.7 2 - 11 % [facility] Eosinophils Percent Auto 0.9 0 - 4 % [facility] Basophils Percent Auto 0.2 0 - 2 % [facility] NRBC Pct Auto 0.0 0.0 - 0.2 /100WBC [facility] Neutrophils Absolute Auto 10.2(H) 2.0 - 8.3 x10*3/uL [facility] Imm Gran Abs Auto 0.05(H) 0.00 - 0.03 X10*3/uL [facility] Lymphocytes Absolute Auto 1.7 1.2 - 4.9 X10*3/uL [facility] Monocytes Absolute Auto 0.6 0.1 - 1.2 X10*3/uL [facility] Eosinophils Absolute Auto 0.1 0.0 - 0.4 X10*3/uL [facility] Basophils Absolute Auto 0.0 0.0 - 0.2 X10*3/uL [facility] NRBC Abs Auto 0.000 0.0 - 0.012 X10*3/uL [facility] 12/15/2024 7:58 PM EDT 12/15/2024 8:01 PM EDT us Generic External Data Provider LAB BLOOD ORDERAB LES Final Result Performing Organization Address [facility] [place] [facility] Co de Phone Number [facility] [address] [place] [phone] * hCG, Total, Quantitative (12/15/2024 7:58 PM EDT) HCG Quantitative <2 mIU/mL [facility] Comment:Weeks post LMP Appro ximate hCG(Last Menstrual Period) Range (mIU/ml)3 - 4 weeks 9 - 1304 - 5 weeks 75 - 2,6005 - 6 weeks 850 - 20,8006 - 7 weeks 4000 - 100,2007 - 12 weeks 11,500 - 289,41791 - 16 weeks 18,300 - 137,54465 - 29 weeks (2nd trimester) 1,400 - 53,62377 - 41 weeks (3rd trimester) 940 - 60,000The [place] B- hCG assay is used for the early detection ofpregnancy; it cannot be used to diagnose any conditionunrelated to . If a B-hCG level is not supportedby the clinical evidence, results should be confirmed by analternative method (qualitative urine hCG, for example). 12/15/2024 7:58 PM EDT 12/15/2024 8:01 PM EDT us Generic External Data Provider LAB BLOOD ORDERAB LES Final Result Performing Organization Address [facility] [place] [facility] Co de Phone Number [facility] [address] [place] [phone] documented in this encounter Visit Diagnoses Not on filedocumented in this encounter Additional Health Concerns Assessment Noted Time PHQ-9 Depression Total Score: 0 02/06/20 23 8:51 AM EDT documented as of this encounter Care Teams Studio Associate Relationship Specialty Start Date End Date Samira Michael MD [address] [place] [address] PCP - General Family Medicine 04/26/14 documented as of this encounter
--- OUTSIDE RECORDS SUMMARY | 2024-12-16 13:50 | XMS_ITS | Clinical Summary ---
Author Organization [employer] Address [address] [place] [address] [address] [place] [address] Care Team Providers Care Tobacco Sprayer Name Role Phone Samira Michael MD Primary Care Provider [phone] Allergies Active Allergy Reactions Criticality Noted Date [...] (04/29/2023 1:08 PM EDT): - seen by bridge engineer in 2021, normal TTE and holter - safely discharged from their care on 02/05/23 - 02/05/23 TC 212; TG 75; HDL 60; LDL 112 - continue working on management of modifiable risk factors. Palpitation 02/05/2023 Assessment & Plan (08/20/2023 10:54 AM EST): - following with [facility] Cardiology, last seen on 02/01/23 - normal Holter and TTE in Apr 2022 - likely POTS, since she became symptomatic after COVID - continue monitoring and current treatment Assessment & Plan (02/05/2023 9:32 AM EDT): - following with [facility] Cardiology, last seen on 02/01/23 - normal Holter and TTE in Apr 2022 - likely POTS, since she became symptomatic after COVID - continue monitoring and current treatment Precordial pain 02/05/2023 Assessment & Plan (01/10/2024 4:15 PM EDT): - less frequent, yet still symptomatic - following with bridge engineer, [facility], last seen on 02/01/23 - normal TTE and Holter on 04/18/22 - will evaluate with KEVIN Assessment & Plan (02/05/2023 9:30 AM EDT): - less frequent, yet still symptomatic - following with bridge engineer, [facility], last seen on 02/01/23 - normal TTE and Holter on 04/18/22 - continue monitoring Obesity 02/04/2023 Assessment & Plan (01/06/2024 12:08 PM EDT): - Work on lifestyle modifications. History of ovarian cyst 02/04/2023 POTS (postural orthostatic tachycardia syndrome) 02/04/2023 Assessment & Plan (01/10/2024 4:16 PM EDT): - following with [facility] Cardiology, last seen on 02/01/23 - normal Holter and TTE in Apr 2022 - likely POTS, since she became symptomatic after COVID - will evaluate with KEVIN Assessment & Plan (08/20/2023 10:54 AM EST): - following with [facility] Cardiology, last seen on 02/01/23 - normal Holter and TTE in Apr 2022 - likely POTS, since she became symptomatic after COVID - continue monitoring and current treatment Assessment & Plan (04/29/2023 1:09 PM EDT): - following with [facility] Cardiology, last seen on 02/01/23 - normal Holter and TTE in Apr 2022 - likely POTS, since she became symptomatic after COVID - continue monitoring and current treatment Assessment & Plan (02/05/2023 9:32 AM EDT): - Hx COVID19 - continue monitoring - will consult with cardiologists History of gestational diabetes mellitus 023 Assessment & Plan (02/05/2023 9:30 AM EDT): - during last [phone] - diet-controlled - check A1C - continue [...] fluticasone, montelukast, and cetirizine - refer to medical transport specialist. Assessment & Plan (08/20/2023 4:40 AM EST): - continue fluticasone, montelukast, and cetirizine Asthma 02/18/2013 Assessment & Plan (01/06/2024 10:29 AM EDT): - change fluticasone to mometasone (Asmanex) - continue albuterol prn - continue montelukast - evaluated by field assistant 09/17/2023. Pt had normal PFT. Recommended medical transport specialist referral. Assessment & Plan (08/20/2023 10:54 AM EST): - change fluticasone to mometasone (Asmanex) - continue albuterol prn - continue montelukast - refer to field assistant to assess if pt will benefit from [...] Description 12/15/2024 7:00 PM EDT Office Visit [facility] [address] [place] [phone] Raquel Gardner MD Acute bilateral thoracic back pain (Primary Dx); UTI symptoms 12/15/2024 Orders Only GENERIC EXTERNAL DATA DEPARTMENT Provider, Generic External Data 12/15/2024 Telephone [facility] [address] [place] [phone] Raquel Gardner MD 12/14/2024 Telephone [facility] [address] [place] [phone] Vanessa Trivedi MD 12/14/2024 Travel 12/09/2024 Orders Only GENERIC EXTERNAL DATA DEPARTMENT Provider, Generic External Data 12/08/2024 7:40 PM EDT Office Visit [facility] [address] [place] [phone] Raquel Gardner MD Low back pain, non-specific (Primary Dx); Bacterial vaginosis 12/08/2024 Travel 11/30/2024 7:40 PM EDT Office Visit [facility] [address] [place] [phone] Iliana Reyes MD Acute right-sided low back pain without sciatica (Primary Dx); Sweating profusely 11/25/2024 3:00 PM EDT Office Visit [facility] [address] [place] [address] Abad Balbuena MD Subacute sinusitis, unspecified location (Primary Dx) 11/24/2024 Refill [facility] [address] [place], [place] [phone] Samira Michael MD 11/13/2024 Population Health Risk Score Community Care [facility] ([facility]) Department [address] [place] [phone] Provider, Population Health Generic 10/14/2024 Refill [facility] [address] [place] [address] Samira Michael MD Allergic rhinitis, unspecified seasonality, [...] 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 [facility] ?[address] ?[place] [address] ? CT Scan Report ? Signed ? Patient: Freeman,Dalia ?MR#: [id number] ?? 2 ? : 1990 ?Acct:[id number] ? Age/Sex: 34 / F ?ADM Date: 12/15/24 ? Loc: HO.ED ? Attending Dr: ? Ordering Physician: Ebony Plascencia ?? Date of Service: 12/15/24 ?? Procedure(s): CT abdomen pelvis wo IV con ?? Accession Number(s): [id number] ? cc: Ebony Plascencia; [facility] ? Report Number: ?? [id number]: Total DLP = ??782.00 mGy-cm ? CLINICAL [...] by Sj Guerrero MD in OV> ? 12/15/246 ? DD/ 34 ? TD/TT: 12/15/242134 ? Equalizing Saw Operator: ? Procedure Note Donhilaryter, Image - 12/15/[address] [place] [address] [address] Scan Report Signed Patient: Dalia FreemanMR#: [id number] 2 : 1990Acct:[id number] Age/Sex: 34 / FADM Date: 12/15/24 Loc: HO.ED Attending Dr: Ordering Physician: Ebony Plascencia Date of Service: 12/15/24 Procedure(s): CT abdomen pelvis wo IV con Accession Number(s): [id number] cc: Ebony Plascencia; [facility] Report Number: [id number]: Total DLP = 782.00 mGy-cm CLINICAL HISTORY: [...] in OV> 12/15/242135 DD/ 34 TD/TT: 12/15/242134 Equalizing Saw Operator: [facility] External Provider IMG CT PROCEDURES Edited Result - Final * (ABNORMAL) CBC auto differential (12/15/2024 7:58 PM EDT) Only the most recent of3 resultswithin the time period is included. White Blood Count 12.7(H) 4.8 - 10.8 X10*3/uL [facility] Red Blood Count 3.91(L) 4.20 - 5.50 X10*6/uL [facility] Hemoglobin 11.3(L) 12.0 - 16.0 g/dl [facility] Hematocrit 35.1(L) 37.0 - 47.0 % [facility] Mean Corpuscular Volume 89.8 80.0 - 98.0 fL [facility] Mean Corpuscular Hemoglobin 28.9 27.0 - 33.0 pg [facility] Mean Corpuscular HGB Conc 32.2 31.0 - 35.0 g/dl [facility] Red Cell Distribution Width 13.1 11.0 - 16.0 % [facility] Platelet Count 270 160 - 400 X10*3/uL [facility] Mean Platelet Volume 10.8 9.4 - 12.3 fL [facility] Neutrophils Percent Auto 80.1(H) 45 - 73 % [facility] Imm Gran Pct Auto 0.4 0.0 - 0.4 % [facility] Lymphocytes Percent Auto 13.7(L) 20 - 40 % [facility] Monocytes Percent Auto 4.7 2 - 11 % [facility] Eosinophils Percent Auto 0.9 0 - 4 % [facility] Basophils Percent Auto 0.2 0 - 2 % [facility] NRBC Pct Auto 0.0 0.0 - 0.2 /100WBC [facility] Neutrophils Absolute Auto 10.2(H) 2.0 - 8.3 x10*3/uL [facility] Imm Gran Abs Auto 0.05(H) 0.00 - 0.03 X10*3/uL [facility] Lymphocytes Absolute Auto 1.7 1.2 - 4.9 X10*3/uL [facility] Monocytes Absolute Auto 0.6 0.1 - 1.2 X10*3/uL [facility] Eosinophils Absolute Auto 0.1 0.0 - 0.4 X10*3/uL [facility] Basophils Absolute Auto 0.0 0.0 - 0.2 X10*3/uL [facility] NRBC Abs Auto 0.000 0.0 - 0.012 X10*3/uL [facility] 12/15/2024 7:58 PM EDT 12/15/2024 8:01 PM EDT us Generic External Data Provider LAB BLOOD ORDERAB LES Final Result [facility] [address] [place] [phone] [phone] * hCG, Total, Quantitative (12/15/2024 7:58 PM EDT) HCG Quantitative <2 mIU/mL [facility] Comment:Weeks post LMP Appr oximate hCG(Last Menstrual Period) Range (mIU/ml)3 - 4 weeks 9 - 1304 - 5 weeks 75 - 2,6005 - 6 weeks 850 - 20,8006 - 7 weeks 4000 - 100,2007 - 12 weeks 11,500 - 289,13739 - 16 weeks 18,300 - 137,41194 - 29 weeks (2nd trimester) 1,400 - 53,18239 - 41 weeks (3rd trimester) 940 - 60,000The Reich B-hCG assay is used for the early detection ofpregnancy; it cannot be used to diagnose any conditionunrelated to . If a B-hCG level is not supportedby the clinical evidence, results should be confirmed by analternative method (qualitative urine hCG, for example). 12/15/2024 7:58 PM EDT 12/15/2024 8:01 PM EDT us Generic External Data Provider LAB BLOOD ORDERAB LES Final Result [facility] [address] [place] [phone] * (ABNORMAL) Urinalysis, Complete, with Reflex to Culture (12/15/2024 7:18 PM EDT) Color Urine Yellow [facility] Appearance Urine Turbid [facility] PH 6.0 5.0 - 9.0 [facility] Glucose Urine UA Negative Negative mg/dL [facility] Urine Blood Negative Negative [facility] Specific Lawrence - Urine >=1.030(H) 1.005 - 1.025 [facility] Urine Protein Negative Neg-Trace mg/dL [facility] Urine Ketones Negative Negative mg/dL [facility] Nitrite Urine Negative Negative [facility] Leukocyte Esterase Urine Negative Negative [facility] RBC Urine 0-2 0 - 2 /HPF [facility] Urine WBC 11-20(A) 0 - 5 /HPF [facility] Urine Squamous Epithelial Cell 11-20 0 - 2 /HPF [facility] Urine Bacteria 1+ None Seen [facility] Hyaline Casts, Urine 0-2 0 - 2 /LPF [facility] Urine 12/15/2024 7:18 PM EDT 12/16/2024 11:24 AM EDT Narrative [facility] - 12/16/2024 11:36 AM EDT Urine, Clean Catch Raquel Gardner MD LAB URINE ORDERABLES Final Result [facility] [address] [place] [phone] * (ABNORMAL) POCT Urinalysis (12/15/2024 6:54 [...] HIGH SENSITIVITY <2.7 <3.5 - 17.0 ng/L [facility] Comment:The Reich high sens itivity Troponin-I results should beused in conjunction with other diagnostic information suchas ECG, clinical observations and information, and patientsymptoms to aid in the diagnosis of NH. 12/09/2024 12:2 2 PM EDT 12/09/2024 12:24 PM EDT Generic External Data Provider LAB BLOOD ORDERAB LES Final Result [facility] [address] [place] [phone] * XR Chest 2 Views (12/09/2024 12:17 PM EDT) Anatomical Region Laterality Modality Chest Radiographic Tiffany ging 12/09/2024 12:1 7 PM EDT Narrative 12/09/2024 12:45 PM EDT ? [facility] ?[address] ?[place] [address] ?XRay Report ? Signed ? Patient: Freeman,Dalia ?MR#: [id number] ?? 2 ? : 1990 ?Acct:[id number] ? Age/Sex: 34 / F ?ADM Date: 12/09/24 ? Loc: HO.ED ? Attending Dr: ? Ordering Physician: Pieter Lomas DO ?? Date of Service: 12/09/24 ?? Procedure(s): XR chest 2V ?? Accession Number(s): [id number] ? cc: Pieter Lomas DO; Samira Michael [...] DD/ 1217 ? TD/TT: 12/09/24 1233 ? Equalizing Saw Operator: ? Procedure Note Nati Son - 12/09/[address] [place] [address] XRay Report Signed Patient: Dalia FreemanMR#: [id number] 2 : 1990Acct:[id number] Age/Sex: 34 / FADM Date: 12/09/24 Loc: HO.ED Attending Dr: Ordering Physician: Pieter Lomas DO Date of Service: 12/09/24 Procedure(s): XR chest 2V Accession Number(s): [id number] cc: Pieter Lomas DO; Samira Michael MD [...] 12/09/24 1243 DD/ 1217 TD/TT: 12/09/24 1233 Equalizing Saw Operator: [facility] External Provider IMG XR PROCEDURES Final Result * (ABNORMAL) Comprehensive Metabolic Panel (12/09/2024 10:24 AM EDT) Only the most recent of2 resultswithin the time period is included. Sodium 141 135 - 145 mmol/L [facility] Potassium 3.9 3.3 - 5.1 mmol/L [facility] Chloride 109(H) 96 - 108 mmol/L [facility] Carbon Dioxide 27 22 - 29 mmol/L [facility] Anion Gap 9(L) 12 - 20 [facility] Urea Nitrogen (BUN) 11 9 - 16 mg/dL [facility] Creatinine, Serum 0.75 0.5 - 1.4 mg/dL [facility] Creatinine Clr Calc Pharmacy 104.5 [facility] Comment:Provided height and weight: 157.48 cm,84.4 kg.eGFR (calculated from the MDRD study equation) and eCrCl(calculated from the Cockcroft-Gault equation) are based ondifferent parameters and may not yield comparable results.If eCrCl result is absurd, please check patient'sheight/weight. Estimated Glomerular Filt Rate >60 [facility] Comment:Chronic Kidney Disea se: Estimated GFR < 60 mL/min/1.77s5Dpttql Kidney Disease: Estimated GFR < 15 mL/min/1.73m2 Glucose 93 60 - 115 mg/dL [facility] Calcium 9.0 8.4 - 10.2 mg/dL [facility] Bilirubin, Total 0.5 0.0 - 1.0 mg/dL [facility] Aspartate Amino Transferase 19 5 - 31 U/L [facility] Alanine Aminotransferase 6 0 - 31 U/L [facility] Total Protein 7.3 6.5 - 8.0 g/dL [facility] Albumin Level 4.0 3.5 - 5.0 g/dL [facility] Alkaline Phosphatase 77 39 - 117 U/L [facility] 12/09/2024 10:2 4 AM EDT 12/09/2024 10:28 AM EDT us Generic External Data Provider LAB BLOOD ORDERAB LES Final Result Performing Organization Address [facility]/ZIP Co de Phone Number [facility] [address] [place] [phone] * POCT Rapid Influenza A REICH ID NOW (12/08/2024 7:17 PM EDT) Influenza A Negative Negative, Indeterminate [facility] Swab 12/08/2024 7:17 PM EDT Raquel Gardner MD POINT OF CARE TEST ENTER/E DIT ORDERABLES Final Result Performing Organization Address [facility]UST Co de Phone Number [facility] [address] [place] [phone] [phone] * POCT Rapid COVID-19 Binax NOW (12/08/2024 7:17 PM EDT) Rapid COVID Ag Negative Swab 12/08/2024 7:17 PM EDT Raquel Gardner MD POINT OF CARE TEST ENTER/E DIT ORDERABLES Final Result * POCT Rapid Influenza B REICH ID NOW (12/08/2024 7:16 PM EDT) [facility] Influenza B Negative Negative, Indeterminate [facility] Swab 12/08/2024 7:16 PM EDT Raquel Gardner MD POINT OF CARE TEST ENTER/E DIT ORDERABLES Final Result Performing Organization Address City/State/RUST Co de Phone Number [facility] [address] [place] [phone] * (ABNORMAL) Urinalysis Complete (12/08/2024 6:30 PM EDT) Pathologist [facility] Color Urine Yellow [facility] Appearance Urine Turbid [facility] PH 5.5 5.0 - 9.0 [facility] Glucose Urine UA Negative Negative mg/dL [facility] Urine Blood Negative Negative [facility] Specific Lawrence - Urine >=1.030(H) 1.005 - 1.025 [facility] Urine Protein Trace Neg-Trace mg/dL [facility] Urine Ketones Trace Negative mg/dL [facility] Nitrite Urine Negative Negative [facility] Leukocyte Esterase Urine Moderate (2+)(A) Negative [facility] RBC Urine 0-2 0 - 2 /HPF [facility] Urine WBC 11-20(A) 0 - 5 /HPF [facility] Urine Squamous Epithelial Cell 11-20 0 - 2 /HPF [facility] Urine Bacteria 1+ None Seen [facility] Hyaline Casts, Urine 0-2 0 - 2 /LPF [facility] Urine (Urine, Random) 12/08/2024 6:30 PM EDT 12/09/2024 11:43 AM EDT Raquel Gardner MD LAB URINE ORDERABLES Final Result Performing Organization Address [facility] Co de Phone Number [facility] [address] [place] [phone] * TSH W/Reflex to FT4 (12/08/2024 2:25 PM EDT) TSH reflex Free T4 1.15 0.32 - 4.0 uIU/mL [facility] Blood Venous blood specimen / Unknown 12/08/2024 2:25 PM EDT 12/08/2024 4:05 PM EDT Iliana Reyes MD LAB BLOOD ORDERABLES Final Result Performing Organization Address [facility] de Phone Number [facility] [address] [place] [phone] * Culture, Urine, Routine (12/08/2024 12:00 AM EDT) Urine Urine specimen obtained by clean catch procedure / Unknown 12/08/2024 12/08/2024 Comment:UACC Narrative [facility] - 12/10/2024 12:47 PM EDT Urine Culture Report Result Urine Culture > 100,000 cfu/ml Urine Culture Mixed bacterial dora characteristic of Urine Culture urogenital contamination. Strep agalactiae (Grp B) Quant > 100,000 cfu/mL Susc N/A Susceptibility not routinely performed on this isolate. Specimen Source: Urine clean catch Raquel Gardner MD LAB MICROBIOLOGY - GENERAL ORDERABLES Final Result Performing Organization Address [facility] Co de Phone Number [facility] [address] [place] [phone] * (ABNORMAL) Lipid Panel with Reflex to Direct LDL (01/06/2024 10:55 AM EDT) Triglycerides 73 <150 mg/dL [facility] Comment:Desirable Triglyceri de: less than 150 mg/dLBorderline High Triglyceride 150-199 mg/dLHigh Triglyceride: 200-499 mg/dLVery High Triglyceride: greater than or equal to 5OO mg/dL Cholesterol 186 <200 mg/dL [facility] Comment:Desirable Cholestero l: less than 200 mg/dLBorderline High Cholesterol: 200-239 mg/dLHigh Cholesterol: greater than 239 mg/dL LDL Cholesterol Calculated 122(H) <100 mg/dL [facility] Comment:Desirable LDL: less than 100 mg/dLNear Optimal/Above Optimal LDL: 110- 129 mg/dLBorderline High LDL: 130-159 mg/dLHigh LDL: 160-189 mg/dLVery High LDL: greater than or equal to 190 mg/dL HDL Cholesterol 50 >40 mg/dL [facility] Comment:Desirable HDL: great er than 40 mg/dL Note: This HDL assay may give artificially low results in patients with liver disease. Blood 01/06/2024 10:5 5 AM EDT 01/06/2024 1:02 PM EDT Samira Michael MD LAB BLOOD ORDERABLES Final Resul t [facility] [address] [place] [address] [phone] * Hepatitis C Antibody with Reflex to HCV, RNA, Quantitative, Real-Time PCR (01/06/2024 10:55 AM EDT) Hepatitis C Antibody Nonreactive Nonreactive [facility] Comment:Antibodies to HCV no t detected; does not exclude early acuteHCV infection. Blood Venous blood specimen / Unknown 01/06/2024 10:55 AM EDT 01/06/2024 1:02 PM EDT us Samira Michael MD LAB BLOOD ORDERABLES Final Resul t Performing Organization Address [facility]/ZIP Co de Phone Number [facility] [address] [place] [phone] * HIV-1/2 Antigen and Antibodies, Fourth Generation, with Reflexes (01/06/2024 10:55 AM EDT) HIV AB/AG Nonreactive Nonreactive [facility] Comment:HIV-1 p24 Ag and/or HIV-1/HIV-2 Ab not detected.A test result that is nonreactive does not exclude thepossibility of exposure to or infection with HIV-1 and/orHIV-2. Nonreactive results in this assay for individualswith prior exposure to HIV-1 and/or HIV-2 may be due toantigen and antibody levels that are below the limit ofdetection of this assay.The [employer] HIV Ag/Ab Combo assay result andsupplemental assay results should be interpreted inconjunction with the patient's clinical presentation,history and other laboratory results. If the results areinconsistent with clinical evidence, additional testing issuggested to confirm the result. Blood Venous blood specimen / Unknown 01/06/2024 10:55 AM EDT 01/06/2024 1:02 PM EDT us Samira Michael MD LAB BLOOD ORDERABLES Final Resul t Performing Organization Address [facility]/ZIP Co de Phone Number [facility] [address] [place] [phone] * HPV mRNA E6/E7 (04/23/2017 11:03 AM EDT) HPV mRNA E6/E7 Not Detected NOT DETECTED [facility] [employer] Comment: This test was performed using the APTIMA(R) HPV Assay ([employer] This assay detects E6/E7 viral messenger RNA (mRNA) from 14 high-risk HPV types (16,18,31,33,35,39,45,51, 52,56,58,59,66,68). For additional information please refer to: http://education.wufoo/faq/SYX360q8 (This link is being provided for informational/ educational purposes only.) Test Performed by [employer], [employer] [facility], [address] [place] [phone] Dagoberto Kaur M.D., Ph.D., Director of Laboratories , [facility] [id number] Please note: ??Effective 05/14/2016, HPV testing will be performed using [employer]'s APTIMA test which targets mRNA. Detecting mRNA instead of DNA, as in older methods, offers significant improvements in specificity. 04/23/2017 11:0 3 AM EDT us Historical Provider HISTORICAL/NON ORDERABLE LABS Final Result [facility] LAB SYSTEM [facility] [address] from Last 3 Months or Most Recently Relevant to Health Maintenance [facility] Care Teams Tobacco Sprayer Relationship Specialty Start Date End Date Samira Michael MD [address] [place] [address] PCP - General Family Medicine 04/26/14
== END 2024-12-15 11:24 | disposition home or self-care (01) ==
LOC: HO.HHCLNP 11:23
PROVIDERS: Visit Provider Family Medicine
DX: M54.6 Pain in thoracic spine (principal)
CPT/HCPCS: 81001; 87086

== ENCOUNTER 2024-12-15 19:26 | Emergency (ER) | payer MEDICAID, SELFPAY ==
--- NOTE | ~2024-12-15 | CT_ITS ---
CLINICAL HISTORY: right flank pain CT abdomen and pelvis without contrast Comparison: Ultrasound of the abdomen from 05/26/2024 Findings: Mild bibasilar atelectasis. No obstructing stone in either kidney or either ureter. Multiple phleboliths are noted in the pelvis. No hydronephrosis. Cholelithiasis suggested by CT (image 25 of series 2), with a additional partially calcified stone versus wall calcification protein in the fundus.. Mild/minimal fat deposition of the liver. The spleen is nonenlarged. The adrenal glands are normal. Pancreas unremarkable for noncontrast study. Small mesenteric and periaortic lymph nodes are nonspecific and may be reactive. No small bowel obstruction. Imaged appendix within normal limits (image number 58 of series 2). Severe stool burden present, including the cecum. Mild straightening of the adjacent to diverticula of the descending colon (imaged 52 and 53 of series 2). Uterus is anteverted with intrauterine device in place. No adnexal soft tissue mass by CT. Mild free fluid in the pelvis may be reactive. Mild wall thickening of the urinary bladder is nonspecific. Mild lower lumbar facet arthropathy. IMPRESSION: 1. Mild diverticulitis of the lower portion of the descending colon. 2. No obstructing stone in either kidney or either ureter. 3. Cholelithiasis by CT. This document has been electronically signed by: Sj Guerrero MD on 12/15/2024 21:35:26
[2024-12-15 19:34] VITALS: BP 118/86; PULSE 86; O2SAT 100
[2024-12-15 19:39] VITALS: BP 122/83; PULSE 86; RESP 16; TEMP 36.5; O2SAT 98
[2024-12-15 19:50] VITALS: BP 122/83; PULSE 86; RESP 19; TEMP 36.5; O2SAT 97; BMI 35.1
[2024-12-15] MEDS: 0.9 % Sodium Chloride 1,000 ML 999 ML IV (19:59)
[2024-12-15 20:03] LABS: MANUAL DIFF FLAG NO
[2024-12-15] MEDS: Ketorolac Tromethamine 15 MG/ML VIAL IVPUSH (20:03)
[2024-12-15] MEDS: Morphine Sulfate 4 MG/ML CARTRIDGE IVPUSH (20:03)
[2024-12-15] MEDS: LORazepam 2 MG/ML VIAL 1 MG IVPUSH (20:03)
[2024-12-15 20:20] LABS: Alanine Aminotransferase 9 U/L (0-31); Albumin Level 4.2 g/dL (3.5-5.0); Alkaline Phosphatase 77 U/L (39-117); Anion Gap 14 (12-20); Aspartate Amino Transferase 18 U/L (5-31); Bilirubin Total 0.2 mg/dL (0.0-1.0); Blood Urea Nitrogen 15 mg/dL (9-16); Calcium 9.2 mg/dL (8.4-10.2); Carbon Dioxide 26 mmol/L (22-29); Chloride 108 mmol/L (96-108); Creatinine Clr Calc Pharmacy 113.7; Estimated Glomerular Filt Rate > 60; Glucose Random 113 mg/dL (60-115); Lipase 24 U/L (8-78); Magnesium 1.9 mg/dL (1.6-2.6); Potassium 3.9 mmol/L (3.3-5.1); Sodium 144 mmol/L (135-145); Total Protein 7.5 g/dL (6.5-8.0)
--- OUTSIDE RECORDS SUMMARY | 2024-12-15 20:25 | XMS_ITS | Encounter Summary ---
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 TY documented in this encounter Plan of Treatment Upcoming Encounters Date Type Department Care Team (Late st Contact Info) Description 01/07/2025 10:30 AM EDT Office Visit [facility] [address] [place] [phone] Samira Michael MD [address] [place] [address] documented as of this encounter Visit Diagnoses Not on filedocumented in this encounter Additional Health Concerns Assessment Noted Time PHQ-9 Depression Total Score: 0 02/06/20 23 8:51 AM EDT documented as of this encounter Care Teams Manager Plant Relationship Specialty Start Date End Date Samira Michael MD [address] [place] [phone] PCP - General Family Medicine 8/25/14 documented as of this encounter
--- OUTSIDE RECORDS SUMMARY | 2024-12-15 20:25 | XMS_ITS | Encounter Summary ---
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 Not on file Not on file documented as of this encounter Plan of Treatment Upcoming Encounters Date Type Department Care Team (Late st Contact Info) Description 01/07/2025 10:30 AM EDT Office Visit [facility] [address] [place] [phone] Samira Michael MD [address] [place] [address] documented as of this encounter Visit Diagnoses Not on filedocumented in this encounter Additional Health Concerns Assessment Noted Time PHQ-9 Depression Total Score: 0 02/06/20 23 8:51 AM EDT documented as of this encounter Care Teams Classroom Instructional Aide Relationship Specialty Start Date End Date Samira Michael MD [address] [place] [phone] PCP - General Family Medicine 04/26/14 documented as of this encounter
--- OUTSIDE RECORDS SUMMARY | 2024-12-15 20:25 | XMS_ITS | Encounter Summary ---
Author Organization [employer] Address [address] [place] [address] 7 [place] [address] Care Team Providers Care Insurance Application Investigator Name Role Phone Samira Michael MD Primary Care Provider [phone] Encounter Details Date Type Department Care Team (Late st Contact Info) Description 10/10/2022 Orders Only [facility] [address] [place] [address] [phone] Perla Lang LPN Social History Tobacco Use [...] Description 01/07/2025 10:30 AM EDT Office Visit [facility] [address] [place] [address] [phone] Samira Michael MD [address] [place], [place] [phone] documented as of this encounter Procedures Procedure [...] (04/07/2023 4:54 PM EDT) Color Urine Yellow [facility] Appearance Urine Clear [facility] PH 6.0 5.0 - 9.0 [facility] Glucose Urine UA Negative Negative mg/dL [facility] Urine Blood Negative Negative [facility] Specific [place] - Urine >=1.030(H) 1.005 - 1.025 [facility] Urine Protein Negative Neg-Trace mg/dL [facility] Urine Ketones Negative Negative mg/dL [facility] Nitrite Urine Negative Negative [facility] Leukocyte Esterase Urine Negative Negative [facility] 04/07/2023 4:54 PM EDT 04/07/2023 4:59 PM EDT Narrative [facility] - 04/07/2023 5:39 PM EDT unable to urinate at this [id number], Clean Catch us [facility] External Provider LAB URI NE ORDERABLES Final Result [facility] [address] [place] [phone] * HCG, Qualitative, Urine (04/07/2023 4:54 PM EDT) Pathologist [facility] Urine NEGATIVE NEGATIVE [facility] Comment:This test was develo ped to detect early . Falsenegative results may occur after the 5th - 7th week ofpregnancy when using this test method. If clinicallyindicated, consider a serum hCG. 04/07/2023 4:54 PM EDT 04/07/2023 4:59 PM EDT Narrative [facility] - 04/07/2023 5:35 PM EDT unable to urinate at this time [facility] External Provider LAB URI NE ORDERABLES Final Result Performing Organization Address [facility]/ZIP Co de Phone Number [facility] [address] [place] [phone] * High Sensitivity Troponin I (04/07/2023 8:27 AM EDT) [facility] TROPONIN I HIGH SENSITIVITY <2.7 <3.5 - 17.0 ng/L [facility] Comment:The [place] high sens itivity Troponin-I results should beused in conjunction with other diagnostic information suchas ECG, clinical observations and information, and patientsymptoms to aid in the diagnosis of PA. 04/07/2023 8:27 AM EDT 04/07/2023 8:33 AM EDT [facility] External Provider LAB BLO OD ORDERABLES Final Result Performing Organization Address [facility]/ZIP Co de Phone Number [facility] [address] [place] [address] [phone] * Basic Metabolic Panel (04/07/2023 8:27 AM EDT) [facility] Sodium 143 135 - 145 mmol/L [facility] Potassium 3.7 3.3 - 5.1 mmol/L [facility] Chloride 108 96 - 108 mmol/L [facility] Carbon Dioxide 23 22 - 29 mmol/L [facility] Anion Gap 16 12 - 20 [facility] Urea Nitrogen (BUN) 15 9 - 16 mg/dL [facility] Creatinine, Serum 0.79 0.5 - 1.4 mg/dL [facility] Creatinine Clr Calc Pharmacy 95.5 [facility] Comment:Provided height and weight: 157.48 cm,75.6 kg.eGFR (calculated from the MDRD study equation) and eCrCl(calculated from the Cockcroft-Gault equation) are based ondifferent parameters and may not yield comparable results.If eCrCl result is absurd, please check patient'sheight/weight. Estimated Glomerular Filt Rate >60 [facility] Comment:NOTE: For -Am erican individuals, multiply the result by 1.210.Chronic Kidney Disease: Estimated GFR < 60 mL/min/1.48h3Ztldhk Kidney Disease: Estimated GFR < 15 mL/min/1.73m2 Glucose 88 60 - 115 mg/dL [facility] Calcium 9.2 8.4 - 10.2 mg/dL [facility] 04/07/2023 8:27 AM EDT 04/07/2023 8:33 AM EDT [facility] External Provider LAB BLO OD ORDERABLES Final Result [facility] [address] [place] [phone] * (ABNORMAL) CBC auto differential (04/07/2023 8:27 AM EDT) White Blood Count 7.1 4.8 - 10.8 X10*3/uL [facility] Red Blood Count 4.07(L) 4.20 - 5.50 X10*6/uL [facility] Hemoglobin 11.9(L) 12.0 - 16.0 g/dl [facility] Hematocrit 37.8 37.0 - 47.0 % [facility] Mean Corpuscular Volume 92.9 80.0 - 98.0 fL [facility] Mean Corpuscular Hemoglobin 29.2 27.0 - 33.0 pg [facility] Mean Corpuscular HGB Conc 31.5 31.0 - 35.0 g/dl [facility] Red Cell Distribution Width 12.4 11.0 - 16.0 % [facility] Platelet Count 247 160 - 400 X10*3/uL [facility] Mean Platelet Volume 10.9 9.4 - 12.3 fL [facility] Neutrophils Percent Auto 64.6 45 - 73 % [facility] Imm Gran Pct Auto 0.1 0.0 - 0.4 % [facility] Lymphocytes Percent Auto 27.2 20 - 40 % [facility] Monocytes Percent Auto 5.4 2 - 11 % [facility] Eosinophils Percent Auto 2.3 0 - 4 % [facility] Basophils Percent Auto 0.4 0 - 2 % [facility] NRBC Pct Auto 0.0 0.0 - 0.2 /100WBC [facility] Neutrophils Absolute Auto 4.6 2.0 - 8.3 x10*3/uL [facility] Imm Gran Abs Auto 0.01 0.00 - 0.03 X10*3/uL [facility] Lymphocytes Absolute Auto 1.9 1.2 - 4.9 X10*3/uL [facility] Monocytes Absolute Auto 0.4 0.1 - 1.2 X10*3/uL [facility] Eosinophils Absolute Auto 0.2 0.0 - 0.4 X10*3/uL [facility] Basophils Absolute Auto 0.0 0.0 - 0.2 X10*3/uL [facility] NRBC Abs Auto 0.000 0.0 - 0.012 X10*3/uL [facility] 04/07/2023 8:27 AM EDT 04/07/2023 8:33 AM EDT us [facility] External Provider LAB BLO OD ORDERABLES Final Result [facility] [address] [place] [phone] [phone] * Magnesium (12/31/2022 3:54 PM EDT) Magnesium 1.7 1.6 - 2.6 mg/dL [facility] 12/31/2022 3:54 PM EDT 12/31/2022 3:58 PM EDT [facility] External Provider LAB BLO OD ORDERABLES Final Result [facility] [address] [place] [phone] * (ABNORMAL) Basic Metabolic Panel (12/31/2022 3:54 PM EDT) Sodium 138 135 - 145 mmol/L [facility] Potassium 3.5 3.3 - 5.1 mmol/L [facility] Chloride 105 96 - 108 mmol/L [facility] Carbon Dioxide 25 22 - 29 mmol/L [facility] Anion Gap 12 12 - 20 [facility] Urea Nitrogen (BUN) 8(L) 9 - 16 mg/dL [facility] Creatinine, Serum 0.80 0.5 - 1.4 mg/dL [facility] Creatinine Clr Calc Pharmacy 92.4 [facility] Comment:Provided height and weight: 157.48 cm,72.575 kg.eGFR (calculated from the MDRD study equation) and eCrCl(calculated from the Cockcroft-Gault equation) are based ondifferent parameters and may not yield comparable results.If eCrCl result is absurd, please check patient'sheight/weight. Estimated Glomerular Filt Rate >60 [facility] Comment:NOTE: For -Am erican individuals, multiply the result by 1.210.Chronic Kidney Disease: Estimated GFR < 60 mL/min/1.74w8Xxbvhe Kidney Disease: Estimated GFR < 15 mL/min/1.73m2 Glucose 156(H) 60 - 115 mg/dL [facility] Calcium 8.6 8.4 - 10.2 mg/dL [facility] 12/31/2022 3:54 PM EDT 12/31/2022 3:58 PM EDT [facility] External Provider LAB BLO OD ORDERABLES Final Result Performing Organization Address [facility] Co de Phone Number [facility] [address] [place] [phone] * Hepatic Function Panel (12/31/2022 3:54 PM EDT) Bilirubin, Total 0.4 0.0 - 1.0 mg/dL [facility] Bilirubin, Direct 0.1 0.0 - 0.5 mg/dL [facility] Aspartate Amino Transferase 13 5 - 31 U/L [facility] Alanine Aminotransferase 10 0 - 31 U/L [facility] Total Protein 6.9 6.5 - 8.0 g/dL [facility] Albumin Level 3.8 3.5 - 5.0 g/dL [facility] Alkaline Phosphatase 101 39 - 117 U/L [facility] 12/31/2022 3:54 PM EDT 12/31/2022 3:58 PM EDT [facility] External Provider LAB BLO OD ORDERABLES Final Result Performing Organization Address [facility] Co de Phone Number [facility] [address] [place] [phone] * (ABNORMAL) CBC auto differential (12/31/2022 3:54 PM EDT) White Blood Count 17.7(H) 4.8 - 10.8 X10*3/uL [facility] Red Blood Count 3.80(L) 4.20 - 5.50 X10*6/uL [facility] Hemoglobin 10.8(L) 12.0 - 16.0 g/dl [facility] Hematocrit 34.4(L) 37.0 - 47.0 % [facility] Mean Corpuscular Volume 90.5 80.0 - 98.0 fL [facility] Mean Corpuscular Hemoglobin 28.4 27.0 - 33.0 pg [facility] Mean Corpuscular HGB Conc 31.4 31.0 - 35.0 g/dl [facility] Red Cell Distribution Width 15.5 11.0 - 16.0 % [facility] Platelet Count 252 160 - 400 X10*3/uL [facility] Mean Platelet Volume 9.9 9.4 - 12.3 fL [facility] Neutrophils Percent Auto 89.4(H) 45 - 73 % [facility] Imm Gran Pct Auto 0.9(H) 0.0 - 0.4 % [facility] Lymphocytes Percent Auto 4.4(L) 20 - 40 % [facility] Monocytes Percent Auto 2.5 2 - 11 % [facility] Eosinophils Percent Auto 2.5 0 - 4 % [facility] Basophils Percent Auto 0.3 0 - 2 % [facility] NRBC Pct Auto 0.0 0.0 - 0.2 /100WBC [facility] Neutrophils Absolute Auto 15.9(H) 2.0 - 8.3 x10*3/uL [facility] Imm Gran Abs Auto 0.16(H) 0.00 - 0.03 X10*3/uL [facility] Lymphocytes Absolute Auto 0.8(L) 1.2 - 4.9 X10*3/uL [facility] Monocytes Absolute Auto 0.5 0.1 - 1.2 X10*3/uL [facility] Eosinophils Absolute Auto 0.4 0.0 - 0.4 X10*3/uL [facility] Basophils Absolute Auto 0.1 0.0 - 0.2 X10*3/uL [facility] NRBC Abs Auto 0.000 0.0 - 0.012 X10*3/uL [facility] 12/31/2022 3:54 PM EDT 12/31/2022 3:58 PM EDT us [facility] External Provider LAB BLO OD ORDERABLES Final Result [facility] [address] [place] [phone] documented in this encounter Visit Diagnoses Not on filedocumented in this encounter Care Teams Insurance Application Investigator Relationship Specialty Start Date End Date Samira Michael MD [address] [place] [phone] PCP - General Family Medicine 04/26/14 documented as of this encounter
--- OUTSIDE RECORDS SUMMARY | 2024-12-15 20:25 | XMS_ITS | Encounter Summary ---
Author Organization [employer] Address [address] [place] [address] 7 [place] [address] Care Team Providers Care Technical Director Name Role Phone Samira Michael MD Primary Care Provider [phone] Reason for Referral * Consultation (Routine) - Closed Specialty Diagnoses / Procedures Referred By Kp abreu Referred To Contact Occupational Therapy Diagnoses Right lateral epicondylitis Samira Michael MD [address] [place] [phone] Phone: tel: fax: [facility] Physical Therapy [address] [place] [address] Phone: tel: fax: Referral ID Status Reason Start Date Expiration Date V isits Requested Visits Authorized [id number] Closed Specialty Services Required 01/28/2024 01/27/2025 20 20 Encounter Details Date Type Department Care Team (Late st Contact Info) Description 01/26/2024 Orders Only [facility] [address] [place] [address] [phone] Samira Michael MD [address] [place], [place] [phone] Right lateral epicondylitis (Primary Dx) Social History [...] 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
--- OUTSIDE RECORDS SUMMARY | 2024-12-15 20:25 | XMS_ITS | Encounter Summary ---
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 Not on file Not on file documented as of this encounter Plan of Treatment Upcoming Encounters Date Type Department Care Team (Late st Contact Info) Description 01/07/2025 10:30 AM EDT Office Visit [facility] [address] [place] [address] Samira Michael MD [address] [place] [phone] documented as of this encounter Visit Diagnoses Not on filedocumented in this encounter Additional Health Concerns Assessment Noted Time PHQ-9 Depression Total Score: 0 02/06/20 23 8:51 AM EDT documented as of this encounter Care Teams Snow Maker Relationship Specialty Start Date End Date Samira Michael MD [address] [place] [phone] PCP - General Family Medicine 04/26/14 documented as of this encounter
--- OUTSIDE RECORDS SUMMARY | 2024-12-15 20:25 | XMS_ITS | Encounter Summary ---
Author Organization [employer] Address [address] [place] [address] Care Team Providers Care Polishing Wheel Repairer Name Role Phone Samira Michael MD Primary Care Provider [phone] Reason for Visit * Reason Comments Walk-In worsening right mid back discomfort(previously was lower back pain when see at [facility] last week); reports urine dark yellow- denies other urinary symptoms Encounter Details Date Type Department Care Team (Late st Contact Info) Description 12/15/2024 7:00 PM EDT Office Visit [facility] [address] [place], [place] [phone] Raquel Gardner MD [address] [place] [address] Acute bilateral thoracic back pain (Primary Dx); UTI symptoms Social History Tobacco Use Types Packs/Day Years [...] 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 Gardner. EMS arrived and given verbal report by Walk In RN Dorita/provider. Pt being transported to hospital TBD. RN will place status check for tomorrow 12/16/24. * Raquel Gardner MD - 12/15/2024 7:00 PM EDT Subjective Patient ID: Dalia Freeman is a 34 y.o. female who presents to walk in clinic for Walk-In (worseningright mid back discomfort(previously was lower back pain when see at [facility] last week); reports urine dark yellow- denies other urinary symptoms). PT reports acute back pain since 4pm. Review of Systems Constitutional: Positive for chills. Gastrointestinal: Positive for abdominal pain. Genitourinary: Negative for dysuria. Objective Visit Vitals BP 128/86 (BP Location: Left arm, Patient Position: Sitting, BP Cuff Size: Adult long) Pulse 81 Temp 97.4 ??F (36.3 ??C) (Oral) Resp 18 Body mass index is 34.75 kg/m??. Physical Exam Constitutional: Comments: Acute distress from pain. Cardiovascular: Rate and Rhythm: Normal rate. Heart sounds: Normal heart sounds. Pulmonary: Effort: Pulmonary effort is normal. Breath sounds: Normal breath sounds. Abdominal: Palpations: Abdomen is soft. Tenderness: There is abdominal tenderness. There is right CVA tenderness and left CVA tenderness. Skin: General: Skin is warm and dry. Office Visit on 12/15/2024 Component Date Value Ref Range Status Color, UA 12/15/2024 Yellow Final Clarity, UA 12/15/2024 Clear Final Glucose, UA 12/15/2024 Negative Final Bilirubin, UA 12/15/2024 Negative Final Ketones, UA 12/15/2024 Negative Final Spec Grav, UA 12/15/2024 1.030 Final Blood, UA 12/15/2024 Positive (A) Negative, None Detected Final trace pH, UA 12/15/2024 7.0 Final Protein, UA 12/15/2024 Negative Final Urobilinogen, UA 12/15/2024 1.0 Final Leukocytes, UA 12/15/2024 Negative Negative, Rare, Trace Final Nitrite, UA 12/15/2024 Negative Negative, None Detected Final Appearance, UA 12/15/2024 dark Final Problem List Items Addressed This Visit Acute bilateral thoracic back pain - Primary Severe. Differential includes Pyelonephritis, renal calculi vs other. -pt to go to ER now Relevant Orders Urinalysis, Complete, with Reflex to Culture Other Visit Diagnoses UTI symptoms Relevant Orders POCT Urinalysis (Completed) No follow-ups on file. documented in this encounter Miscellaneous Notes * Assessment & Plan Note - Raquel Gardner MD - 12/15/2024 7:12 PM EDT Associated Problem(s): Acute bilateral thoracic back pain Severe. Differential includes Pyelonephritis, renal calculi vs other. -pt to go to ER now documented in this encounter Plan of Treatment Upcoming Encounters Date Type Department Care Team (Late st Contact Info) Description 01/07/2025 10:30 AM EDT Office Visit [facility] [address] [place] [phone] Samira Michael MD [address], [place] [phone] Scheduled Orders Name Type Priority Associated Diagnoses Orde r Schedule Urinalysis, Complete, with Reflex to Culture Lab Routine Acute bilateral thoracic back pain Expected: 12/15/2024 (Approximate), Expires: 12/15/2025 documented as of this encounter Procedures Procedure Name Priority Date/Time Associated Diagnosis Comments POCT URINALYSIS DIPSTICK Routine 12/15/2024 6:54 PM EDT UTI symptoms documented in this encounter Results * (ABNORMAL) POCT Urinalysis (12/15/2024 6:54 PM EDT) Color, UA Yellow Clarity, UA Clear Glucose, UA Negative Bilirubin, UA Negative Ketones, UA Negative Spec Grav, UA 1.030 Blood, UA Positive(A) Negative, None Detected Comment:trace pH, UA 7.0 Protein, UA Negative Urobilinogen, UA 1.0 Leukocytes, UA Negative Negative, Rare, Trace Nitrite, UA Negative Negative, None Detected Appearance, UA dark Urine 12/15/2024 6:54 PM EDT Raquel Gardner MD POINT OF CARE TEST ENTER/E DIT ORDERABLES Final Result documented in this encounter Visit Diagnoses Diagnosis Acute bilateral thoracic back pain- Primary UTI symptoms documented in this encounter Additional Health Concerns Assessment Noted Time PHQ-9 Depression Total Score: 0 02/06/20 8:51 AM EDT documented as of this encounter Care Teams Polishing Wheel Repairer Relationship Specialty Start Date End Date Smaira Michael MD [address] [place] [phone] PCP - General Family Medicine 04/26/14 documented as of this encounter
--- OUTSIDE RECORDS SUMMARY | 2024-12-15 20:25 | XMS_ITS | Encounter Summary ---
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 file Not on file documented as of this encounter Plan of Treatment Upcoming Encounters Date Type Department Care Team (Late st Contact Info) Description 01/07/2025 10:30 AM EDT Office Visit [facility] [address] [place] [phone] Samira Michael MD [address] [place] [address] documented as of this encounter Visit Diagnoses Not on filedocumented in this encounter Additional Health Concerns Assessment Noted Time PHQ-9 Depression Total Score: 0 02/06/20 23 8:51 AM EDT documented as of this encounter Care Teams Digital Strategy Specialist Relationship Specialty Start Date End Date Samira Michael MD [address] [place] [id number] PCP - General Family Medicine 04/26/14 documented as of this encounter
--- OUTSIDE RECORDS SUMMARY | 2024-12-15 20:25 | XMS_ITS | Clinical Summary ---
Author Organization [employer] Address [address] [place] [address] 7t [place] [address] Care Team Providers Care Placement Specialist Name Role Phone Samira Michael MD Primary Care Provider [phone] Allergies Active Allergy Reactions Criticality Noted Date [...] Active Problems Problem Noted Date Diagnosed Date Acute bilateral thoracic back pain 12/15/2024 Assessment & Plan (12/15/2024 7:12 PM EDT): Severe. Differential includes Pyelonephritis, renal calculi vs other. -pt to go to ER now Low back pain, non-specific 12/08/2024 Assessment & [...] (04/29/2023 1:08 PM EDT): - seen by uat tester in 2021, normal TTE and holter - safely discharged from their care on 02/05/23 - 02/05/23 TC 212; TG 75; HDL 60; LDL 112 - continue working on management of modifiable risk factors. Palpitation 02/05/2023 Assessment & Plan (08/20/2023 10:54 AM EST): - following with [facility], last seen on 02/01/23 - normal Holter and TTE in Apr 2022 - likely POTS, since she became symptomatic after COVID - continue monitoring and current treatment Assessment & Plan (02/05/2023 9:32 AM EDT): - following with [facility], last seen on 02/01/23 - normal Holter and TTE in Apr 2022 - likely POTS, since she became symptomatic after COVID - continue monitoring and current treatment Precordial pain 02/05/2023 Assessment & Plan (01/10/2024 4:15 PM EDT): - less frequent, yet still symptomatic - following with uat tester, [facility], last seen on 02/01/23 - normal TTE and Holter on 04/18/22 - will evaluate with KEVIN Assessment & Plan (02/05/2023 9:30 AM EDT): - less frequent, yet still symptomatic - following with uat tester, [facility], last seen on 02/01/23 - normal TTE and Holter on 04/18/22 - continue monitoring Obesity 02/04/2023 Assessment & Plan (01/06/2024 12:08 PM EDT): - Work on lifestyle modifications. History of ovarian cyst 02/04/2023 POTS (postural orthostatic tachycardia syndrome) 02/04/2023 Assessment & Plan (01/10/2024 4:16 PM EDT): - following with [facility], last seen on 02/01/23 - normal Holter and TTE in Apr 2022 - likely POTS, since she became symptomatic after COVID - will evaluate with KEVIN Assessment & Plan (08/20/2023 10:54 AM EST): - following with [facility], last seen on 02/01/23 - normal Holter and TTE in Apr 2022 - likely POTS, since she became symptomatic after COVID - continue monitoring and current treatment Assessment & Plan (04/29/2023 1:09 PM EDT): - following with [facility], last seen on 02/01/23 - normal Holter and TTE in Apr 2022 - likely POTS, since she became symptomatic after COVID - continue monitoring and current treatment Assessment & Plan (02/05/2023 9:32 AM EDT): - Hx COVID19 - continue monitoring - will consult with cardiologists History of gestational diabetes mellitus 023 Assessment & Plan (02/05/2023 9:30 AM EDT): - during last [phone] - diet-controlled - check A1C - continue [...] fluticasone, montelukast, and cetirizine - refer to invoicing specialist. Assessment & Plan (08/20/2023 4:40 AM EST): - continue fluticasone, montelukast, and cetirizine Asthma 02/18/2013 Assessment & Plan (01/06/2024 10:29 AM EDT): - change fluticasone to mometasone (Asmanex) - continue albuterol prn - continue montelukast - evaluated by clinical geneticist 09/17/2023. Pt had normal PFT. Recommended invoicing specialist referral. Assessment & Plan (08/20/2023 10:54 AM EST): - change fluticasone to mometasone (Asmanex) - continue albuterol prn - continue montelukast - refer to clinical geneticist to assess if pt will benefit from [...] Encounters Date Type Department Care Team Description 12/15/2024 7:00 PM EDT Office Visit [facility] [address] [place] [phone] Raquel Gardner MD Acute bilateral thoracic back pain (Primary Dx); UTI symptoms 12/15/2024 Telephone [facility] [address] [place] [phone] Raquel Gardner MD 12/14/2024 Telephone [facility] [address] [place] [phone] Vanessa Trivedi MD 12/14/2024 Travel 12/09/2024 Orders Only GENERIC EXTERNAL DATA DEPARTMENT Provider, Generic External Data 12/08/2024 7:40 PM EDT Office Visit [facility] [address] [place] [phone] Raquel Gardner MD Low back pain, non-specific (Primary Dx); Bacterial vaginosis 12/08/2024 Travel 11/30/2024 7:40 PM EDT Office Visit [facility] [address] [place] [phone] Iliana Reyes MD Acute right-sided low back pain without sciatica (Primary Dx); Sweating profusely 11/25/2024 3:00 PM EDT Office Visit [facility] [address] [place] [address] Abad Balbuena MD Subacute sinusitis, unspecified location (Primary Dx) 11/24/2024 Refill [facility] [address] [place] [address] Samira Michael MD 11/13/2024 Population Health Risk Score [facility] ([facility]) Department [address] [place] [phone] Provider, Population Health Generic 10/14/2024 Refill [facility] [address] [place] [address] Samira Michael MD Allergic rhinitis, unspecified seasonality, [...] 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 Not on file [...] (190 lb) 12/15/2024 6:53 PM EDT Height 157.5 cm (5' 2 ) 12/08/2024 6:27 PM EDT Body Mass Index 34.75 12/08/2024 6:27 PM EDT Plan of Treatment Upcoming Encounters Date Type Department Care Team (Late st Contact Info) Description 01/07/2025 10:30 AM EDT Office Visit [facility] [address] [place] [address] Samira Michael MD [address] [place], [place] [phone] Health Maintenance Due Date Last Done Comments [...] Routine 12/15/2024 6:54 PM EDT UTI symptoms HIGH SENSITIVITY TROPONIN I Routine 12/09/2024 12:22 [...] Routine 12/08/2024 2:25 PM EDT Sweating profusely CULTURE, URINE, ROUTINE Routine 12/08/2024 12:00 AM EDT Low back pain, non-specific HEPATITIS C AB W/REFL TO HCV RNA, [...] Recently Relevant to Health Maintenance Results * (ABNORMAL) POCT Urinalysis (12/15/2024 6:54 PM EDT) Only the most recent of2 resultswithin the time period is included. Color, UA Yellow Clarity, UA Clear Glucose, UA Negative Bilirubin, UA Negative Ketones, UA Negative Spec Grav, UA 1.030 Blood, UA Positive(A) Negative, None Detected Comment:trace pH, UA 7.0 Protein, UA Negative Urobilinogen, UA 1.0 Leukocytes, UA Negative Negative, Rare, Trace Nitrite, UA Negative Negative, None Detected Appearance, UA dark Urine 12/15/2024 6:54 PM EDT us Raquel Gardner MD POINT OF CARE TEST ENTER/E DIT ORDERABLES Final Result * High Sensitivity Troponin I (12/09/2024 12:22 PM EDT) Only the most recent of2 resultswithin the time period is included. TROPONIN I HIGH SENSITIVITY <2.7 <3.5 - 17.0 ng/L [facility] Comment:The Reich high sens itivity Troponin-I results should beused in conjunction with other diagnostic information suchas ECG, clinical observations and information, and patientsymptoms to aid in the diagnosis of [place]. 12/09/2024 12:2 2 PM EDT 12/09/2024 12:24 PM EDT us Generic External Data Provider LAB BLOOD ORDERAB LES Final Result [facility] [address] [place] [address] [phone] * XR Chest 2 Views (12/09/2024 12:17 PM EDT) Anatomical Region Laterality Modality Chest Radiographic Tiffany ging 12/09/2024 12:1 7 PM EDT Narrative 12/09/2024 12:45 PM EDT ? [facility] ?[address] ?[place] [address] ?XRay Report ? Signed ? Patient: Freeman,Dalia ?MR#: [id number] ?? 2 ? : 1990 ?Acct:[id number] ? Age/Sex: 34 / F ?ADM Date: 04/09/25 ? Loc: HO.ED ? Attending Dr: ? Ordering Physician: Pieter Lomas DO ?? Date of Service: 12/09/24 ?? Procedure(s): XR chest 2V ?? Accession Number(s): [id number] ? cc: Pieter Lomas DO; Samira Michael [...] DD/ 1217 ? TD/TT: 12/09/24 1233 ? Head Of Design: ? Procedure Note Donhilaryter, Image - 12/09/2024 [place] [address] XRay Report Signed Patient: Dalia FreemanMR#: [id number] 2 : 1990Acct:[id number] Age/Sex: 34 / FADM Date: 12/09/24 Loc: HO.ED Attending Dr: Ordering Physician: Pieter Lomas DO Date of Service: 12/09/24 Procedure(s): XR chest 2V Accession Number(s): [id number] cc: Pieter Lomas DO; Samira Michael MD [...] 12/09/24 1243 DD/ 1217 TD/TT: 12/09/24 1233 Head Of Design: [facility] External Provider IMG XR PROCEDURES Final Result * (ABNORMAL) CBC auto differential (12/09/2024 10:24 AM EDT) Only the most recent of2 resultswithin the time period is included. White Blood Count 6.2 4.8 - 10.8 X10*3/uL [facility] Red Blood Count 4.08(L) 4.20 - 5.50 X10*6/uL [facility] Hemoglobin 11.7(L) 12.0 - 16.0 g/dl [facility] Hematocrit 35.8(L) 37.0 - 47.0 % [facility] Mean Corpuscular Volume 87.7 80.0 - 98.0 fL [facility] Mean Corpuscular Hemoglobin 28.7 27.0 - 33.0 pg [facility] Mean Corpuscular HGB Conc 32.7 31.0 - 35.0 g/dl [facility] Red Cell Distribution Width 13.2 11.0 - 16.0 % [facility] Platelet Count 274 160 - 400 X10*3/uL [facility] Mean Platelet Volume 10.3 9.4 - 12.3 fL [facility] Neutrophils Percent Auto 73.1(H) 45 - 73 % [facility] Imm Gran Pct Auto 0.3 0.0 - 0.4 % [facility] Lymphocytes Percent Auto 20.6 20 - 40 % [facility] Monocytes Percent Auto 4.2 2 - 11 % [facility] Eosinophils Percent Auto 1.5 0 - 4 % [facility] Basophils Percent Auto 0.3 0 - 2 % [facility] NRBC Pct Auto 0.0 0.0 - 0.2 /100WBC [facility] Neutrophils Absolute Auto 4.5 2.0 - 8.3 x10*3/uL [facility] Imm Gran Abs Auto 0.02 0.00 - 0.03 X10*3/uL [facility] Lymphocytes Absolute Auto 1.3 1.2 - 4.9 X10*3/uL [facility] Monocytes Absolute Auto 0.3 0.1 - 1.2 X10*3/uL [facility] Eosinophils Absolute Auto 0.1 0.0 - 0.4 X10*3/uL [facility] Basophils Absolute Auto 0.0 0.0 - 0.2 X10*3/uL [facility] NRBC Abs Auto 0.000 0.0 - 0.012 X10*3/uL [facility] 12/09/2024 10:2 4 AM EDT 12/09/2024 10:28 AM EDT us Generic External Data Provider LAB BLOOD ORDERAB LES Final Result [facility] [address] [place] [phone] * (ABNORMAL) Comprehensive Metabolic Panel (12/09/2024 10:24 AM EDT) Only the most recent of2 resultswithin the time period is included. Sodium 141 135 - 145 mmol/L [facility] Potassium 3.9 3.3 - 5.1 mmol/L [facility] Chloride 109(H) 96 - 108 mmol/L [facility] Carbon Dioxide 27 22 - 29 mmol/L [facility] Anion Gap 9(L) 12 - 20 [facility] Urea Nitrogen (BUN) 11 9 - 16 mg/dL [facility] Creatinine, Serum 0.75 0.5 - 1.4 mg/dL [facility] Creatinine Clr Calc Pharmacy 104.5 [facility] Comment:Provided height and weight: 157.48 cm,84.4 kg.eGFR (calculated from the MDRD study equation) and eCrCl(calculated from the Cockcroft-Gault equation) are based ondifferent parameters and may not yield comparable results.If eCrCl result is absurd, please check patient'sheight/weight. Estimated Glomerular Filt Rate >60 [facility] Comment:Chronic Kidney Disea se: Estimated GFR < 60 mL/min/1.97i9Hnjybp Kidney Disease: Estimated GFR < 15 mL/min/1.73m2 Glucose 93 60 - 115 mg/dL [facility] Calcium 9.0 8.4 - 10.2 mg/dL [facility] Bilirubin, Total 0.5 0.0 - 1.0 mg/dL [facility] Aspartate Amino Transferase 19 5 - 31 U/L [facility] Alanine Aminotransferase 6 0 - 31 U/L [facility] Total Protein 7.3 6.5 - 8.0 g/dL [facility] Albumin Level 4.0 3.5 - 5.0 g/dL [facility] Alkaline Phosphatase 77 39 - 117 U/L [facility] 12/09/2024 10:2 4 AM EDT 12/09/2024 10:28 AM EDT us Generic External Data Provider LAB BLOOD ORDERAB LES Final Result Performing Organization Address City/[facility]/ZIP Co de Phone Number [facility] [address] [place] [phone] * POCT Rapid Influenza A REICH ID NOW (12/08/2024 7:17 PM EDT) Pathologist [facility] Influenza A Negative Negative, Indeterminate [facility] Swab 12/08/2024 7:17 PM EDT Raquel Gardner MD POINT OF CARE TEST ENTER/E DIT ORDERABLES Final Result Performing Organization Address [facility]/ZIP Co de Phone Number [facility] [address] [place] [address] [phone] * POCT Rapid COVID-19 Binax NOW (12/08/2024 7:17 PM EDT) Pathologist [facility] Rapid COVID Ag Negative Swab 12/08/2024 7:17 PM EDT Raquel Gardner MD POINT OF CARE TEST ENTER/E DIT ORDERABLES Final Result * POCT Rapid Influenza B REICH ID NOW (12/08/2024 7:16 PM EDT) Influenza B Negative Negative, Indeterminate [facility] Swab 12/08/2024 7:16 PM EDT Raquel Gardner MD POINT OF CARE TEST ENTER/E DIT ORDERABLES Final Result [facility] [address] [place] [phone] * (ABNORMAL) Urinalysis Complete (12/08/2024 6:30 PM EDT) Color Urine Yellow [facility] Appearance Urine Turbid [facility] PH 5.5 5.0 - 9.0 [facility] Glucose Urine UA Negative Negative mg/dL [facility] Urine Blood Negative Negative [facility] Specific [place] - Urine >=1.030(H) 1.005 - 1.025 [facility] Urine Protein Trace Neg-Trace mg/dL [facility] Urine Ketones Trace Negative mg/dL [facility] Nitrite Urine Negative Negative [facility] Leukocyte Esterase Urine Moderate (2+)(A) Negative [facility] RBC Urine 0-2 0 - 2 /HPF [facility] Urine WBC 11-20(A) 0 - 5 /HPF [facility] Urine Squamous Epithelial Cell 11-20 0 - 2 /HPF [facility] Urine Bacteria 1+ None Seen [facility] Hyaline Casts, Urine 0-2 0 - 2 /LPF [facility] Urine (Urine, Random) 12/08/2024 6:30 PM EDT 12/09/2024 11:43 AM EDT Raquel Gardner MD LAB URINE ORDERABLES Final Result Performing Organization Address [facility] Co de Phone Number [facility] [address] [place] [phone] * TSH W/Reflex to FT4 (12/08/2024 2:25 PM EDT) TSH reflex Free T4 1.15 0.32 - 4.0 uIU/mL [facility] Blood Venous blood specimen / Unknown 12/08/2024 2:25 PM EDT 12/08/2024 4:05 PM EDT Iliana Reyes MD LAB BLOOD ORDERABLES Final Result Performing Organization Address [facility] Co de Phone Number [facility] [address] [place] [phone] * Culture, Urine, Routine (12/08/2024 12:00 AM EDT) Urine Urine specimen obtained by clean catch procedure / Unknown 12/08/2024 12/08/2024 Comment:UACC Narrative [facility] - 12/10/2024 12:47 PM EDT Urine Culture Report Result Urine Culture > 100,000 cfu/ml Urine Culture Mixed bacterial dora characteristic of Urine Culture urogenital contamination. Strep agalactiae (Grp B) Quant > 100,000 cfu/mL Susc N/A Susceptibility not routinely performed on this isolate. Specimen Source: Urine clean catch Raquel Gardner MD LAB MICROBIOLOGY - GENERAL ORDERABLES Final Result Performing Organization Address [facility] Co de Phone Number [facility] [address] [place] [phone] * (ABNORMAL) Lipid Panel with Reflex to Direct LDL (01/06/2024 10:55 AM EDT) Triglycerides 73 <150 mg/dL [facility] Comment:Desirable Triglyceri de: less than 150 mg/dLBorderline High Triglyceride 150-199 mg/dLHigh Triglyceride: 200-499 mg/dLVery High Triglyceride: greater than or equal to 5OO mg/dL Cholesterol 186 <200 mg/dL [facility] Comment:Desirable Cholestero l: less than 200 mg/dLBorderline High Cholesterol: 200-239 mg/dLHigh Cholesterol: greater than 239 mg/dL LDL Cholesterol Calculated 122(H) <100 mg/dL [facility] Comment:Desirable LDL: less than 100 mg/dLNear Optimal/Above Optimal LDL: 110- 129 mg/dLBorderline High LDL: 130-159 mg/dLHigh LDL: 160-189 mg/dLVery High LDL: greater than or equal to 190 mg/dL HDL Cholesterol 50 >40 mg/dL [facility] Comment:Desirable HDL: great er than 40 mg/dL Note: This HDL assay may give artificially low results in patients with liver disease. Blood 01/06/2024 10:5 5 AM EDT 01/06/2024 1:02 PM EDT Samira Michael MD LAB BLOOD ORDERABLES Final Resul t Performing Organization Address [facility] Co de Phone Number [facility] [address] [place] [phone] * Hepatitis C Antibody with Reflex to HCV, RNA, Quantitative, Real-Time PCR (01/06/2024 10:55 AM EDT) [facility] Hepatitis C Antibody Nonreactive Nonreactive [facility] Comment:Antibodies to HCV no t detected; does not exclude early acuteHCV infection. Blood Venous blood specimen / Unknown 01/06/2024 10:55 AM EDT 01/06/2024 1:02 PM EDT Samira Michael MD LAB BLOOD ORDERABLES Final Resul t Performing Organization Address [facility] Co de Phone Number [facility] [address] [place] [phone] * HIV-1/2 Antigen and Antibodies, Fourth Generation, with Reflexes (01/06/2024 10:55 AM EDT) HIV AB/AG Nonreactive Nonreactive [facility] Comment:HIV-1 p24 Ag and/or HIV-1/HIV-2 Ab not detected.A test result that is nonreactive does not exclude thepossibility of exposure to or infection with HIV-1 and/orHIV-2. Nonreactive results in this assay for individualswith prior exposure to HIV-1 and/or HIV-2 may be due toantigen and antibody levels that are below the limit ofdetection of this assay.The [employer] HIV Ag/Ab Combo assay result andsupplemental assay results should be interpreted inconjunction with the patient's clinical presentation,history and other laboratory results. If the results areinconsistent with clinical evidence, additional testing issuggested to confirm the result. Blood Venous blood specimen / Unknown 01/06/2024 10:55 AM EDT 01/06/2024 1:02 PM EDT us Samira Michael MD LAB BLOOD ORDERABLES Final Resul t [facility] [address] [place] [phone] * HPV mRNA E6/E7 (04/23/2017 11:03 AM EDT) Pathologist [facility] HPV mRNA E6/E7 Not Detected NOT DETECTED [facility] Comment: This test was performed using the APTIMA(R) HPV Assay ([employer] This assay detects E6/E7 viral messenger RNA (mRNA) from 14 high-risk HPV types (16,18,31,33,35,39,45,51, 52,56,58,59,66,68). For additional information please refer to: http://education.[employer]/faq/TUF792y2 (This link is being provided for informational/ educational purposes only.) Test Performed by [employer], [employer] [facility], [address] [place] [address] Dagoberto Kaur M.D., Ph.D., Director of Laboratories , [facility] [id number] Please note: ??Effective 05/14/2016, HPV testing will be performed using [employer]'s APTIMA test which targets mRNA. Detecting mRNA instead of DNA, as in older methods, offers significant improvements in specificity. 04/23/2017 11:0 3 AM EDT us Historical Provider HISTORICAL/NON ORDERABLE LABS Final Result Performing Organization Address City/State/[facility] Co de Phone Number [facility] [address] from Last 3 Months or Most Recently Relevant to Health Maintenance Insurance [employer] Care Teams Placement Specialist Relationship Specialty Start Date End Date Samira Michael MD [address] [place] [address] PCP - General Family Medicine 04/26/14
--- OUTSIDE RECORDS SUMMARY | 2024-12-15 20:25 | XMS_ITS | Encounter Summary ---
Author Organization [employer] Address [address] [facility] [address] [place] [address] Care Team Providers Care Childcare Administrator Name Role Phone Samira Michael MD Primary Care Provider [phone] Encounter Details Date Type Department Care Team ([facility] st Contact Info) Description 09/24/2023 Orders Only [facility] [address] [place], [place] [phone] Samira Michael MD [address] [place], [place] [phone] Social History Tobacco Use Types Packs/Day Years [...] Description 01/07/2025 10:30 AM EDT Office Visit [facility] [address] [place] [address] Samira Michael MD [address] [place] [address] documented as of this encounter Visit Diagnoses Not on filedocumented in this encounter Additional Health Concerns Assessment Noted Time PHQ-9 Depression Total Score: 0 02/06/20 23 8:51 AM EDT documented as of this encounter Care Teams Childcare Administrator Relationship Specialty Start Date End Date Samira Michael MD [address] [place] [phone] PCP - General Family Medicine 04/26/14 documented as of this encounter
--- OUTSIDE RECORDS SUMMARY | 2024-12-15 20:25 | XMS_ITS | Encounter Summary ---
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 Patient was seen in the ED on 12/09/2024 due to chest pain which she has been having on and off for the previous 2 years. She x-ray, EKG and 2 sets of troponins were normal and patient was discharged to ibuprofen. Patient reports chest pain is resolved now, she does not have exertional dyspnea, palpitations and she is to follow-up with PCP and specialist. AP/recommended to follow-up closely with PCP and specialist as above Patient is able to return to school and to work without restrictions Advised to reconsult as needed to walk-in clinic or ED Patient agreed with POC documented in this encounter Plan of Treatment Upcoming Encounters Date Type Department Care Team (Late st Contact Info) Description 01/07/2025 10:30 AM EDT Office Visit [facility] [address] [place] [phone] Samira Michael MD [address] [place] [address] documented as of this encounter Visit Diagnoses Not on filedocumented in this encounter Additional Health Concerns Assessment Noted Time PHQ-9 Depression Total Score: 0 02/06/20 23 8:51 AM EDT documented as of this encounter Care Teams Guide Foreign Tour Relationship Specialty Start Date End Date Samira Michael MD [address] [place] [address] PCP - General Family Medicine 04/26/14 documented as of this encounter
[2024-12-15 20:29] LABS: HCG Quantitative < 2 mIU/mL
[2024-12-15 20:40] LABS: Basophils Percent Auto 0.2 % (0-2); Eosinophils Absolute Auto 0.1 X10*3/uL (0.0-0.4); Eosinophils Percent Auto 0.9 % (0-4); Hematocrit 35.1 % (37.0-47.0); Hemoglobin 11.3 g/dl (12.0-16.0); Imm Gran Abs Auto 0.05 X10*3/uL (0.00-0.03); Imm Gran Pct Auto 0.4 % (0.0-0.4); Lymphocytes Absolute Auto 1.7 X10*3/uL (1.2-4.9); Lymphocytes Percent Auto 13.7 % (20-40); Mean Corpuscular HGB Conc 32.2 g/dl (31.0-35.0); Mean Corpuscular Hemoglobin 28.9 pg (27.0-33.0); Mean Corpuscular Volume 89.8 fL (80.0-98.0); Mean Platelet Volume 10.8 fL (9.4-12.3); Monocytes Absolute Auto 0.6 X10*3/uL (0.1-1.2); Monocytes Percent Auto 4.7 % (2-11); Neutrophils Absolute Auto 10.2 x10*3/uL (2.0-8.3); Neutrophils Percent Auto 80.1 % (45-73); Platelet Count 270 X10*3/uL (160-400); Red Blood Count 3.91 X10*6/uL (4.20-5.50); Red Cell Distribution Width 13.1 % (11.0-16.0); White Blood Count 12.7 X10*3/uL (4.8-10.8)
[2024-12-15 21:43] VITALS: BP 108/68; PULSE 85; RESP 16; O2SAT 99
--- NOTE | 2024-12-15 21:57 | ED_ITS ---
HPI - General Adult General Chief complaint: Abdominal Pain Stated complaint: Abd pain, blood in urine Time Seen by Provider: 12/15/24 19:34 Source: patient Limitations: no limitations History of Present Illness ED Provider: Ebony Plascencia PA-C HPI narrative: 34-year-old female presents with the acute onset abdominal pain. Patient states she developed severe pain that radiates from across mid back, down across the left abdomen around 4:00 p.m.. Patient unable to describe the nature of her discomfort. She is having difficulty sitting still. Associated nausea. Denies history of kidney stones, dysuria, obvious hematuria, no fever or diarrhea. Related Data Home Medications ?Medication ?Instructions ?Recorded ?Confirmed cetirizine 10 mg tablet (Zyrtec) 10 mg PO DAILY PRN 04/11/21 04/30/24 albuterol sulfate 90 mcg/actuation 2 puff PO Q4-6H PRN 03/07/22 04/30/24 aerosol inhaler (ProAir HFA) linaclotide 145 mcg capsule 145 mcg PO DAILY 03/07/22 04/30/24 (Linzess) omeprazole 20 mg capsule,delayed 20 mg PO DAILY 03/07/22 04/30/24 release fluticasone propionate 110 2 puff inhalation .once daily 09/17/23 04/30/24 mcg/actuation HFA aerosol inhaler (Flovent HFA) fluticasone propionate 50 2 spray intranasal DAILY PRN 09/17/23 04/30/24 mcg/actuation nasal spray,suspension amitriptyline 10 mg tablet 20 mg PO 04/30/24 04/30/24 Previous Rx's ?Medication ?Instructions ?Recorded ipratropium bromide 21 mcg (0.03 2 spray intranasal BID #30 mL 09/17/23 %) nasal spray cyclobenzaprine 10 mg tablet 10 mg PO TID PRN muscle spasm #20 06/25/24 tabs ciprofloxacin HCl 500 mg tablet 500 mg PO BID #13 tabs 12/15/24 metronidazole 500 mg tablet 500 mg PO Q8H 7 days #21 tabs 12/15/24 ondansetron HCl 4 mg tablet 4 mg PO Q8H PRN nausea and 12/15/24 vomiting #10 tabs oxycodone 5 mg tablet 5 mg PO Q6H PRN pain #8 tabs 12/15/24 Allergies Allergy/AdvReac Type Severity Reaction Status Date / Time pseudoephedrine Allergy Unknown UNKNOWN Verified 12/15/24 19:51 [From [facility]] Review of Systems 2 Review of Systems: Yes all other systems are reviewed and are negative Constitutional: Constitutional: Denies fatigue and Denies fever(s) Cardiovascular: Cardiovascular: Denies chest pain and Denies dyspnea Respiratory: Respiratory: Denies cough and Denies dyspnea Gastrointestinal: Gastrointestinal: Reports abdominal pain, Reports nausea and Denies vomiting Genitourinary: Genitourinary: Denies hematuria, Denies dysuria and Reports flank pain Endocrine: Endocrine: Denies fatigue [facility] Past Medical History Attestation statement: The following information was validated with the patient. Medical History Anxiety IBS (irritable bowel syndrome) Asthma Acid reflux Surgical History Hx of colonoscopy Family History Family History Father Diabetes Mother Diabetes Social History Social History Alcohol intake: never Patient Tobacco Use Status: Never used Tobacco Smoked in Last 30 Days: No Use of substances other than those prescribed or required for medical reasons: No Advance Directives: No Advance Directives Information Provided: No Patient : No Sexual orientation: Straight/Heterosexual Gender identity: Female Physical Exam ED Vital Signs: Vital Signs - 24 hr 12/15/24 19:39 12/15/24 19:50 12/15/24 21:43 Temperature 97.7 F 97.7 F Pulse Rate 86 86 85 Respiratory Rate 16 19 16 Blood Pressure 122/83 122/83 108/68 Pulse Oximetry 98 97 99 Oxygen Delivery Method Room Air Room Air Room Air BMI result Body Mass Index 35.1 Const Other: Alert, appears extremely uncomfortable, writhing on the bed, not able to sit still Orientation/consciousness: patient oriented x3 Resp Effort & Inspection: normal respiratory effort Cardio Other: Normal peripheral perfusion GI Other: Abdomen is soft, obese, nondistended, mild tenderness left mid abdomen without guarding Back/Spine/Pelvis Other: Bilateral CVA tenderness Skin Other: Warm dry no rash Neuro General: patient oriented x3, gait normal, no focal motor deficits and CN's II- XI intact bilaterally Psych Other: Cooperative, anxious Medications Administered Discontinued Medications Generic Name Dose Route Start Last Admin Trade Name Suellen PRN Reason Stop Dose Admin Sodium Chloride 1,000 mls @ 999 mls/hr 12/15/24 20:00 12/15/24 21:42 Ns IV 12/15/24 21:00 Infused .Q1H1M MARCIE Infusion Ketorolac Tromethamine 15 mg 12/15/24 19:55 12/15/24 20:03 Ketorolac Tromethamine 15 Mg/Ml Vial IVPUSH 12/15/24 19:56 15 mg ONCE ONE Administration Lorazepam 1 mg 12/15/24 19:55 12/15/24 20:03 Lorazepam 2 Mg/Ml Vial IVPUSH 12/15/24 19:56 1 mg ONCE ONE Administration Morphine Sulfate 4 mg 12/15/24 19:55 12/15/24 20:03 Morphine Sulfate 4 Mg/Ml Cartridge IVPUSH 12/15/24 19:56 4 mg ONCE ONE Administration Protocol Medical Decision Making Medical Decision Making MDM Narrative: 34-year-old female presents with the acute onset abdominal pain. Patient states she developed severe pain that radiates from across mid back, down across the left abdomen around 4:00 p.m.. Patient unable to describe the nature of her discomfort. She is having difficulty sitting still. Associated nausea. Denies history of kidney stones, dysuria, obvious hematuria, no fever or diarrhea. No relevant chronic issues History: Per patient I have considered the following differential diagnoses: Pyelonephritis, UTI, renal colic, pancreatitis, diverticulitis Plan: Patient appears to be in renal colic, she was sent from [facility] after being found to have hematuria. We will be obtaining a CT scan, giving Toradol, morphine, Ativan and fluid. She was bilateral CVA tenderness, with the lightest of percussion of the back, could be pyelonephritis, however given the acute onset of symptoms, likely not. She is also not having any urinary symptoms, urine likely not infected. Given left -sided symptoms considered pancreatitis. Likewise, thought about diverticulitis, however there was no focal left lower quadrant discomfort, her pain distribution is mid left abdomen. I have independently reviewed the following tests: Labs: Leukocytosis with left shift, not anemic, no electrolyte abnormality, LFTs are normal lipase normal not , urine appears contaminated, CT abdomen and pelvis:IMPRESSION: 1. Mild diverticulitis of the lower portion of the descending colon. 2. No obstructing stone in either kidney or either ureter. 3. Cholelithiasis by CT. Lab Data 12/15/24 19:58 12/15/24 19:58 Labs: Lab Results 12/15/24 Range/Units 19:58 WBC 12.7 H (4.8-10.8) X10*3/uL RBC 3.91 L (4.20-5.50) X10*6/uL Hgb 11.3 L (12.0-16.0) g/dl Hct 35.1 L (37.0-47.0) % MCV 89.8 (80.0-98.0) fL MCH 28.9 (27.0-33.0) pg MCHC 32.2 (31.0-35.0) g/dl RDW 13.1 (11.0-16.0) % Plt Count 270 (160-400) X10*3/uL MPV 10.8 (9.4-12.3) fL Immature Gran % (Auto) 0.4 (0.0-0.4) % Neut % (Auto) 80.1 H (45-73) % Lymph % (Auto) 13.7 L (20-40) % [place] % (Auto) 4.7 (2-11) % Eos % (Auto) 0.9 (0-4) % Baso % (Auto) 0.2 (0-2) % Lymph # (Auto) 1.7 (1.2-4.9) X10*3/uL [place] # (Auto) 0.6 (0.1-1.2) X10*3/uL Eos # (Auto) 0.1 (0.0-0.4) X10*3/uL Baso # (Auto) 0.0 (0.0-0.2) X10*3/uL Abs Immat Gran (auto) 0.05 H (0.00-0.03) X10*3/uL Absolute Neuts (auto) 10.2 H (2.0-8.3) x10*3/uL Absolute Nucleated RBC 0.000 (0.0-0.012) X10*3/uL Nucleated RBC % (auto) 0.0 (0.0-0.2) /100WBC Sodium 144 (135-145) mmol/L Potassium 3.9 (3.3-5.1) mmol/L Chloride 108 (96-108) mmol/L Carbon Dioxide 26 (22-29) mmol/L Anion Gap 14 (12-20) BUN 15 (9-16) mg/dL Creatinine 0.70 (0.5-1.4) mg/dL Estim Creat Clear Calc 113.7 Estimated GFR > 60 Random Glucose 113 (60-115) mg/dL Calcium 9.2 (8.4-10.2) mg/dL Magnesium 1.9 (1.6-2.6) mg/dL Total Bilirubin 0.2 (0.0-1.0) mg/dL AST 18 (5-31) U/L ALT 9 (0-31) U/L Alkaline Phosphatase 77 (39-117) U/L Total Protein 7.5 (6.5-8.0) g/dL Albumin 4.2 (3.5-5.0) g/dL Lipase 24 (8-78) U/L Beta HCG, Quant < 2 mIU/mL Discharge Plan Discharge Clinical Impression: Diverticulitis Patient Disposition: Home, Self-Care Instructions: Diverticulitis (ED), Diverticulitis Diet (ED) Additional Instructions: You were found to have very mild diverticulitis. See home care instructions. Take the ciprofloxacin and Flagyl as directed, these are both antibiotics. Uses Zofran as needed for nausea, use the oxycodone as needed for pain. Follow up with your primary care provider as needed. Prescriptions: New ciprofloxacin HCl 500 mg tablet 500 mg PO BID Qty: 13 0RF metronidazole 500 mg tablet 500 mg PO Q8H 7 Days Qty: 21 0RF ondansetron HCl 4 mg tablet 4 mg PO Q8H PRN (Reason: nausea and vomiting) Qty: 10 0RF oxycodone 5 mg tablet 5 mg PO Q6H PRN (Reason: pain) Qty: 8 0RF Rx Instructions: Partial Fill upon patient request. No Action cyclobenzaprine 10 mg tablet 10 mg PO TID PRN (Reason: muscle spasm) Qty: 20 0RF cetirizine [Zyrtec] 10 mg tablet 10 mg PO DAILY PRN omeprazole 20 mg capsule,delayed release(DR/EC) 20 mg PO DAILY Linzess 145 mcg capsule 145 mcg PO DAILY albuterol sulfate [ProAir HFA] 90 mcg/actuation HFA aerosol inhaler 2 puff PO Q4-6H PRN fluticasone propionate [Flovent HFA] 110 mcg/actuation HFA aerosol inhaler 2 puff inhalation .once daily fluticasone propionate 50 mcg/actuation spray,suspension 2 spray intranasal DAILY PRN Rx Instructions: administer into each nostril ipratropium bromide 21 mcg (0.03 %) spray,non-aerosol 2 spray intranasal BID Qty: 30 3RF Rx Instructions: administer into each nostril amitriptyline 10 mg tablet 20 mg PO Stand Alone Forms: Work/School Release Print Language: Irish
[2024-12-15] MEDS: metroNIDAZOLE 500 MG TABLET PO (22:30)
[2024-12-15] MEDS: ondansetron HCL 4 MG/2 ML VIAL IVPUSH (22:30)
[2024-12-15] MEDS: oxyCODONE HCl Immed Release 5 MG TABLET PO (22:31)
[2024-12-15] MEDS: levoFLOXacin 750 MG TABLET PO (22:31)
[2024-12-15 22:43] VITALS: BP 117/75; PULSE 88; RESP 16; TEMP 36.8; O2SAT 97
== END 2024-12-15 22:46 | disposition home or self-care (01) ==
PROVIDERS: Physician Assistant Medical; Emergency Provider Emergency Medicine
DX: K57.92 Diverticulitis of intestine, part unspecified, without perforation or abscess without bleeding (principal)
CPT/HCPCS: 36415; 74176; 80053; 83690; 83735; 84702; 85025; 96361; 96374; 96375; 99284; 99285; J1885; J2060; J2270; J2405

== ENCOUNTER → 2024-12-15 19:54 | Outpatient (BNV) | payer MEDICAID, SELFPAY | PROVIDERS: Emergency Provider Emergency Medicine; Visit Provider Radiology Neuroradiology | DX: K57.32 Diverticulitis of large intestine without perforation or abscess without bleeding (principal); K80.20 Calculus of gallbladder without cholecystitis without obstruction | CPT/HCPCS: 74176 ==

== ENCOUNTER 2024-12-17 20:25 | Emergency (ER) | payer MEDICAID, SELFPAY ==
--- NOTE | ~2024-12-17 | CT_ITS ---
CLINICAL HISTORY: known diverticulitis, worsening pain CT abdomen and pelvis with contrast Comparison: CT/SR - CT ABDOMEN PELVIS WO IV CON - 12/15/24 20:37 EDT Findings: Small hiatal hernia is present. Gallbladder is distended with mild wall thickening. Gallstones are present within the gallbladder. No focal hepatic lesion identified. Pancreas, spleen and adrenal glands are within normal limits. Kidneys enhance symmetrically and are non hydronephrotic. No bowel obstruction, pneumoperitoneum, or pneumatosis. IUD is in the uterus. Few scattered diverticula are present with no evidence of diverticulitis. No acute fracture. IMPRESSION: Cholelithiasis with gallbladder wall thickening. Right upper quadrant ultrasound may be helpful for further evaluation if there is clinical concern for cholecystitis. This document has been electronically signed by: Rey Lora MD, PHD on 12/18/2024 04:38:48
[2024-12-17 21:23] VITALS: BP 124/78; PULSE 78; RESP 18; TEMP 37; O2SAT 100; BMI 34.7
[2024-12-17 22:16] LABS: MANUAL DIFF FLAG NO
[2024-12-17 22:18] LABS: Basophils Percent Auto 0.4 % (0-2); Eosinophils Absolute Auto 0.2 X10*3/uL (0.0-0.4); Eosinophils Percent Auto 2.6 % (0-4); Hematocrit 33.2 % (37.0-47.0); Hemoglobin 10.8 g/dl (12.0-16.0); Imm Gran Abs Auto 0.02 X10*3/uL (0.00-0.03); Imm Gran Pct Auto 0.3 % (0.0-0.4); Lymphocytes Absolute Auto 2.4 X10*3/uL (1.2-4.9); Lymphocytes Percent Auto 31.1 % (20-40); Mean Corpuscular HGB Conc 32.5 g/dl (31.0-35.0); Mean Platelet Volume 10.6 fL (9.4-12.3); Monocytes Absolute Auto 0.4 X10*3/uL (0.1-1.2); Neutrophils Absolute Auto 4.6 x10*3/uL (2.0-8.3); Neutrophils Percent Auto 60.6 % (45-73); Platelet Count 249 X10*3/uL (160-400); Red Blood Count 3.73 X10*6/uL (4.20-5.50); Red Cell Distribution Width 13.1 % (11.0-16.0); White Blood Count 7.6 X10*3/uL (4.8-10.8)
[2024-12-17 22:47] LABS: Alanine Aminotransferase 10 U/L (0-31); Albumin Level 3.8 g/dL (3.5-5.0); Alkaline Phosphatase 66 U/L (39-117); Aspartate Amino Transferase 20 U/L (5-31); Bilirubin Total 0.2 mg/dL (0.0-1.0); Blood Urea Nitrogen 9 mg/dL (9-16); Calcium 8.7 mg/dL (8.4-10.2); Creatinine Clr Calc Pharmacy 116.5; Estimated Glomerular Filt Rate > 60; Glucose Random 91 mg/dL (60-115); Total Protein 6.7 g/dL (6.5-8.0)
[2024-12-17 23:41] LABS: Anion Gap 12 (12-20); Carbon Dioxide 23 mmol/L (22-29); Chloride 110 mmol/L (96-108); Potassium 3.9 mmol/L (3.3-5.1); Sodium 141 mmol/L (135-145)
--- OUTSIDE RECORDS SUMMARY | 2024-12-17 23:47 | XMS_ITS | Encounter Summary ---
Author Organization [email or web address] Address [address] [place] [address] 7 [place] [address] Care Team Providers Care Button Breaker Operator Name Role Phone Samira Michael MD Primary Care Provider Reason for Referral * Consultation (Routine) - Closed Specialty Diagnoses / Procedures Referred By Kp abreu Referred To Contact Occupational Therapy Diagnoses Right lateral epicondylitis Samira Michael MD [address] [place] [phone] Phone: tel: fax: [facility] Physical [facility] [address] [place] [address] Phone: tel: fax: Referral ID Status Reason Start Date Expiration Date V isits Requested Visits Authorized [id number] Closed Specialty Services Required 01/28/2024 01/27/2025 20 20 Encounter Details Date Type Department Care Team (Late st Contact Info) Description 01/26/[address] 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 [address] [place] [address] Samira Michael MD [address] [place] [address] Scheduled Referrals Name Type Priority Associated Diagnoses [...] documented as of this encounter Care Teams Button Breaker Operator Relationship Specialty Start Date End Date Samira Michael MD [address] [place] [phone] PCP - General Family Medicine 04/26/14 documented as of this encounter
--- OUTSIDE RECORDS SUMMARY | 2024-12-17 23:47 | XMS_ITS | Encounter Summary ---
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 Not on file Not on file documented as of this encounter Plan of Treatment Upcoming Encounters Date Type Department Care Team (Late st Contact Info) Description 01/07/2025 10:30 AM EDT Office Visit [facility] [address] [place] [address] Samira Michael MD [address] [place] [address] documented as of this encounter Visit Diagnoses Not on filedocumented in this encounter Additional Health Concerns Assessment Noted Time PHQ-9 Depression Total Score: 0 02/06/20 23 8:51 AM EDT documented as of this encounter Care Teams Chinese Instructor Relationship Specialty Start Date End Date Samira Michael MD [address] [place] [phone] PCP - General Family Medicine 04/26/14 documented as of this encounter
--- OUTSIDE RECORDS SUMMARY | 2024-12-17 23:47 | XMS_ITS | Encounter Summary ---
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 on file Not on file documented as of this encounter Plan of Treatment Upcoming Encounters Date Type Department Care Team (Late st Contact Info) Description 01/07/2025 10:30 AM EDT Office Visit [facility] [address] [place] [phone] Samira Michael MD [address] [place] [phone] documented as of this encounter Visit Diagnoses Not on filedocumented in this encounter Additional Health Concerns Assessment Noted Time PHQ-9 Depression Total Score: 0 02/06/20 23 8:51 AM EDT documented as of this encounter Care Teams Outsole Leveler Relationship Specialty Start Date End Date Samira Michael MD [address] [place] [phone] PCP - General Family Medicine 04/26/14 documented as of this encounter
--- OUTSIDE RECORDS SUMMARY | 2024-12-17 23:47 | XMS_ITS | Encounter Summary ---
Author Organization [employer] Address [address] [place] [address] 7 [place] [address] Care Team Providers Care Communications Operator Name Role Phone Samira Michael MD Primary Care Provider [phone] Encounter Details Date Type Department Care Team (Late st Contact Info) Description 10/10/2022 Orders Only [facility] [address] [place] [address] [phone] Perla Lang LPN Social History Tobacco Use [...] Office Visit [facility] [address] [place] [phone] Samira Michael MD [address] [place], [place] [phone] documented as of this encounter Procedures Procedure [...] (04/07/2023 4:54 PM EDT) Color Urine Yellow [facility] Appearance Urine Clear [facility] PH 6.0 5.0 - 9.0 [facility] Glucose Urine UA Negative Negative mg/dL [facility] Urine Blood Negative Negative [facility] Specific Traphill - Urine >=1.030(H) 1.005 - 1.025 [facility] Urine Protein Negative Neg-Trace mg/dL [facility] Urine Ketones Negative Negative mg/dL [facility] Nitrite Urine Negative Negative [facility] Leukocyte Esterase Urine Negative Negative [facility] 04/07/2023 4:54 PM EDT 04/07/2023 4:59 PM EDT Narrative [facility] - 04/07/2023 5:39 PM EDT unable to urinate at this [id number], Clean Catch us [facility] External Provider LAB URI NE ORDERABLES Final Result [facility] [address] [place] [phone] * HCG, Qualitative, Urine (04/07/2023 4:54 PM EDT) Pathologist [facility] Urine NEGATIVE NEGATIVE [facility] Comment:This test was develo ped to detect early . Falsenegative results may occur after the 5th - 7th week ofpregnancy when using this test method. If clinicallyindicated, consider a serum hCG. 04/07/2023 4:54 PM EDT 04/07/2023 4:59 PM EDT Narrative [facility] - 04/07/2023 5:35 PM EDT unable to urinate at this time [facility] External Provider LAB URI NE ORDERABLES Final Result Performing Organization Address [facility]/ZIP Co de Phone Number [facility] [address] [place] [phone] * High Sensitivity Troponin I (04/07/2023 8:27 AM EDT) [facility] TROPONIN I HIGH SENSITIVITY <2.7 <3.5 - 17.0 ng/L [facility] Comment:The [place] high sens itivity Troponin-I results should beused in conjunction with other diagnostic information suchas ECG, clinical observations and information, and patientsymptoms to aid in the diagnosis of [place]. 04/07/2023 8:27 AM EDT 04/07/2023 8:33 AM EDT [facility] External Provider LAB BLO OD ORDERABLES Final Result Performing Organization Address [facility]/ZIP Co de Phone Number [facility] [address] [place] [address] [phone] * Basic Metabolic Panel (04/07/2023 8:27 AM EDT) [facility] Sodium 143 135 - 145 mmol/L [facility] Potassium 3.7 3.3 - 5.1 mmol/L [facility] Chloride 108 96 - 108 mmol/L [facility] Carbon Dioxide 23 22 - 29 mmol/L [facility] Anion Gap 16 12 - 20 [facility] Urea Nitrogen (BUN) 15 9 - 16 mg/dL [facility] Creatinine, Serum 0.79 0.5 - 1.4 mg/dL [facility] Creatinine Clr Calc Pharmacy 95.5 [facility] Comment:Provided height and weight: 157.48 cm,75.6 kg.eGFR (calculated from the MDRD study equation) and eCrCl(calculated from the Cockcroft-Gault equation) are based ondifferent parameters and may not yield comparable results.If eCrCl result is absurd, please check patient'sheight/weight. Estimated Glomerular Filt Rate >60 [facility] Comment:NOTE: For -Am erican individuals, multiply the result by 1.210.Chronic Kidney Disease: Estimated GFR < 60 mL/min/[id number] Kidney Disease: Estimated GFR < 15 mL/min/1.73m2 Glucose 88 60 - 115 mg/dL [facility] Calcium 9.2 8.4 - 10.2 mg/dL [facility] 04/07/2023 8:27 AM EDT 04/07/2023 8:33 AM EDT [facility] External Provider LAB BLO OD ORDERABLES Final Result [facility] [address] [place] [phone] * (ABNORMAL) CBC auto differential (04/07/2023 8:27 AM EDT) White Blood Count 7.1 4.8 - 10.8 X10*3/uL [facility] Red Blood Count 4.07(L) 4.20 - 5.50 X10*6/uL [facility] Hemoglobin 11.9(L) 12.0 - 16.0 g/dl [facility] Hematocrit 37.8 37.0 - 47.0 % [facility] Mean Corpuscular Volume 92.9 80.0 - 98.0 fL [facility] Mean Corpuscular Hemoglobin 29.2 27.0 - 33.0 pg [facility] Mean Corpuscular HGB Conc 31.5 31.0 - 35.0 g/dl [facility] Red Cell Distribution Width 12.4 11.0 - 16.0 % [facility] Platelet Count 247 160 - 400 X10*3/uL [facility] Mean Platelet Volume 10.9 9.4 - 12.3 fL [facility] Neutrophils Percent Auto 64.6 45 - 73 % [facility] Imm Gran Pct Auto 0.1 0.0 - 0.4 % [facility] Lymphocytes Percent Auto 27.2 20 - 40 % [facility] Monocytes Percent Auto 5.4 2 - 11 % [facility] Eosinophils Percent Auto 2.3 0 - 4 % [facility] Basophils Percent Auto 0.4 0 - 2 % [facility] NRBC Pct Auto 0.0 0.0 - 0.2 /100WBC [facility] Neutrophils Absolute Auto 4.6 2.0 - 8.3 x10*3/uL [facility] Imm Gran Abs Auto 0.01 0.00 - 0.03 X10*3/uL [facility] Lymphocytes Absolute Auto 1.9 1.2 - 4.9 X10*3/uL [facility] Monocytes Absolute Auto 0.4 0.1 - 1.2 X10*3/uL [facility] Eosinophils Absolute Auto 0.2 0.0 - 0.4 X10*3/uL [facility] Basophils Absolute Auto 0.0 0.0 - 0.2 X10*3/uL [facility] NRBC Abs Auto 0.000 0.0 - 0.012 X10*3/uL [facility] 04/07/2023 8:27 AM EDT 04/07/2023 8:33 AM EDT us [facility] External Provider LAB BLO OD ORDERABLES Final Result [facility] [address] [place] [phone] * Magnesium (12/31/2022 3:54 PM EDT) Magnesium 1.7 1.6 - 2.6 mg/dL [facility] 12/31/2022 3:54 PM EDT 12/31/2022 3:58 PM EDT [facility] External Provider LAB BLO OD ORDERABLES Final Result [facility] [address] [place] [phone] [phone] * (ABNORMAL) Basic Metabolic Panel (12/31/2022 3:54 PM EDT) Sodium 138 135 - 145 mmol/L [facility] Potassium 3.5 3.3 - 5.1 mmol/L [facility] Chloride 105 96 - 108 mmol/L [facility] Carbon Dioxide 25 22 - 29 mmol/L [facility] Anion Gap 12 12 - 20 [facility] Urea Nitrogen (BUN) 8(L) 9 - 16 mg/dL [facility] Creatinine, Serum 0.80 0.5 - 1.4 mg/dL [facility] Creatinine Clr Calc Pharmacy 92.4 [facility] Comment:Provided height and weight: 157.48 cm,72.575 kg.eGFR (calculated from the MDRD study equation) and eCrCl(calculated from the Cockcroft-Gault equation) are based ondifferent parameters and may not yield comparable results.If eCrCl result is absurd, please check patient'sheight/weight. Estimated Glomerular Filt Rate >60 [facility] Comment:NOTE: For -Am erican individuals, multiply the result by 1.210.Chronic Kidney Disease: Estimated GFR < 60 mL/min/[id number] Kidney Disease: Estimated GFR < 15 mL/min/1.73m2 Glucose 156(H) 60 - 115 mg/dL [facility] Calcium 8.6 8.4 - 10.2 mg/dL [facility] 12/31/2022 3:54 PM EDT 12/31/2022 3:58 PM EDT [facility] External Provider LAB BLO OD ORDERABLES Final Result Performing Organization Address [facility] Co de Phone Number [facility] [address] [place] [phone] * Hepatic Function Panel (12/31/2022 3:54 PM EDT) Bilirubin, Total 0.4 0.0 - 1.0 mg/dL [facility] Bilirubin, Direct 0.1 0.0 - 0.5 mg/dL [facility] Aspartate Amino Transferase 13 5 - 31 U/L [facility] Alanine Aminotransferase 10 0 - 31 U/L [facility] Total Protein 6.9 6.5 - 8.0 g/dL [facility] Albumin Level 3.8 3.5 - 5.0 g/dL [facility] Alkaline Phosphatase 101 39 - 117 U/L [facility] 12/31/2022 3:54 PM EDT 12/31/2022 3:58 PM EDT [facility] External Provider LAB BLO OD ORDERABLES Final Result Performing Organization Address City/[facility] Co de Phone Number [facility] [address] [place] [phone] * (ABNORMAL) CBC auto differential (12/31/2022 3:54 PM EDT) White Blood Count 17.7(H) 4.8 - 10.8 X10*3/uL [facility] Red Blood Count 3.80(L) 4.20 - 5.50 X10*6/uL [facility] Hemoglobin 10.8(L) 12.0 - 16.0 g/dl [facility] Hematocrit 34.4(L) 37.0 - 47.0 % [facility] Mean Corpuscular Volume 90.5 80.0 - 98.0 fL [facility] Mean Corpuscular Hemoglobin 28.4 27.0 - 33.0 pg [facility] Mean Corpuscular HGB Conc 31.4 31.0 - 35.0 g/dl [facility] Red Cell Distribution Width 15.5 11.0 - 16.0 % [facility] Platelet Count 252 160 - 400 X10*3/uL [facility] Mean Platelet Volume 9.9 9.4 - 12.3 fL [facility] Neutrophils Percent Auto 89.4(H) 45 - 73 % [facility] Imm Gran Pct Auto 0.9(H) 0.0 - 0.4 % [facility] Lymphocytes Percent Auto 4.4(L) 20 - 40 % [facility] Monocytes Percent Auto 2.5 2 - 11 % [facility] Eosinophils Percent Auto 2.5 0 - 4 % [facility] Basophils Percent Auto 0.3 0 - 2 % [facility] NRBC Pct Auto 0.0 0.0 - 0.2 /100WBC [facility] Neutrophils Absolute Auto 15.9(H) 2.0 - 8.3 x10*3/uL [facility] Imm Gran Abs Auto 0.16(H) 0.00 - 0.03 X10*3/uL [facility] Lymphocytes Absolute Auto 0.8(L) 1.2 - 4.9 X10*3/uL [facility] Monocytes Absolute Auto 0.5 0.1 - 1.2 X10*3/uL [facility] Eosinophils Absolute Auto 0.4 0.0 - 0.4 X10*3/uL [facility] Basophils Absolute Auto 0.1 0.0 - 0.2 X10*3/uL [facility] NRBC Abs Auto 0.000 0.0 - 0.012 X10*3/uL [facility] 12/31/2022 3:54 PM EDT 12/31/2022 3:58 PM EDT us [facility] External Provider LAB BLO OD ORDERABLES Final Result [facility] [address] [place] [address] [phone] documented in this encounter Visit Diagnoses Not on filedocumented in this encounter Care Teams Communications Operator Relationship Specialty Start Date End Date Samira Michael MD [address] [place] [phone] PCP - General Family Medicine 04/26/14 documented as of this encounter
--- OUTSIDE RECORDS SUMMARY | 2024-12-17 23:47 | XMS_ITS | Encounter Summary ---
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 [address] [place] [address] Samira Michael MD [address] [place] [address] documented as of this encounter Visit Diagnoses Not on filedocumented in this encounter Additional Health Concerns Assessment Noted Time PHQ-9 Depression Total Score: 0 02/06/20 23 8:51 AM EDT documented as of this encounter Care Teams Transportation Dispatcher Relationship Specialty Start Date End Date Samira Michael MD [address] [place] [phone] PCP - General Family Medicine 04/26/14 documented as of this encounter
--- OUTSIDE RECORDS SUMMARY | 2024-12-17 23:48 | XMS_ITS | Encounter Summary ---
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 Not on file documented as of this encounter Plan of Treatment Upcoming Encounters Date Type Department Care Team (Late st Contact Info) Description 01/07/2025 10:30 AM EDT Office Visit [facility] [address] [place] [address] Samira Michael MD [address] [place] [address] documented as of this encounter Procedures Procedure Name Priority Date/Time Associated Diagnosis Comments CULTURE, URINE, ROUTINE Routine 12/16/2024 12:00 AM EDT documented in this encounter Results * Culture, Urine, Routine (12/16/2024 12:00 AM EDT) Urine Urine specimen obtained by clean catch procedure / Unknown 12/16/2024 12/16/2024 Comment:UACC Narrative [facility] - 12/17/2024 11:14 AM EDT Lactobacillus species Quant 50,000 to 100,000 cfu/mL Susc N/A Susceptibility not routinely performed on this isolate. Specimen Source: Urine clean catch us Raquel Gardner MD LAB MICROBIOLOGY - GENERAL ORDERABLES Final Result [facility] [address] [place] [address] [phone] documented in this encounter Visit Diagnoses Not on filedocumented in this encounter Additional Health Concerns Assessment Noted Time PHQ-9 Depression Total Score: 0 02/06/20 8:51 AM EDT documented as of this encounter Care Teams Eligibility Services Representative Relationship Specialty Start Date End Date Samira Michael MD [address] [place] [phone] PCP - General Family Medicine 04/26/14 documented as of this encounter
--- OUTSIDE RECORDS SUMMARY | 2024-12-17 23:48 | XMS_ITS | Encounter Summary ---
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 Not on file documented as of this encounter Miscellaneous Notes * Telephone Encounter - Vaenssa Trivedi MD - 12/14/2024 4:15 PM EDT [...] 10:30 AM EDT Office Visit [facility] [address] [place] [address] Samira Michael MD [address] [place] [address] documented as of this encounter Visit Diagnoses Not on filedocumented in this encounter Additional Health Concerns Assessment Noted Time PHQ-9 Depression Total Score: 0 02/06/20 23 8:51 AM EDT documented as of this encounter Care Teams Lap Machine Tender Relationship Specialty Start Date End Date Samira Michael MD [address] [place] [address] PCP - General Family Medicine 04/26/14 documented as of this encounter
--- OUTSIDE RECORDS SUMMARY | 2024-12-17 23:48 | XMS_ITS | Clinical Summary ---
Author Organization [employer] Address [address] [place] [address] [address] [place] [address] Care Team Providers Care Test Desk Supervisor Name Role Phone Samira Michael MD Primary Care Provider [phone] Allergies Active Allergy Reactions Criticality Noted Date [...] (04/29/2023 1:08 PM EDT): - seen by emergency management system director in 2021, normal TTE and holter - safely discharged from their care on 02/05/23 - 02/05/23 TC 212; TG 75; HDL 60; LDL 112 - continue working on management of modifiable risk factors. Palpitation 02/05/2023 Assessment & Plan (08/20/2023 10:54 AM EST): - following with [facility], last seen on 02/01/23 - normal Holter and TTE in Apr 2022 - likely POTS, since she became symptomatic after COVID - continue monitoring and current treatment Assessment & Plan (02/05/2023 9:32 AM EDT): - following with [facility], last seen on 02/01/23 - normal Holter and TTE in Apr 2022 - likely POTS, since she became symptomatic after COVID - continue monitoring and current treatment Precordial pain 02/05/2023 Assessment & Plan (01/10/2024 4:15 PM EDT): - less frequent, yet still symptomatic - following with emergency management system director, [facility], last seen on 02/01/23 - normal TTE and Holter on 04/18/22 - will evaluate with KEVIN Assessment & Plan (02/05/2023 9:30 AM EDT): - less frequent, yet still symptomatic - following with emergency management system director, [facility], last seen on 02/01/23 - normal TTE and Holter on 04/18/22 - continue monitoring Obesity 02/04/2023 Assessment & Plan (01/06/2024 12:08 PM EDT): - Work on lifestyle modifications. History of ovarian cyst 02/04/2023 POTS (postural orthostatic tachycardia syndrome) 02/04/2023 Assessment & Plan (01/10/2024 4:16 PM EDT): - following with [facility], last seen on 02/01/23 - normal Holter and TTE in Apr 2022 - likely POTS, since she became symptomatic after COVID - will evaluate with KEVIN Assessment & Plan (08/20/2023 10:54 AM EST): - following with [facility], last seen on 02/01/23 - normal Holter and TTE in Apr 2022 - likely POTS, since she became symptomatic after COVID - continue monitoring and current treatment Assessment & Plan (04/29/2023 1:09 PM EDT): - following with [facility], last seen on 02/01/23 - normal Holter and TTE in Apr 2022 - likely POTS, since she became symptomatic after COVID - continue monitoring and current treatment Assessment & Plan (02/05/2023 9:32 AM EDT): - Hx COVID19 - continue monitoring - will consult with cardiologists History of gestational diabetes mellitus 023 Assessment & Plan (02/05/2023 9:30 AM EDT): - during last [id number] - diet-controlled - check A1C - continue [...] fluticasone, montelukast, and cetirizine - refer to lead sustainability specialist. Assessment & Plan (08/20/2023 4:40 AM EST): - continue fluticasone, montelukast, and cetirizine Asthma 02/18/2013 Assessment & Plan (01/06/2024 10:29 AM EDT): - change fluticasone to mometasone (Asmanex) - continue albuterol prn - continue montelukast - evaluated by dormitory supervisor 09/17/2023. Pt had normal PFT. Recommended lead sustainability specialist referral. Assessment & Plan (08/20/2023 10:54 AM EST): - change fluticasone to mometasone (Asmanex) - continue albuterol prn - continue montelukast - refer to dormitory supervisor to assess if pt will benefit from [...] Encounters Date Type Department Care Team Description 12/17/2024 Orders Only GENERIC EXTERNAL DATA DEPARTMENT Provider, Generic External Data 12/17/2024 Telephone [facility] [address] [place] [address] Raquel Gardner MD 12/16/2024 Orders Only [facility] [address] [place] [phone] Raquel Gardner MD 12/15/2024 7:00 PM EDT Office Visit [facility] [address] [place] [address] Raquel Gardner MD Acute bilateral thoracic back pain (Primary Dx); UTI symptoms 12/15/2024 Orders Only GENERIC EXTERNAL DATA DEPARTMENT Provider, Generic External Data 12/15/2024 Telephone [facility] [address] [place] [address] Raquel Gardner MD 12/14/2024 Telephone [facility] [address] [place] [address] Vanessa Trivedi MD 12/14/2024 Travel 12/09/2024 Orders Only GENERIC EXTERNAL DATA DEPARTMENT Provider, Generic External Data 12/08/2024 7:40 PM EDT Office Visit [facility] [address] [place] [phone] Raquel Gardner MD Low back pain, non-specific (Primary Dx); Bacterial vaginosis 12/08/2024 Travel 11/30/2024 7:40 PM EDT Office Visit [facility] [address] [place] [address] Iliana Reyes MD Acute right-sided low back pain without sciatica (Primary Dx); Sweating profusely 11/25/2024 3:00 PM EDT Office Visit [facility] [address] [place] [address] Abad Balbuena MD Subacute sinusitis, unspecified location (Primary Dx) 11/24/2024 Refill [facility] [address] [place] [phone] Samira Michael MD 11/13/2024 Population Health Risk Score [facility] () Department [address] [place] [phone] Provider, Population Health Generic 10/14/2024 Refill [facility] [address] [place] [address] Samira Michael MD Allergic rhinitis, unspecified seasonality, [...] is your housing situation today? 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 Not on file [...] Description 01/07/2025 10:30 AM EDT Office Visit [facility] [address] [place] [address] Samira Michael MD [address] [place] [address] Health Maintenance Due Date Last Done Comments [...] Associated Diagnosis Comments COMPREHENSIVE METABOLIC PANEL Routine 12/17/2024 10:09 PM EDT CBC WITH AUTO DIFFERENTIAL Routine 12/17/2024 10:09 PM EDT CULTURE, URINE, ROUTINE Routine 12/16/2024 12:[address] ABDOMEN PELVIS WO CONTRAST Routine 12/15/2024 [...] Relevant to Health Maintenance Results * (ABNORMAL) CBC auto differential (12/17/2024 10:09 PM EDT) Only the most recent of4 resultswithin the time period is included. White Blood Count 7.6 4.8 - 10.8 X10*3/uL [facility] Red Blood Count 3.73(L) 4.20 - 5.50 X10*6/uL [facility] Hemoglobin 10.8(L) 12.0 - 16.0 g/dl [facility] Hematocrit 33.2(L) 37.0 - 47.0 % [facility] Mean Corpuscular Volume 89.0 80.0 - 98.0 fL [facility] Mean Corpuscular Hemoglobin 29.0 27.0 - 33.0 pg [facility] Mean Corpuscular HGB Conc 32.5 31.0 - 35.0 g/dl [facility] Red Cell Distribution Width 13.1 11.0 - 16.0 % [facility] Platelet Count 249 160 - 400 X10*3/uL [facility] Mean Platelet Volume 10.6 9.4 - 12.3 fL [facility] Neutrophils Percent Auto 60.6 45 - 73 % [facility] Imm Gran Pct Auto 0.3 0.0 - 0.4 % [facility] Lymphocytes Percent Auto 31.1 20 - 40 % [facility] Monocytes Percent Auto 5.0 2 - 11 % [facility] Eosinophils Percent Auto 2.6 0 - 4 % [facility] Basophils Percent Auto 0.4 0 - 2 % [facility] NRBC Pct Auto 0.0 0.0 - 0.2 /100WBC [facility] Neutrophils Absolute Auto 4.6 2.0 - 8.3 x10*3/uL [facility] Imm Gran Abs Auto 0.02 0.00 - 0.03 X10*3/uL [facility] Lymphocytes Absolute Auto 2.4 1.2 - 4.9 X10*3/uL [facility] Monocytes Absolute Auto 0.4 0.1 - 1.2 X10*3/uL [facility] Eosinophils Absolute Auto 0.2 0.0 - 0.4 X10*3/uL [facility] Basophils Absolute Auto 0.0 0.0 - 0.2 X10*3/uL [facility] NRBC Abs Auto 0.000 0.0 - 0.012 X10*3/uL [facility] 12/17/2024 10:0 9 PM EDT 12/17/2024 10:15 PM EDT us Generic External Data Provider LAB BLOOD ORDERAB LES Final Result [facility] [address] [place] [address] [phone] * (ABNORMAL) Comprehensive Metabolic Panel (12/17/2024 10:09 PM EDT) Only the most recent of3 resultswithin the time period is included. Sodium 141 135 - 145 mmol/L [facility] Potassium 3.9 3.3 - 5.1 mmol/L [facility] Chloride 110(H) 96 - 108 mmol/L [facility] Carbon Dioxide 23 22 - 29 mmol/L [facility] Anion Gap 12 12 - 20 [facility] Urea Nitrogen (BUN) 9 9 - 16 mg/dL [facility] Creatinine, Serum 0.68 0.5 - 1.4 mg/dL [facility] Creatinine Clr Calc Pharmacy 116.5 [facility] Comment:Provided height and weight: 157.48 cm,86.183 kg.eGFR (calculated from the MDRD study equation) and eCrCl(calculated from the Cockcroft-Gault equation) are based ondifferent parameters and may not yield comparable results.If eCrCl result is absurd, please check patient'sheight/weight. Estimated Glomerular Filt Rate >60 [facility] Comment:Chronic Kidney Disea se: Estimated GFR < 60 mL/min/1.22c7Btecys Kidney Disease: Estimated GFR < 15 mL/min/1.73m2 Glucose 91 60 - 115 mg/dL [facility] Calcium 8.7 8.4 - 10.2 mg/dL [facility] Bilirubin, Total 0.2 0.0 - 1.0 mg/dL [facility] Aspartate Amino Transferase 20 5 - 31 U/L [facility] Alanine Aminotransferase 10 0 - 31 U/L [facility] Total Protein 6.7 6.5 - 8.0 g/dL [facility] Albumin Level 3.8 3.5 - 5.0 g/dL [facility] Alkaline Phosphatase 66 39 - 117 U/L [facility] 12/17/2024 10:0 9 PM EDT 12/17/2024 10:15 PM EDT us Generic External Data Provider LAB BLOOD ORDERAB LES Final Result [facility] [address] [place] [address] [phone] * Culture, Urine, Routine (12/16/2024 12:00 AM EDT) Only the most recent of2 resultswithin the time period is included. Urine Urine specimen obtained by clean catch procedure / Unknown 12/16/2024 12/16/2024 Comment:UACC Narrative [facility] - 12/17/2024 11:14 AM EDT Lactobacillus species Quant 50,000 to 100,000 cfu/mL Susc N/A Susceptibility not routinely performed on this isolate. Specimen Source: Urine clean catch us Raquel Gardner MD LAB MICROBIOLOGY - GENERAL ORDERABLES Final Result [facility] [address] [place] [address] [phone] * CT Abdomen Pelvis w/o Contrast (12/15/2024 9:35 PM EDT) Anatomical Region Laterality Modality Body, Pelvis, Abdomen Computed T omography 12/15/2024 9:35 PM EDT Narrative 12/15/2024 9:37 PM EDT ? [facility] ?[address] ?[place] [address] ? CT Scan Report ? Signed ? Patient: Freeman,Dalia ?MR#: [id number] ?? 2 ? : 1990 ?Acct:[id number] ? Age/Sex: 34 / F ?ADM Date: 12/15/24 ? Loc: HO.ED ? Attending Dr: ? Ordering Physician: Ebony Plascencia ?? Date of Service: 12/15/24 ?? Procedure(s): CT abdomen pelvis wo IV con ?? Accession Number(s): [id number] ? cc: Ebony Plascencia; [facility] ? Report Number: ?? [id number]: Total DLP = ??782.00 mGy-cm ? CLINICAL [...] ? DD/ 34 ? TD/TT: 12/15/242134 ? Router Machine Operator: ? Procedure Note Nati Son - 12/15/[address] [place] [address] [address] Scan Report Signed Patient: Dalia FreemanMR#: [id number] 2 : 1990Acct:[id number] Age/Sex: 34 / FADM Date: 12/15/24 Loc: HO.ED Attending Dr: Ordering Physician: Ebony Plascencia Date of Service: 12/15/24 Procedure(s): CT abdomen pelvis wo IV con Accession Number(s): [id number] cc: Ebony Plascencia; [facility] Report Number: [id number]: Total DLP = 782.00 mGy-cm CLINICAL HISTORY: [...] in OV> 12/15/242135 DD/ 34 TD/TT: 12/15/242134 Router Machine Operator: [facility] External Provider IMG CT PROCEDURES Edited Result - Final * hCG, Total, Quantitative (12/15/2024 7:58 PM EDT) HCG Quantitative <2 mIU/mL [facility] Comment:Weeks post LMP Appro ximate hCG(Last Menstrual Period) Range (mIU/ml)3 - 4 weeks 9 - 1304 - 5 weeks 75 - 2,6005 - 6 weeks 850 - 20,8006 - 7 weeks 4000 - 100,2007 - 12 weeks 11,500 - 289,92104 - 16 weeks 18,300 - 137,12688 - 29 weeks (2nd trimester) 1,400 - 53,97498 - 41 weeks (3rd trimester) 940 - 60,000The Reich B- hCG assay is used for the [...] ORDERAB LES Final Result Performing Organization Address City/[facility]/ZIP Co de Phone Number [facility] [address] [place] [address] [phone] * (ABNORMAL) Urinalysis, Complete, with Reflex to Culture (12/15/2024 7:18 PM EDT) Color Urine Yellow [facility] Appearance Urine Turbid [facility] PH 6.0 5.0 - 9.0 [facility] Glucose Urine UA Negative Negative mg/dL [facility] Urine Blood Negative Negative [facility] Specific Eunice - Urine >=1.030(H) 1.005 - 1.025 [facility] Urine Protein Negative Neg-Trace mg/dL [facility] Urine Ketones Negative Negative mg/dL [facility] Nitrite Urine Negative Negative [facility] Leukocyte Esterase Urine Negative Negative [facility] RBC Urine 0-2 0 - 2 /HPF [facility] Urine WBC 11-20(A) 0 - 5 /HPF [facility] Urine Squamous Epithelial Cell 11-20 0 - 2 /HPF [facility] Urine Bacteria 1+ None Seen [facility] Hyaline Casts, Urine 0-2 0 - 2 /LPF [facility] Urine 12/15/2024 7:18 PM EDT 12/16/2024 11:24 AM EDT Narrative [facility] - 12/16/2024 11:36 AM EDT Urine, Clean Catch us Raquel Gardner MD LAB URINE ORDERABLES Final Result [facility] [address] [place] [phone] * (ABNORMAL) POCT Urinalysis (12/15/2024 6:54 [...] HIGH SENSITIVITY <2.7 <3.5 - 17.0 ng/L [facility] Comment:The Reich high sens itivity Troponin-I results should beused in conjunction with other diagnostic information suchas ECG, clinical observations and information, and patientsymptoms to aid in the diagnosis of [place]. 12/09/2024 12:2 2 PM EDT 12/09/2024 12:24 PM EDT us Generic External Data Provider LAB BLOOD ORDERAB LES Final Result [facility] [address] [place] [phone] [phone] * XR Chest 2 Views (12/09/2024 12:17 PM EDT) Anatomical Region Laterality Modality Chest Radiographic Tiffany ging 12/09/2024 12:1 7 PM EDT Narrative 12/09/2024 12:45 PM EDT ? [facility] ?[address] ?[place] [address] ?XRay Report ? Signed ? Patient: Freeman,Dalia ?MR#: [id number] ?? 2 ? : 1990 ?Acct:[id number] ? Age/Sex: 34 / F ?ADM Date: 12/09/24 ? Loc: HO.ED ? Attending Dr: ? Ordering Physician: Pieter Lomas DO ?? Date of Service: 12/09/24 ?? Procedure(s): XR chest 2V ?? Accession Number(s): [id number] ? cc: Pieter Lomas DO; Samira Michael [...] DD/ 1217 ? TD/TT: 12/09/24 1233 ? Router Machine Operator: ? Procedure Note Nati Son - 12/09/[address] [address] XRay Report Signed Patient: Dalia FreemanMR#: [id number] 2 : 1990Acct:[id number] Age/Sex: 34 / FADM Date: 12/09/24 Loc: HO.ED Attending Dr: Ordering Physician: Pieter Lomas DO Date of Service: 12/09/24 Procedure(s): XR chest 2V Accession Number(s): [id number] cc: Pieter Lomas DO; Samira Michael MD [...] 12/09/24 1243 DD/ 1217 TD/TT: 12/09/24 1233 Router Machine Operator: [facility] External Provider IMG XR PROCEDURES Final Result * POCT Rapid Influenza A REICH ID NOW (12/08/2024 7:17 PM EDT) [facility] Influenza A Negative Negative, Indeterminate [facility] Swab 12/08/2024 7:17 PM EDT Raquel Gardner MD POINT OF CARE TEST ENTER/E DIT ORDERABLES Final Result [facility] [address] [place] [phone] * POCT Rapid COVID-19 Binax NOW (12/08/2024 7:17 PM EDT) [facility] Rapid COVID Ag Negative Swab 12/08/2024 7:17 PM EDT Raquel Gardner MD POINT OF CARE TEST ENTER/E DIT ORDERABLES Final Result * POCT Rapid Influenza B REICH ID NOW (12/08/2024 7:16 PM EDT) Pathologist [facility] Influenza B Negative Negative, Indeterminate [facility] Swab 12/08/2024 7:16 PM EDT Raquel Gardner MD POINT OF CARE TEST ENTER/E DIT ORDERABLES Final Result Performing Organization Address [facility] Co de Phone Number [facility] [address] [place] [phone] * (ABNORMAL) Urinalysis Complete (12/08/2024 6:30 PM EDT) Color Urine Yellow [facility] Appearance Urine Turbid [facility] PH 5.5 5.0 - 9.0 [facility] Glucose Urine UA Negative Negative mg/dL [facility] Urine Blood Negative Negative [facility] Specific Eunice - Urine >=1.030(H) 1.005 - 1.025 [facility] Urine Protein Trace Neg-Trace mg/dL [facility] Urine Ketones Trace Negative mg/dL [facility] Nitrite Urine Negative Negative [facility] Leukocyte Esterase Urine Moderate (2+)(A) Negative [facility] RBC Urine 0-2 0 - 2 /HPF [facility] Urine WBC 11-20(A) 0 - 5 /HPF [facility] Urine Squamous Epithelial Cell 11-20 0 - 2 /HPF [facility] Urine Bacteria 1+ None Seen [facility] Hyaline Casts, Urine 0-2 0 - 2 /LPF [facility] Urine (Urine, Random) 12/08/2024 6:30 PM EDT 12/09/2024 11:43 AM EDT Raquel Gardner MD LAB URINE ORDERABLES Final Result Performing Organization Address [facility]/ZIP Co de Phone Number [facility] [address] [place] [address] [phone] * TSH W/Reflex to FT4 (12/08/2024 2:25 PM EDT) TSH reflex Free T4 1.15 0.32 - 4.0 uIU/mL [facility] Blood Venous blood specimen / Unknown 12/08/2024 2:25 PM EDT 12/08/2024 4:05 PM EDT us Iliana Reyes MD LAB BLOOD ORDERABLES Final Result Performing Organization Address [facility] Co de Phone Number [facility] [address] [place] [phone] * (ABNORMAL) Lipid Panel with Reflex to Direct LDL (01/06/2024 10:55 AM EDT) Pathologist [facility] Triglycerides 73 <150 mg/dL [facility] Comment:Desirable Triglyceri de: less than 150 mg/dLBorderline High Triglyceride 150-199 mg/dLHigh Triglyceride: 200-499 mg/dLVery High Triglyceride: greater than or equal to 5OO mg/dL Cholesterol 186 <200 mg/dL [facility] Comment:Desirable Cholestero l: less than 200 mg/dLBorderline High Cholesterol: 200-239 mg/dLHigh Cholesterol: greater than 239 mg/dL LDL Cholesterol Calculated 122(H) <100 mg/dL [facility] Comment:Desirable LDL: less than 100 mg/dLNear Optimal/Above Optimal LDL: 110- 129 mg/dLBorderline High LDL: 130-159 mg/dLHigh LDL: 160-189 mg/dLVery High LDL: greater than or equal to 190 mg/dL HDL Cholesterol 50 >40 mg/dL [facility] Comment:Desirable HDL: great er than 40 mg/dL Note: This HDL assay may give artificially low results in patients with liver disease. Blood 01/06/2024 10:5 5 AM EDT 01/06/2024 1:02 PM EDT us Samira Michael MD LAB BLOOD ORDERABLES Final Resul t Performing Organization Address City/[facility]/ZIP Co de Phone Number [facility] [address] [place] [phone] * Hepatitis C Antibody with Reflex to HCV, RNA, Quantitative, Real-Time PCR (01/06/2024 10:55 AM EDT) Hepatitis C Antibody Nonreactive Nonreactive [facility] Comment:Antibodies to HCV no t detected; does not exclude early acuteHCV infection. Blood Venous blood specimen / Unknown 01/06/2024 10:55 AM EDT 01/06/2024 1:02 PM EDT us Samira Michael MD LAB BLOOD ORDERABLES Final Resul t Performing Organization Address City/[facility]/ZIP Co de Phone Number [facility] [address] [place] [phone] * HIV-1/2 Antigen and Antibodies, Fourth Generation, with Reflexes (01/06/2024 10:55 AM EDT) Pathologist [facility] HIV AB/AG Nonreactive Nonreactive [facility] Comment:HIV-1 p24 Ag and/or HIV-1/HIV-2 Ab not detected.A test result that is nonreactive does not exclude thepossibility of exposure to or infection with HIV-1 and/orHIV-2. Nonreactive results in this assay for individualswith prior exposure to HIV-1 and/or HIV-2 may be due toantigen and antibody levels that are below the limit ofdetection of this assay.The [employer] HIV Ag/Ab Combo assay result andsupplemental assay results should be interpreted inconjunction with the patient's clinical presentation,history and other laboratory results. If the results areinconsistent with clinical evidence, additional testing issuggested to confirm the result. Blood Venous blood specimen / Unknown 01/06/2024 10:55 AM EDT 01/06/2024 1:02 PM EDT us Samira Michael MD LAB BLOOD ORDERABLES Final Resul t Performing Organization Address City/[facility]/ZIP Co de Phone Number [facility] [address] [place] [phone] [phone] * HPV mRNA E6/E7 (04/23/2017 11:03 AM EDT) HPV mRNA E6/E7 Not Detected NOT DETECTED [facility] Comment: This test was performed using the APTIMA(R) HPV Assay ([employer] This assay detects E6/E7 viral messenger RNA (mRNA) from 14 high-risk HPV types (16,18,31,33,35,39,45,51, 52,56,58,59,66,68). For additional information please refer to: http://education.K[employer]Read[employer]/faq/AOI734r3 (This link is being provided for informational/ educational purposes only.) Test Performed by [employer], [employer] [facility], [address] [place] [address] Dagoberto Kaur M.D., Ph.D., Director of Laboratories , [facility] [id number] Please note: ??Effective 05/14/2016, HPV testing will be performed using [employer]'s APTIMA test which targets mRNA. Detecting mRNA instead of DNA, as in older methods, offers significant improvements in specificity. 04/23/2017 11:0 3 AM EDT us Historical Provider HISTORICAL/NON ORDERABLE LABS Final Result [facility] Anywhere [address] from Last 3 Months or Most Recently Relevant to Health Maintenance Insurance [facility] [employer] C[employer] Care Teams Test Desk Supervisor Relationship Specialty Start Date End Date Samira Michael MD [address] [place] [phone] PCP - General Family Medicine 04/26/14
--- OUTSIDE RECORDS SUMMARY | 2024-12-17 23:48 | XMS_ITS | Encounter Summary ---
Author Organization [employer] Address 75 [facility] 7t [place] [address] Care Team Providers Care Mixing Picker Tender Name Role Phone Samira Michael MD Primary Care Provider Encounter Details Date Type Department Care Team ([facility] st Contact Info) Description 09/24/[address] [facility] [address] [place], [place] [phone] Samria Michael MD [address] [place], [place] [phone] Social History Tobacco Use Types Packs/Day Years [...] Office Visit [facility] [address] [place] [address] Samira Michael MD [address] [place] [address] documented as of this encounter Visit Diagnoses Not on filedocumented in this encounter Additional Health Concerns Assessment Noted Time PHQ-9 Depression Total Score: 0 02/06/20 23 8:51 AM EDT documented as of this encounter Care Teams Mixing Picker Tender Relationship Specialty Start Date End Date Samira Michael MD [address] [place] [phone] PCP - General Family Medicine 04/26/14 documented as of this encounter
--- OUTSIDE RECORDS SUMMARY | 2024-12-17 23:48 | XMS_ITS | Encounter Summary ---
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 [facility] ?[address] ?[place] [address] ? CT Scan Report ? Signed ? Patient: Freeman,Dalia ?MR#: [id number] ?? 2 ? : 1990 ?Acct:[id number] ? Age/Sex: 34 / F ?ADM Date: 04/15/25 ? Loc: HO.ED ? Attending Dr: ? Ordering Physician: Ebony Plascencia ?? Date of Service: 12/15/24 ?? Procedure(s): CT abdomen pelvis wo IV con ?? Accession Number(s): [id number] ? cc: Ebony Plascencia; [facility] ? Report Number: ?? [id number]: Total DLP = ??782.00 mGy-cm ? CLINICAL [...] ? DD/ 34 ? TD/TT: 12/15/242134 ? Malt House Loader: ? Procedure Note Huy, Image - 12/15/2024 [address] [place] [address] CT Scan Report Signed Patient: Dalia FreemanMR#: [id number] 2 : 1990Acct:[id number] Age/Sex: 34 / FADM Date: 12/15/24 Loc: HO.ED Attending Dr: Ordering Physician: Ebony Plascencia Date of Service: 12/15/24 Procedure(s): CT abdomen pelvis wo IV con Accession Number(s): [id number] cc: Ebony Plascencia; [facility] Report Number: [id number]: Total DLP = 782.00 mGy-cm CLINICAL HISTORY: [...] in OV> 12/15/242135 DD/ 34 TD/TT: 12/15/242134 Malt House Loader: us [facility] External Provider IMG CT PROCEDURES Edited Result - Final * (ABNORMAL) CBC auto differential (12/15/2024 7:58 PM EDT) White Blood Count 12.7(H) 4.8 - 10.8 X10*3/uL [facility] Red Blood Count 3.91(L) 4.20 - 5.50 X10*6/uL [facility] Hemoglobin 11.3(L) 12.0 - 16.0 g/dl [facility] Hematocrit 35.1(L) 37.0 - 47.0 % [facility] Mean Corpuscular Volume 89.8 80.0 - 98.0 fL [facility] Mean Corpuscular Hemoglobin 28.9 27.0 - 33.0 pg [facility] Mean Corpuscular HGB Conc 32.2 31.0 - 35.0 g/dl [facility] Red Cell Distribution Width 13.1 11.0 - 16.0 % [facility] Platelet Count 270 160 - 400 X10*3/uL [facility] Mean Platelet Volume 10.8 9.4 - 12.3 fL [facility] Neutrophils Percent Auto 80.1(H) 45 - 73 % [facility] Imm Gran Pct Auto 0.4 0.0 - 0.4 % [facility] Lymphocytes Percent Auto 13.7(L) 20 - 40 % [facility] Monocytes Percent Auto 4.7 2 - 11 % [facility] Eosinophils Percent Auto 0.9 0 - 4 % [facility] Basophils Percent Auto 0.2 0 - 2 % [facility] NRBC Pct Auto 0.0 0.0 - 0.2 /100WBC [facility] Neutrophils Absolute Auto 10.2(H) 2.0 - 8.3 x10*3/uL [facility] Imm Gran Abs Auto 0.05(H) 0.00 - 0.03 X10*3/uL [facility] Lymphocytes Absolute Auto 1.7 1.2 - 4.9 X10*3/uL [facility] Monocytes Absolute Auto 0.6 0.1 - 1.2 X10*3/uL [facility] Eosinophils Absolute Auto 0.1 0.0 - 0.4 X10*3/uL [facility] Basophils Absolute Auto 0.0 0.0 - 0.2 X10*3/uL [facility] NRBC Abs Auto 0.000 0.0 - 0.012 X10*3/uL [facility] 12/15/2024 7:58 PM EDT 12/15/2024 8:01 PM EDT us Generic External Data Provider LAB BLOOD ORDERAB LES Final Result Performing Organization Address [facility] Co de Phone Number [facility] [address] [place] [phone] * hCG, Total, Quantitative (12/15/2024 7:58 PM EDT) HCG Quantitative <2 mIU/mL [facility] Comment:Weeks post LMP Appro ximate hCG(Last Menstrual Period) Range (mIU/ml)3 - 4 weeks 9 - 1304 - 5 weeks 75 - 2,6005 - 6 weeks 850 - 20,8006 - 7 weeks 4000 - 100,2007 - 12 weeks 11,500 - 289,89563 - 16 weeks 18,300 - 137,14208 - 29 weeks (2nd trimester) 1,400 - 53,90475 - 41 weeks (3rd trimester) 940 - [...] ORDERAB LES Final Result Performing Organization Address [facility] Co de Phone Number [facility] [address] [place] [phone] documented in this encounter Visit Diagnoses Not on filedocumented in this encounter Additional Health Concerns Assessment Noted Time PHQ-9 Depression Total Score: 0 02/06/20 23 8:51 AM EDT documented as of this encounter Care Teams Jig Bore Operator Relationship Specialty Start Date End Date Samira Michael MD [address] [place] [address] PCP - General Family Medicine 04/26/14 documented as of this encounter
--- OUTSIDE RECORDS SUMMARY | 2024-12-17 23:48 | XMS_ITS | Encounter Summary ---
Author Organization [employer] Address [address] [facility] 7t [place] [address] Care Team Providers Care Electronic Train Control Technician Name Role Phone Samira Michael MD Primary Care Provider [phone] Reason for Visit * Reason Comments Walk-In worsening right mid back discomfort(previously was lower back pain when see at [facility] last week); reports urine dark yellow- denies other urinary symptoms Encounter Details Date Type Department Care Team (Late st Contact Info) Description 12/15/2024 7:00 PM EDT Office Visit [facility] [address] [place], [place] [phone] Raquel Gardner MD [address] [place] [address] Acute bilateral thoracic back pain (Primary Dx); [...] 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 on file Not [...] was lower back pain when see at [facility] last week); reports urine dark yellow- [...] Description 01/07/2025 10:30 AM EDT Office Visit [facility] [address] [place] [phone] Samira Michael MD [address] [place], [place] [phone] documented as of this encounter Procedures Procedure Name Priority Date/Time Associated Diagnosis Comments URINALYSIS, COMPLETE, WITH REFLEX TO CULTURE Routine 12/15/2024 7:18 PM EDT Acute bilateral thoracic back pain POCT URINALYSIS DIPSTICK Routine 12/15/2024 6:54 PM EDT UTI symptoms documented in this encounter Results * (ABNORMAL) Urinalysis, Complete, with Reflex to Culture (12/15/2024 7:18 PM EDT) Color Urine Yellow [facility] Appearance Urine Turbid [facility] PH 6.0 5.0 - 9.0 [facility] Glucose Urine UA Negative Negative mg/dL [facility] Urine Blood Negative Negative [facility] Specific Anita - Urine >=1.030(H) 1.005 - 1.025 [facility] Urine Protein Negative Neg-Trace mg/dL [facility] Urine Ketones Negative Negative mg/dL [facility] Nitrite Urine Negative Negative [facility] Leukocyte Esterase Urine Negative Negative [facility] RBC Urine 0-2 0 - 2 /HPF [facility] Urine WBC 11-20(A) 0 - 5 /HPF [facility] Urine Squamous Epithelial Cell 11-20 0 - 2 /HPF [facility] Urine Bacteria 1+ None Seen [facility] Hyaline Casts, Urine 0-2 0 - 2 /LPF [facility] Urine 12/15/2024 7:18 PM EDT 12/16/2024 11:24 AM EDT Narrative [facility] - 12/16/2024 11:36 AM EDT Urine, Clean Catch Raquel Gardner MD LAB URINE ORDERABLES Final Result Performing Organization Address City/State/[facility] Co de Phone Number [facility] [address] [place] [phone] * (ABNORMAL) POCT Urinalysis (12/15/2024 6:54 [...] documented as of this encounter Care Teams Electronic Train Control Technician Relationship Specialty Start Date End Date Samira Michael MD [address] [place] [phone] PCP - General Family Medicine 04/26/14 documented as of this encounter
--- OUTSIDE RECORDS SUMMARY | 2024-12-17 23:48 | XMS_ITS | Encounter Summary ---
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 on file Not on file documented as of this encounter Plan of Treatment Upcoming Encounters Date Type Department Care Team (Late st Contact Info) Description 01/07/2025 10:30 AM EDT Office Visit [facility] [address] [place], [place] [phone] Samira Michael MD [address] [place], [place] [phone] documented as of this encounter Procedures Procedure Name Priority Date/Time Associated Diagnosis Comments CBC WITH AUTO DIFFERENTIAL Routine 12/17/2024 10:09 PM EDT COMPREHENSIVE METABOLIC PANEL Routine 12/17/2024 10:09 PM EDT documented in this encounter Results * (ABNORMAL) Comprehensive Metabolic Panel (12/17/2024 10:09 PM EDT) Sodium 141 135 - 145 mmol/L [facility] Potassium 3.9 3.3 - 5.1 mmol/L [facility] Chloride 110(H) 96 - 108 mmol/L [facility] Carbon Dioxide 23 22 - 29 mmol/L [facility] Anion Gap 12 12 - 20 [facility] Urea Nitrogen (BUN) 9 9 - 16 mg/dL [facility] Creatinine, Serum 0.68 0.5 - 1.4 mg/dL [facility] Creatinine Clr Calc Pharmacy 116.5 [facility] Comment:Provided height and weight: 157.48 cm,86.183 kg.eGFR (calculated from the MDRD study equation) and eCrCl(calculated from the Cockcroft-Gault equation) are based ondifferent parameters and may not yield comparable results.If eCrCl result is absurd, please check patient'sheight/weight. Estimated Glomerular Filt Rate >60 [facility] Comment:Chronic Kidney Disea se: Estimated GFR < 60 mL/min/1.96f7Swcrqw Kidney Disease: Estimated GFR < 15 mL/min/1.73m2 Glucose 91 60 - 115 mg/dL [facility] Calcium 8.7 8.4 - 10.2 mg/dL [facility] Bilirubin, Total 0.2 0.0 - 1.0 mg/dL [facility] Aspartate Amino Transferase 20 5 - 31 U/L [facility] Alanine Aminotransferase 10 0 - 31 U/L [facility] Total Protein 6.7 6.5 - 8.0 g/dL [facility] Albumin Level 3.8 3.5 - 5.0 g/dL [facility] Alkaline Phosphatase 66 39 - 117 U/L [facility] 12/17/2024 10:0 9 PM EDT 12/17/2024 10:15 PM EDT us Generic External Data Provider LAB BLOOD ORDERAB LES Final Result [facility] [address] [place] [address] [phone] * (ABNORMAL) CBC auto differential (12/17/2024 10:09 PM EDT) White Blood Count 7.6 4.8 - 10.8 X10*3/uL [facility] Red Blood Count 3.73(L) 4.20 - 5.50 X10*6/uL [facility] Hemoglobin 10.8(L) 12.0 - 16.0 g/dl [facility] Hematocrit 33.2(L) 37.0 - 47.0 % [facility] Mean Corpuscular Volume 89.0 80.0 - 98.0 fL [facility] Mean Corpuscular Hemoglobin 29.0 27.0 - 33.0 pg [facility] Mean Corpuscular HGB Conc 32.5 31.0 - 35.0 g/dl [facility] Red Cell Distribution Width 13.1 11.0 - 16.0 % [facility] Platelet Count 249 160 - 400 X10*3/uL [facility] Mean Platelet Volume 10.6 9.4 - 12.3 fL [facility] Neutrophils Percent Auto 60.6 45 - 73 % [facility] Imm Gran Pct Auto 0.3 0.0 - 0.4 % [facility] Lymphocytes Percent Auto 31.1 20 - 40 % [facility] Monocytes Percent Auto 5.0 2 - 11 % [facility] Eosinophils Percent Auto 2.6 0 - 4 % [facility] Basophils Percent Auto 0.4 0 - 2 % [facility] NRBC Pct Auto 0.0 0.0 - 0.2 /100WBC [facility] Neutrophils Absolute Auto 4.6 2.0 - 8.3 x10*3/uL [facility] Imm Gran Abs Auto 0.02 0.00 - 0.03 X10*3/uL [facility] Lymphocytes Absolute Auto 2.4 1.2 - 4.9 X10*3/uL [facility] Monocytes Absolute Auto 0.4 0.1 - 1.2 X10*3/uL [facility] Eosinophils Absolute Auto 0.2 0.0 - 0.4 X10*3/uL [facility] Basophils Absolute Auto 0.0 0.0 - 0.2 X10*3/uL [facility] NRBC Abs Auto 0.000 0.0 - 0.012 X10*3/uL [facility] 12/17/2024 10:0 9 PM EDT 12/17/2024 10:15 PM EDT us Generic External Data Provider LAB BLOOD ORDERAB LES Final Result [facility] [address] [place] [address] [phone] documented in this encounter Visit Diagnoses Not on filedocumented in this encounter Additional Health Concerns Assessment Noted Time PHQ-9 Depression Total Score: 0 06/06/20 23 8:51 AM EDT documented as of this encounter Care Teams Timber Management Professor Relationship Specialty Start Date End Date Samira Michael MD [address] [place] [phone] PCP - General Family Medicine 04/26/14 documented as of this encounter
--- OUTSIDE RECORDS SUMMARY | 2024-12-17 23:48 | XMS_ITS | Encounter Summary ---
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 TY Spoke to pt this morning she will contact the office later in the day to schedule a follow up with PCP. Pt contacted the health center she states that she still has pain however she is going to greens picker her meds and rest she will contact the [facility] if not feeling better by end of the week. Reviewed ED precautions and advised to start meds. * Telephone Encounter - Verenice Lang RN - 12/15/2024 7:28 PM EDT Pt seen at [facility] [place] 12/15/24 and sent to ED at [facility] for abd pain, acute bilateral thoracic back pain (?pyelonephritis.) Will send to PCP as FYI and team nurses to status check pt tomorrow. TY documented in this encounter Plan of Treatment Upcoming Encounters Date Type Department Care Team (Late st Contact Info) Description 01/07/2025 10:30 AM EDT Office Visit [facility] [address] [place] [address] Samira Michael MD [address] [place], [place] [phone] documented as of this encounter Visit Diagnoses Not on filedocumented in this encounter Additional Health Concerns Assessment Noted Time PHQ-9 Depression Total Score: 0 02/06/20 23 8:51 AM EDT documented as of this encounter Care Teams Online Tutor Relationship Specialty Start Date End Date Samira Michael MD [address] [place] [address] PCP - General Family Medicine 04/26/14 documented as of this encounter
--- OUTSIDE RECORDS SUMMARY | 2024-12-17 23:48 | XMS_ITS | Encounter Summary ---
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 Message left. documented in this encounter Plan of Treatment Upcoming Encounters Date Type Department Care Team (Late st Contact Info) Description 01/07/2025 10:30 AM EDT Office Visit [facility] [address] [place], [place] [phone] Samira Michael MD [address] [place] [address] documented as of this encounter Visit Diagnoses Not on filedocumented in this encounter Additional Health Concerns Assessment Noted Time PHQ-9 Depression Total Score: 0 02/06/20 23 8:51 AM EDT documented as of this encounter Care Teams Farm Machinery Erector Relationship Specialty Start Date End Date Samira Michael MD [address] [place], [place] [phone] PCP - General Family Medicine 04/26/14 documented as of this encounter
[2024-12-18 01:06] VITALS: BP 122/80; PULSE 75; RESP 16; TEMP 36.6; O2SAT 99
--- NOTE | 2024-12-18 02:04 | ED.ABDPAIN ---
HPI - Abdominal Pain General Chief Complaint: Abdominal Pain Stated Complaint: abd pain. ? new antibiotics Time Seen by Provider: 12/18/24 01:52 Source: patient Mode of arrival: ambulatory Limitations: no limitations History of Present Illness ED Provider: Dr. Deana Aaron HPI narrative: Patient comes to the emergency room complaining of abdominal pain. Patient was seen here 2 days ago, diagnosed with diverticulitis, sent home with metronidazole and ciprofloxacin. Patient believes that she is having a side effect from the medication causing her to have significant epigastric pain. Patient states that she has not taking her antibiotics today because the pain is so bad that she can not eat or drink much. Denies fever chills. Denies vomiting or diarrhea. Related Data Home Medications ?Medication ?Instructions ?Recorded ?Confirmed cetirizine 10 mg tablet (Zyrtec) 10 mg PO DAILY PRN 04/11/21 04/30/24 albuterol sulfate 90 mcg/actuation 2 puff PO Q4-6H PRN 03/07/22 04/30/24 aerosol inhaler (ProAir HFA) linaclotide 145 mcg capsule 145 mcg PO DAILY 03/07/22 04/30/24 (Linzess) omeprazole 20 mg capsule,delayed 20 mg PO DAILY 03/07/22 04/30/24 release fluticasone propionate 110 2 puff inhalation .once daily 09/17/23 04/30/24 mcg/actuation HFA aerosol inhaler (Flovent HFA) fluticasone propionate 50 2 spray intranasal DAILY PRN 09/17/23 04/30/24 mcg/actuation nasal spray,suspension amitriptyline 10 mg tablet 20 mg PO 04/30/24 04/30/24 Previous Rx's ?Medication ?Instructions ?Recorded ipratropium bromide 21 mcg (0.03 2 spray intranasal BID #30 mL 09/17/23 %) nasal spray cyclobenzaprine 10 mg tablet 10 mg PO TID PRN muscle spasm #20 06/25/24 tabs ciprofloxacin HCl 500 mg tablet 500 mg PO BID #13 tabs 12/15/24 metronidazole 500 mg tablet 500 mg PO Q8H 7 days #21 tabs 12/15/24 ondansetron HCl 4 mg tablet 4 mg PO Q8H PRN nausea and 12/15/24 vomiting #10 tabs oxycodone 5 mg tablet 5 mg PO Q6H PRN pain #8 tabs 12/15/24 amoxicillin 500 mg-potassium 1 tab PO TID 10 days #30 tabs 12/18/24 clavulanate 125 mg tablet (Augmentin) famotidine 20 mg tablet (Pepcid) 20 mg PO DAILY #30 tabs 12/18/24 Allergies Allergy/AdvReac Type Severity Reaction Status Date / Time pseudoephedrine Allergy Unknown UNKNOWN Verified 12/17/24 21:27 [From [facility]] Review of Systems Review of Systems Constitutional : No Weight loss, No Fever, No Chills, No Night Sweats, No Fatigue, No Malaise ENT/Mouth : No Hearing loss, No Ear Pain, No Nasal Congestion, No Sinus Pain, No Hoarseness, No sore throat, No Rhinorrhea, No Swallowing Difficulty Eyes: No Eye Pain, No Swelling, No Redness, No Foreign Body, No Discharge, No Vision Changes Cardiovascular : No Chest Pain, No SOB, No Dyspnea on Exertion, No Orthopnea, No Edema, No Palpitations Respiratory : No Cough, No Sputum, No Wheezing, No Smoke Exposure, No Dyspnea Gastrointestinal : No Nausea, No Vomiting, No Diarrhea, No Constipation, complaining of worsening abdominal pain, this time in the epigastric area Genitourinary : no irregular bleeding, No Dysuria, No Urinary Frequency, No Hematuria, No Urinary Incontinence, No Urgency, No Flank Pain, No Urinary Flow Changes, No Hesitancy Musculoskeletal : No joint pain, No Myalgias, No Joint Swelling Skin : No Skin Lesions, No rash Neuro : No Weakness, No Numbness, No Paresthesias, No Loss of Consciousness, No Dizziness, No Headache Psych : No Anxiety/Panic, No Depression, No SI/HI/AH/VH, No Social Issues, Heme/Lymph: No Bruising, No Bleeding,No Lymphadenopathy Endocrine : No Polyuria, No Polydipsia, No Temperature Intolerance [facility] Past Medical History Medical History Anxiety IBS (irritable bowel syndrome) Asthma Acid reflux Surgical History Hx of colonoscopy Family History Family History Father Diabetes Mother Diabetes Social History Social History Alcohol intake: never Patient Tobacco Use Status: Never used Tobacco Smoked in Last 30 Days: No Use of substances other than those prescribed or required for medical reasons: No Advance Directives: No Advance Directives Information Provided: Yes Do you have a plan to hurt others: No Plan Sexual orientation: Straight/Heterosexual Gender identity: Female Physical Exam ED Vital Signs: Vital Signs - 24 hr 12/17/24 21:23 12/18/24 01:06 Temperature 98.6 F 98 F Pulse Rate 78 75 Respiratory Rate 18 16 Blood Pressure 124/78 122/80 Pulse Oximetry 100 99 Oxygen Delivery Method Room Air Room Air BMI result Body Mass Index 34.7 Const Other: Appearance: Alert. Oriented X3. No acute distress. Eyes: Pupils equal, round and reactive to light. ENT: Pharynx normal. Neck: Normal inspection. Neck supple. No lymph nodes noted. No crepitus CVS: Normal heart rate and rhythm. Pulses normal. Normal S1 and S2 Respiratory: No respiratory distress. Breath sounds normal. No Wheezing. No rales Abdomen: Soft nondistended, tender to palpation in epigastric and periumbilical area, moderate rebound and guarding. Negative Younger's sign Skin: Skin warm and dry. Normal skin color. Normal skin turgor. Extremities: No lower extremity edema. No Lacerations. No Rash Neuro: Oriented X 3. No motor deficit. No sensory deficit. Moving all extremities. No slurred speech. CN 2 through 12 grossly intact Psych: calm, cooperative, normal affect Course Course Course Narrative: Patient receiving IV fluids, famotidine, morphine and Zofran. My interpretation of labs: Hematology improved, white blood cell count now 7.6. It within normal limits Since patient has worsening abdominal pain, we will repeat CT scan. Medical Decision Making Medical Decision Making MDM Narrative: My interpretation of labs: Normal white blood cell count, no significant abnormality in patient's electrolytes, normal LFTs CT scan of the abdomen shows cholelithiasis with gallbladder wall thickening. However, patient has no right upper quadrant pain. Patient overall feeling better. At this time, no concerns for acute cholecystitis. Patient states that she feels much better I discussed the CT findings with the patient. Discussed with the patient that if she has pain with meals, or worsening symptoms, she will likely need a cholecystectomy. At this time, patient feels better and would like to be discharged home. We will switch her antibiotics to Augmentin I was informed by the patient's nurse that the patient had no pain and declined pain medication. Patient did take Pepcid and she started feeling better. I discussed with the patient her symptoms are more likely secondary to peptic ulcer disease rather than gallbladder related. Differential Diagnosis Differential Diagnoses: The differential diagnosis associated with the presentation includes (Worsening diverticulitis, SBO cholecystitis) Admission/Observation Consideration of admission/observation: Escalation of care including admission/observation considered (Given patient's symptoms and presentation, observation was considered) Lab Data MDM Lab Attestation statement: I reviewed the patient's lab results. 12/17/24 22:09 12/17/24 22:09 Labs: Lab Results 12/17/24 Range/Units 22:09 WBC 7.6 (4.8-10.8) X10*3/uL RBC 3.73 L (4.20-5.50) X10*6/uL Hgb 10.8 L (12.0-16.0) g/dl Hct 33.2 L (37.0-47.0) % MCV 89.0 (80.0-98.0) fL MCH 29.0 (27.0-33.0) pg MCHC 32.5 (31.0-35.0) g/dl RDW 13.1 (11.0-16.0) % Plt Count 249 (160-400) X10*3/uL MPV 10.6 (9.4-12.3) fL Immature Gran % (Auto) 0.3 (0.0-0.4) % Neut % (Auto) 60.6 (45-73) % Lymph % (Auto) 31.1 (20-40) % [place] % (Auto) 5.0 (2-11) % Eos % (Auto) 2.6 (0-4) % Baso % (Auto) 0.4 (0-2) % Lymph # (Auto) 2.4 (1.2-4.9) X10*3/uL [place] # (Auto) 0.4 (0.1-1.2) X10*3/uL Eos # (Auto) 0.2 (0.0-0.4) X10*3/uL Baso # (Auto) 0.0 (0.0-0.2) X10*3/uL Abs Immat Gran (auto) 0.02 (0.00-0.03) X10*3/uL Absolute Neuts (auto) 4.6 (2.0-8.3) x10*3/uL Absolute Nucleated RBC 0.000 (0.0-0.012) X10*3/uL Nucleated RBC % (auto) 0.0 (0.0-0.2) /100WBC Sodium 141 (135-145) mmol/L Potassium 3.9 (3.3-5.1) mmol/L Chloride 110 H (96-108) mmol/L Carbon Dioxide 23 (22-29) mmol/L Anion Gap 12 (12-20) BUN 9 (9-16) mg/dL Creatinine 0.68 (0.5-1.4) mg/dL Estim Creat Clear Calc 116.5 Estimated GFR > 60 Random Glucose 91 (60-115) mg/dL Calcium 8.7 (8.4-10.2) mg/dL Total Bilirubin 0.2 (0.0-1.0) mg/dL AST 20 (5-31) U/L ALT 10 (0-31) U/L Alkaline Phosphatase 66 (39-117) U/L Total Protein 6.7 (6.5-8.0) g/dL Albumin 3.8 (3.5-5.0) g/dL Beta HCG, Quant < 2 mIU/mL Independent Interpretation I performed an independent interpretation of an: CT Scan Radiology Impression Discussion of test interpretation with radiology: I have reviewed the radiologist's reading. Radiologist Impression: Small hiatal hernia is present. Gallbladder is distended with mild wall thickening. Gallstones are present within the gallbladder. No focal hepatic lesion identified. Pancreas, spleen and adrenal glands are within normal limits. Kidneys enhance symmetrically and are non hydronephrotic. No bowel obstruction, pneumoperitoneum, or pneumatosis. IUD is in the uterus. Few scattered diverticula are present with no evidence of diverticulitis. No acute fracture. IMPRESSION: Cholelithiasis with gallbladder wall thickening. Right upper quadrant ultrasound may be helpful for further evaluation if there is clinical concern for cholecystitis. Medications Administered Discontinued Medications Generic Name Dose Route Start Last Admin Trade Name Freq PRN Reason Stop Dose Admin Famotidine 20 mg 12/18/24 02:01 12/18/24 02:12 Famotidine/Pf 20 Mg/2 Ml Vial IVPUSH 12/18/24 02:02 20 mg ONCE ONE Administration Sodium Chloride 1,000 mls @ 999 mls/hr 12/18/24 02:01 12/18/24 02:06 Ns IVCONT 12/18/24 03:01 999 mls/hr .Q1H1M ONE Administration Iohexol 85 ml 12/18/24 03:13 12/18/24 03:13 Iohexol 350 Mg/Ml 100 Ml Infus..Btl IV 12/18/24 03:14 85 ml ONCE ONE Administration Morphine Sulfate 2 mg 12/18/24 02:01 12/18/24 02:12 Morphine Sulfate 2 Mg/Ml Cartridge IVPUSH 12/18/24 02:02 Not Given ONCE ONE Protocol Ondansetron HCl 4 mg 12/18/24 02:04 12/18/24 02:57 Ondansetron Hcl 4 Mg/2 Ml Vial IVPUSH 12/18/24 02:05 Not Given ONCE ONE Critical Care Time Critical Care Time Critical Care Time: Yes Total Critical Care Time: 45 Attestation: I have personally provided critical care time. Time includes review of lab data, radiology results, discussion with consultants, and monitoring for potential decompensation. Intervention performed as documented. Discharge Plan Discharge Clinical Impression: Abdominal pain, Peptic ulcer disease Patient Disposition: Home, Self-Care Instructions: Diet for Stomach Ulcers and Gastritis (ED), Abdominal Pain (ED) Additional Instructions: Please follow-up with your primary care physician tomorrow. If you have any worsening or new symptoms, please return to the emergency room or call 911 Prescriptions: New amoxicillin-pot clavulanate [Augmentin] 500-125 mg tablet 1 tab PO TID 10 Days Qty: 30 0RF famotidine [Pepcid] 20 mg tablet 20 mg PO DAILY Qty: 30 0RF No Action cyclobenzaprine 10 mg tablet 10 mg PO TID PRN (Reason: muscle spasm) Qty: 20 0RF ciprofloxacin HCl 500 mg tablet 500 mg PO BID Qty: 13 0RF metronidazole 500 mg tablet 500 mg PO Q8H 7 Days Qty: 21 0RF ondansetron HCl 4 mg tablet 4 mg PO Q8H PRN (Reason: nausea and vomiting) Qty: 10 0RF oxycodone 5 mg tablet 5 mg PO Q6H PRN (Reason: pain) Qty: 8 0RF Rx Instructions: Partial Fill upon patient request. cetirizine [Zyrtec] 10 mg tablet 10 mg PO DAILY PRN omeprazole 20 mg capsule,delayed release(DR/EC) 20 mg PO DAILY Linzess 145 mcg capsule 145 mcg PO DAILY albuterol sulfate [ProAir HFA] 90 mcg/actuation HFA aerosol inhaler 2 puff PO Q4-6H PRN fluticasone propionate [Flovent HFA] 110 mcg/actuation HFA aerosol inhaler 2 puff inhalation .once daily fluticasone propionate 50 mcg/actuation spray,suspension 2 spray intranasal DAILY PRN Rx Instructions: administer into each nostril ipratropium bromide 21 mcg (0.03 %) spray,non-aerosol 2 spray intranasal BID Qty: 30 3RF Rx Instructions: administer into each nostril amitriptyline 10 mg tablet 20 mg PO Referrals: Mark Santos MD [Physician] - 2 weeks Print Language: Belarusian
[2024-12-18] MEDS: 0.9 % Sodium Chloride 1,000 ML 999 ML IVCONT (02:06)
[2024-12-18] MEDS: Famotidine/PF 20 MG/2 ML VIAL IVPUSH (02:12)
--- NOTE | 2024-12-18 02:57 | PC.NURSE ---
pt states pain resolved with pepcid, denies nausea. eileen held. aware.
[2024-12-18 03:03] LABS: HCG Quantitative < 2 mIU/mL
[2024-12-18] MEDS: iohexoL 350 MG/ML 100 ML INFUS..BTL 85 ML IV (03:13)
[2024-12-18 06:06] VITALS: BP 114/80; PULSE 80; RESP 16; TEMP 36.6; O2SAT 99
== END 2024-12-18 06:06 | disposition home or self-care (01) ==
PROVIDERS: Emergency Provider Emergency Medicine
DX: K27.9 Peptic ulcer, site unspecified, unspecified as acute or chronic, without hemorrhage or perforation (principal); R10.13 Epigastric pain; Z79.899 Other long term (current) drug therapy
CPT/HCPCS: 36415; 74177; 80053; 84702; 85025; 99284; 99285; J1308; Q9967

== ENCOUNTER → 2024-12-18 02:02 | Outpatient (BNV) | payer MEDICAID, SELFPAY | PROVIDERS: Emergency Provider Emergency Medicine; Visit Provider General Practice | DX: K80.20 Calculus of gallbladder without cholecystitis without obstruction (principal) | CPT/HCPCS: 74177 ==

== ENCOUNTER 2025-02-03 12:32 | Outpatient (REF) | payer MEDICAID, SELFPAY ==
--- OUTSIDE RECORDS SUMMARY | 2025-02-03 13:02 | XMS_ITS | Encounter Summary ---
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
[2025-02-03 16:26] LABS: Anion Gap 12 (12-20); Blood Urea Nitrogen 8 mg/dL (9-16); Calcium 8.9 mg/dL (8.4-10.2); Carbon Dioxide 27 mmol/L (22-29); Chloride 107 mmol/L (96-108); Estimated Glomerular Filt Rate > 60; Glucose Random 62 mg/dL (60-115); Magnesium 2.3 mg/dL (1.6-2.6); Potassium 4.4 mmol/L (3.3-5.1); Sodium 142 mmol/L (135-145)
== END 2025-02-03 12:33 | disposition home or self-care (01) ==
LOC: HO.HHCL 12:32
PROVIDERS: Visit Provider Family Medicine
DX: E87.6 Hypokalemia (principal)
CPT/HCPCS: 36415; 80048; 83735

== ENCOUNTER 2025-03-26 10:59 | Outpatient (REF) | payer MEDICAID, SELFPAY ==
[2025-03-26 12:49] LABS: Alanine Aminotransferase 21 U/L (0-31); Albumin Level 4.5 g/dL (3.5-5.0); Alkaline Phosphatase 77 U/L (39-117); Anion Gap 10 (12-20); Aspartate Amino Transferase 26 U/L (5-31); Blood Urea Nitrogen 10 mg/dL (9-16); Calcium 9.3 mg/dL (8.4-10.2); Carbon Dioxide 31 mmol/L (22-29); Chloride 104 mmol/L (96-108); Estimated Glomerular Filt Rate > 60; Lipase 20 U/L (8-78); Potassium 4.1 mmol/L (3.3-5.1); Sodium 141 mmol/L (135-145); Total Protein 7.9 g/dL (6.5-8.0)
[2025-03-26 13:10] LABS: Folate 12.8 ng/mL (> or = 4.0); Vitamin B12 424 pg/mL (200-900)
[2025-03-31 13:08] LABS: Vitamin D 25-OH, D2 <4 ng/mL; Vitamin D 25-OH, D3 32 ng/mL; Vitamin D 25-OH, Total 32 ng/mL (30-100)
== END 2025-03-26 11:00 | disposition home or self-care (01) ==
LOC: HO.LAB 10:59
PROVIDERS: PCP Family Medicine; Visit Provider Nurse Practitioner Family
DX: K59.04 Chronic idiopathic constipation (principal); K21.9 Gastro-esophageal reflux disease without esophagitis; K57.32 Diverticulitis of large intestine without perforation or abscess without bleeding; E55.9 Vitamin D deficiency, unspecified; R19.7 Diarrhea, unspecified; R10.13 Epigastric pain; R10.9 Unspecified abdominal pain; Z90.49 Acquired absence of other specified parts of digestive tract
CPT/HCPCS: 36415; 80053; 82306; 82607; 82746; 83690; 84443; 99212

== ENCOUNTER 2025-03-26 10:59 | Outpatient (AMB) | payer MEDICAID, SELFPAY ==
--- OUTSIDE RECORDS SUMMARY | 2025-03-26 11:08 | XMS_ITS | Encounter Summary ---
Author Organization [employer] Address [address] [place] [address] [address] [place] [address] Care Team Providers Care Agricultural Extension Agent Name Role Phone Samira Michael MD Primary Care Provider [phone] Reason for Visit * Reason Comments Med Refill Encounter Details Date Type Department Care Team (Late st Contact Info) Description 05/25/2024 Refill [facility] [address] [place] [address] Samira Michael MD [address] [place] [address] Allergic rhinitis, unspecified seasonality, unspecified trigger Social [...] documented as of this encounter Care Teams Agricultural Extension Agent Relationship Specialty Start Date End Date Samira Michael MD [address] [place] [address] PCP - General Family Medicine 04/26/14 documented as of this encounter
--- NOTE | 2025-03-26 11:10 | A.OFFVIS_ITS ---
Vital Signs 03/26/25 11:12 Height 5 ft 2 in Weight 184 lb BMI 33.7 BP 124/84 Blood Pressure Location Rt brachial Position Sitting Pulse 102 H Pulse Source Pulse Oximeter Pulse Oximetry (%) 97 Oxygen Delivery Method Room Air Intake Visit Reasons: gallbladder er f/u Intake Note: New pt, prev est, epigastric pain. Currently taking linzess per ED report. CC; C.O. prev abd pain. [place] [facility] [place] and diagnosed with diverticulitis. Pt did not end up taking abx as instructed because she got immediately worse. Pt seen at [facility] ED and was advised to have cholecyst ectomy. Feeling better since then. Principal Web Developer Required: No Accompanied by: Family/Other Allergies pseudoephedrine (From [facility]) Allergy (Unknown, Verified 03/26/25 11:10) UNKNOWN HPI HPI gallbladder er f/u: Details: LAST VISIT: Constipation Patient reports long history of constipation. Patient was placed by primary care provider on Linzess 72 mcg and reports that that has been working, however recently she is trying to conceive and is not unsure if she can take that. Medication verified and patient was instructed to take that. Patient will start taking Linzess and will let me know if that dose is enough GERD (gastroesophageal reflux disease) Patient reports postprandial bloating and acid reflux. Reports to have mid upper abdominal discomfort. She was on instructed to avoid dietary triggers and spicy food. I will send her for H pylori testing. She is taking pantoprazole daily. I will add famotidine at bedtime. Patient denies dyspepsia, odynophagia or dysphagia. If her H pylori is positive will treat her empirically will do upper endoscopy if her symptoms will persist. Patient is agreeable to plan of care and verbalizes understanding of instructions. She was given the opportunity to ask questions all questions answered. ? Thank you for allowing me to participate in her care Plan Orders Orders H pylori Ag Stool 05/24/21 K21.9 Medications New linaclotide (Linzess) 72 mcg PO DAILY 30 caps 1RF K59.00 pantoprazole take one tablet half an hour before breakfast 40 mg PO DAILY 30 tabs 2RF K21.9 famotidine (Pepcid) 20 mg PO BEDTIME 30 tabs 3RF K21.9 TODAY'S VISIT Patient is here today for requested visit. Patient was last seen back in 2021 for management of her constipation. December 15 patient was seen in the ED and diagnosed with diverticulitis. Patient was given script for antibiotic and her symptoms were not going away. Patient had abdominal pain in the right upper quadrant radiating to her back. Patient returned to ED CT scan was repeated and it showed gallstones with mild thickening of the gallbladder. Patient had no Younger sign and her pain was not in the right upper quadrant per ED note. No leukocytosis. Couple days later patient went to [facility] ED. Ultrasound was done that showed increased gallbladder wall thickness with sludge and stones. Patient underwent cholecystectomy. Patient reports that since then her bowels have normalized. She is currently taking Linzess 145 mcg and is moving her bowels well. Patient is taking omeprazole, however she feels like her reflux has not been controlled. Patient reports epigastric pain no matter what she ea ts. Acid reflux without dyspepsia, dysphagia or odynophagia. Patient denies any nausea or vomiting. Denies any melena, hematochezia, unintentional weight loss or ribbon like stools. PFSH Medical History (Updated 03/26/25 @ 21:02 by DEBRA Jay) Chronic idiopathic constipation Anxiety IBS (irritable bowel syndrome) Asthma Acid reflux Surgical History (Updated 03/26/25 @ 20:57 by DEBRA Jay) Hx of cholecystectomy Hx of colonoscopy Family History Father Diabetes Mother Diabetes Social History Alcohol intake: never Patient Tobacco Use Status: Never used Tobacco Sexual orientation: Straight/Heterosexual Gender identity: Female Female Reproductive History Menstrual Age of Menarche: 12 Review of Systems Const Denies weight gain and Denies weight loss ENT Reports no additional complaints, Denies dysphagia and Denies odynophagia Card Reports no additional complaints Resp Reports no additional complaints GI Denies abdominal pain, Denies belching, Denies melena, Denies bloating, Denies change in bowel habits, Denies dysphagia, Denies excessive flatus, Denies dyspepsia, Reports heartburn, Denies diarrhea, Denies loose stools, Denies nausea, Denies odynophagia and Denies vomiting Reports no additional complaints Musc Reports no additional complaints Neuro Reports no additional complaints Psych Reports no additional complaints Endo Reports no additional complaints Physical Exam Vital Signs: Last Vital Signs Pulse 102 H 03/26/25 11:12 BP 124/84 03/26/25 11:12 Pulse Ox 97 03/26/25 11:12 Oxygen Delivery Method Room Air 03/26/25 11:12 BMI result Body Mass Index 33.7 Const General: healthy appearing, no acute distress and well developed Nutritional Appearance: well nourished Orientation/consciousness: patient oriented x3 Resp Effort & Inspection: normal respiratory effort and able to speak in complete sentences Auscultation: clear to auscultation bilaterally Cardio Rhythm: regular rhythm GI Inspection: Yes normal to inspection and No distended Palpation (GI): Tenderness to palpation present (GI) (Epigastric), no guarding, not rigid and No hepatosplenomegaly present Auscultation: normal bowel sounds Skin General skin exam: elasticity normal, turgor normal and dry skin Neuro General: patient oriented x3 Results Reviewed Results Reviewed: CT OF ABDOMEN AND PELVIS 12/15/2024 Findings: Mild bibasilar atelectasis. No obstructing stone in either kidney or either ureter. Multiple phleboliths are noted in the pelvis. No hydronephrosis. Cholelithiasis suggested by CT (image 25 of series 2), with a additional partially calcified stone versus wall calcification protein in the fundus.. Mild/minimal fat deposition of the liver. The spleen is nonenlarged. The adrenal glands are normal. Pancreas unremarkable for noncontrast study. Small mesenteric and periaortic lymph nodes are nonspecific and may be reactive. No small bowel obstruction. Imaged appendix within normal limits (image number 58 of series 2). Severe stool burden present, including the cecum. Mild straightening of the adjacent to diverticula of the descending colon (imaged 52 and 53 of series 2). Uterus is anteverted with intrauterine device in place. No adnexal soft tissue mass by CT. Mild free fluid in the pelvis may be reactive. Mild wall thickening of the urinary bladder is nonspecific. Mild lower lumbar facet arthropathy. IMPRESSION: 1. Mild diverticulitis of the lower portion of the descending colon. 2. No obstructing stone in either kidney or either ureter. 3. Cholelithiasis by CT. CT SCAN OF ABDOMEN AND PELVIS 12/18/2024 Findings: Small hiatal hernia is present. Gallbladder is distended with mild wall thickening. Gallstones are present within the gallbladder. No focal hepatic lesion identified. Pancreas, spleen and adrenal glands are within normal limits. Kidneys enhance symmetrically and are non hydronephrotic. No bowel obstruction, pneumoperitoneum, or pneumatosis. IUD is in the uterus. Few scattered diverticula are present with no evidence of diverticulitis. No acute fracture. IMPRESSION: Cholelithiasis with gallbladder wall thickening. Right upper quadrant ultrasound may be helpful for further evaluation if there is clinical concern for cholecystitis. Assessment & Plan Assessment & Plan (1) Chronic idiopathic constipation: Code(s): K59.04 - Chronic idiopathic constipation Category: Medical (2) Postprandial epigastric pain: Code(s): R10.13 - Epigastric pain (3) Hx of cholecystectomy: Code(s): Z90.49 - Acquired absence of other specified parts of digestive tract Category: Surgical (4) Acid reflux: Code(s): K21.9 - Gastro-esophageal reflux disease without esophagitis Category: Medical Qualifiers: Esophagitis presence: esophagitis presence not specified Qualified Code(s): K21.9 - Gastro-esophageal reflux disease without esophagitis Plan Patient will continue taking Linzess. Reports epigastric pain. Will check lipase, CMP, thyroid, vitamin B12, folate, vitamin-D level. Patient will be sent for upper GI with barium swallow. She will start Nexium. Patient was encouraged to avoid dietary triggers and late night snacking. Staying upright for minimum 3 hours after meals discussed with patient. Patient will follow-up in our office in 3 months, sooner on as needed basis. She is agreeable to this plan and verbalizes understanding of instructions. She was given the opportunity to ask questions and all questions answered. Thank you for allowing me to participate in her care Orders: Orders Vitamin B12 and Folate Today R19.7 - Diarrhea, unspecified Lipase Today R10.9 - Unspecified abdominal pain Comprehensive Met. Panel Today K21.9 - Gastro-esophageal reflux disease without esophagitis TSH reflex Free T4 Today K59.00 - Constipation, unspecified Vitamin D 25-OH (D2 and D3) Today E55.9 - Vitamin D deficiency, unspecified [place] upper GI w Ba Swallow Today K21.9 - Gastro-esophageal reflux disease without esophagitis Medications: New esomeprazole magnesium (Nexium) 40 mg PO DAILY 30 caps 2RF K21.9 - Gastro- esophageal reflux disease without esophagitis Coding Level of Care Code New Pt Level 4 (63353) Diagnoses Chronic idiopathic constipation K59.04 Postprandial epigastric pain R10.13 Hx of cholecystectomy Z90.49 Gastroesophageal reflux disease, unspecified whether esophagitis present K21.9 Esophagitis presence: esophagitis presence not specified Time Spent (min) 50 Comment 35 minutes spent with patient and additional 15 minutes spent reviewing her records
[2025-03-26 11:12] VITALS: BP 124/84; PULSE 102; O2SAT 97; BMI 33.7
== END 2025-03-26 11:34 | disposition home or self-care (01) ==
LOC: HO.HGI 11:00
PROVIDERS: PCP Family Medicine; Visit Provider Nurse Practitioner Family
DX: K59.04 Chronic idiopathic constipation (principal); R10.13 Epigastric pain; Z90.49 Acquired absence of other specified parts of digestive tract; K21.9 Gastro-esophageal reflux disease without esophagitis
CPT/HCPCS: 99204

== ENCOUNTER 2025-04-09 13:16 | Outpatient (REF) | payer MEDICAID, SELFPAY | END 2025-04-09 13:17 | disposition home or self-care (01) | LOC: HO.LNP 13:16 | PROVIDERS: Visit Provider Family Medicine | DX: N39.0 Urinary tract infection, site not specified (principal) | CPT/HCPCS: 87086 ==

== ENCOUNTER 2025-04-26 17:47 | Outpatient (REF) | payer MEDICAID, SELFPAY ==
--- OUTSIDE RECORDS SUMMARY | 2025-04-26 11:00 | XMS_ITS | Encounter Summary ---
Author Organization [employer] Address [address] [place] [address] Care Team Providers Care Executive Casino Host Name Role Phone Samira Michael MD Primary Care Provider [phone] Reason for Visit * Reason Comments UTI Encounter Details Date Type Department Care Team ([facility] Contact Info) Description 04/26/2025 11:00 AM EDT Office Visit [facility] [address] [place] [phone] Abad Balbuena MD [address] [place] [address] UTI symptoms Social History Tobacco Use Types Packs/Day Years Used Date Smoking Tobacco: Never Passive Smoke Exposure: Never Smokeless Tobacco: Never Tobacco Cessation:Counseling Given: Not Answered Alcohol Use Standard Drinks/Week Comments Not Currently 0 (1 standard drink = 0.6 oz pur e alcohol) Depression Answer Date Recorded Patient Health Questionnaire-9 Score 0 12/25/2024 Patient Health Questionnaire-9 Score 0 12/25/2024 Last PHQ-9: Questionnaire Data Not on file 0 12/25/2024 Housing Stability Answer Date Recorded What is your housing situation today? I have nuha elmore 12/25/[address] you li ve. Do you have problems with any of the following? None of the above 12/25/2024 Food Insecurity Answer Date Recorded Within the past 12 months, y ou worried that your food would run out before you got money to buy more: Never True 12/25/2024 Within the past 12 months,th e food you bought just didn't last and you didn't have enough money to get more: Never True Transportation Answer Date Recorded In the past 12 months, has l ack of transportation kept you from medical appts, meetings, work or from getting things needed for daily living? No 12/25/2024 Utilities Answer Date Recorded In the past 12 months, has t he electric, gas, oil or water company threatened to shut off services in your home? 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 on file Not on file Not on file documented as of this encounter Last Filed Vital Signs Vital Sign Reading Time Taken Comments Blood Pressure 122/89 04/26/2025 10:49 AM EDT Pulse 73 04/26/2025 10:49 AM EDT Temperature 36.7 C (98 F) 04/26/2025 10:49 AM EDT Respiratory Rate 16 04/26/2025 10:49 AM EDT Oxygen Saturation 99% 04/26/2025 10:49 AM EDT Inhaled Oxygen Concentration - - Weight 83 kg (183 lb) 04/26/2025 10:49 AM EDT Height - - Body Mass Index 33.47 04/09/2025 10:27 AM EDT documented in this encounter Progress Notes * Abad Balbuena MD - 04/26/2025 11:00 AM EDT Subjective Patient ID: Dalia Freeman is a 34 y.o. female. HPI Dalia was seen in walk-in clinic on April 09 for 4-day history of urinary frequency and urine odor. Prescribed Macrobid. Urine culture grew mixed bacterial dora. States she had transient improvement, then urinary urgency and frequency recurred. States urine odor improved, but over the past few days she has also developed right flank pain. Denies fever, chills, n/v, vaginal discharge, or abdominal pain. Lives with and 3 daughters. 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 Has ParaGard IUD. Never smoked. Patient Active Problem List Diagnosis Date Noted Status post cholecystectomy 01/26/2025 Elevated BP without diagnosis of hypertension 01/10/2025 Low back pain, non-specific 12/08/2024 Family history of coronary artery disease 04/29/2023 Palpitation 02/05/2023 Precordial pain 02/05/2023 Obesity 02/04/2023 History of ovarian cyst 02/04/2023 POTS (postural orthostatic tachycardia syndrome) 02/04/2023 History of gestational diabetes mellitus 02/04/2023 Headache 01/29/2023 History of abnormal cervical Pap smear 07/04/2015 Allergic rhinitis 02/18/2013 Asthma 02/18/2013 The following portions of the chart were reviewed this encounter and updated as appropriate: Review of Systems Constitutional: Negative for fever. Respiratory: Negative for shortness of breath. Cardiovascular: Negative for chest pain. Gastrointestinal: Negative for abdominal pain. Genitourinary: Positive for flank pain, frequency and urgency. Negative for vaginal discharge. Skin: Negative for rash. Neurological: Negative for headaches. Objective Physical Exam Constitutional: Appearance: Normal appearance. HENT: Nose: Nose normal. Eyes: Conjunctiva/sclera: Conjunctivae normal. Pupils: Pupils are equal, round, and reactive to light. Cardiovascular: Rate and Rhythm: Normal rate and regular rhythm. Heart sounds: No murmur heard. Pulmonary: Effort: Pulmonary effort is normal. Breath sounds: Normal breath sounds. Abdominal: Tenderness: There is right CVA tenderness. There is no left CVA tenderness. Musculoskeletal: General: Normal range of motion. Cervical back: No tenderness. Skin: Findings: No rash. Neurological: Mental Status: She is alert. Gait: Gait is intact. Psychiatric: Mood and Affect: Mood normal. Behavior: Behavior normal. Procedures Assessment/Plan Diagnoses and all orders for this visit: UTI symptoms Urine C&S pending. Will call patient with results. Because of recurrent urinary frequency, urgency, and now right flank pain and tenderness, will treat with cefpodoxime for possible right upper tract urinary infection. Prescribed cefpodoxime, ibuprofen, acetaminophen. Return to clinic if not improving. - POCT urinalysis dipstick manually resulted - Culture, Urine, Routine Other orders - cefpodoxime (Vantin) 200 MG tablet; Take 1 tablet (200 mg) by mouth 2 times daily for 7 days. - acetaminophen (Tylenol) 500 MG tablet; Take 2 tablets (1,000 mg) by mouth every 6 (six) hours if needed for moderate pain or fever for up to 25 doses. - fluconazole (Diflucan) 150 MG tablet; Take 1 tablet (150 mg) by mouth Once per day for 1 dose. May repeat dose in 3 days prn documented in this encounter Plan of Treatment Scheduled Orders Name Type Priority Associated Diagnoses Orde r Schedule Culture, Urine, Routine Microbiology Routine UTI symptoms Ordered: 04/26/2025 documented as of this encounter Procedures Procedure Name Priority Date/Time Associated Diagnosis Comments POCT URINALYSIS DIPSTICK Routine 04/26/2025 11:03 AM EDT UTI symptoms documented in this encounter Results * (ABNORMAL) POCT urinalysis dipstick manually resulted (04/26/2025 11:03 AM EDT) Color, UA Yellow Clarity, UA Cloudy Glucose, UA Negative Bilirubin, UA Negative Ketones, UA Positive Comment:Trace Spec Grav, UA 1.025 Blood, UA Positive(A) Negative, None Detected pH, UA 6.5 Protein, UA 2+ 125++ Comment:!00mg Urobilinogen, UA 1.0 Leukocytes, UA Many(A) Negative, Rare, Trace Nitrite, UA Negative Negative, None Detected Appearance, UA OK Urine 04/26/2025 11:0 3 AM EDT us Abad Balbuena MD POINT OF CARE TEST ENTER/EDIT OR DERABLES Final Result documented in this encounter Visit Diagnoses Diagnosis UTI symptoms documented in this encounter Additional Health Concerns Assessment Noted Time PHQ-9 Depression Total Score: 0 12/26/19 9:41 AM EDT documented as of this encounter Care Teams Executive Casino Host Relationship Specialty Start Date End Date Samira Michael MD [address] [place] [phone] PCP - General Family Medicine 04/26/14 documented as of this encounter
--- OUTSIDE RECORDS SUMMARY | 2025-04-26 18:20 | XMS_ITS | Encounter Summary ---
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
--- OUTSIDE RECORDS SUMMARY | 2025-04-26 18:20 | XMS_ITS | Encounter Summary ---
Author Organization [employer] Address [address] [place] [address] 7t [place] [address] Care Team Providers Care Canceling And Cutting Control Clerk Name Role Phone Samira Michael MD Primary Care Provider [phone] Encounter Details Date Type Department Care Team ([facility] st Contact Info) Description 10/10/2022 Orders Only [facility] [address] [place], [place] [phone] Perla Lang LPN Social History Tobacco Use [...] on file documented as of this encounter Procedures Procedure [...] (04/07/2023 4:54 PM EDT) Color Urine Yellow [facility] Appearance Urine Clear [facility] PH 6.0 5.0 - 9.0 [facility] Glucose Urine UA Negative Negative mg/dL [facility] Urine Blood Negative Negative [facility] Specific [place] - Urine >=1.030(H) 1.005 - 1.025 [facility] Urine Protein Negative Neg-Trace mg/dL [facility] Urine Ketones Negative Negative mg/dL [facility] Nitrite Urine Negative Negative [facility] Leukocyte Esterase Urine Negative Negative [facility] 04/07/2023 4:54 PM EDT 04/07/2023 4:59 PM EDT Narrative [facility] - 04/07/2023 5:39 PM EDT unable to urinate at this [id number], Clean Catch us [facility] External Provider LAB URI NE ORDERABLES Final Result [facility] [address] [place] [address] [phone] * HCG, Qualitative, Urine (04/07/2023 4:54 PM EDT) Urine NEGATIVE NEGATIVE [facility] Comment:This test was develo ped to detect early . Falsenegative results may occur after the 5th - 7th week ofpregnancy when using this test method. If clinicallyindicated, consider a serum hCG. 04/07/2023 4:54 PM EDT 04/07/2023 4:59 PM EDT Narrative [facility] - 04/07/2023 5:35 PM EDT unable to urinate at this time [facility] External Provider LAB URI NE ORDERABLES Final Result Performing Organization Address [facility] Co de Phone Number [facility] [address] [place] [phone] * High Sensitivity Troponin I (04/07/2023 8:27 AM EDT) [facility] TROPONIN I HIGH SENSITIVITY <2.7 <3.5 - 17.0 ng/L [facility] Comment:The [place] high sens itivity Troponin-I results should beused in conjunction with other diagnostic information suchas ECG, clinical observations and information, and patientsymptoms to aid in the diagnosis of [place]. 04/07/2023 8:27 AM EDT 04/07/2023 8:33 AM EDT [facility] External Provider LAB BLO OD ORDERABLES Final Result Performing Organization Address [facility] Co de Phone Number [facility] [address] [place] [phone] * Basic Metabolic Panel (04/07/2023 8:27 AM EDT) [facility] Sodium 143 135 - 145 mmol/L [facility] Potassium 3.7 3.3 - 5.1 mmol/L [facility] Chloride 108 96 - 108 mmol/L [facility] Carbon Dioxide 23 22 - 29 mmol/L [facility] Anion Gap 16 12 - 20 [facility] Urea Nitrogen (BUN) 15 9 - 16 mg/dL [facility] Creatinine, Serum 0.79 0.5 - 1.4 mg/dL [facility] Creatinine Clr Calc Pharmacy 95.5 [facility] Comment:Provided height and weight: 157.48 cm,75.6 kg.eGFR (calculated from the MDRD study equation) and eCrCl(calculated from the Cockcroft-Gault equation) are based ondifferent parameters and may not yield comparable results.If eCrCl result is absurd, please check patient'sheight/weight. Estimated Glomerular Filt Rate >60 [facility] Comment:NOTE: For -Am erican individuals, multiply the result by 1.210.Chronic Kidney Disease: Estimated GFR < 60 mL/min/[id number] Kidney Disease: Estimated GFR < 15 mL/min/1.73m2 Glucose 88 60 - 115 mg/dL [facility] Calcium 9.2 8.4 - 10.2 mg/dL [facility] 04/07/2023 8:27 AM EDT 04/07/2023 8:33 AM EDT [facility] External Provider LAB BLO OD ORDERABLES Final Result [facility] [address] [place] [phone] * (ABNORMAL) CBC auto differential (04/07/2023 8:27 AM EDT) White Blood Count 7.1 4.8 - 10.8 X10*3/uL [facility] Red Blood Count 4.07(L) 4.20 - 5.50 X10*6/uL [facility] Hemoglobin 11.9(L) 12.0 - 16.0 g/dl [facility] Hematocrit 37.8 37.0 - 47.0 % [facility] Mean Corpuscular Volume 92.9 80.0 - 98.0 fL [facility] Mean Corpuscular Hemoglobin 29.2 27.0 - 33.0 pg [facility] Mean Corpuscular HGB Conc 31.5 31.0 - 35.0 g/dl [facility] Red Cell Distribution Width 12.4 11.0 - 16.0 % [facility] Platelet Count 247 160 - 400 X10*3/uL [facility] Mean Platelet Volume 10.9 9.4 - 12.3 fL [facility] Neutrophils Percent Auto 64.6 45 - 73 % [facility] Imm Gran Pct Auto 0.1 0.0 - 0.4 % [facility] Lymphocytes Percent Auto 27.2 20 - 40 % [facility] Monocytes Percent Auto 5.4 2 - 11 % [facility] Eosinophils Percent Auto 2.3 0 - 4 % [facility] Basophils Percent Auto 0.4 0 - 2 % [facility] NRBC Pct Auto 0.0 0.0 - 0.2 /100WBC [facility] Neutrophils Absolute Auto 4.6 2.0 - 8.3 x10*3/uL [facility] Imm Gran Abs Auto 0.01 0.00 - 0.03 X10*3/uL [facility] Lymphocytes Absolute Auto 1.9 1.2 - 4.9 X10*3/uL [facility] Monocytes Absolute Auto 0.4 0.1 - 1.2 X10*3/uL [facility] Eosinophils Absolute Auto 0.2 0.0 - 0.4 X10*3/uL [facility] Basophils Absolute Auto 0.0 0.0 - 0.2 X10*3/uL [facility] NRBC Abs Auto 0.000 0.0 - 0.012 X10*3/uL [facility] 04/07/2023 8:27 AM EDT 04/07/2023 8:33 AM EDT us [facility] External Provider LAB BLO OD ORDERABLES Final Result [facility] [address] [place] [address] [phone] * Magnesium (12/31/2022 3:54 PM EDT) Magnesium 1.7 1.6 - 2.6 mg/dL [facility] 12/31/2022 3:54 PM EDT 12/31/2022 3:58 PM EDT [facility] External Provider LAB BLO OD ORDERABLES Final Result Performing Organization Address City/[facility]/ZIP Co de Phone Number [facility] [address] [place] [address] [phone] * (ABNORMAL) Basic Metabolic Panel (12/31/2022 3:54 PM EDT) Sodium 138 135 - 145 mmol/L [facility] Potassium 3.5 3.3 - 5.1 mmol/L [facility] Chloride 105 96 - 108 mmol/L [facility] Carbon Dioxide 25 22 - 29 mmol/L [facility] Anion Gap 12 12 - 20 [facility] Urea Nitrogen (BUN) 8(L) 9 - 16 mg/dL [facility] Creatinine, Serum 0.80 0.5 - 1.4 mg/dL [facility] Creatinine Clr Calc Pharmacy 92.4 [facility] Comment:Provided height and weight: 157.48 cm,72.575 kg.eGFR (calculated from the MDRD study equation) and eCrCl(calculated from the Cockcroft-Gault equation) are based ondifferent parameters and may not yield comparable results.If eCrCl result is absurd, please check patient'sheight/weight. Estimated Glomerular Filt Rate >60 [facility] Comment:NOTE: For -Am erican individuals, multiply the result by 1.210.Chronic Kidney Disease: Estimated GFR < 60 mL/min/1.09k6Iwusib Kidney Disease: Estimated GFR < 15 mL/min/1.73m2 Glucose 156(H) 60 - 115 mg/dL [facility] Calcium 8.6 8.4 - 10.2 mg/dL [facility] 12/31/2022 3:54 PM EDT 12/31/2022 3:58 PM EDT [facility] External Provider LAB BLO OD ORDERABLES Final Result [facility] [address] [place] [address] [phone] * Hepatic Function Panel (12/31/2022 3:54 PM EDT) [facility] Bilirubin, Total 0.4 0.0 - 1.0 mg/dL [facility] Bilirubin, Direct 0.1 0.0 - 0.5 mg/dL [facility] Aspartate Amino Transferase 13 5 - 31 U/L [facility] Alanine Aminotransferase 10 0 - 31 U/L [facility] Total Protein 6.9 6.5 - 8.0 g/dL [facility] Albumin Level 3.8 3.5 - 5.0 g/dL [facility] Alkaline Phosphatase 101 39 - 117 U/L [facility] 12/31/2022 3:54 PM EDT 12/31/2022 3:58 PM EDT [facility] External Provider LAB BLO OD ORDERABLES Final Result Performing Organization Address [facility] de Phone Number [facility] [address] [place] [address] [phone] * (ABNORMAL) CBC auto differential (12/31/2022 3:54 PM EDT) [facility] White Blood Count 17.7(H) 4.8 - 10.8 X10*3/uL [facility] Red Blood Count 3.80(L) 4.20 - 5.50 X10*6/uL [facility] Hemoglobin 10.8(L) 12.0 - 16.0 g/dl [facility] Hematocrit 34.4(L) 37.0 - 47.0 % [facility] Mean Corpuscular Volume 90.5 80.0 - 98.0 fL [facility] Mean Corpuscular Hemoglobin 28.4 27.0 - 33.0 pg [facility] Mean Corpuscular HGB Conc 31.4 31.0 - 35.0 g/dl [facility] Red Cell Distribution Width 15.5 11.0 - 16.0 % [facility] Platelet Count 252 160 - 400 X10*3/uL [facility] Mean Platelet Volume 9.9 9.4 - 12.3 fL [facility] Neutrophils Percent Auto 89.4(H) 45 - 73 % [facility] Imm Gran Pct Auto 0.9(H) 0.0 - 0.4 % [facility] Lymphocytes Percent Auto 4.4(L) 20 - 40 % [facility] Monocytes Percent Auto 2.5 2 - 11 % [facility] Eosinophils Percent Auto 2.5 0 - 4 % [facility] Basophils Percent Auto 0.3 0 - 2 % [facility] NRBC Pct Auto 0.0 0.0 - 0.2 /100WBC [facility] Neutrophils Absolute Auto 15.9(H) 2.0 - 8.3 x10*3/uL [facility] Imm Gran Abs Auto 0.16(H) 0.00 - 0.03 X10*3/uL [facility] Lymphocytes Absolute Auto 0.8(L) 1.2 - 4.9 X10*3/uL [facility] Monocytes Absolute Auto 0.5 0.1 - 1.2 X10*3/uL [facility] Eosinophils Absolute Auto 0.4 0.0 - 0.4 X10*3/uL [facility] Basophils Absolute Auto 0.1 0.0 - 0.2 X10*3/uL [facility] NRBC Abs Auto 0.000 0.0 - 0.012 X10*3/uL [facility] 12/31/2022 3:54 PM EDT 12/31/2022 3:58 PM EDT us [facility] External Provider LAB BLO OD ORDERABLES Final Result [facility] [address] [place], [place] [phone] documented in this encounter Visit Diagnoses Not on filedocumented in this encounter Care Teams Canceling And Cutting Control Clerk Relationship Specialty Start Date End Date Samira Michael MD [address] [place] [address] PCP - General Family Medicine 04/26/14 documented as of this encounter
--- OUTSIDE RECORDS SUMMARY | 2025-04-26 18:20 | XMS_ITS | Encounter Summary ---
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
--- OUTSIDE RECORDS SUMMARY | 2025-04-26 18:20 | XMS_ITS | Encounter Summary ---
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
--- OUTSIDE RECORDS SUMMARY | 2025-04-26 18:20 | XMS_ITS | Encounter Summary ---
Author Organization [employer] Address [address] [place] [address] [address] [place] [address] Care Team Providers Care Photographer Aerial Name Role Phone Samira Michael MD Primary Care Provider [phone] Reason for Referral * Consultation (Routine) - Closed Specialty Diagnoses / Procedures Referred By Kp abreu Referred To Contact Occupational Therapy Diagnoses Right lateral epicondylitis Samira Michael MD [address] [place] [phone] Phone: tel: fax: [facility] Physical Therapy [address] [place] [address] Phone: tel: fax: Referral ID Status Reason Start Date Expiration Date V isits Requested Visits Authorized [id number] Closed Specialty Services Required 01/28/2024 01/27/2025 20 20 Encounter Details Date Type Department Care Team (Late st Contact Info) Description 01/26/2024 Orders Only 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
--- OUTSIDE RECORDS SUMMARY | 2025-04-26 18:21 | XMS_ITS | Encounter Summary ---
Author Organization [employer] Address [address] [place] [address] Care Team Providers Care Commercial [employer] Sales Executive Name Role Phone Samira Michael MD Primary Care Provider [phone] Encounter Details Date Type Department Care Team ([facility] st Contact Info) Description 09/24/2023 Orders Only [facility] [address] [place], [place] [phone] Samira Michael MD [address] [place], [place] [phone] Social History Tobacco Use Types Packs/Day Years [...] as of this encounter Care Teams [employer] Sales Executive Relationship Specialty Start Date End Date Samira Michael MD [address] [place] [id number] PCP - General Family Medicine 04/26/14 documented as of this encounter
--- OUTSIDE RECORDS SUMMARY | 2025-04-26 18:21 | XMS_ITS | Clinical Summary ---
Author Organization [employer] Address [address] [place] [address] 7 [place] [address] Care Team Providers Care Branch Account Manager Name Role Phone Samira Michael MD Primary Care Provider [phone] Allergies Active Allergy Reactions Criticality Noted Date Comments Pseudoephedrine 12/31/2022 Other reaction(s): UNKNOWN Sulfa Antibiotics 10/08/2019 Medications omeprazole (PriLOSEC) [address] capsule TAKE [...] morning. 30 packet 3 09/24/19 24 Active fluticasone (Flonase Allergy Relief) 50 MCG/ACT nasal sprayIndications :Allergic rhinitis, unspecified seasonality, unspecified trigger Administer 1-2 [...] 04/30/20 24 Active cetirizine (ZyrTEC) 10 MG tabletIndication s:Allergic rhinitis, unspecified seasonality, unspecified trigger TAKE 1 TABLET BY MOUTH EVERY DAY IN THE MORNING 90 tablet 3 10/14/19 25 Active Linzess 145 MCG capsule TAKE 1 CAPSULE BY MOUTH EVERY DAY ON EMPTY STOMACH AT LEAST 30 MINUTES BEFORE 1ST MEAL OF THE DAY 30 capsule 3 11/26/19 25 Active amoxicillin-clav ulanate (Augmentin) 875-125 MG tablet Take 1 tablet by mouth 2 times daily. 14 tablet 11/26/19 25 Active ipratropium (Atrovent) 0.03 % nasal spray Administer 2 sprays into each nostril every 12 (twelve) hours. 30 mL 1 11/26/19 25 026 Active metroNIDAZOLE (Metrogel) 0.75 % vaginal gelIndications:B acterial Vaginosis Insert one applicator into vagina at bedtime for 7 nights 45 g 12/09/19 25 Active montelukast (Singulair) 10 MG tabletIndication s:Mild persistent asthma without complication,All ergic rhinitis, unspecified seasonality, unspecified trigger Take 1 tablet (10 mg) by mouth in the evening. 90 tablet 3 01/08/20 25 Active albuterol (2.5 MG/3ML) 0.083% nebulizer solutionIndicati ons:Mild persistent asthma without complication Take 3 mL (2.5 mg) by nebulization every 6 (six) hours if needed for wheezing. 75 mL 2 01/08/20 25 Active albuterol (Ventolin HFA) 108 (90 Base) MCG/ACT inhalerIndicatio ns:Mild persistent asthma without complication Inhale 2 puffs by mouth every 4-6 hours as needed 18 g 3 01/08/20 25 Active scopolamine (Transderm-Scop) 1 MG/3DAYS patch 72 hourIndications: Motion sickness, initial encounter Place 1 patch on the skin every 3rd (third) day. 10 patch 1 01/08/20 25 Active linaCLOtide (Linzess) 72 MCG capsule Take 1 or 2 capsules by mouth daily. Do not crush or chew. 60 capsule 11 01/27/20 25 Active omeprazole (PriLOSEC) [address] capsuleIndicatio ns:Abdominal pain, unspecified abdominal location TAKE 1 CAPSULE BY MOUTH TWICE DAILY 180 capsule 1 02/11/20 25 Active cefpodoxime (Vantin) 200 MG tablet Take 1 tablet (200 mg) by mouth 2 times daily for 7 days. 14 tablet 04/26/20 25 025 Active acetaminophen (Tylenol) 500 MG tablet Take 2 tablets (1,000 mg) by mouth every 6 (six) hours if needed for moderate pain or fever for up to 25 doses. 50 tablet 04/26/20 25 Active fluconazole (Diflucan) 150 MG tablet Take 1 tablet (150 mg) by mouth Once per day for 1 dose. May repeat dose in 3 days prn 2 tablet 04/26/20 25 025 Active nitrofurantoin, macrocrystal-mon ohydrate, (Macrobid) 100 MG capsuleIndicatio ns:Urinary tract infection without hematuria, site unspecified Take 1 capsule (100 mg) by mouth 2 times daily for 7 days. 14 capsule 04/09/20 25 025 Active Problems Problem Noted Date Diagnosed Date Status post cholecystectomy 01/26/2025 Assessment & Plan (01/27/2025 10:55 PM EDT): - Pt is experiencing diarrhea but she also has chronic constipation. She is currently taking Linzess and will be lowering its dose. - Pt declined taking cholestyramine - Pt would like to return to work on February 01 - Prescribed linaCLOtide (Linzess) 72 MCG capsule Elevated BP without diagnosis of hypertension Assessment & Plan (01/10/2025 5:44 PM EDT): -Goal BP < 140/90 per JNC-8 and < 130/80 per ACC/AHA guideline (Treatment threshold >=140/90) - Slightly elevated today -Continue working on lifestyle modifications -Recommended self-monitoring BP. -Follow up in 3-6 mo, sooner if any problem arises Low back pain, non-specific 12/08/2024 Assessment & Plan (12/08/2024 6:51 PM EDT): Likely musculoskeletal, less likely of renal etiology. No associated symptoms. Recent labs with normal renal function. -ordered UA and culture. Family history of coronary artery disease 2022 Assessment & Plan (01/10/2025 5:49 PM EDT): - seen by can piler in 2021, normal TTE and holter - safely discharged from their care in Apr 2024 - 02/05/23 TC 212; TG 75; HDL 60; LDL 112 - continue working on management of modifiable risk factors. Assessment & Plan (04/29/2023 1:08 PM EDT): - seen by can piler in 2021, normal TTE and holter - safely discharged from their care on 02/05/23 - 02/05/23 TC 212; TG 75; HDL 60; LDL 112 - continue working on management of modifiable risk factors. Palpitation 02/05/2023 Assessment & Plan (01/10/2025 5:45 PM EDT): - following with [facility], last seen on 02/01/23 - normal Holter and TTE in Apr 2022 - likely POTS, since she became symptomatic after COVID - continue monitoring and current treatment Assessment & Plan (08/20/2023 10:54 AM EST): - following with [facility] Cardiology, last seen on 02/01/23 - normal Holter and TTE in Apr 2022 - likely POTS, since she became symptomatic after COVID - continue monitoring and current treatment Assessment & Plan (02/05/2023 9:32 AM EDT): - following with [facility] Cardiology, last seen on 02/01/23 - normal Holter and TTE in Apr 2022 - likely POTS, since she became symptomatic after COVID - continue monitoring and current treatment Precordial pain 02/05/2023 Assessment & Plan (01/10/2025 5:48 PM EDT): - less frequent, yet still symptomatic - following with can piler, [facility], last seen oin Apr 2024 - normal TTE and Holter on 04/18/22 Assessment & Plan (01/10/2024 4:15 PM EDT): - less frequent, yet still symptomatic - following with can piler, [facility], last seen on 02/01/23 - normal TTE and Holter on 04/18/22 - will evaluate with KEVIN Assessment & Plan (02/05/2023 9:30 AM EDT): - less frequent, yet still symptomatic - following with can piler, [facility], last seen on 02/01/23 - normal TTE and Holter on 04/18/22 - continue monitoring Obesity 02/04/2023 Assessment & Plan (01/10/2025 5:45 PM EDT): - Work on lifestyle modifications. Assessment & Plan (01/06/2024 12:08 PM EDT): - Work on lifestyle modifications. History of ovarian cyst 02/04/2023 POTS (postural orthostatic tachycardia syndrome) 02/04/2023 Assessment & Plan (01/10/2025 5:47 PM EDT): - followed by [facility], last seen on 04/30/24, safely discharged due to stability - normal Holter and TTE in Apr 2022 - likely POTS, since she became symptomatic after COVID - extensive work-up done, which revealed reassuring report for no CAD Assessment & Plan (01/10/2024 4:16 PM EDT): - following with [facility] Cardiology, last seen on 02/01/23 - normal Holter and TTE in Apr 2022 - likely POTS, since she became symptomatic after COVID - will evaluate with KEVIN Assessment & Plan (08/20/2023 10:54 AM EST): - following with [facility] Cardiology, last seen on 02/01/23 - normal Holter and TTE in Apr 2022 - likely POTS, since she became symptomatic after COVID - continue monitoring and current treatment Assessment & Plan (04/29/2023 1:09 PM EDT): - following with [facility] Card[facility], last seen on 02/01/23 - normal Holter and TTE in Apr 2022 - likely POTS, since she became symptomatic after COVID - continue monitoring and current treatment Assessment & Plan (02/05/2023 9:32 AM EDT): - Hx COVID19 - continue monitoring - will consult with cardiologists History of gestational diabetes mellitus 023 Assessment & Plan (01/10/2025 5:48 PM EDT): - during last [id number] - diet-controlled - check A1C - continue working on lifestyle modification Assessment & Plan (02/05/2023 9:30 AM EDT): - during last [phone] - diet-controlled - check A1C - continue [...] HPV Allergic rhinitis 02/18/2013 Assessment & Plan (01/10/2025 5:49 PM EDT): - continue fluticasone, montelukast, and cetirizine - referred to embroidery specialist. Assessment & Plan (01/06/2024 12:08 PM EDT): - continue fluticasone, montelukast, and cetirizine - refer to embroidery specialist. Assessment & Plan (08/20/2023 4:40 AM EST): - continue fluticasone, montelukast, and cetirizine Asthma 02/18/2013 Assessment & Plan (01/10/2025 5:46 PM EDT): - continue mometasone (Asmanex) - continue albuterol both neb and HFA prn - continue montelukast - evaluated by [employer] operations intelligence officer 09/17/2023. Pt had normal PFT. Recommended embroidery specialist referral. Assessment & Plan (01/06/2024 10:29 AM EDT): - change fluticasone to mometasone (Asmanex) - continue albuterol prn - continue montelukast - evaluated by [employer] operations intelligence officer 09/17/2023. Pt had normal PFT. Recommended embroidery specialist referral. Assessment & Plan (08/20/2023 10:54 AM EST): - change fluticasone to mometasone (Asmanex) - continue albuterol prn - continue montelukast - refer to [employer] operations intelligence officer to assess if pt will benefit from immunologic Assessment & Plan (04/29/2023 1:09 PM EDT): - continue fluticasone - continue albuterol Assessment & Plan (02/05/2023 9:33 AM EDT): - continue fluticasone - continue albuterol Resolved Problems Problem Noted Date Diagnosed Date Resolved Date Acute bilateral thoracic back pain 12/15/2024 01/10/2025 Assessment & Plan (12/15/2024 7:12 PM EDT): Severe. Differential includes Pyelonephritis, renal calculi vs other. -pt to go to ER now Bacterial vaginosis 12/08/2024 01/11/20 Assessment & Plan (12/08/2024 6:50 PM EDT): -Wet prep with SUZY significant for mild yeast. Positive Clue cells. Whiff test negative. -Candidiasis prevention discussed. -Prescribed metroNIDAZOLE (Metrogel) 0.75 % vaginal gel Paresthesia of bilateral legs 02/05/2023 01/10/2024 Assessment & Plan (02/05/2023 9:55 AM EDT): - check lab B12 and TSH - consider checking NCT/EMG - ?restless leg syndrome Mastitis 02/04/2023 02/05/2023 Assessment & Plan (02/05/2023 9:31 AM EDT): - treated with cefadoxil - resolved Encounters Date Type Department Care Team Description 04/26/2025 11:00 AM EDT Office Visit [facility] [address] [place] [phone] Abad Balbuena MD UTI symptoms 04/09/2025 10:20 AM EDT Office Visit [facility] [address] [place] [phone] Bobo Mane MD Urinary tract infection without hematuria, site unspecified 04/09/2025 Travel 03/26/2025 Orders Only GENERIC EXTERNAL DATA DEPARTMENT Provider, Generic External Data 02/16/2025 Telephone [facility] [address] [place] [phone] Vanessa Trivedi MD 02/09/[address] [phone] Raquel Gardner MD Abdominal pain, unspecified abdominal location 02/03/2025 Results Follow-Up [facility] [address] [place] [address], [place] [address] Samira Michael MD Basic Metabolic Panel, Magnesium 01/26/2025 3:00 PM EDT Office Visit [facility] [address] [place] [address] Samira Michael MD Hypokalemia (Primary Dx); Status post cholecystectomy 01/26/2025 Travel from Last 3 Months Immunizations Immunization Administration Dates Next Due DTaP 12/19/2012 Hep [...] 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 Not on file [...] (183 lb) 04/26/2025 10:49 AM EDT Height 157.5 cm (5' 2 ) 04/09/2025 10:27 AM EDT Body Mass Index 33.47 04/09/2025 10:27 AM EDT Plan of Treatment Health Maintenance Due Date Last Done Comments Family Planning (PISQ) 2003 HPV Vaccines (1 - 3-dose series) 2003 HPV/Cotest 04/23/2022 04/23/2017 COVID-19 Vaccine ( season) 2024 09/06/2022, 11/10/2021, 10/03/2021, Additional history exists Cervical Cancer Screening 03/27/2025 Pap Smear 03/27/2025 03/27/2022 Influenza Vaccine (#1) 2025 , 05/18/2021, 05/18/2021, Additional history exists Alcohol/Substance Use Screening 12/25/2025 12/25/2024 Depression Screening 12/25/2025 12/25/2024, 12/26/19 SDOH Screening 12/25/2025 12/25/2024 Disability Screening 01/26/2026 01/26/2025 Tobacco Screening 04/26/2026 04/26/2025 Lipid Panel 01/05/2029 01/06/2024, 02/05/2023 DTaP/Tdap/Td Vaccines (4 - Td or Tdap) 07/20/2032 07/20/2022, 02/02/2016, 12/19/2012 Zoster Vaccines (1 of 2) 2038 RSV Patients and Patients Aged 60 years or older (1 - 1-dose 75+ series) 2063 Hepatitis B Vaccines Completed 02/02/2016, 11/03/2015, 09/27/2015 Pneumococcal Vaccine: Pediatrics (0 to 5 Years) and At-Risk Patients (6 to 49) Years Completed 08/20/2023, 03/13/2016, 12/19/2012 HIV Screening Completed 01/06/2024, 03/22/2022 Hepatitis C Screening Completed 01/06/2024, 019 HIB Vaccines Aged Out No longer eligi ble based on patient's age to complete this topic Hepatitis A Vaccines Aged Out No long er eligible based on patient's age to complete this topic IPV Vaccines Aged Out No longer eligi ble based on patient's age to complete this topic Meningococcal B Vaccine Aged Out No l onger eligible based on patient's age to complete [...] Routine 04/26/2025 11:03 AM EDT UTI symptoms CULTURE, URINE, ROUTINE Routine 04/09/2025 10:25 AM EDT Urinary tract infection without hematuria, site unspecified POCT URINALYSIS DIPSTICK Routine 04/09/2025 10:22 AM EDT Urinary tract infection without hematuria, site unspecified VITAMIN D 25-OH (D2 AND D3) Routine 03/26/2025 11:46 AM EDT VITAMIN B12/FOLATE, SERUM PANEL Routine 03/26/2025 11:46 AM EDT TSH W/REFLEX TO FT4 Routine 03/26/2025 1 1:46 AM EDT LIPASE Routine 03/26/2025 11:46 AM EDT COMPREHENSIVE METABOLIC PANEL Routine 03/26/2025 11:46 AM EDT MAGNESIUM Routine 02/03/2025 12:33 PM EDT Hypokalemia BASIC METABOLIC PANEL Routine 02/03/2025 12:33 PM EDT Hypokalemia HEPATITIS C AB W/REFL TO HCV RNA, [...] (BMI) of 33.0 to 33.9 in adult HM PAP/HPV Routine 03/27/2022 ZZZ HISTORICAL HPV MRNA E6/E7 Routine 04/23/2017 11:03 AM EDT from Last 3 Months or Most Recently Relevant to Health Maintenance Results * (ABNORMAL) POCT urinalysis dipstick manually resulted (04/26/2025 11:03 AM EDT) Only the most recent of2 resultswithin the time period is included. Color, UA Yellow Clarity, UA Cloudy Glucose, UA Negative Bilirubin, UA Negative Ketones, UA Positive Comment:Trace Spec Grav, UA 1.025 Blood, UA Positive(A) Negative, None Detected pH, UA 6.5 Protein, UA 2+ 125++ Comment:!00mg Urobilinogen, UA 1.0 Leukocytes, UA Many(A) Negative, Rare, Trace Nitrite, UA Negative Negative, None Detected Appearance, UA OK Urine 04/26/2025 11:0 3 AM EDT Abad Balbuena MD POINT OF CARE TEST ENTER/EDIT OR DERABLES Final Result * Culture, Urine, Routine (04/09/2025 10:25 AM EDT) Urine Urine specimen obtained by clean catch procedure / Unknown 04/09/2025 10:25 AM EDT 04/09/2025 1:17 PM EDT Comment:UACC Narrative [facility] - 04/10/2025 1:05 PM EDT Urine Culture Report Result Urine Culture > 100,000 cfu/ml Urine Culture Mixed bacterial dora characteristic of Urine Culture urogenital contamination. Specimen Source: Urine clean catch Bobo Mane MD LAB MICROBIOLOGY - GENERAL ORDER SRINI Final Result [facility] [address] [place] [phone] * VITAMIN D 25-OH (D2 AND D3) (03/26/2025 11:46 AM EDT) Vitamin D, 25-OH, D2 <4 ng/mL [facility] Comment:This test was develo ped and its analytical performancecharacteristics have been determined by [employer] [place] [place] It hasnot been cleared or approved by the U.S. Food and DrugAdministration. This assay has been validated pursuantto the CLIA regulations and is used for clinicalpurposes.THIS TEST WAS PERFORMED AT:[facility] [id number] [place] [address]LOSTFRTDAGOBERTO CONNELLY MD,PHD Vitamin D, 25-OH, D3 32 ng/mL [facility] Comment:This test was develo ped and its analytical performancecharacteristics have been determined by [employer]. It hasnot been cleared or approved by the U.S. Food and DrugAdministration. This assay has been validated pursuantto the CLIA regulations and is used for clinicalpurposes. Vitamin D, 25-OH, Total 32 30 - 100 ng/mL [facility] Comment:Vitamin D, 25-Hydrox y reports concentrations of twocommon forms, 25-OHD2 and 25-OHD3. 25-OHD3 indicatesboth endogenous production and supplementation.25-OHD2 is an indicator of exogenous sources such asdiet or supplementation. Therapy is based onmeasurement of Total 25-OHD, with levels <20 ng/mLindicative of Vitamin D deficiency, while levelsbetween 20 ng/mL and 30 ng/mL suggest insufficiency.Optimal levels are > or = 30 ng/mL.For additional information, please refer tohttp://education.[employer]/faq/MFO396(This link is being provided for informational/educational purposes only.) 03/26/2025 11:4 6 AM EDT 03/26/2025 11:46 AM EDT us Generic External Data Provider LAB BLOOD ORDERAB LES Final Result Performing Organization Address City/[facility]/ZIP Co de Phone Number [facility] [address] [place] [phone] * Vitamin B12 (Cobalamin) and Folate Panel, Serum (03/26/2025 11:46 AM EDT) Vitamin B12 424 200 - 900 pg/mL [facility] Comment:NORMAL 200-900 PG/ML INDETERMINATE 160-199 PG/ML DEFICIENT < 160 PG/ML Folate 12.8 > or = 4.0 ng/mL [facility] Comment:Reference Values:> o r = 4.0 ng/mL< 4.0 ng/mL suggests folate deficiency Methotrexate, aminopterin and folinic acid(leucovorin) are chemotherapeutic agents whose molecularstructures are similar to folate; therefore, the Architectfolate assay cannot be used for patients using these drugs. 03/26/2025 11:4 6 AM EDT 03/26/2025 11:46 AM EDT us Generic External Data Provider LAB BLOOD ORDERAB LES Final Result Performing Organization Address [facility] Co de Phone Number [facility] [address] [place] [phone] * TSH with Reflex to Free T4 (03/26/2025 11:46 AM EDT) TSH reflex Free T4 1.20 0.32 - 4.0 uIU/mL [facility] 03/26/2025 11:4 6 AM EDT 03/26/2025 11:46 AM EDT us Generic External Data Provider LAB BLOOD ORDERAB LES Final Result Performing Organization Address City/[facility]/ZIP Co de Phone Number [facility] [address] [place] [phone] * Lipase (03/26/2025 11:46 AM EDT) Lipase 20 8 - 78 U/L [facility] 03/26/2025 11:4 6 AM EDT 03/26/2025 11:46 AM EDT us Generic External Data Provider LAB BLOOD ORDERAB LES Final Result [facility] [address] [place] [phone] * (ABNORMAL) Comprehensive Metabolic Panel (03/26/2025 11:46 AM EDT) Sodium 141 135 - 145 mmol/L [facility] Potassium 4.1 3.3 - 5.1 mmol/L [facility] Chloride 104 96 - 108 mmol/L [facility] Carbon Dioxide 31(H) 22 - 29 mmol/L [facility] Anion Gap 10(L) 12 - 20 [facility] Urea Nitrogen (BUN) 10 9 - 16 mg/dL [facility] Creatinine, Serum 0.67 0.5 - 1.4 mg/dL [facility] Estimated Glomerular Filt Rate >60 [facility] Comment:Chronic Kidney Disea se: Estimated GFR < 60 mL/min/[id number] Kidney Disease: Estimated GFR < 15 mL/min/1.73m2 Glucose 99 60 - 115 mg/dL [facility] Calcium 9.3 8.4 - 10.2 mg/dL [facility] Bilirubin, Total 0.2 0.0 - 1.0 mg/dL [facility] Aspartate Amino Transferase 26 5 - 31 U/L [facility] Alanine Aminotransferase 21 0 - 31 U/L [facility] Total Protein 7.9 6.5 - 8.0 g/dL [facility] Albumin Level 4.5 3.5 - 5.0 g/dL [facility] Alkaline Phosphatase 77 39 - 117 U/L [facility] 03/26/2025 11:4 6 AM EDT 03/26/2025 11:46 AM EDT us Generic External Data Provider LAB BLOOD ORDERAB LES Final Result Performing Organization Address [facility]/ZIP Co de Phone Number [facility] [address] [place] [phone] * Magnesium (02/03/2025 12:33 PM EDT) Magnesium 2.3 1.6 - 2.6 mg/dL [facility] Blood Venous blood specimen / Unknown 02/03/2025 12:33 PM EDT 02/03/2025 4:05 PM EDT Samira Michael MD LAB BLOOD ORDERABLES Final Resul t Performing Organization Address [facility] Co de Phone Number [facility] [address] [place] [phone] * (ABNORMAL) Basic Metabolic Panel (02/03/2025 12:33 PM EDT) Sodium 142 135 - 145 mmol/L [facility] Potassium 4.4 3.3 - 5.1 mmol/L [facility] Chloride 107 96 - 108 mmol/L [facility] Carbon Dioxide 27 22 - 29 mmol/L [facility] Anion Gap 12 12 - 20 [facility] Urea Nitrogen (BUN) 8(L) 9 - 16 mg/dL [facility] Creatinine, Serum 0.72 0.5 - 1.4 mg/dL [facility] Estimated Glomerular Filt Rate >60 [facility] Comment:Chronic Kidney Disea se: Estimated GFR < 60 mL/min/1.92i4Kajpuc Kidney Disease: Estimated GFR < 15 mL/min/1.73m2 Glucose 62 60 - 115 mg/dL [facility] Calcium 8.9 8.4 - 10.2 mg/dL [facility] Blood Venous blood specimen / Unknown 02/03/2025 12:33 PM EDT 02/03/2025 4:05 PM EDT Samira Michael MD LAB BLOOD ORDERABLES Final Resul t Performing Organization Address [facility] Co de Phone Number [facility] [address] [place] [phone] * (ABNORMAL) Lipid Panel with Reflex to Direct LDL (01/06/2024 10:55 AM EDT) Triglycerides 73 <150 mg/dL [facility] Comment:Desirable Triglyceri de: less than 150 mg/dLBorderline High Triglyceride 150-199 mg/dLHigh Triglyceride: 200-499 mg/dLVery High Triglyceride: greater than or equal to 5OO mg/dL Cholesterol 186 <200 mg/dL [facility] Comment:Desirable Cholestero l: less than 200 mg/dLBorderline High Cholesterol: 200-239 mg/dLHigh Cholesterol: greater than 239 mg/dL LDL Cholesterol Calculated 122(H) <100 mg/dL [facility] Comment:Desirable LDL: less than 100 mg/dLNear Optimal/Above Optimal LDL: 110- 129 mg/dLBorderline High LDL: 130-159 mg/dLHigh LDL: 160-189 mg/dLVery High LDL: greater than or equal to 190 mg/dL HDL Cholesterol 50 >40 mg/dL [facility] Comment:Desirable HDL: great er than 40 mg/dL Note: This HDL assay may give artificially low results in patients with liver disease. Blood 01/06/2024 10:5 5 AM EDT 01/06/2024 1:02 PM EDT Samira Michael MD LAB BLOOD ORDERABLES Final Resul t Performing Organization Address [facility]/ZIP Co de Phone Number [facility] [address] [place] [phone] * Hepatitis C Antibody with Reflex to HCV, RNA, Quantitative, Real-Time PCR (01/06/2024 10:55 AM EDT) Hepatitis C Antibody Nonreactive Nonreactive [facility] Comment:Antibodies to HCV no t detected; does not exclude early acuteHCV infection. Blood Venous blood specimen / Unknown 01/06/2024 10:55 AM EDT 01/06/2024 1:02 PM EDT Samira Michael MD LAB BLOOD ORDERABLES Final Resul t Performing Organization Address [facility]/ZIP Co de Phone Number [facility] [address] [place] [phone] * HIV-1/2 Antigen and Antibodies, Fourth Generation, with Reflexes (01/06/2024 10:55 AM EDT) HIV AB/AG Nonreactive Nonreactive [facility] Comment:HIV-1 p24 Ag and/or HIV-1/HIV-2 Ab not detected.A test result that is nonreactive does not exclude thepossibility of exposure to or infection with HIV-1 and/orHIV-2. Nonreactive results in this assay for individualswith prior exposure to HIV-1 and/or HIV-2 may be due toantigen and antibody levels that are below the limit ofdetection of this assay.The [employer] HIV Ag/Ab Combo assay result andsupplemental assay results should be interpreted inconjunction with the patient's clinical presentation,history and other laboratory results. If the results areinconsistent with clinical evidence, additional testing issuggested to confirm the result. Blood Venous blood specimen / Unknown 01/06/2024 10:55 AM EDT 01/06/2024 1:02 PM EDT Samira Michael MD LAB BLOOD ORDERABLES Final Resul t Performing Organization Address City/[facility]/ZIP Co de Phone Number [facility] [address] [place] [address] [phone] * HM PAP/HPV (03/27/2022) Pap Smear 1. NILM 1. NILM Historical Provider HEALTH MAINTENANCE Final Result * HPV mRNA E6/E7 (04/23/2017 11:03 AM EDT) HPV mRNA E6/E7 Not Detected NOT DETECTED [facility] Comment: This test was performed using the APTIMA(R) HPV Assay ([employer] This assay detects E6/E7 viral messenger RNA (mRNA) from 14 high-risk HPV types (16,18,31,33,35,39,45,51, 52,56,58,59,66,68). For additional information please refer to: http://education.JumpIn/faq/MOV239n0 (This link is being provided for informational/ educational purposes only.) Test Performed by [facility], [facility], [address] [place] [id number] Dagoberto Connelly M.D., Ph.D., Director of Laboratories , [place] [id number] Please note: Effective 05/14/2016, HPV testing will be performed using [employer] APTIMA test which targets mRNA. Detecting mRNA instead of DNA, as in older methods, offers significant improvements in specificity. 04/23/2017 11:0 3 AM EDT us Historical Provider HISTORICAL/NON ORDERABLE LABS Final Result [facility] [address] from Last 3 Months or Most Recently Relevant to Health Maintenance Insurance [employer] Care Teams Branch Account Manager Relationship Specialty Start Date End Date Samira Michael MD [address] [place] [phone] PCP - General Family Medicine 04/26/14
== END 2025-04-26 17:48 | disposition home or self-care (01) ==
LOC: HO.HHCLNP 17:47
PROVIDERS: Visit Provider Emergency Medicine
DX: R39.9 Unspecified symptoms and signs involving the genitourinary system (principal)
CPT/HCPCS: 87086

== ENCOUNTER 2025-05-04 12:20 | Outpatient (AMB) | payer MEDICAID, SELFPAY ==
[2025-05-04 12:29] VITALS: BP 120/68; PULSE 81; BMI 33.1
--- NOTE | 2025-05-04 12:29 | MHC.OFFVIS ---
Vital Signs 05/04/25 12:29 Height 5 ft 2 in Weight 180 lb 12.465 oz BMI 33.1 BP 120/68 Blood Pressure Location Lt brachial Position Sitting Pulse 81 Pulse Source Monitor Intake Visit Reasons: 1 year f/u Allergies pseudoephedrine (From Sudafed) Allergy (Unknown, Verified 03/26/25 11:10) UNKNOWN Medication List - Last Reconciled 05/04/25 by Rick Daniel MD albuterol sulfate 90 mcg/actuation (ProAir HFA) 2 puffs PO Q4-6H PRN amitriptyline 20 mg PO cetirizine (Zyrtec) 10 mg PO DAILY PRN esomeprazole magnesium (Nexium) 40 mg PO DAILY famotidine (Pepcid) 20 mg PO DAILY fluticasone propionate 110 mcg/actuation (Flovent HFA) 2 puffs inhalation .once daily fluticasone propionate 50 mcg/actuation 2 sprays intranasal DAILY PRN ipratropium bromide 2 sprays intranasal BID linaclotide (Linzess) 145 mcg PO DAILY ondansetron HCl 4 mg PO Q8H PRN HPI Comments Details: The patient is a 34-year-old female presenting with chest pain and associated symptoms. The chest pain has been occurring intermittently for the past three to four months, characterized by a stabbing sensation in the upper chest area. The pain can occur spontaneously, even when the patient is at rest, and is sometimes accompanied by weakness. The patient reports that the pain occasionally wakes her from sleep and is associated with numbness and tingling sensations in the head. She describes a sensation of her heart beating rapidly, particularly noticeable in her ears, and a bruise-like discomfort in the chest area that persists throughout the day. The pain is also worse with activities like bending down and whenever she has her child on her shoulder which suggest a possible musculoskeletal etiology. The patient has undergone multiple evaluations, including blood tests and EKGs, all of which have returned normal results, suggesting no cardiac etiology for her symptoms. The pain does not worsen with physical activity, such as walking or climbing stairs. The patient notes a correlation between the onset of her symptoms and her menstrual cycle, with symptoms appearing one to two weeks before menstruation and improving afterward. She also reports experiencing stress and anxiety, which may contribute to her symptoms, including numbness and tingling. [facility] Medical History (Updated 03/26/25 @ 21:02 by Lorna Matta [facility]) Chronic idiopathic constipation Anxiety IBS (irritable bowel syndrome) Asthma Acid reflux Surgical History (Updated 03/26/25 @ 20:57 [facility] Hx of cholecystectomy Hx of colonoscopy Family History Father Diabetes Mother Diabetes Social History Alcohol intake: never Patient Tobacco Use Status: Never used Tobacco Sexual orientation: Straight/Heterosexual Gender identity: Female Female Reproductive History Menstrual Age of Menarche: 12 Review of Systems Const Denies weakness ENT Denies dizziness Card Denies chest pain, Reports chest pain with activity, Denies syncope, Denies rapid heart rate, Denies pedal edema, Denies edema, Denies leg edema, Denies lightheadedness, Denies palpitations, Denies dyspnea, Denies dyspnea on exertion and Denies orthopnea Resp Denies cough, Denies dyspnea and Denies dyspnea on exertion GI Denies hematochezia and Denies change in stool character Musc Denies abnormal gait, Denies muscle cramps, Denies muscle weakness, Denies numbness, Denies radiating pain into limb and Denies tingling Neuro Denies abnormal gait, Denies dizziness, Denies syncope, Denies numbness, Denies tingling and Denies weakness Endo Denies palpitations Physical Exam Vital Signs: Last Vital Signs Pulse 81 05/04/25 12:29 BP 120/68 05/04/25 12:29 BMI result Body Mass Index 33.1 Const General: comfortable and no acute distress Orientation/consciousness: patient oriented x3 HEENT Other: Unremarkable Head: Yes normal to inspection Neck Neck: Yes normal visual inspection Chest Chest palpation & inspection: normal inspection of the chest Resp Auscultation: clear to auscultation bilaterally Cardio Palpation: normal PMI Heart sounds: S1 normal heart sound present, S2 normal heart sound present, no gallops, Murmur heart sound present systolic II/ and at the right sternal border and no rubs GI Palpation (GI): Soft to palpation Back/Spine/Pelvis Other: unremarkable Skin General skin exam: no rashes or lesions noted Neuro General: patient oriented x3 Extrem General: Yes normal to inspection Psych Mental Status: mental status grossly normal Office Procedures EKG Details: EKG with underlying sinus rhythm at 81/Min; Q-waves in the inferior leads is a normal variant; [place]. [address]-[id number], Complete Assessment & Plan Assessment & Plan (1) Chest discomfort: Code(s): R07.89 - Other chest pain Category: Medical Plan Cardiac studies reviewed. Baseline EKGs unremarkable and it is is unchanged over many years. Numerous high sensitivity troponins are within normal range. Echocardiogram with LVEF of 60-65%, no significant valvular findings and otherwise unremarkable. In the ETT, she was able to exercise for 7.7 METS and reached target heart rate. Had some chest heaviness but there was no EKG evidence of ischemia. Overall, extensive cardiac workup with no definitive pathological findings to explain the chest discomfort. As it is primarily happening with activities like bending down extra, most likely musculoskeletal in nature. If it indeed becomes exertional in the future or gets worse otherwise, advised her to contact us. Otherwise, mainly reassurance. Discussion Notes I discussed with the patient that her chest pain is likely musculoskeletal and not cardiac in nature, given her normal test results. We talked about the potential hormonal influence on her symptoms and the possibility of stress and anxiety contributing to her condition. I advised her to monitor her symptoms in relation to her menstrual cycle and consider stress management techniques. Patient was informed and verbally consented to the use of an ambient scribe for clinic note documentation during this visit. Patient Instructions: - Monitor symptoms in relation to menstrual cycle. - Practice stress management techniques to help alleviate anxiety-related symptoms. - Seek medical attention if symptoms worsen or if new symptoms develop. Coding Level of Care Code Est Pt Level 3 (85021) Diagnoses Chest discomfort R07.89 CPT Codes EKG - CPT: 32170-[id number], Complete ([id number])
--- OUTSIDE RECORDS SUMMARY | 2025-05-04 13:31 | XMS_ITS | Encounter Summary ---
Author Organization [employer] Address [address] [place] [address] [address] [place] [address] Care Team Providers Care Dental Laboratory Technician Apprentice Name Role Phone Samira Michael MD Primary Care Provider [phone] Encounter Details Date Type Department Care Team ([facility] st Contact Info) Description 10/10/2022 Orders Only [facility] [address] [place], [place] [phone] Perla Lang LPN Social History Tobacco Use [...] (04/07/2023 4:54 PM EDT) Color Urine Yellow [facility] Appearance Urine Clear [facility] PH 6.0 5.0 - 9.0 [facility] Glucose Urine UA Negative Negative mg/dL [facility] Urine Blood Negative Negative [facility] Specific [place] - Urine >=1.030(H) 1.005 - 1.025 [facility] Urine Protein Negative Neg-Trace mg/dL [facility] Urine Ketones Negative Negative mg/dL [facility] Nitrite Urine Negative Negative [facility] Leukocyte Esterase Urine Negative Negative [facility] 04/07/2023 4:54 PM EDT 04/07/2023 4:59 PM EDT Narrative [facility] - 04/07/2023 5:39 PM EDT unable to urinate at this [id number], Clean Catch us [facility] External Provider LAB URI NE ORDERABLES Final Result [facility] [address] [place] [address] [phone] * HCG, Qualitative, Urine (04/07/2023 4:54 PM EDT) Urine NEGATIVE NEGATIVE [facility] Comment:This test was develo ped to detect early . Falsenegative results may occur after the 5th - 7th week ofpregnancy when using this test method. If clinicallyindicated, consider a serum hCG. 04/07/2023 4:54 PM EDT 04/07/2023 4:59 PM EDT Narrative [facility] - 04/07/2023 5:35 PM EDT unable to urinate at this time [facility] External Provider LAB URI NE ORDERABLES Final Result Performing Organization Address [facility] Co de Phone Number [facility] [address] [place] [phone] * High Sensitivity Troponin I (04/07/2023 8:27 AM EDT) [facility] TROPONIN I HIGH SENSITIVITY <2.7 <3.5 - 17.0 ng/L [facility] Comment:The [place] high sens itivity Troponin-I results should beused in conjunction with other diagnostic information suchas ECG, clinical observations and information, and patientsymptoms to aid in the diagnosis of [place]. 04/07/2023 8:27 AM EDT 04/07/2023 8:33 AM EDT [facility] External Provider LAB BLO OD ORDERABLES Final Result Performing Organization Address [facility] Co de Phone Number [facility] [address] [place] [phone] * Basic Metabolic Panel (04/07/2023 8:27 AM EDT) [facility] Sodium 143 135 - 145 mmol/L [facility] Potassium 3.7 3.3 - 5.1 mmol/L [facility] Chloride 108 96 - 108 mmol/L [facility] Carbon Dioxide 23 22 - 29 mmol/L [facility] Anion Gap 16 12 - 20 [facility] Urea Nitrogen (BUN) 15 9 - 16 mg/dL [facility] Creatinine, Serum 0.79 0.5 - 1.4 mg/dL [facility] Creatinine Clr Calc Pharmacy 95.5 [facility] Comment:Provided height and weight: 157.48 cm,75.6 kg.eGFR (calculated from the MDRD study equation) and eCrCl(calculated from the Cockcroft-Gault equation) are based ondifferent parameters and may not yield comparable results.If eCrCl result is absurd, please check patient'sheight/weight. Estimated Glomerular Filt Rate >60 [facility] Comment:NOTE: For -Am erican individuals, multiply the result by 1.210.Chronic Kidney Disease: Estimated GFR < 60 mL/min/1.05a4Hnzmjs Kidney Disease: Estimated GFR < 15 mL/min/1.73m2 Glucose 88 60 - 115 mg/dL [facility] Calcium 9.2 8.4 - 10.2 mg/dL [facility] 04/07/2023 8:27 AM EDT 04/07/2023 8:33 AM EDT [facility] External Provider LAB BLO OD ORDERABLES Final Result [facility] [address] [place] [phone] * (ABNORMAL) CBC auto differential (04/07/2023 8:27 AM EDT) White Blood Count 7.1 4.8 - 10.8 X10*3/uL [facility] Red Blood Count 4.07(L) 4.20 - 5.50 X10*6/uL [facility] Hemoglobin 11.9(L) 12.0 - 16.0 g/dl [facility] Hematocrit 37.8 37.0 - 47.0 % [facility] Mean Corpuscular Volume 92.9 80.0 - 98.0 fL [facility] Mean Corpuscular Hemoglobin 29.2 27.0 - 33.0 pg [facility] Mean Corpuscular HGB Conc 31.5 31.0 - 35.0 g/dl [facility] Red Cell Distribution Width 12.4 11.0 - 16.0 % [facility] Platelet Count 247 160 - 400 X10*3/uL [facility] Mean Platelet Volume 10.9 9.4 - 12.3 fL [facility] Neutrophils Percent Auto 64.6 45 - 73 % [facility] Imm Gran Pct Auto 0.1 0.0 - 0.4 % [facility] Lymphocytes Percent Auto 27.2 20 - 40 % [facility] Monocytes Percent Auto 5.4 2 - 11 % [facility] Eosinophils Percent Auto 2.3 0 - 4 % [facility] Basophils Percent Auto 0.4 0 - 2 % [facility] NRBC Pct Auto 0.0 0.0 - 0.2 /100WBC [facility] Neutrophils Absolute Auto 4.6 2.0 - 8.3 x10*3/uL [facility] Imm Gran Abs Auto 0.01 0.00 - 0.03 X10*3/uL [facility] Lymphocytes Absolute Auto 1.9 1.2 - 4.9 X10*3/uL [facility] Monocytes Absolute Auto 0.4 0.1 - 1.2 X10*3/uL [facility] Eosinophils Absolute Auto 0.2 0.0 - 0.4 X10*3/uL [facility] Basophils Absolute Auto 0.0 0.0 - 0.2 X10*3/uL [facility] NRBC Abs Auto 0.000 0.0 - 0.012 X10*3/uL [facility] 04/07/2023 8:27 AM EDT 04/07/2023 8:33 AM EDT us [facility] External Provider LAB BLO OD ORDERABLES Final Result [facility] [address] [place] [phone] * Magnesium (12/31/2022 3:54 PM EDT) Magnesium 1.7 1.6 - 2.6 mg/dL [facility] 12/31/2022 3:54 PM EDT 12/31/2022 3:58 PM EDT [facility] External Provider LAB BLO OD ORDERABLES Final Result Performing Organization Address City/[facility]/ZIP Co de Phone Number [facility] [address] [place] [address] [phone] * (ABNORMAL) Basic Metabolic Panel (12/31/2022 3:54 PM EDT) Sodium 138 135 - 145 mmol/L [facility] Potassium 3.5 3.3 - 5.1 mmol/L [facility] Chloride 105 96 - 108 mmol/L [facility] Carbon Dioxide 25 22 - 29 mmol/L [facility] Anion Gap 12 12 - 20 [facility] Urea Nitrogen (BUN) 8(L) 9 - 16 mg/dL [facility] Creatinine, Serum 0.80 0.5 - 1.4 mg/dL [facility] Creatinine Clr Calc Pharmacy 92.4 [facility] Comment:Provided height and weight: 157.48 cm,72.575 kg.eGFR (calculated from the MDRD study equation) and eCrCl(calculated from the Cockcroft-Gault equation) are based ondifferent parameters and may not yield comparable results.If eCrCl result is absurd, please check patient'sheight/weight. Estimated Glomerular Filt Rate >60 [facility] Comment:NOTE: For -Am erican individuals, multiply the result by 1.210.Chronic Kidney Disease: Estimated GFR < 60 mL/min/1.37x8Oujbgp Kidney Disease: Estimated GFR < 15 mL/min/1.73m2 Glucose 156(H) 60 - 115 mg/dL [facility] Calcium 8.6 8.4 - 10.2 mg/dL [facility] 12/31/2022 3:54 PM EDT 12/31/2022 3:58 PM EDT [facility] External Provider LAB BLO OD ORDERABLES Final Result [facility] [address] [place] [phone] * Hepatic Function Panel (12/31/2022 3:54 PM EDT) [facility] Bilirubin, Total 0.4 0.0 - 1.0 mg/dL [facility] Bilirubin, Direct 0.1 0.0 - 0.5 mg/dL [facility] Aspartate Amino Transferase 13 5 - 31 U/L [facility] Alanine Aminotransferase 10 0 - 31 U/L [facility] Total Protein 6.9 6.5 - 8.0 g/dL [facility] Albumin Level 3.8 3.5 - 5.0 g/dL [facility] Alkaline Phosphatase 101 39 - 117 U/L [facility] 12/31/2022 3:54 PM EDT 12/31/2022 3:58 PM EDT [facility] External Provider LAB BLO OD ORDERABLES Final Result Performing Organization Address [facility] de Phone Number [facility] [address] [place] [phone] * (ABNORMAL) CBC auto differential (12/31/2022 3:54 PM EDT) [facility] White Blood Count 17.7(H) 4.8 - 10.8 X10*3/uL [facility] Red Blood Count 3.80(L) 4.20 - 5.50 X10*6/uL [facility] Hemoglobin 10.8(L) 12.0 - 16.0 g/dl [facility] Hematocrit 34.4(L) 37.0 - 47.0 % [facility] Mean Corpuscular Volume 90.5 80.0 - 98.0 fL [facility] Mean Corpuscular Hemoglobin 28.4 27.0 - 33.0 pg [facility] Mean Corpuscular HGB Conc 31.4 31.0 - 35.0 g/dl [facility] Red Cell Distribution Width 15.5 11.0 - 16.0 % [facility] Platelet Count 252 160 - 400 X10*3/uL [facility] Mean Platelet Volume 9.9 9.4 - 12.3 fL [facility] Neutrophils Percent Auto 89.4(H) 45 - 73 % [facility] Imm Gran Pct Auto 0.9(H) 0.0 - 0.4 % [facility] Lymphocytes Percent Auto 4.4(L) 20 - 40 % [facility] Monocytes Percent Auto 2.5 2 - 11 % [facility] Eosinophils Percent Auto 2.5 0 - 4 % [facility] Basophils Percent Auto 0.3 0 - 2 % [facility] NRBC Pct Auto 0.0 0.0 - 0.2 /100WBC [facility] Neutrophils Absolute Auto 15.9(H) 2.0 - 8.3 x10*3/uL [facility] Imm Gran Abs Auto 0.16(H) 0.00 - 0.03 X10*3/uL [facility] Lymphocytes Absolute Auto 0.8(L) 1.2 - 4.9 X10*3/uL [facility] Monocytes Absolute Auto 0.5 0.1 - 1.2 X10*3/uL [facility] Eosinophils Absolute Auto 0.4 0.0 - 0.4 X10*3/uL [facility] Basophils Absolute Auto 0.1 0.0 - 0.2 X10*3/uL [facility] NRBC Abs Auto 0.000 0.0 - 0.012 X10*3/uL [facility] 12/31/2022 3:54 PM EDT 12/31/2022 3:58 PM EDT us [facility] External Provider LAB BLO OD ORDERABLES Final Result [facility] [address] [place], [place] [phone] documented in this encounter Visit Diagnoses Not on filedocumented in this encounter Care Teams Dental Laboratory Technician Apprentice Relationship Specialty Start Date End Date Samira Michael MD [address] [place] [address] PCP - General Family Medicine 04/26/14 documented as of this encounter
--- OUTSIDE RECORDS SUMMARY | 2025-05-04 13:31 | XMS_ITS | Clinical Summary ---
Author Organization [employer] Address [address] [place] [address] 7 [place] [address] Care Team Providers Care Paper Machine Supervisor Name Role Phone Samira Michael MD Primary Care Provider [phone] Allergies Active Allergy Reactions Criticality Noted Date [...] DAILY 180 capsule 1 02/11/20 25 Active acetaminophen (Tylenol) 500 MG tablet Take 2 tablets (1,000 mg) by mouth every 6 (six) hours if needed for moderate pain or fever for up to 25 doses. 50 tablet 04/26/20 25 Active nitrofurantoin, macrocrystal-mon ohydrate, (Macrobid) 100 MG capsuleIndicatio ns:Urinary tract infection without hematuria, site unspecified Take 1 capsule (100 mg) by mouth 2 times daily for 7 days. 14 capsule 04/09/20 25 025 cefpodoxime (Vantin) 200 MG tablet Take 1 tablet (200 mg) by mouth 2 times daily for 7 days. 14 tablet 04/26/20 25 025 fluconazole (Diflucan) 150 MG tablet Take 1 tablet (150 mg) by mouth Once per day for 1 dose. May repeat dose in 3 days prn 2 tablet 04/26/20 025 Active Problems Problem Noted Date Diagnosed [...] (01/10/2025 5:49 PM EDT): - seen by client professional in 2021, normal TTE and holter - safely discharged from their care in Apr 2024 - 02/05/23 TC 212; TG 75; HDL 60; LDL 112 - continue working on management of modifiable risk factors. Assessment & Plan (04/29/2023 1:08 PM EDT): - seen by client professional in 2021, normal TTE and holter - safely discharged from their care on 02/05/23 - 02/05/23 TC 212; TG 75; HDL 60; LDL 112 - continue working on management of modifiable risk factors. Palpitation 02/05/2023 Assessment & Plan (01/10/2025 5:45 PM EDT): - following with [facility], last seen on 02/01/23 - normal Holter and TTE in Apr 2022 - likely POTS, since she became symptomatic after COVID - continue monitoring and current treatment Assessment & Plan (08/20/2023 10:54 AM EST): - following with [facility], last seen on 02/01/23 - normal Holter and TTE in Apr 2022 - likely POTS, since she became symptomatic after COVID - continue monitoring and current treatment Assessment & Plan (02/05/2023 9:32 AM EDT): - following with [facility], last seen on 02/01/23 - normal Holter and TTE in Apr 2022 - likely POTS, since she became symptomatic after COVID - continue monitoring and current treatment Precordial pain 02/05/2023 Assessment & Plan (01/10/2025 5:48 PM EDT): - less frequent, yet still symptomatic - following with client professional, [facility], last seen oin Apr 2024 - normal TTE and Holter on 04/18/22 Assessment & Plan (01/10/2024 4:15 PM EDT): - less frequent, yet still symptomatic - following with client professional, [facility], last seen on 02/01/23 - normal TTE and Holter on 04/18/22 - will evaluate with KEVIN Assessment & Plan (02/05/2023 9:30 AM EDT): - less frequent, yet still symptomatic - following with client professional, [facility], last seen on 02/01/23 - normal TTE and Holter on 04/18/22 - continue monitoring Obesity 02/04/2023 Assessment & Plan (01/10/2025 5:45 PM EDT): - Work on lifestyle modifications. Assessment & Plan (01/06/2024 12:08 PM EDT): - Work on lifestyle modifications. History of ovarian cyst 02/04/2023 POTS (postural orthostatic tachycardia syndrome) 02/04/2023 Assessment & Plan (01/10/2025 5:47 PM EDT): - followed by [facility], last seen on 04/30/24, safely discharged due to stability - normal Holter and TTE in Apr 2022 - likely POTS, since she became symptomatic after COVID - extensive work-up done, which revealed reassuring report for no CAD Assessment & Plan (01/10/2024 4:16 PM EDT): - following with [facility], last seen on 02/01/23 - normal Holter and TTE in Apr 2022 - likely POTS, since she became symptomatic after COVID - will evaluate with KEVIN Assessment & Plan (08/20/2023 10:54 AM EST): - following with [facility], last seen on 02/01/23 - normal Holter and TTE in Apr 2022 - likely POTS, since she became symptomatic after COVID - continue monitoring and current treatment Assessment & Plan (04/29/2023 1:09 PM EDT): - following with [facility], last seen on 02/01/23 - normal Holter and TTE in Apr 2022 - likely POTS, since she became symptomatic after COVID - continue monitoring and current treatment Assessment & Plan (02/05/2023 9:32 AM EDT): - Hx COVID19 - continue monitoring - will consult with cardiologists History of gestational diabetes mellitus 023 Assessment & Plan (01/10/2025 5:48 PM EDT): - during last 3760-0719 - diet-controlled - check A1C - continue working on lifestyle modification Assessment & Plan (02/05/2023 9:30 AM EDT): - during last 8101-9702 - diet-controlled - check A1C - continue [...] fluticasone, montelukast, and cetirizine - referred to research compliance specialist. Assessment & Plan (01/06/2024 12:08 PM EDT): - continue fluticasone, montelukast, and cetirizine - refer to research compliance specialist. Assessment & Plan (08/20/2023 4:40 AM EST): - continue fluticasone, montelukast, and cetirizine Asthma 02/18/2013 Assessment & Plan (01/10/2025 5:46 PM EDT): - continue mometasone (Asmanex) - continue albuterol both neb and HFA prn - continue montelukast - evaluated by condenser tube tender 09/17/2023. Pt had normal PFT. Recommended research compliance specialist referral. Assessment & Plan (01/06/2024 10:29 AM EDT): - change fluticasone to mometasone (Asmanex) - continue albuterol prn - continue montelukast - evaluated by condenser tube tender 09/17/2023. Pt had normal PFT. Recommended research compliance specialist referral. Assessment & Plan (08/20/2023 10:54 AM EST): - change fluticasone to mometasone (Asmanex) - continue albuterol prn - continue montelukast - refer to condenser tube tender to assess if pt will benefit from [...] Encounters Date Type Department Care Team Description 04/28/2025 Telephone [facility] [address] [place] [phone] Abad Balbuena MD 04/26/2025 11:00 AM EDT Office Visit [facility] [address] [place] [address] [phone] Abad Balbuena MD UTI symptoms 04/09/2025 10:20 AM EDT Office Visit [facility] [address] [place] [address] [phone] Bobo Mane MD Urinary tract infection without hematuria, site unspecified 04/09/2025 Travel 03/26/2025 Orders Only GENERIC EXTERNAL DATA DEPARTMENT Provider, Generic External Data 02/16/2025 Telephone [facility] [address] [place] [phone] Vanessa Trivedi MD 02/09/2025 Refill [facility] [address] [place] [phone] Raquel Gardner MD Abdominal pain, unspecified abdominal location 02/03/2025 Results Follow-Up [facility] [address] [place] [address] Samira Michael MD Basic Metabolic Panel, Magnesium from Last 3 Months Immunizations Immunization Administration [...] 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 file [...] - 3-dose series) 2003 HPV/Cotest 04/23/2022 04/23/2017 Cervical Cancer Screening 03/27/2025 Pap Smear 03/27/2025 03/27/2022 COVID-19 Vaccine ( season) 2025 09/06/2022, 11/10/2021, 10/03/2021, Additional history exists Influenza Vaccine (#1) 2025 , 05/18/2021, 05/18/2021, [...] Associated Diagnosis Comments CULTURE, URINE, ROUTINE Routine 04/26/2025 11:09 AM EDT UTI symptoms POCT URINALYSIS DIPSTICK Routine 04/26/2025 11:03 AM [...] Recently Relevant to Health Maintenance Results * Culture, Urine, Routine (04/26/2025 11:09 AM EDT) Only the most recent of2 resultswithin the time period is included. Urine Urine specimen obtained by clean catch procedure / Unknown 04/26/2025 11:09 AM EDT 04/26/2025 5:48 PM EDT Comment:UACC Narrative [facility] - 04/28/2025 10:27 AM EDT Lactobacillus species Quant 50,000 to 100,000 cfu/mL Specimen Source: Urine clean catch us Abad Balbuena MD LAB MICROBIOLOGY - GENERAL ORDER SRINI Final Result [facility] [address] [place] [phone] * (ABNORMAL) POCT urinalysis dipstick manually resulted [...] TEST ENTER/EDIT OR DERABLES Final Result * VITAMIN D 25-OH (D2 AND D3) (03/26/2025 11:46 AM EDT) Vitamin D, 25-OH, D2 <4 ng/mL [facility] Comment:This test was develo ped and its analytical performancecharacteristics have been determined by [address] [place], [place]. It hasnot been cleared or approved by the U.S. Food and DrugAdministration. This assay has been validated pursuantto the CLIA regulations and is used for clinicalpurposes.THIS TEST WAS PERFORMED AT:[employer] [id number] [place] [id number] OCNNELLY MD,PHD Vitamin D, 25-OH, D3 32 ng/mL [facility] Comment:This test was develo ped and its analytical performancecharacteristics have been determined by [address] [place], [place]. It hasnot been cleared or approved by the U.S. Food and DrugAdministration. This assay has been validated pursuantto the CLIA regulations and is used for clinicalpurposes. Vitamin D, 25-OH, Total 32 30 - 100 ng/mL [facility] Comment:Vitamin D, 25-Hydrox y reports [...] = 30 ng/mL.For additional information, please refer tohttp://education.Hometica/faq/DFC196(This link is being provided for informational/educational purposes only.) 03/26/2025 11:4 6 AM EDT 03/26/2025 11:46 AM EDT us Generic External Data Provider LAB BLOOD ORDERAB LES Final Result Performing Organization Address City/[facility]/ZIP Co de Phone Number [facility] [address] [place] [phone] * Vitamin B12 (Cobalamin) and Folate Panel, Serum (03/26/2025 11:46 AM EDT) Vitamin B12 424 200 - 900 pg/mL [facility] Comment:NORMAL 200-900 PG/M L INDETERMINATE 160-199 PG/ML DEFICIENT < 160 PG/ML Folate 12.8 > or = 4.0 ng/mL [facility] Comment:Reference Values:> o r = 4.0 ng/mL< 4.0 ng/mL suggests folate deficiency Methotrexate, aminopterin and folinic acid(leucovorin) are chemotherapeutic agents whose molecularstructures are similar to folate; therefore, the Architectfolate assay cannot be used for patients using these drugs. 03/26/2025 11:4 6 AM EDT 03/26/2025 11:46 AM EDT us Generic External Data Provider LAB BLOOD ORDERAB LES Final Result Performing Organization Address [facility] Co de Phone Number [facility] [address] [place] [phone] * TSH with Reflex to Free T4 (03/26/2025 11:46 AM EDT) TSH reflex Free T4 1.20 0.32 - 4.0 uIU/mL [facility] 03/26/2025 11:4 6 AM EDT 03/26/2025 11:46 AM EDT us Generic External Data Provider LAB BLOOD ORDERAB LES Final Result Performing Organization Address City/[facility]/ZIP Co de Phone Number [facility] [address] [place] [address] [phone] * Lipase (03/26/2025 11:46 AM EDT) Lipase 20 8 - 78 U/L [facility] 03/26/2025 11:4 6 AM EDT 03/26/2025 11:46 AM EDT us Generic External Data Provider LAB BLOOD ORDERAB LES Final Result [facility] [address] [place] [address] [phone] * (ABNORMAL) Comprehensive Metabolic Panel (03/26/2025 11:46 AM EDT) Sodium 141 135 - 145 mmol/L [facility] Potassium 4.1 3.3 - 5.1 mmol/L [facility] Chloride 104 96 - 108 mmol/L [facility] Carbon Dioxide 31(H) 22 - 29 mmol/L [facility] Anion Gap 10(L) 12 - 20 [facility] Urea Nitrogen (BUN) 10 9 - 16 mg/dL [facility] Creatinine, Serum 0.67 0.5 - 1.4 mg/dL [facility] Estimated Glomerular Filt Rate >60 [facility] Comment:Chronic Kidney Disea se: Estimated GFR < 60 mL/min/1.92z6Sepwho Kidney Disease: Estimated GFR < 15 mL/min/1.73m2 Glucose 99 60 - 115 mg/dL [facility] Calcium 9.3 8.4 - 10.2 mg/dL [facility] Bilirubin, Total 0.2 0.0 - 1.0 mg/dL [facility] Aspartate Amino Transferase 26 5 - 31 U/L [facility] Alanine Aminotransferase 21 0 - 31 U/L [facility] Total Protein 7.9 6.5 - 8.0 g/dL [facility] Albumin Level 4.5 3.5 - 5.0 g/dL [facility] Alkaline Phosphatase 77 39 - 117 U/L [facility] 03/26/2025 11:4 6 AM EDT 03/26/2025 11:46 AM EDT us Generic External Data Provider LAB BLOOD ORDERAB LES Final Result Performing Organization Address [facility]/ZIP Co de Phone Number [facility] [address] [place] [address] [phone] * Magnesium (02/03/2025 12:33 PM EDT) Magnesium 2.3 1.6 - 2.6 mg/dL [facility] Blood Venous blood specimen / Unknown 02/03/2025 12:33 PM EDT 02/03/2025 4:05 PM EDT us Samira Michael MD LAB BLOOD ORDERABLES Final Resul t Performing Organization Address [facility] Co de Phone Number [facility] [address] [place] [address] [phone] * (ABNORMAL) Basic Metabolic Panel (02/03/2025 12:33 PM EDT) Sodium 142 135 - 145 mmol/L [facility] Potassium 4.4 3.3 - 5.1 mmol/L [facility] Chloride 107 96 - 108 mmol/L [facility] Carbon Dioxide 27 22 - 29 mmol/L [facility] Anion Gap 12 12 - 20 [facility] Urea Nitrogen (BUN) 8(L) 9 - 16 mg/dL [facility] Creatinine, Serum 0.72 0.5 - 1.4 mg/dL [facility] Estimated Glomerular Filt Rate >60 [facility] Comment:Chronic Kidney Disea se: Estimated GFR < 60 mL/min/1.62e7Pbynfc Kidney Disease: Estimated GFR < 15 mL/min/1.73m2 Glucose 62 60 - 115 mg/dL [facility] Calcium 8.9 8.4 - 10.2 mg/dL [facility] Blood Venous blood specimen / Unknown 02/03/2025 12:33 PM EDT 02/03/2025 4:05 PM EDT us Samira Michael MD LAB BLOOD ORDERABLES Final Resul t Performing Organization Address [facility] Co de Phone Number [facility] [address] [place] [address] [phone] * (ABNORMAL) Lipid Panel with Reflex to Direct LDL (01/06/2024 10:55 AM EDT) Triglycerides 73 <150 mg/dL [facility] Comment:Desirable Triglyceri de: less than 150 mg/dLBorderline High Triglyceride 150-199 mg/dLHigh Triglyceride: 200-499 mg/dLVery High Triglyceride: greater than or equal to 5OO mg/dL Cholesterol 186 <200 mg/dL [facility] Comment:Desirable Cholestero l: less than 200 mg/dLBorderline High Cholesterol: 200-239 mg/dLHigh Cholesterol: greater than 239 mg/dL LDL Cholesterol Calculated 122(H) <100 mg/dL [facility] Comment:Desirable LDL: less than 100 mg/dLNear Optimal/Above Optimal LDL: 110- 129 mg/dLBorderline High LDL: 130-159 mg/dLHigh LDL: 160-189 mg/dLVery High LDL: greater than or equal to 190 mg/dL HDL Cholesterol 50 >40 mg/dL [facility] Comment:Desirable HDL: great er than 40 mg/dL Note: This HDL assay may give artificially low results in patients with liver disease. Blood 01/06/2024 10:5 5 AM EDT 01/06/2024 1:02 PM EDT Samira Michael MD LAB BLOOD ORDERABLES Final Resul t Performing Organization Address [facility]/ZIP Co de Phone Number [facility] [address] [place] [phone] * Hepatitis C Antibody with Reflex to HCV, RNA, Quantitative, Real-Time PCR (01/06/2024 10:55 AM EDT) Hepatitis C Antibody Nonreactive Nonreactive [facility] Comment:Antibodies to HCV no t detected; does not exclude early acuteHCV infection. Blood Venous blood specimen / Unknown 01/06/2024 10:55 AM EDT 01/06/2024 1:02 PM EDT Samira Michael MD LAB BLOOD ORDERABLES Final Resul t Performing Organization Address City/[facility]/ZIP Co de Phone Number [facility] [address] [place] [phone] * HIV-1/2 Antigen and Antibodies, Fourth Generation, with Reflexes (01/06/2024 10:55 AM EDT) HIV AB/AG Nonreactive Nonreactive [facility] Comment:HIV-1 p24 Ag and/or HIV-1/HIV-2 Ab not detected.A test result that is nonreactive does not exclude thepossibility of exposure to or infection with HIV-1 and/orHIV-2. Nonreactive results in this assay for individualswith prior exposure to HIV-1 and/or HIV-2 may be due toantigen and antibody levels that are below the limit ofdetection of this assay.The Uanbai HIV Ag/Ab Combo assay result andsupplemental assay [...] City/[facility]/ZIP Co de Phone Number [facility] [address] [place] [phone] * HM PAP/HPV (03/27/2022) Pap Smear 1. NILM 1. NILM us Historical Provider HEALTH MAINTENANCE Final Result * HPV mRNA E6/E7 (04/23/2017 11:03 AM EDT) HPV mRNA E6/E7 Not Detected NOT DETECTED [facility] Comment: This test was performed using the APTIMA(R) HPV Assay ([employer] This assay detects E6/E7 viral messenger RNA (mRNA) from 14 high-risk HPV types (16,18,31,33,35,39,45,51, 52,56,58,59,66,68). For additional information please refer to: http://education.Calester/faq/FBA587s8 (This link is being provided for informational/ educational purposes only.) Test Performed by [facility], [facility], [address] [place] [phone] Dagoberto Connelly M.D., Ph.D., Director of Laboratories , [place] [id number] Please note: Effective 05/14/2016, HPV testing will be performed using [employer]'s APTIMA test which targets mRNA. Detecting mRNA instead of DNA, as in older methods, offers significant improvements in specificity. 04/23/2017 11:0 3 AM EDT us Historical Provider HISTORICAL/NON ORDERABLE LABS Final Result [facility] [address] from Last 3 Months or Most Recently Relevant to Health Maintenance Insurance [employer] C3 Care Teams Paper Machine Supervisor Relationship Specialty Start Date End Date Samira Michael MD [address] [place] [phone] PCP - General Family Medicine 04/26/14
--- OUTSIDE RECORDS SUMMARY | 2025-05-04 13:31 | XMS_ITS | Encounter Summary ---
Author Organization [employer] Address [address] [place] [address] [address] [place] [address] Care Team Providers Care Administrative Services Manager Name Role Phone Samira Michael MD Primary Care Provider [phone] Reason for Referral * Consultation (Routine) - Closed Specialty Diagnoses / Procedures Referred By Kp abreu Referred To Contact Occupational Therapy Diagnoses Right lateral epicondylitis Samira Michael MD [address] [place] [phone] Phone: tel: fax: [facility] Physical Therapy [address] [place] [address] Phone: tel: fax: Referral ID Status Reason Start Date Expiration Date V isits Requested Visits Authorized [id number] Closed Specialty Services Required 01/28/2024 01/27/2025 20 20 Encounter Details Date Type Department Care Team (Late st Contact Info) Description 01/26/[address] 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
--- OUTSIDE RECORDS SUMMARY | 2025-05-04 13:31 | XMS_ITS | Encounter Summary ---
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
--- OUTSIDE RECORDS SUMMARY | 2025-05-04 13:31 | XMS_ITS | Encounter Summary ---
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
--- OUTSIDE RECORDS SUMMARY | 2025-05-04 13:31 | XMS_ITS | Encounter Summary ---
Author Organization [employer] Address [address] [facility] [address] [place] [address] Care Team Providers Care Line Locator Name Role Phone Samira Michael MD Primary Care Provider [phone] Encounter Details Date Type Department Care Team ([facility] st Contact Info) Description 09/24/2023 Orders Only [facility] [address] [place], [place] [phone] Samira Michael MD [address] [place], [place] [phone] Social History Tobacco Use Types Packs/Day Years [...] documented as of this encounter Care Teams Line Locator Relationship Specialty Start Date End Date Samira Michael MD [address] [place] [phone] PCP - General Family Medicine 04/26/14 documented as of this encounter
--- OUTSIDE RECORDS SUMMARY | 2025-05-04 13:31 | XMS_ITS | Encounter Summary ---
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
== END 2025-05-04 12:51 | disposition home or self-care (01) ==
LOC: HO.HCS 12:21
PROVIDERS: PCP Family Medicine; Visit Provider Internal Medicine
DX: R07.89 Other chest pain (principal)
CPT/HCPCS: 93010; 99213

== ENCOUNTER → 2025-05-04 12:20 | Outpatient (BNVA) | payer MEDICAID, SELFPAY | PROVIDERS: PCP Family Medicine; Visit Provider Internal Medicine | DX: R07.9 Chest pain, unspecified (principal) | CPT/HCPCS: 93005; 99212 ==